=== PATIENT | female | born 1960 | race Caucasian/White ===

== ENCOUNTER → 2016-10-01 | Outpatient (CLI) | payer MEDICARE, MEDICAID ==
[~2016-10-01] MED LIST: ALBUTEROL2.5 MG/NEB IN; AZITHROMYCIN250 M1 PO; BUSPIRONE HCL10 MG PO; CARVEDILOL6.25 MG PO; CEFDINIR 300MG300 MG PO; CIPRO 500MG TA500 MG PO; CLINDAMYCIN300 MG PO; DUONEB 3 MG/3 ML3 ML IH; GABAPENTIN 600600 MG PO; HCTZ/LISINOPRIL1 TAB PO; HUMULIN 70100 UNITS/ SC; HYDROCODONE BIT1 T39 PO; HYDROCODONE1 TABLET PO; LASIX 80MG. TAB80 MG PO; LEVAQUIN 750 M750 MG PO; LEVAQUIN500 MG PO; LEVOFLOXACIN 5500 M1 PO; LISINOPRIL HCTZ1 TAB PO; LORTAB 5/500 501 TAB PO; LOVASTATIN20 MG PO; MEDROL 4MG. DOSE4 MG PO; METFORMIN500 MG PO; METOCLOPRAMIDE5 MG PO; NEURONTIN 100100 MG PO; NEURONTIN800 MG PO; NICODERM C21 MG/24 H TD; NICOTINE PATCH;21 MG TD; NORCO1 TAB PO; NOVOLOG MIX 70/10 ML SC; OMEPRAZOLE20 MG PO; OMNICEF 300 MG300 MG PO; PEPCID 20MG TAB20 MG PO; PREDNISONE 10MG10 MG PO; PREDNISONE 20MG20 MG PO; Prilosec20 MG PO; RANITIDINE HCL300 M1 PO; ROBITUSSIN DM 105 ML PO; SEROQUEL XR200 MG PO; SEROQUEL XR300 MG PO; SPIRIVA18 MCG IH; SYMBICORT1 AE1 IH; TOPAMAX100 MG PO; TOPAMAX50 MG PO; TRADJENTA5 MG PO; VENLAFAXINE H37.5 M2 PO; VENLAFAXINE H37.5 MG PO; XANAX 0.5MG TA0.5 MG PO; XANAX0.5 MG NG; XANAX0.5 MG PO; ZITHROMAX Z PA250 MG PO; ZOLOFT100 MG PO
[2016-10-01 17:16] LABS: AMPHETAMINES/METAMPHETAMINES NEGATIVE ng/mL (<1000)
--- NOTE | 2016-10-01 17:48 | RADIOLOGY REPORT PS360 ---
PROCEDURE: 2-D M-mode and color Doppler study INDICATIONS FOR THE TEST: Chest pain COPD+ Heart Murmur Tobacco Smoking+ Palpitations Fatigue Syncope Edema+ Hypertension+Diabetes Mellitus+ Rheumatic Fever SOB+GARCIA Obesity+Hyperlipidemia Family History HD Additional History LOOP RECORDER PATIENT INFORMATION HEIGHT: WEIGHT: GENDER: Female B/P: 2-D/M-MODE INTERPRETATION: 2-D MEASUREMENTS OBSERVED VALUES IN CMS Right Ventricular Dimension (RVDd) 1.8 Interventricular Septum (Thickness)(IVsd) 1.2 Left Ventricular Internal Dimensions(LVIDd) 5.2 Left Ventricular Posterior Wall (Thickness)(LVPWd) 1.1 Aortic Root 3.1 Aortic Cusp Separation 1.9 Left Atrial Dimensions (LAD) 3.9 2D 1. The left atrium is qualitatively mildly enlarged, the left ventricle is normal size, there is mild concentric left ventricular hypertrophy, visually estimated ejection fraction 55% with no obvious regional wall motion abnormality. Endocardial surface are somewhat poorly visualized. 2. The right-sided chambers are relatively normal size and function. 3. The aortic valve is minimally thickened and fibrosed there is no aortic stenosis. 4. The mitral and tricuspid valve restructure normal. 5. The pulmonic valve not well visualized. 6. No significant pericardial effusion noted. DOPPLER INTERROGATION: The Doppler interrogation of the aortic mitral and tricuspid valve reveals presence of trace mitral and tricuspid regurgitation, tricuspid regurgitant jet velocity insufficient for calculation of the right ventricular systolic pressure. Grade 1 diastolic dysfunction seen without Doppler evidence of raised left atrial pressure. CONCLUSION: 1. Mildly enlarged left atrium, normal left ventricular size, mild concentric left ventricular hypertrophy, visually estimated ejection fraction 55% with no obvious regional wall motion abnormality, grade 1 diastolic dysfunction, without Doppler evidence of raised left atrial pressure. 2. Trace mitral and tricuspid regurgitation 3. No significant pericardial effusion noted.
== END ==
LOC: LAB 12:18 → RT 12:18
PROVIDERS: Emergency Medicine
DX: I25.10 Atherosclerotic heart disease of native coronary artery without angina pectoris (principal); I10 Essential (primary) hypertension; R60.9 Edema, unspecified; N18.9 Chronic kidney disease, unspecified; Z79.899 Other long term (current) drug therapy

== ENCOUNTER 2016-12-14 15:40 | Emergency (ER) | payer MEDICARE, MEDICAID ==
[~2016-12-14] VITALS: Ht 165.1 cm; Wt 86.2 kg
[~2016-12-14 15:40] MED LIST changes: +DOXYCYCLINE HY100 M4 PO; +HUMULIN 70/30 KW3 ML SC; +PANTOPRAZOLE SO40 M1 PO; +PROAIR HFA0.09 MG/AC IH; +ZITHROMAX Z-PA250 M2 PO
--- NOTE | 2016-12-14 15:55 | Emergency Room Report ---
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 Clinical Suspician of Infection? Mental Status: Sepsis Risk: Have you (or family members/close friends) recently traveled outside the [place]? If Yes, where/when: Have you had exposure to infectious disease within the past month? TB? Other? Specify: Source patient, RN notes reviewed Exam Limitations no limitations Comment Pt comes to the ED stating she fell in her home at 8:30Am and landed on her left hip. She has been walking but comes to the ED now with worsening pain in left hip and down left leg. Pt appears to be very histrionic ALLERGIES Coded Allergies: Sulfa (Sulfonamide Antibiotics) (Mild, 12/07/16) celecoxib (From CELEBREX) (Mild, 12/07/16) tramadol (Mild, 12/07/16) Penicillins (I-RASH 07/10/16) aspirin (I-RASH 07/10/16) bupropion (07/10/16) citalopram (SKIN PEEL 07/10/16) codeine (07/25/16) duloxetine (07/10/16) erythromycin base (I-RASH 07/10/16) naproxen (07/10/16) pregabalin (07/10/16) terbutaline (SWELLS THROAT 07/10/16) Home Medications Active Scripts Prednisone (Prednisone 10MG) 10 MG PO DAILY #27 TAB Prov: 12/07/16 Doxycycline Hyclate (Vibramycin) 100 MG PO BID #20 CAP Prov: 12/07/16 Discontinued Scripts Azithromycin (Zithromax) 250 MG PO DAILY #4 TAB Prov: 12/07/16 DC: 12/07/16 0805 Reported Medications SERTRALINE HYDROCHLORIDE (Zoloft 100MG) 150 MG PO DAILY Buspirone Hcl (Buspirone 10MG) 15 MG PO TID Famotidine (Pepcid 20MG Tablet) 20 MG PO BID Topiramate (Topamax) 150 MG PO QHS Furosemide (Lasix 80MG) 80 MG PO BID Carvedilol (Carvedilol 6.25MG) 6.25 MG PO BID Lovastatin 10 MG PO DAILY Pantoprazole Sodium 40 MG PO DAILY #90 Albuterol Sulfate (Proair Hfa) 1 PUFF IH Q6HP PRN COPD #8 Quetiapine Fumarate (Seroquel Xr) 200 MG PO DAILY INSULIN NPH HUM/REG INSULIN HM (Humulin 70/30 Kwikpen) 3 ML SC BID #30 History Medical History General CAD? No Angina: Yes MA: No Hypertension? Yes Hyperlipidemia? No CHF? No DVT? No PE? No COPD? Yes Asthma? Yes Anemia? No GERD? Yes Gastric ulcers? Yes GI Bleed? No Hernia? Yes Thyroid Problems? No Hypothyroidism? No CVA? Yes Seizures? No Diabetes? Yes Insulin Dependent: Yes Insulin Pump: No Home FSBS? Yes Renal Insuffiency? No End Stage Renal Disease? No UTI? Yes Stones? Yes BPH? No GB Disease: Yes Nephritic Syndrome? No Asplenia? No Hepatitis? No Sickle Cell Disease? No Arthritis? Yes Migraines? Yes Cataracts? No Glaucoma? No MRSA? Yes HIV? No TB? No Anxiety? Yes Depression? Yes Cancer? Yes Site: CERVICAL CA More? No Immunization Hx DT/Tetanus Unknown Flu Refused Pneumonia Unknown Surgical Hx Previous Surgery?Y TUBAL LIGATION BOAZ [employer] APPENDECTOMY TONSILLECTOMY CYST REMOVAL RT.WRIST X2 TEETH REMOVAL HEART CATH Family History Family Hx Diabetes Yes CAD Yes Hypertension Yes Hyperlipidemia Yes Cancer Yes TB Yes Social History Smoking Hx Packs/day 1 1/2 - 2 Packs Alcohol Alcohol: No Review of Systems All Other Systems Reviewed and Negative Constitutional see HPI Musculoskeletal no symptoms reported Physical Exam Vital Signs Vital Signs Date Time Temp Pulse Resp B/P Pulse O2 O2 Flow FiO2 Ox Delivery Rate 12/14 1721 97.6 74 18 107/62 96 12/14 1630 72 18 108/62 98 12/14 1547 98.0 81 18 118/62 97 General Appearance normal appearance, mild distress Respiratory Status No: respiratory distress. 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 No Results/Orders Orders Procedure Date/time Status LUMBAR SPINE 5 VIEWS 12/14 161 Active HIP LT 2-3V W/PELVIS IF PERFOR 12/14 161 Active Departure Departure Time of Disposition 175 Disposition DC Home or Self Care(routine) Clinical Impression Primary Impression: Left hip pain Condition STABLE Referrals Arin GOODE,Alberto Stone (Family): 2 Days-Call Office Patient Instructions Help for Hip Pain Additional Instructions Alternate ice and heat and use whichever helps the most. If radiologist sees anything broken, I will give pt. a call tomorrow Discharge Counseling Counseled pt/family regarding diagnosis, test results, medications/RX, home care, follow up needs ED Critical Care Critical Care No If Critical Care minutes are documented, the time involved in the performance of seperately reportable procedures was not counted toward critical care time documented. I directly delivered medical care to this critically ill and/or injured patient. Timely evaluation and treatment was necessary to address the significant organ system(s) dysfunction present in this patient. at 1756
[2016-12-14 18:05] VITALS: BP 109/74
--- NOTE | 2016-12-14 18:07 | RADIOLOGY REPORT PS360 ---
LUMBAR SPINE 5 VIEWS Ordering Physician: Reece Matthews MD Patient Age: 56 years: Female HISTORY: fall with injurylow back pain TECHNIQUE: E lumbar spine series COMPARISON the recent MRI L-spine September [address] lumbar spine abdomen utilized as well FINDINGS Lumbar vertebral bodies themselves are intact with there is grade 1 anterolisthesis of L4 on 5 noted. 3 mm anterolisthesis appears mainly due to the prominent degenerative facet changes at L4/5. Degenerative facet changes are also seen at L3/4 and L5/S1 but not quite as pronounced. Mild Anterior marginal osteophytes of the spine.. There is slight decreased height is seen at T11 and T12 of this is similar to the September 2016 MRI. And recent chest film. Postsurgical changes in the pelvis. Diffuse atherosclerotic calcification aorta but no aneurysm. IMPRESSION: ...... No no L-spine new or acute findings Prominent degenerative facet changes at the lower L-spine. With this there is mild grade 1 degenerative anterolisthesis of L4 on L5 due to the prominent facet changes and mild degenerative disc space narrowing. There is also less pronounced facet hypertrophy at L3/4 and L5/S1. (Note Recent September MRI lumbar did show moderate spinal stenosis at L3/4 follow-up L4/5/.) Very Subtle slight decreased height T11 and T12 of similar to several previous studies age situated oblique by projection. T spine.
--- NOTE | 2016-12-14 18:11 | RADIOLOGY REPORT PS360 ---
HIP LT 2-3V W/PELVIS IF PERFOR Ordering Physician: Reece Matthews MD Patient Age: 56 years: Female HISTORY: fall with injuryhip pain left pelvic pain TECHNIQUE: AP and crosstable lateral view left hip along with AP pelvis. COMPARISON. Plain films abdomen from October 2009. CT abdomen 11/08/2009 FINDINGS . There is a corticated fragment off the superior/ posterior aspect the left acetabulum which is old and is been present since 2010 comparison studies. Significant change. No acute fracture. The no acute findings at the left femoral head or neck proximal femur. The patient does demonstrate some generous hypertrophic changes about the superior base of the femoral head. There there is also some dystrophic calcification just superior to the greater trochanter. Osseous pelvis is intact. The right hip intact on the AP view. SI joints sacrum unremarkable. Postsurgical changes pelvis. Bones well mineralized IMPRESSION 1. Stable left hip. With no acute findings Osseous pelvis intact. Unchanged as well. 2. Old fragment at the superior, posterior acetabulum unchanged 2009 comparison studies. 3. Hypertrophic changes about the base of femoral head most evident superiorly.
--- OUTSIDE RECORDS SUMMARY | 2016-12-15 23:22 | External Medical Summary Rpt ---
Author Author , Organization [employer] Address Unknown Phone Unavailable Care Team Providers Care Licensing Worker Name Role Phone Akeneo, Unavailable Unavailable Akeneo ALFARIS MOH, ALFARIS Unavailable Unavailable MOH [facility] Unavailable Unavailable [facility], [facility] Unavailable Unavailable [facility], [facility] GRAYSON JOSIANE, GRAYSON JOSIANE Unavailable Unavailable GRANT BRO, GRANT Unavailable Unavailable BRO BEINEKE MIGUEL, BEINEKE Unavailable Unavailable MIGUEL BERNERT, BERNERT Unavailable Unavailable BESSON CRISTIANO, BESSON Unavailable Unavailable CRISTIANO SNYDER, SNYDER Unavailable Unavailable SNYDER ALL, SNYDER ALL Unavailable Unavailable NATHANIEL, NATHANIEL Unavailable Unavailable [facility] Unavailable Unavailable SERVICE, [facility] CHINA DORIS, CHINA Unavailable Unavailable DORIS [facility] Unavailable Unavailable REHABILITATION, [facility] Unavailable Unavailable [facility] Unavailable Unavailable [facility], Unavailable Unavailable [facility] JESUS, JESUS Unavailable Unavailable NILA, NILA Unavailable Unavailable NILA IZABEL, Unavailable Unavailable NILA IZABEL [facility] Unavailable [facility], [facility] RILEY, RILEY Unavailable Unavailable RILEY KIN, RILEY KIN Unavailable Unavailable ERLANDSON, ERLANDSON Unavailable Unavailable FALLIS ML, FALLIS Unavailable Unavailable ML FALLUJI RUTH, FALLUJI Unavailable Unavailable RUTH ELDER, ELDER Unavailable Unavailable ELDER MANUELA, ELDER Unavailable Unavailable MANUELA VERNOIKA GUSTAVO, VERONIKA Unavailable Unavailable GUSTAVO [facility], Unavailable Unavailable [facility] Unavailable Unavailable INC, [facility] Unavailable Unavailable HOSPITAL P, [facility] P FIELDS FR[facility], [facility] Unavailable Unavailable [facility], Unavailable Unavailable [facility] MARSHALL CRISTIANO, MARSHALL CRISTIANO Unavailable Unavailable MARCUS III, MARCUS Unavailable Unavailable III [facility] Un[facility], [facility] Un[facility], [facility] PARKER LUCY, PARKER LUCY Unavailable Unavailable [facility] VIDALES CRISTIANO, VIDALES CRISTIANO Unavailable Unavailable CHAD JR DWI, CHAD Unavailable Unavailable JR DWI [facility] Unavailable Unavailable INTERNAL MED, [facility] ROHAN, JR., ROHAN, JR. Unavailable Unavailable [facility] Unavailable Unavailable SERVICES, [facility] PHAN, CHISHOLM Unavailable Unavailable MCKEMIE JR MARIA ELENA, Unavailable Unavailable MCKEMIE JR MARIA ELENA FUENTES-GARCIA HERI, Unavailable Unavailable FUENTES-GARCIA HERI [facility], Unavailable Unavailable PLL[facility], [facility] ANDRES LOPEZ, Unavailable Unavailable ANDRES LOPEZ [facility], Unavailable Unavailable [facility] Unavailable Unavailable AMBULANCE, [facility] Unavailable Unavailable AMBULANCE, [facility] SADEK MOH, SADEK MOH Unavailable Unavailable SCHLEENBAKER, Unavailable Unavailable SCHLEENBAKER SCIFRES, SCIFRES Unavailable Unavailable SCIFRES ANG, SCIFRES Unavailable Unavailable ANG [facility], Unavailable Unavailable [facility] LINA MAT, Unavailable Unavailable LINA MAT REYNOSO HERMINIA, REYNOSO HERMINIA Unavailable Unavailable [facility] Unavailable Unavailable [facility], [facility] Unavailable Unavailable [facility], [facility] SOTINGEANU MIGUEL, Unavailable Unavailable SOTINGEANU MIGUEL [facility] Unavailable Unavailable EMERGENCY PHYS, [facility] Juan Manuel Noonan MD, Unavailable Unavailable Juan Manuel Noonan MD PENA MANUELA, PENA Unavailable Unavailable MANUELA TRUE RAE, TRUE RAE Unavailable Unavailable [facility] Unavailable Unavailable HOSPITALS, [facility] Klever Griffin MD, Unavailable Unavailable Klever Griffin MD [facility] Unavailable Unavailable [facility], [facility] WEHRMAN III MARIA ELENA, Unavailable Unavailable WEHRMAN III MARIA ELENA [facility] Unavailable [facility]available [facility], Unavailable [facility]available [facility] ZAGUROVSKAYA MAR, Unavailable Unavailable ZAGUROVSKAYA MAR Purpose Continuity of Care Document - 04-13-2012 through 2016 Problems Code Diagnosis DOS Provider Status [id number] 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-08-2016 [facility] BILATERAL J449 CHRONIC 11-02-2016 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 MEDICAL DISEASE UNS EQUIPME E119 TYPE 2 10-30-[address] [facility] DIABETES PHYSICIANS MELLITUS GROUP WITHOUT COMPLICATIO NS I10 ESSENTIAL 10-30-[address] [facility] PRIMARY PHYSICIANS HYPERTENSIO GROUP N M549 DORSALGIA 10-30-[address] [facility] UNSPECIFIED PHYSICIANS GROUP N289 DISORDER OF 10-30-2016 [facility] URETER INC UNSPECIFIED R0602 SHORTNESS 10-30-2016 [facility] OF BREATH [facility] INC [id number] OTHER LONG 10-30-[address] 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 NOT PHYSICIANS SPECIFIED GROUP ACUTE OR CHRONIC E663 OVERWEIGHT 10-01-[address] [facility] PHYSICIANS GROUP L0390 CELLULITIS 10-01-[address] [facility] UNSPECIFIED PHYSICIANS GROUP R609 EDEMA 10-01-2016 [facility]NSPECIFIED [facility] INC E118 TYPE 2 09-25-2016 [facility] DIABETES [facility] MELLITUS INC W/UNS COMPLICATIO NS M4316 SPONDYLOLIS 09-23-2016 [facility] REGION M4806 SPINAL 09-23-2016 [facility] STENOSIS [facility]ICAL LUMBAR IMAGING ASS REGION M5126 OTH 09-23-2016 [facility] 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 M545 LOW BACK 09-23-2016 [facility] PAIN [facility] R300 DYSURIA 08-26-[address] [facility]ANS [facility] G894 CHRONIC 08-13-2016 [facility] SYNDROME [facility] M792 NEURALGIA 08-13-2016 [facility] NEURITIS [facility] UNSPECIFIED N179 ACUTE 08-13-2016 [facility] FAILURE [facility] UNSPECIFIED R2689 OTHER 08-13-2016 [facility] ABNORMALITI SERV ES OF GAIT FOUNDATION AND MOBILITY R5381 OTHER 08-13-2016 [facility] MALAISE [facility] M97308 PAIN IN 08-12-2016 [facility] RIGHT LEG SERV [facility] M7989 OTHER 08-12-2016 [facility] SPECIFIED SERV SOFT TISSUE FOUNDATION DISORDERS R279 UNSPECIFIED 08-12-2016 [facility] OF AMBULANCE COORDINATIO N R52 PAIN 08-11-2016 [facility] UNSPECIF[facility]ICAL RESPONSE Z794 LONG-TERM 08-08-2016 [place] [facility] OF INSULIN [facility] M542 CERVICALGIA 08-05-2016 [facility] E1165 TYPE 2 08-01-2016 [facility] [place] [place] MELLITUS REHAB[place]IT[place]YCEM [place] G9341 METABOLIC 08-01-2016 [facility] ENCEPHALOPA SERV THY [facility]ATION I129 HYPERTENSIV 08-01-2016 [facility] E CKD SERV W/STAGE 1-4 FOUNDATION CKD OR UNS CKD I130 HTN HEART & 08-01-2016 [facility] CKD W/HF & [place]ILL CKD STAGE REHABILITAT 1-4 OR UNS ION CKD I509 HEART 08-01-2016 [facility] FAILURE [facility] UNSPECIFIED REHABILITAT ION I959 HYPOTENSION 08-01-2016 [facility] UNSPECIFIED F[facility]ATION J9610 CHRONIC 08-01-2016 [facility]PIRATORY SERV FAIL UNS FOUNDATION HYPOXIA/HYP ERCAPNIA K219 GASTRO-ESOP 08-01-2016 [facility] H REFLUX [place] DISEASE REHABILITAT WITHOUT ION ESOPHAGITIS R571 HYPOVOLEMIC 08-01-2016 [facility] SHOCK SERV [facility] I499 CARDIAC 07-31-2016 [facility] ARRHYTHMIA SERV UNSPECIFIED FOUNDATION J9620 ACUTE 07-31-2016 [facility] CHRONIC SERV RESP FAIL FOUNDATION UNS HYPOXIA/HYP ERCAPNIA A419 SEPSIS 07-29-2016 [facility] UNSPECIFIED SERV ORGANISM FOUNDATION I491 ATRIAL 07-29-2016 [facility] PREMATURE [facility] DEPOLARIZAT FOUNDATION ION R000 TACHYCARDIA 07-29-2016 [facility] UNSPECIFIED FOUNDATION R6521 SEVERE 07-29-2016 [facility] SEPS[facility] WITH SERV SEPTIC [facility] SHOCK R9431 ABNORMAL 07-29-2016 [facility] ELECTROCARD SERV IOGRAM [facility] A047 ENTEROCOLIT 07-27-2016 [facility] IS DUE TO SERV CLOSTRIDIUM FOUNDATION DIFFICILE E1122 TYPE 2 07-26-2016 [facility]ALS W/DIAB CHRON KIDNEY DZ E872 ACIDOSIS 07-26-2016 [facility] G9340 ENCEPHALOPA 07-26-2016 [facility] THY SERV UNSPECIFIED FOUNDATION I348 OTHER 07-26-2016 [facility] 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 I5020 UNSPECIFIED 07-26-2016 [facility] SYSTOLIC SERV CONGESTIVE FOUNDATION HEART FAILURE I517 CARDIOMEGAL 07-26-2016 [facility] Y SERV [facility] J9621 ACUTE & 07-26-2016 [facility] RESPIRATORY HOSPITALS FAILURE WITH HYPOXIA J9690 RESP FAIL 07-26-2016 [facility] UNS UNS SERV WHETHER [facility]OUND[facility] W/HYPOXIA/H YPERCAPNIA N170 ACUTE RENAL 07-26-2016 [facility]ARE WITH HOSPITALS TUBULAR NECROSIS R109 UNSPECIFIED 07-26-2016 [facility] ABDOMINAL SERV PAIN [facility] R918 OTHER 07-26-2016 [facility] NONSPECIFIC SERV ABNORMAL FOUNDATION FINDING OF LUNG FIELD Z452 ENCOUNTER 07-26-2016 [facility]JUSTMENT& SERV MGMT [facility] VASCULAR ACCESS DEVICE U01872 ELEVATED 07-25-2016 [facility] WHITE BLOOD [facility], CELL COUNT PLLC UNSPECIFIED R34 ANURIA AND 07-25-2016 [facility] OLIGURIA [facility], PLLC Z720 TOBACCO USE 07-25-2016 [facility] R0782 INTERCOSTAL 07-15-2016 [facility] R0789 OTHER CHEST 07-15-2016 [facility] [id number] CONTUSION 07-15-[address] [facility] RT FRONT PHYSICIANS WALL THORAX GROUP INITIAL ENCOUNTER C5905VN MULTIPLE FX 07-15-[address] [facility] RIBS UNS PHYSICIANS SIDE INIT GROUP ENC CLOS FRACTURE A05601 PAIN IN 07-10-2016 [facility] RIGHT UPPER MEDICAL ARM IMAGING ASS R0781 PLEURODYNIA 07-10-2016 [facility] [id number] CONTUSION 07-10-2016 [facility] U[facility] FRONT PHYSICIANS, WALL THORAX PLLC INITIAL ENCNTR N1336CD UNS INJURY 07-10-2016 [facility] RT SHOULDER MEDICAL UPPER ARM IMAGING ASS INITIAL ENCNTR N3000 ACUTE 06-28-[address] [facility] CYSTITIS PHYSICIANS WITHOUT GROUP HEMATURIA Z23 ENCOUNTER 06-28-[address] [facility] FOR PHYSICIANS IMMUNIZATIO GROUP N C08378 CHRONIC 05-13-[address] [facility] MIGRAINE PHYSICIANS W/O AURA GROUP INTRACT W/O STAT MIGR P97669 OTH 05-13-[address] [facility] MIGRAINE PHYSICIANS NOT INTRACT GROUP W/O STATUS MIGRAINOSUS G629 POLYNEUROPA 04-29-[address] [facility] THY PHYSICIANS UNSPECIFIED GROUP H6690 OTITIS 04-22-2016 [facility] P UNSPECIFIED EAR J209 ACUTE 04-22-2016 [facility] BRONCHITIS PHYSICIANS, UNSPECIFIED PLLC J441 CHRONIC 04-22-2016 [facility] OBSTRUCTIVE PHYSICIANS, PULMONARY PLLC DZ W/EXACERBAT ION Z9981 DEPENDENCE 04-22-2016 [facility] P L OXYGEN R002 PALPITATION 04-17-2016 [facility] S [facility] INC R1310 DYSPHAGIA 04-17-2016 [facility] UNSPECIFIED [facility] INC R42 DIZZINESS 04-17-2016 [facility] AND [facility] GIDDINESS INC R4702 DYSPHASIA 04-17-2016 [facility] R55 SYNCOPE AND 04-17-2016 [facility] COLLAPSE [facility] INC E875 HYPERKALEMI 04-03-2016 [facility] A [facility] INC I159 SECONDARY 04-03-2016 [facility] HYPERTENSIO [facility] N INC UNSPECIFIED J440 COPD WITH 04-03-2016 [facility] ACUTE LOWER [facility] INC RESPIRATORY INFECTION R062 WHEEZING 04-02-2016 [facility] R079 CHEST PAIN 04-02-2016 [facility] UNSPECIFIED [facility]ICAL IMAGING ASS 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 12-21-2015 [facility] IDIOPATHIC NEUROPATHY UNSPECIFIED E1141 TYPE 2 12-14-2015 [facility] DIABETES MELLITUS W/DIAB MONONEUROPA THY I739 PERIPHERAL 12-14-2015 [facility] VASCULAR DISEASE UNSPECIFIED I890 LYMPHEDEMA 12-14-2015 [facility] NOT ELSEWHERE CLASSIFIED M2570 OSTEOPHYTE 12-14-2015 [facility] UNSPECIFIED JOINT 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 FIBROMATOSI S R42547 PAIN IN 12-14-2015 [facility] RIGHT FOOT U55890 PAIN IN LEG 12-05-2015 [facility] UNSPECIFIED INC M779 ENTHESOPATH 11-30-2015 [facility] Y [facility] UNSPECIFIED INC G4733 OBSTRUCTIVE 11-09-2015 [facility] SLEEP [facility] APNEA ADULT INC PEDIATRIC H3500 UNSPECIFIED 11-03-2015 [facility] RETINOPATHY I119 HYPERTENSIV 10-31-[address] [facility] E HEART PHYSICIANS DISEASE GROUP WITHOUT HEART FAILURE I209 ANGINA 10-31-[address] [facility] PECTORIS PHYSICIANS UNSPECIFIED GROUP W61404 PAIN IN 10-24-2015 [facility] LEFT THIGH MEDICAL IMAGING ASS R1032 LEFT LOWER 10-24-2015 [facility] QUADRANT [facility] PAIN INC E785 HYPERLIPIDE 10-12-2015 [facility] MEDICAL UNSPECIFIED IMAGING ASS I5189 OTHER 10-12-2015 [facility] ILL-DEFINED [facility] HEART INC DISEASES I779 DISORDER OF 10-12-2015 [facility] ARTERIES [facility] AND INC ARTERIOLES UNSPECIFIED R0989 OT SPEC SX 10-12-2015 [facility] & SIGNS MEDICAL INVLV THE IMAGING ASS CIRC & RESP SYS D02177 PERSONAL 10-03-[address] [facility] HISTORY OF PHYSICIANS NICOTINE GROUP DEPENDENCE D70492 PAIN IN 09-21-2015 [facility] LEFT FOOT M7732 CALCANEAL 09-19-2015 [facility] SPUR LEFT MEDICAL FOOT IMAGING ASS J432 CENTRILOBUL 09-16-2015 [facility]ICAL EMPHYSEMA IMAGING ASS F16987 UNSPECIFIED 09-16-[address] [facility] ASTHMA PHYSICIANS UNCOMPLICAT GROUP ED R05 COUGH 09-13-2015 [facility] Z131 ENCOUNTER 09-06-2015 [facility] FOR [facility] SCREENING INC FOR DIABETES MELLITUS Z5181 ENCOUNTER 08-21-2015 [facility] FOR [facility] THERAPEUTIC INC DRUG LEVEL MONITORING A084 VIRAL 07-24-2015 [facility] INFECTION INTERNAL UNSPECIFIED MED 496 CHRONIC 05-05-2015 [facility] MEDICAL NEC EQUIPME 98157 DIAB W/O 03-08-2015 [facility] COMP TYPE VALLEY II/UNS NOT INTERNAL STATED MED UNCNTRL 2724 OTHER AND 03-08-2015 [facility] UNSPECIFIED VALLEY INTERNAL HYPERLIPIDE MED JESSICA 45671 ESOPHAGEAL 03-08-2015 [facility] REFLUX [facility] INTERNAL MED 7804 DIZZINESS 03-08-2015 [facility] AND [facility]LEY GIDDINESS INTERNAL MED 35181 DIAB 11-28-2014 [facility] W/NEURO VALLEY MANIFESTS INTERNAL TYPE II/UNS MED NOT UNCNTRL 64864 OBSTRUCTIVE 11-28-2014 [facility] CHRONIC [facility] BRONCHITIS INTERNAL WITH MED EXACERBATIO N 4439 UNSPECIFIED 11-01-2014 [facility] PERIPHERAL HEALTH VASCULAR MEDICAL G DISEASE 14800 ULCER OF 11-01-2014 [facility] OTHER PART [facility]ICAL G [place] 3572 POLYNEUROPA 10-13-2014 [facility] THY IN [facility] DIABETES INC 7295 PAIN IN 10-13-2014 [facility] SOFT [facility] TISSUES OF INC LIMB 4019 UNSPECIFIED 08-25-2014 [facility] ESSENTIAL [facility] HYPERTENSIO INC N 4139 OTHER AND 08-25-2014 [facility] UNSPECIFIED [facility] ANGINA INC PECTORIS 515 POSTINFLAMM 08-25-2014 [facility] ATORY [facility] PULMONARY INC FIBROSIS V1204 PERSONAL HX 08-25-2014 [facility] OF [facility] METHICILLIN INC RESIST STAPH AUREUS V148 PERSONAL 08-25-2014 [facility] HISTORY [facility] ALLERGY OTH INC SPEC MEDICINAL AGTS V5867 LONG-TERM 08-25-2014 [facility] USE OF [facility] INSULIN INC 7862 COUGH 08-23-2014 [facility] 31194 DIAB W/O 07-29-2014 CLINIC COMP TYPE I PHARMACY [JUV] NOT STATED UNCNTRL 7245 UNSPECIFIED 07-22-2014 [facility] BACKACHE [facility] INC V571 OTHER 07-22-2014 [facility] PHYSICAL [facility] THERAPY INC 7213 LUMBOSACRAL 06-28-2014 [facility] SPONDYLOSIS IMAGING ASS WITHOUT MYELOPATHY 90753 DISPLCMT 06-28-2014 [facility] LUMBAR MEDICAL INTERVERT IMAGING ASS DISC W/O MYELOPATHY 57521 DEGEN 06-28-2014 [facility] 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 7243 SCIATICA 06-28-2014 [facility] INC 7242 LUMBAGO 06-21-2014 [facility] 60461 CHEST PAIN 04-01-2014 [facility] U[facility]PECIFIED SERV FOUNDATIO 26495 UNSPECIFIED 01-03-2014 [facility] RETINOPATHY 7823 EDEMA 09-17-2013 [facility] 4293 CARDIOMEGAL 09-15-2013 [facility] Y [facility] 24053 CHRONIC 09-15-2013 [facility] P WITH EXACERBATIO N 84169 OTHER 09-15-2013 [facility] DISEASES OF MEDICAL LUNG NOT IMAGING ASS ELSEWHERE CLASSIFIED 03177 WHEEZING 05-02-2013 [facility] 7812 ABNORMALITY 01-29-2013 [facility] OF GAIT [facility] INC 486 PNEUMONIA, 12-14-2012 [facility] ORGANISM [facility] UNSPECIFIED INTERNAL MED 76293 METHICILLIN 12-03-2012 [facility] RESISTANT [place] STAPHYLOCOC INTERNAL CUS AUREUS MED 4660 ACUTE 12-03-2012 [facility] BRONCHITIS [place] INTERNAL MED 98119 ASTHMA, 12-03-2012 [facility] UNSPECIFIED VALLEY , INTERNAL UNSPECIFIED MED STATUS 09171 METHICILLIN 12-01-2012 [facility] PNEUMONIA HOSPITAL P D/T STAPH AUREUS 25462 OTHER 12-01-2012 [facility] DYSPNEA [facility] RESPIRATORY ABNORMALITI ES 485 BRONCHOPNEU 08-27-2012 [facility] [place] [facility] ORGANISM INTERNAL UNSPECIFIED MED 03811 OTHER 08-25-2012 [facility] NONSPECIFIC MEDICAL ABNORMAL IMAGING ASS FINDING OF LUNG FIELD V0481 NEED 06-05-2012 [facility] PROPHYLACTI [place] C INTERNAL VACCINATION MED &INOCULATIO N FLU 86523 DIAB W/O 04-13-2012 [facility] MENTION [facility] COMP TYPE I HOSPITAL P [JUV TYPE] UNCNTRL 30309 ABDOMINAL 04-13-2012 [facility] PAIN, [facility] EPIGASTRIC [facility] P [id number] Acute [place] asthma [facility] [id number] Diabetes [place] mellitus [facility] 2 [facility] [id number] Active [facility] [id number] Chronic [facility] D72.829 ELEVATED WHITE BLOOD CELL COUNT, UNSPECIFIED E11.9 TYPE 2 DIABETES MELLITUS WITHOUT COMPLICATIO NS E86.0 DEHYDRATION E87.5 HYPERKALEMI A I73.9 PERIPHERAL VASCULAR DISEASE, UNSPECIFIED J20.9 ACUTE BRONCHITIS, UNSPECIFIED J40 BRONCHITIS, NOT SPECIFIED ACUTE OR CHRONIC J44.1 CHRONIC OBSTRUCTIVE PULMONARY DISEASE W (ACUTE) EXACERBATIO N J44.9 CHRONIC OBSTRUCTIVE PULMONARY DISEASE, UNSPECIFIED M25.552 PAIN IN LEFT HIP M54.5 LOW BACK PAIN M54.9 DORSALGIA, UNSPECIFIED N17.9 ACUTE KIDNEY FAILURE, UNSPECIFIED N28.9 DISORDER OF KIDNEY AND URETER, UNSPECIFIED R06.00 DYSPNEA, UNSPECIFIED R07.89 OTHER CHEST PAIN R19.7 DIARRHEA, UNSPECIFIED R30.0 DYSURIA R34 ANURIA AND OLIGURIA R73.9 HYPERGLYCEM IA, UNSPECIFIED T14.8 OTHER INJURY OF UNSPECIFIED BODY REGION Z79.891 LONG-TERM (CURRENT) USE OF OPIATE ANALGESIC Z79.899 OTHER LONG-TERM (CURRENT) DRUG THERAPY Allergies, Adverse Reactions, Alerts Type Drug Allergy Adverse Reaction to Substance Substance Reaction Severity PCN (penicillin) I-RASH Intermediate Aspirin I-HIVES Mild Naproxen NA-NAUSEA (TOLERATED Mild IBUPROFEN) Erythromycin I-RASH Intermediate Codeine NA-NAUSEA Mild Propoxyphene NA-NAUSEA Mild Terbutaline I-OJPIKP-WYKQ/THROAT Severe Penicillin G Procaine I-RASH Intermediate Bupropion NA-NAUSEA Mild Citalopram SKIN PEEL Mild Duloxetine Unknown Unknown Pregabalin NA-NAUSEA Mild Clinical Alert Notifications Alert Member has >/= 3 hosp admit & >/= 1 ED visit in 365 days Medications Na ND Rx Da Fi Fi Am Da Di Ph RX Ph St me C No te ll ll ou ys ag ar # ys at rm s nt no ma ic us Or Da si cy ia de te s n re d SD 00 01 1 No ED 05 -3 NI 40 1- Lo SO 01 20 ng NE 82 14 er 0 20 Ac ti MG ve TA BL ET NO 00 01 2 No VO 16 -3 LO 93 0- Lo G 69 20 ng IN 61 14 er X 9 70 Ac -3 ti 0 ve FL EX PE N SY RN LI 68 01 2 No SI 18 -3 NO 00 0- Lo SD 51 20 ng IL 80 14 er -H 1 CT Ac Z ti 10 ve -1 2. 5 MG TA B SE 59 01 2 No RT 76 -3 RA 24 0- Lo LI 91 20 ng NE 00 14 er 3 HC Ac L ti 10 ve 0 MG TA BL ET AZ 00 01 2 No IT 40 -2 HR 90 9- Lo OM 14 20 ng YC 41 14 er IN 1 Ac I. ti V. ve 50 0 MG AL IN 00 01 3 No VA 00 -2 NZ 63 9- Lo 1 84 20 ng 57 14 er GM 1 Ac AD ti D- ve VA NT AG E AL SO 00 01 3 No DI 40 -2 UM 97 9- Lo 98 20 ng CH 30 14 er LO 9 RI Ac DE ti ve 0. 9% SO CANDACE TI ON LO 00 01 3 No VE 07 -2 NO 50 9- Lo X 62 20 ng 40 04 14 er 1 MG Ac /0 ti .4 ve ML SY RI NG E SO 00 01 2 No CANDACE 00 -2 -M 90 9- Lo ED 04 20 ng RO 72 14 er L 2 12 Ac 5 ti MG ve AL MA 00 01 3 No PA 90 -2 P 41 9- Lo 32 98 20 ng 5 26 14 er MG 1 Ac TA ti BL ve ET IP 00 01 3 No RA 48 -2 T- 70 9- Lo AL 20 20 ng BU 10 14 er T 1 0. Ac 5- ti 3( ve 2. 5) MG /3 ML 00 01 3 No AI 12 -2 FE 10 9- Lo NE 63 20 ng SI 81 14 er N 0 DM Ac ti SY ve RU P HY [address] 40 -2 OC 60 9- Lo OD 36 20 ng ON 66 14 er -A 2 CE Ac TA ti IN ve NO PH 7. 5- 32 5 TO 50 01 3 No PA 45 -2 MA 80 9- Lo X 63 20 ng 25 96 14 er 5 MG Ac ti TA ve BL ET FA 51 01 3 No MO 07 -2 TI 90 9- Lo DI 96 20 ng NE 62 14 er 0 20 Ac ti MG ve TA BL ET FS 01 3 No -2 BL 9- Lo OO 20 ng D 14 er SCHROEDER GA Ac R ti ve BU 51 01 3 No SP 07 -2 IR 90 9- Lo ON 98 20 ng E 62 14 er HC 0 L Ac 10 ti ve MG TA BL ET Qu 00 01 3 No et 31 -2 ia 00 9- Lo pi 27 20 ng ne 13 14 er 9 10 Ac 0M ti G ve Ta bl et HU 00 01 3 No MA 00 -2 LO 27 9- Lo G 51 20 ng 10 01 14 er 0 7 UN Ac IT ti S/ ve ML AL PA 01 3 No TI -2 EN 9- Lo T' 20 ng S 14 er OW N Ac HO ti ME ve ME DS AD 00 09 0 No VA 17 -2 IR 30 0- Lo 69 20 ng 25 60 13 er 0- 4 50 Ac ti DI ve SK US NO 00 09 0 No VO 16 -1 LO 93 9- Lo G 69 20 ng IN 61 13 er X 9 70 Ac -3 ti 0 ve FL EX PE N SY RN SD 00 09 1 No ED 05 -1 NI 40 9- Lo SO 01 20 ng NE 82 13 er 0 20 Ac ti MG ve TA BL ET FS 09 1 No -1 BL 9- Lo OO 20 ng D 13 er SCHROEDER [place] Ac R ti ve LI 68 09 3 No SI 18 -1 NO 00 7- Lo SD 51 20 ng IL 80 13 er -H 1 CT Ac Z ti 10 ve -1 2. 5 MG TA B SE 59 09 3 No RT 76 -1 RA 24 7- Lo LI 91 20 ng NE 00 13 er 3 HC Ac L ti 10 ve 0 MG TA BL ET AC 00 09 3 No ET 57 -1 YL 40 7- Lo CY [address] 50 13 er EI 0A NE Ac ti 20 ve % 1M L SY R (R T AC 00 09 3 No ET 57 -1 YL 40 7- Lo CY [address] 50 13 er EI 0A NE Ac ti 20 ve % 1M L SY R (R T SO 00 09 3 No DI 40 -1 UM 97 7- Lo 98 20 ng CH 30 13 er LO 9 RI Ac DE ti ve 0. 9% SO CANDACE TI ON Ib 62 09 4 No up 58 -1 ro 40 6- Lo fe 74 20 ng n 60 13 er 40 1 0M Ac G ti Ta ve bl et LE 68 09 3 No VO 08 -1 FL 40 6- Lo OX 48 20 ng AC 30 13 er IN 1 Ac 75 ti 0 ve MG TA BL ET Qu 00 09 4 No et 31 -1 ia 00 6- Lo pi 27 20 ng ne 13 13 er 9 10 Ac 0M ti G ve Ta bl et Ib 62 09 4 No up 58 -1 ro 40 6- Lo fe 74 20 ng n 60 13 er 40 1 0M Ac G ti Ta ve bl et SO 00 09 3 No CANDACE 00 -1 -M 90 6- Lo ED 03 20 ng RO 92 13 er L 8 40 Ac ti MG ve AL HY [address] 40 -1 OC 60 6- Lo OD 36 20 ng ON 66 13 er -A 2 CE Ac TA ti IN ve NO PH 7. 5- 32 5 00 09 4 No AI 12 -1 FE 10 6- Lo NE 63 20 ng SI 81 13 er N 0 DM Ac ti SY ve RU P TO 50 09 4 No PA 45 -1 MA 80 6- Lo X 63 20 ng 25 96 13 er 5 MG Ac ti TA ve BL ET Qu 00 09 4 No et 31 -1 ia 00 6- Lo pi 27 20 ng ne 13 13 er 9 10 Ac 0M ti G ve Ta bl et BU 51 09 4 No SP 07 -1 IR 90 6- Lo ON 98 20 ng E 62 13 er HC 0 L Ac 10 ti ve MG TA BL ET Sa 63 09 1 No li 80 -1 ne 70 5- Lo 10 20 ng Fl 07 13 er us 5 h Ac 10 ti ML ve Sy ri ng e IP 00 09 0 No RA 48 -1 T- 70 5- Lo AL 20 20 ng BU 10 13 er T 1 0. Ac 5- ti 3( ve 2. 5) MG /3 ML Sa 63 09 1 No li 80 -1 ne 70 5- Lo 10 20 ng Fl 07 13 er us 5 h Ac 10 ti ML ve Sy ri ng e SO 00 09 0 No CANDACE 00 -1 -M 90 5- Lo ED 04 20 ng RO 72 13 er L 2 12 Ac 5 ti MG ve AL LO 00 09 5 No VE 07 -1 NO 50 5- Lo X 62 20 ng 40 04 13 er 1 MG Ac /0 ti .4 ve ML SY RI NG E LE 68 09 1 No VO 08 -1 FL 40 5- Lo OX 48 20 ng AC 30 13 er IN 1 Ac 75 ti 0 ve MG TA BL ET PA 51 09 5 No NT 07 -1 OP 90 5- Lo RA 05 20 ng ZO 12 13 er LE 0 Ac SO ti D ve DR 40 MG TA B MA 00 09 5 No PA 90 -1 P 41 5- Lo 32 98 20 ng 5 26 13 er MG 1 Ac TA ti BL ve ET HU 00 09 4 No MA 00 -1 LO 27 5- Lo G 51 20 ng 10 01 13 er 0 7 UN Ac IT ti S/ ve ML AL FS 09 4 No -1 BL 5- Lo OO 20 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 9% 10 0M L Ad v SD 00 04 2 No ED 05 -2 NI 40 0- Lo SO 01 20 ng NE 82 13 er 0 20 Ac ti MG ve TA BL ET CL 00 04 0 No IN 40 -1 DA 94 9- Lo MY 05 20 ng CI 40 13 er N 3 15 Ac 0 ti MG ve /M L AD DV AN So 00 04 0 No di 07 -1 um 47 9- Lo 10 20 ng Ch 12 13 er lo 3 ri Ac de ti ve 0. 9% 10 0M L Ad v AZ 68 04 0 No IT 08 -1 HR 40 9- Lo OM 27 20 ng YC 80 13 er IN 1 Ac 25 ti 0 ve MG TA BL ET LI 68 04 3 No SI 18 -1 NO 00 9- Lo SD 51 20 ng IL 80 13 er -H 1 CT Ac Z ti 10 ve -1 2. 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 ti V. ve 50 0 MG AL SO 00 04 1 No DI 40 -1 UM 97 7- Lo 10 20 ng CH 10 13 er LO 2 RI Ac DE ti ve 0. 9% SO LN CE 00 04 5 No FT 40 -1 RI 97 7- Lo AX 33 20 ng ON 30 13 er E 4 1 Ac GM ti ve AL So 00 04 5 No d 07 -1 Ch 47 7- Lo lo 10 20 ng ri 11 13 er de 3 Ac 0. ti 9% ve 50 ML Ad v AL 00 04 5 No BU 48 -1 TE 79 7- Lo RO 50 20 ng L 10 13 er SCHROEDER 1 L Ac 2. ti 5 ve MG /3 [address] FS 04 1 No -1 BL 7- Lo OO 20 ng D 13 er SCHROEDER GA Ac R ti ve HU 00 04 1 No MA 00 -1 LO 27 7- Lo G 51 20 ng 10 01 13 er 0 7 UN Ac IT ti S/ ve ML AL GA 68 04 5 No BA 08 -1 PE 40 7- Lo NT 59 20 ng IN 46 13 er 5 10 Ac 0 ti MG ve CA PS UL E FA 51 04 5 No MO 07 -1 TI 90 7- Lo DI 96 20 ng NE 62 13 er 0 20 Ac ti MG ve TA BL ET SE 59 04 5 No RT 76 -1 RA 24 7- Lo LI 91 20 ng NE 00 13 er 3 HC Ac L ti 10 ve 0 MG TA BL ET BU 51 04 5 No SP 07 -1 IR 90 7- Lo ON 98 20 ng E 62 13 er HC 0 L Ac 10 ti ve MG TA BL ET Qu 00 04 5 No et 31 -1 ia 00 7- Lo pi 27 20 ng ne 13 13 er 9 10 Ac 0M ti G ve Ta bl et SO 00 04 5 No DI 40 -1 UM 97 6- Lo 98 20 ng CH 30 13 er LO 9 RI Ac DE ti ve 0. 9% SO CANDACE TI ON VE 00 04 0 No NT 17 -1 OL 30 6- Lo IN 68 20 ng 22 13 er HF 4 A Ac 90 ti ve MC G IN TORRES LE R Me 00 04 0 No th 00 -1 yl 90 6- Lo pr 19 20 ng ed 00 13 er ni 9 so Ac lo ti ne ve So d Schroeder cc in a FU 00 04 0 No RO 40 -1 SE 96 6- Lo IN 10 20 ng DE 20 13 er 4 40 Ac ti MG ve /4 ML AL Sa 63 04 6 No li 80 -1 ne 70 6- Lo 10 20 ng Fl 07 13 er us 5 h Ac 10 ti ML ve Sy ri ng e Me 00 04 3 No th 00 -1 yl 90 6- Lo pr 11 20 ng ed 31 13 er ni 2 so Ac lo ti ne ve So d Schroeder cc in a FA 51 04 1 No MO 07 -1 TI 90 6- Lo DI 96 20 ng NE 62 13 er 0 20 Ac ti MG ve TA BL ET MA 00 04 6 No PA 90 -1 P 41 6- Lo 32 98 20 ng 5 26 13 er MG 1 Ac TA ti BL ve ET CE 00 04 0 No FT 40 -1 RI 97 6- Lo AX 33 20 ng ON 30 13 er E 4 1 Ac GM ti ve AL So 00 04 0 No d 07 -1 Ch 47 6- Lo lo 10 20 ng ri 11 13 er de 3 Ac 0. ti 9% ve 50 ML Ad v Immunization Name Date Route CVX Reacti Commen Provid Is Given on t er Refuse d [id number] [facility] No 2016 MANUELA VACCIN E 2 YRS OR OLDER FOR SUBQ/I M USE Vital Signs 09-18-2013 11:57 Name Value Interpretat Reference Comment ion Range Body 97.6 [degF] Temperature BP 74 mm[Hg] Diastolic BP Systolic 123 mm[Hg] Heart 90 /min Rate/Pulse O2% 91 % Respiratory 24 /min Rate 09-15-2013 19:58 Name Value Interpretat Reference Comment ion Range O2% 97 % 09-15-2013 16:45 Name Value Interpretat Reference Comment ion Range Body 97.5 [degF] Temperature BP 74 mm[Hg] Diastolic BP Systolic 132 mm[Hg] Heart 76 /min Rate/Pulse Height 165.10 cm Respiratory 24 /min Rate Weight 225 [lb_av] Measured Weight 102.088 kg Measured 05-07-2013 15:00 Name Value Interpretat Reference Comment ion Range Body 98.3 [degF] Temperature BP 73 mm[Hg] Diastolic BP Systolic 115 mm[Hg] Heart 87 /min Rate/Pulse Respiratory 22 /min Rate 05-07-2013 11:52 Name Value Interpretat Reference Comment ion Range O2% 95 % 05-02-2013 20:20 Name Value Interpretat Reference Comment ion Range Height 165.10 cm Weight 97.779 kg Measured 05-02-2013 18:05 Name Value Interpretat Reference Comment ion Range Body 98.8 [degF] Temperature BP 73 mm[Hg] Diastolic BP Systolic 115 mm[Hg] Heart 118 /min Rate/Pulse O2% 95 % Respiratory 20 /min Rate Weight 0 [oz_av] Measured 12-07-2012 10:00 Name Value Interpretat Reference Comment ion Range Body 98.4 [degF] Temperature BP 64 mm[Hg] Diastolic BP Systolic 126 mm[Hg] Heart 76 /min Rate/Pulse Respiratory 20 /min Rate 12-07-2012 04:00 Name Value Interpretat Reference Comment ion Range O2% 99 % 12-02-2012 00:15 Name Value Interpretat Reference Comment ion Range Height 165.10 cm Weight 98.884 kg Measured 12-01-2012 21:18 Name Value Interpretat Reference Comment ion Range Body 98.6 [degF] Temperature BP 102 mm[Hg] Diastolic BP Systolic 142 mm[Hg] Heart 97 /min Rate/Pulse O2% 94 % Respiratory 24 /min Rate Weight 0 [oz_av] Measured Results Labs Lab Lab Date Result Refere Interp Status Commen Order Detail nces retati t Range on Glucose BldC [facility] (09-18-2013 11:16) Glucose 190 70-110 complet BldC 014 mg/dl ed Glucomt 11:16 r-[facility] Glucose dC Glucomtr-nc (09-18-2013 06:55) Glucose 197 70-110 complet BldC 014 mg/dl ed Glucomt 06:55 r-[facility] Glucose BldC [facility] (09-17-2013 21:22) Glucose 270 70-110 complet BldC 014 mg/dl ed Glucomt 21:22 r-[facility] Glucose BldC [facility] (09-17-2013 17:01) Glucose 321 70-110 High complet BldC 014 mg/dl alert ed Glucomt 17:01 r-[facility] BASIC METABOLIC PANEL (09-17-2013 06:10) Glucose 426 74-106 complet 014 mg/dL ed Bld-mCn 06:10 c BUN 28 7-18 complet Bld-mCn 014 mg/dL ed c 06:10 Creat 1.1 0.6-1.0 complet SerPl-m 014 mg/dL ed Cnc 06:10 Creat 98 50-200 complet Cl 014 ML/MIN ed predict 06:10 ed SerPl C-G-vRa te GFR/BSA 52 59- complet .pred 014 ML/MIN ed SerPl 06:10 Schwart z-vRate Sodium 139 136-145 complet SerPl-s 014 mmoL/L ed Cnc 06:10 Potassi 5.0 3.5-5.1 complet um 014 mmoL/L ed SerPl-s 06:10 Cnc Chlorid 105 98-107 complet e 014 mmoL/L ed SerPl-s 06:10 Cnc CO2 25 21.0-32 complet SerPl-s 014 mmoL/L .0 ed Cnc 06:10 Calcium 8.3 8.5-10. complet 014 mg/dL 1 ed SerPl-m 06:10 Cnc CBC with AUTO DIFF (09-17-2013 06:10) WBC # 09-17- 18.2 4.8-10. complet Bld 014 K/MM3 8 ed Auto 06:10 RBC # 09-17- 4.91 4.2-5.4 complet Bld 014 M/mm3 ed Auto 06:10 Hgb 13.9 12.2-16 complet Bld-mCn 014 g/dL .2 ed c 06:10 Hct Fr 44.3 % 37.0-47 complet Bld 014 .0 ed 06:10 MCV RBC 90.2 fl 82.2-97 complet 014 .8 ed 06:10 MCH RBC 28.2 pg 27-31.2 complet Qn 014 ed Auto 06:10 MEAN 31.3 31.8-35 complet CORPUSC 014 g/dl .4 ed ULAR 06:10 HGB CONC RDW RBC 15.5 % 11.5-17 complet Auto 014 .5 ed 06:10 Platele 09-17-2 285 142-424 complet t Bld 014 K/mm3 ed Ql 06:10 Manual MEAN 8.0 fl 7.4-10. complet PLATELE 014 4 ed T 06:10 VOLUME Granulo 82.9 % 37.0-80 complet cytes 014 .0 ed Fr Bld 06:10 Auto LYMPH % 09-17-2 11.5 % 10-50.0 complet 014 ed 06:10 Monocyt 09-17-2 5.5 % 1.7-9.3 complet es Fr 014 ed Bld 06:10 Auto Eosinop 09-17-2 0.0 % 0.1-12. complet hil Fr 014 0 ed Bld 06:10 Auto Basophi 09-17-2 0.2 % 0.1-2.0 complet ls Fr 014 ed Bld 06:10 Auto Granulo 09-17- 15.0 1.8-7.8 complet cytes # 014 K/mm3 ed Bld 06:10 Auto Lymphoc 09-17-2 2.1 0.7-4.5 complet ytes Fr 014 K/mm3 ed Bld 06:10 Auto Monocyt 09-17-2 1.0 0.1-1.0 complet es # 014 K/mm3 ed Bld 06:10 Auto Eosinop 09-17-2 0.0 0.0-0.4 complet hil # 014 K/mm3 ed Bld 06:10 Auto Basophi 09-17-2 0.0 0-0.2 complet ls # 014 K/MM3 ed Bld 06:10 Auto Glucose BldC [facility] (09-16-2013 17:00) Glucose 410 70-110 High complet BldC 014 mg/dl alert ed Glucomt 17:00 r-mCnc Glucose BldC [facility] (09-16-2013 06:25) Glucose 372 70-110 High complet BldC 014 mg/dl alert ed Glucomt 06:25 r-mCnc CBC with AUTO DIFF (09-16-2013 06:10) WBC # 09-16-2 11.3 4.8-10. complet Bld 014 K/MM3 8 ed Auto 06:10 RBC # 01-30-2 5.75 4.2-5.4 complet Bld 014 M/mm3 ed Auto 06:10 Hgb 30-2 16.3 12.2-16 complet Bld-mCn 014 g/dL .2 ed c 06:10 Hct Fr 09-16-2 54.1 % 37.0-47 complet Bld 014 .0 ed 06:10 MCV RBC 09-16-2 94.1 fl 82.2-97 complet 014 .8 ed 06:10 MCH RBC 09-16-2 28.4 pg 27-31.2 complet Qn 014 ed Auto 06:10 MEAN 09-16- 30.2 31.8-35 complet CORPUSC 014 g/dl .4 ed ULAR 06:10 HGB CONC RDW RBC 09-16-2 15.1 % 11.5-17 complet Auto 014 .5 ed 06:10 Platele 30-2 288 142-424 complet t Bld 014 K/mm3 ed Ql 06:10 Manual MEAN 8.2 fl 7.4-10. complet PLATELE 014 4 ed T 06:10 VOLUME Granulo 30-2 77.4 % 37.0-80 complet cytes 014 .0 ed Fr Bld 06:10 Auto LYMPH % 30-2 20.0 % 10-50.0 complet 014 ed 06:10 Monocyt 30-2 2.1 % 1.7-9.3 complet es Fr 014 ed Bld 06:10 Auto Eosinop -30-2 0.2 % 0.1-12. complet hil Fr 014 0 ed Bld 06:10 Auto Basophi 30-2 0.4 % 0.1-2.0 complet ls Fr 014 ed Bld 06:10 Auto Granulo -30-2 8.7 1.8-7.8 complet cytes # 014 K/mm3 ed Bld 06:10 Auto Lymphoc -30-2 2.3 0.7-4.5 complet ytes Fr 014 K/mm3 ed Bld 06:10 Auto Monocyt -30-2 0.2 0.1-1.0 complet es # 014 K/mm3 ed Bld 06:10 Auto Eosinop -30-2 0.0 0.0-0.4 complet hil # 014 K/mm3 ed Bld 06:10 Auto Basophi 0.0 0-0.2 complet ls # 014 K/MM3 ed Bld 06:10 Auto Glucose BldC [facility] (09-15-2013 20:30) Glucose 89 70-110 complet BldC 014 mg/dl ed Glucomt 20:30 r-[facility] BASIC METABOLIC PANEL (09-15-2013 18:00) Glucose 54 74-106 complet 014 mg/dL ed Bld-mCn 18:00 c BUN 25 7-18 complet Bld-mCn 014 mg/dL ed c 18:00 Creat 1.1 0.6-1.0 complet SerPl-m 014 mg/dL ed Cnc 18:00 Creat 98 50-200 complet Cl 014 ML/MIN ed predict 18:00 ed SerPl C-G-vRa te GFR/BSA 52 59- complet .pred 014 ML/MIN ed SerPl 18:00 Schwart z-vRate Sodium 143 136-145 complet SerPl-s 014 mmoL/L ed Cnc 18:00 Potassi 4.5 3.5-5.1 complet um 014 mmoL/L ed SerPl-s 18:00 Cnc Chlorid 105 98-107 complet e 014 mmoL/L ed SerPl-s 18:00 Cnc CO2 30 21.0-32 complet SerPl-s 014 mmoL/L .0 ed Cnc 18:00 Calcium 9.9 8.5-10. complet 014 mg/dL 1 ed SerPl-m 18:00 Cnc CBC with AUTO DIFF (09-15-2013 18:00) WBC # 13.7 4.8-10. complet Bld 014 K/MM3 8 ed Auto 18:00 RBC # 5.93 4.2-5.4 complet Bld 014 M/mm3 ed Auto 18:00 Hgb 16.9 12.2-16 complet Bld-mCn 014 g/dL .2 ed c 18:00 Hct Fr 52.8 % 37.0-47 complet Bld 014 .0 ed 18:00 MCV RBC 89.0 fl 82.2-97 complet 014 .8 ed 18:00 MCH RBC 28.5 pg 27-31.2 complet Qn 014 ed Auto 18:00 MEAN 32.0 31.8-35 complet CORPUSC 014 g/dl .4 ed ULAR 18:00 HGB CONC RDW RBC 15.2 % 11.5-17 complet Auto 014 .5 ed 18:00 Platele 299 142-424 complet t Bld 014 K/mm3 ed Ql 18:00 Manual MEAN 7.7 fl 7.4-10. complet PLATELE 014 4 ed T 18:00 VOLUME Granulo 49.8 % 37.0-80 complet cytes 014 .0 ed Fr Bld 18:00 Auto LYMPH % 41.5 % 10-50.0 complet 014 ed 18:00 Monocyt 5.8 % 1.7-9.3 complet es Fr 014 ed Bld 18:00 Auto Eosinop 2.3 % 0.1-12. complet hil Fr 014 0 ed Bld 18:00 Auto Basophi 0.7 % 0.1-2.0 complet ls Fr 014 ed Bld 18:00 Auto Granulo 6.8 1.8-7.8 complet cytes # 014 K/mm3 ed Bld 18:00 Auto Lymphoc 5.7 0.7-4.5 complet ytes Fr 014 K/mm3 ed Bld 18:00 Auto Monocyt 0.8 0.1-1.0 complet es # 014 K/mm3 ed Bld 18:00 Auto Eosinop 0.3 0.0-0.4 complet hil # 014 K/mm3 ed Bld 18:00 Auto Basophi 0.1 0-0.2 complet ls # 014 K/MM3 ed Bld 18:00 Auto MYCOPLASMA IGM (RAPID) (09-15-2013 18:00) MYCOPLA NON-[place] NONREAC complet SMA IGM 014 CTIVE TIVE ed 18:00 (RAPID) URINALYSIS/COMPLETE (09-15-2013 17:25) URINE YELLOW YELLOW complet COLOR 014 ed 17:25 URINE CLEAR CLEAR complet APPEARA 014 ed NCE 17:25 URINE NEGATIV NEG complet GLUCOSE 014 E ed - 17:25 DIPSTIC K URINE NEGATIV NEG complet BILIRUB 014 E ed IN - 17:25 DIPSTIC K URINE NEGATIV NEG complet KETONE 014 E mg/dL ed 17:25 URINE Greater 1.005-1 complet SPECIFI 014 than .030 ed C 17:25 or GRAVITY equal to 1.030 URINE NEGATIV NEG complet BLOOD 014 E ed 17:25 URINE 6.0 UNK 5.0-8.5 complet PH 014 ed 17:25 URINE NEGATIV NEG complet PROTEIN 014 E mg/dL ed - 17:25 DIPSTIC K URINE 0.2 NEG complet UROBILI 014 E.U./dL ed NOGEN - 17:25 DIPSTIC K URINE NEGATIV NEG complet NITRATE 014 E ed - 17:25 DIPSTIC K URINE NEGATIV NEG complet LEUK 014 E ed ESTERAS 17:25 E URINE OCC 0-5 complet SQUAMOU 014 #/hpf ed S CELLS 17:25 Glucose [facility] (05-07-2013 11:36) Glucose 104 70-110 complet BldC 013 mg/dl ed Glucomt 11:36 r-[facility] Glucose dC [facility] (05-07-2013 06:24) Glucose 309 70-110 High complet BldC 013 mg/dl alert ed Glucomt 06:24 r-[facility] Glucose dC [facility] (05-06-2013 17:14) Glucose 337 70-110 High complet BldC 013 mg/dl alert ed Glucomt 17:14 r-[facility] BASIC METABOLIC PANEL (05-06-2013 06:30) Glucose 443 74-106 complet 013 mg/dL ed Bld-mCn 06:30 c BUN 30 7-18 complet Bld-mCn 013 mg/dL ed c 06:30 Creat 1.2 0.6-1.0 complet SerPl-m 013 mg/dL ed Cnc 06:30 ESTIMAT 86 50-200 complet ED 013 ML/MIN ed CREATIN 06:30 INE CLEARAN CE GFR 47 59- complet (ESTIMA 013 ML/MIN ed NICOLE) 06:30 Sodium 135 136-145 complet SerPl-s 013 mmoL/L ed Cnc 06:30 Potassi 4.4 3.5-5.1 complet um 013 mmoL/L ed SerPl-s 06:30 Cnc Chlorid 102 98-107 complet e 013 mmoL/L ed SerPl-s 06:30 Cnc CO2 26 21.0-32 complet SerPl-s 013 mmoL/L .0 ed Cnc 06:30 Calcium 8.5 8.5-10. complet 013 mg/dL 1 ed SerPl-m 06:30 Cnc CBC with AUTO DIFF (05-06-2013 06:30) WBC # 05-06-2 14.1 4.8-10. complet Bld 013 K/MM3 8 ed Auto 06:30 RBC # 05-06-2 5.55 4.2-5.4 complet Bld 013 M/mm3 ed Auto 06:30 Hgb 15.9 12.2-16 complet Bld-mCn 013 g/dL .2 ed c 06:30 Hct Fr 51.3 % 37.0-47 complet Bld 013 .0 ed 06:30 MCV RBC 92.5 fl 82.2-97 complet 013 .8 ed 06:30 MCH RBC 28.6 pg 27-31.2 complet Qn 013 ed Auto 06:30 MEAN 30.9 31.8-35 complet CORPUSC 013 g/dl .4 ed ULAR 06:30 HGB CONC RDW RBC 15.4 % 11.5-17 complet Auto 013 .5 ed 06:30 Platele 09-19-2 319 142-424 complet t Bld 013 K/mm3 ed Ql 06:30 Manual MEAN 05-06- 8.9 fl 7.4-10. complet PLATELE 013 4 ed T 06:30 VOLUME Granulo 19-2 84.4 % 37.0-80 complet cytes 013 .0 ed Fr Bld 06:30 Auto LYMPH % -19-2 10.2 % 10-50.0 complet 013 ed 06:30 Monocyt -19-2 5.0 % 1.7-9.3 complet es Fr 013 ed Bld 06:30 Auto Eosinop -19-2 0.2 % 0.1-12. complet hil Fr 013 0 ed Bld 06:30 Auto Basophi 19-2 0.1 % 0.1-2.0 complet ls Fr 013 ed Bld 06:30 Auto Granulo 19-2 11.9 1.8-7.8 complet cytes # 013 K/mm3 ed Bld 06:30 Auto Lymphoc 19-2 1.4 0.7-4.5 complet ytes Fr 013 K/mm3 ed Bld 06:30 Auto Monocyt -19-2 0.7 0.1-1.0 complet es # 013 K/mm3 ed Bld 06:30 Auto Eosinop -19-2 0.0 0.0-0.4 complet hil # 013 K/mm3 ed Bld 06:30 Auto Basophi -19-2 0.0 0-0.2 complet ls # 013 K/MM3 ed Bld 06:30 Auto Glucose dC [facility] (05-06-2013 06:22) Glucose 396 70-110 High complet BldC 013 mg/dl alert ed Glucomt 06:22 r-nc Glucose BldC [facility] (05-05-2013 20:09) Glucose 05-05- 345 70-110 High complet BldC 013 mg/dl alert ed Glucomt 20:09 r-[facility] Glucose BldC [facility] (05-05-2013 16:54) Glucose 299 70-110 complet BldC 013 mg/dl ed Glucomt 16:54 r-[facility] Glucose BldC [facility] (05-05-2013 11:58) Glucose 05-05-2 328 70-110 High complet BldC 013 mg/dl alert ed Glucomt 11:58 [facility] Glucose 05-05-2 433 70-110 High complet BldC 013 mg/dl alert ed [facility] (05-05-2013 06:15) Glucose 05-05-2 472 74-106 complet 013 mg/dL ed Bld-mCn 06:15 c BUN 05-05- 37 7-18 complet Bld-mCn 013 mg/dL ed c 06:15 Creat 1.3 0.6-1.0 complet SerPl-m 013 mg/dL ed Cnc 06:15 ESTIMAT 05-05- 79 50-200 complet ED 013 ML/MIN ed CREATIN 06:15 INE CLEARAN CE GFR 43 59- complet (ESTIMA 013 ML/MIN ed NICOLE) 06:15 Sodium 138 136-145 complet SerPl-s 013 mmoL/L ed Cnc 06:15 Potassi 5.3 3.5-5.1 complet um 013 mmoL/L ed SerPl-s 06:15 Cnc Chlorid 104 98-107 complet e 013 mmoL/L ed SerPl-s 06:15 Cnc CO2 25 21.0-32 complet SerPl-s 013 mmoL/L .0 ed Cnc 06:15 Calcium 8.4 8.5-10. complet 013 mg/dL 1 ed SerPl-m 06:15 Cnc CBC with AUTO DIFF (05-05-2013 06:15) WBC # 05-05- 16.6 4.8-10. complet Bld 013 K/MM3 8 ed Auto 06:15 RBC # 05-05-2 5.40 4.2-5.4 complet Bld 013 M/mm3 ed Auto 06:15 Hgb 05-05- 15.6 12.2-16 complet Bld-mCn 013 g/dL .2 ed c 06:15 Hct Fr 50.4 % 37.0-47 complet Bld 013 .0 ed 06:15 MCV RBC 09-18-2 93.5 fl 82.2-97 complet 013 .8 ed 06:15 MCH RBC 09-18-2 28.9 pg 27-31.2 complet Qn 013 ed Auto 06:15 MEAN 09-18-2 30.9 31.8-35 complet CORPUSC 013 g/dl .4 ed ULAR 06:15 HGB CONC RDW RBC 09-18-2 15.0 % 11.5-17 complet Auto 013 .5 ed 06:15 Platele 09-18-2 318 142-424 complet t Bld 013 K/mm3 ed Ql 06:15 Manual MEAN 09-18-2 7.8 fl 7.4-10. complet PLATELE 013 4 ed T 06:15 VOLUME Granulo 09-18-2 87.6 % 37.0-80 complet cytes 013 .0 ed Fr Bld 06:15 Auto LYMPH % 09-18-2 8.5 % 10-50.0 complet 013 ed 06:15 Monocyt 09-18-2 3.7 % 1.7-9.3 complet es Fr 013 ed Bld 06:15 Auto Eosinop 09-18-2 0.1 % 0.1-12. complet hil Fr 013 0 ed Bld 06:15 Auto Basophi 09-18-2 0.2 % 0.1-2.0 complet ls Fr 013 ed Bld 06:15 Auto Granulo 09-18-2 14.5 1.8-7.8 complet cytes # 013 K/mm3 ed Bld 06:15 Auto Lymphoc 09-18-2 1.4 0.7-4.5 complet ytes Fr 013 K/mm3 ed Bld 06:15 Auto Monocyt 09-18-2 0.6 0.1-1.0 complet es # 013 K/mm3 ed Bld 06:15 Auto Eosinop 09-18-2 0.0 0.0-0.4 complet hil # 013 K/mm3 ed Bld 06:15 Auto Basophi 09-18-2 0.0 0-0.2 complet ls # 013 K/MM3 ed Bld 06:15 Auto GLYCOHEMOGLOBIN (A1c) (05-05-2013 06:15) HEMOGLO 09-18-2 7.5 % 0.0-7.0 complet BIN A1C 013 ed 06:15 Glucose BldC [facility]comtr[facility] (05-04-2013 20:10) Glucose 396 70-110 High complet BldC 013 mg/dl alert ed Glucomt 20:10 r-mCnc Glucose BldC [facility] (05-04-2013 16:26) Glucose 375 70-110 High complet BldC 013 mg/dl alert ed Glucomt 16:26 r-mCnc Glucose BldC [facility] (05-04-2013 11:40) Glucose 444 70-110 High complet BldC 013 mg/dl alert ed Glucomt 11:40 r-mCnc Glucose BldC [facility] (05-04-2013 06:18) Glucose 469 70-110 High complet BldC 013 mg/dl alert ed Glucomt 06:18 r-[facility] COMPREHENSIVE METABOLIC PANEL (05-04-2013 06:00) Glucose 448 74-106 complet 013 mg/dL ed Bld-mCn 06:00 c BUN 40 7-18 complet Bld-mCn 013 mg/dL ed c 06:00 Creat 1.4 0.6-1.0 complet SerPl-m 013 mg/dL ed Cnc 06:00 ESTIMAT 73 50-200 complet ED 013 ML/MIN ed CREATIN 06:00 INE CLEARAN CE GFR 40 59- complet (ESTIMA 013 ML/MIN ed NICOLE) 06:00 Sodium 137 136-145 complet SerPl-s 013 mmoL/L ed Cnc 06:00 Potassi 4.8 3.5-5.1 complet um 013 mmoL/L ed SerPl-s 06:00 Cnc Chlorid 101 98-107 complet e 013 mmoL/L ed SerPl-s 06:00 Cnc CO2 26 21.0-32 complet SerPl-s 013 mmoL/L .0 ed Cnc 06:00 Calcium 9.1 8.5-10. complet 013 mg/dL 1 ed SerPl-m 06:00 Cnc Prot 7.7 6.4-8.2 complet SerPl-m 013 gm/dL ed Cnc 06:00 Albumin 3.3 3.4-5.0 complet 013 gm/dL ed SerPl-m 06:00 Cnc GLOBULI 4.4 1.3-3.2 complet N 013 gm/dL ed 06:00 ALB/APRIL 0.8 UNK 1.1-1.8 complet B RATIO 013 ed 06:00 Bilirub 0.4 0.2-1.0 complet 013 mg/dL ed SerPl-m 06:00 Cnc AST 10 U/L 15-37 complet SerPl-c 013 ed Cnc 06:00 ALT 42 U/L 30-65 complet SerPl-c 013 ed Cnc 06:00 ALP 107 U/L 50-136 complet SerPl-c 013 ed Cnc 06:00 CBC with AUTO DIFF (05-04-2013 06:00) WBC # 05-04- 16.8 4.8-10. complet Bld 013 K/MM3 8 ed Auto 06:00 RBC # 5.64 4.2-5.4 complet Bld 013 M/mm3 ed Auto 06:00 Hgb 15.8 12.2-16 complet Bld-mCn 013 g/dL .2 ed c 06:00 Hct Fr 51.1 % 37.0-47 complet Bld 013 .0 ed 06:00 MCV RBC 90.7 fl 82.2-97 complet 013 .8 ed 06:00 MCH RBC 28.0 pg 27-31.2 complet Qn 013 ed Auto 06:00 MEAN 30.9 31.8-35 complet CORPUSC 013 g/dl .4 ed ULAR 06:00 HGB CONC RDW RBC 15.2 % 11.5-17 complet Auto 013 .5 ed 06:00 Platele 346 142-424 complet t Bld 013 K/mm3 ed Ql 06:00 Manual MEAN 8.0 fl 7.4-10. complet PLATELE 013 4 ed T 06:00 VOLUME Granulo 80.0 % 37.0-80 complet cytes 013 .0 ed Fr Bld 06:00 Auto LYMPH % 17-2 14.4 % 10-50.0 complet 013 ed 06:00 Monocyt 17-2 5.2 % 1.7-9.3 complet es Fr 013 ed Bld 06:00 Auto Eosinop -17-2 0.1 % 0.1-12. complet hil Fr 013 0 ed Bld 06:00 Auto Basophi 17-2 0.2 % 0.1-2.0 complet ls Fr 013 ed Bld 06:00 Auto Granulo 17-2 13.4 1.8-7.8 complet cytes # 013 K/mm3 ed Bld 06:00 Auto Lymphoc 17-2 2.4 0.7-4.5 complet ytes Fr 013 K/mm3 ed Bld 06:00 Auto Monocyt 17-2 0.9 0.1-1.0 complet es # 013 K/mm3 ed Bld 06:00 Auto Eosinop 17-2 0.0 0.0-0.4 complet hil # 013 K/mm3 ed Bld 06:00 Auto Basophi 17-2 0.0 0-0.2 complet ls # 013 K/MM3 ed Bld 06:00 Auto Glucose BldC Glucomtr-[facility] (05-03-2013 21:36) Glucose 469 70-110 High complet BldC 013 mg/dl alert ed Glucomt 21:36 r-mCnc Glucose BldC Glucomtr-[facility] (05-03-2013 16:44) Glucose 422 70-110 High complet BldC 013 mg/dl alert ed Glucomt 16:44 r-mCnc Glucose BldC Glucomtr-nc (05-03-2013 11:31) Glucose 226 70-110 complet BldC 013 mg/dl ed Glucomt 11:31 r-mCnc Glucose BldC Glucomtr-nc (05-03-2013 06:22) Glucose 324 70-110 High complet BldC 013 mg/dl alert ed Glucomt 06:22 r-nc Glucose BldC Glucomtr-[facility] (05-02-2013 21:02) Glucose 150 70-110 complet BldC 013 mg/dl ed Glucomt 21:02 r-[facility] COMPREHENSIVE METABOLIC PANEL (05-02-2013 18:30) Glucose 05-02- 149 74-106 complet 013 mg/dL ed Bld-mCn 18:30 c BUN 05-02- 33 7-18 complet Bld-mCn 013 mg/dL ed c 18:30 Creat 1.3 0.6-1.0 complet SerPl-m 013 mg/dL ed Cnc 18:30 GFR 43 59- complet (ESTIMA 013 ML/MIN ed NICOLE) 18:30 Sodium 140 136-145 complet SerPl-s 013 mmoL/L ed Cnc 18:30 Potassi 4.6 3.5-5.1 complet um 013 mmoL/L ed SerPl-s 18:30 Cnc Chlorid 103 98-107 complet e 013 mmoL/L ed SerPl-s 18:30 Cnc CO2 25 21.0-32 complet SerPl-s 013 mmoL/L .0 ed Cnc 18:30 Calcium 05-02- 9.5 8.5-10. complet 013 mg/dL 1 ed SerPl-m 18:30 Cnc Prot 05-02- 8.4 6.4-8.2 complet SerPl-m 013 gm/dL ed Cnc 18:30 Albumin 05-02- 3.9 3.4-5.0 complet 013 gm/dL ed SerPl-m 18:30 Cnc Globuli 05-02- 4.5 1.3-3.2 complet n 013 gm/dL ed Ser-mCn 18:30 c Albumin 05-02- 0.9 UNK 1.1-1.8 complet /Glob 013 ed SerPl-m 18:30 Rto Bilirub 05-02-2 0.4 0.2-1.0 complet 013 mg/dL ed SerPl-m 18:30 Cnc AST 05-02- 28 U/L 15-37 complet SerPl-c 013 ed Cnc 18:30 ALT 05-02- 56 U/L 30-65 complet SerPl-c 013 ed Cnc 18:30 ALP 05-02- 138 U/L 50-136 complet SerPl-c 013 ed Cnc 18:30 CBC with AUTO DIFF (05-02-2013 18:30) WBC # 09-15-2 16.7 4.8-10. complet Bld 013 K/MM3 8 ed Auto 18:30 RBC # 09-15-2 6.32 4.2-5.4 complet Bld 013 M/mm3 ed Auto 18:30 Hgb 09-15-2 17.9 12.2-16 complet Bld-mCn 013 g/dL .2 ed c 18:30 Hct Fr 09-15-2 55.8 % 37.0-47 complet Bld 013 .0 ed 18:30 MCV RBC 09-15-2 88.3 fl 82.2-97 complet 013 .8 ed 18:30 MCH RBC 09-15-2 28.3 pg 27-31.2 complet Qn 013 ed Auto 18:30 MEAN 09-15-2 32.1 31.8-35 complet CORPUSC 013 g/dl .4 ed ULAR 18:30 HGB CONC RDW RBC -15-2 15.1 % 11.5-17 complet Auto 013 .5 ed 18:30 Platele 09-15-2 377 142-424 complet t Bld 013 K/mm3 ed Ql 18:30 Manual MEAN -15-2 7.5 fl 7.4-10. complet PLATELE 013 4 ed T 18:30 VOLUME Granulo 09-15-2 57.7 % 37.0-80 complet cytes 013 .0 ed Fr Bld 18:30 Auto LYMPH % 09-15-2 33.3 % 10-50.0 complet 013 ed 18:30 Monocyt 09-15-2 6.5 % 1.7-9.3 complet es Fr 013 ed Bld 18:30 Auto Eosinop 09-15-2 1.5 % 0.1-12. complet hil Fr 013 0 ed Bld 18:30 Auto Basophi 09-15-2 1.0 % 0.1-2.0 complet ls Fr 013 ed Bld 18:30 Auto Granulo 09-15-2 9.6 1.8-7.8 complet cytes # 013 K/mm3 ed Bld 18:30 Auto Lymphoc 09-15-2 5.5 0.7-4.5 complet ytes Fr 013 K/mm3 ed Bld 18:30 Auto Monocyt 09-15-2 1.1 0.1-1.0 complet es # 013 K/mm3 ed Bld 18:30 Auto Eosinop -15-2 0.3 0.0-0.4 complet hil # 013 K/mm3 ed Bld 18:30 Auto Basophi 15-2 0.2 0-0.2 complet ls # 013 K/MM3 ed Bld 18:30 Auto Glucose BldC Glucomtr-mCnc (12-07-2012 06:33) Glucose 115 70-110 complet BldC 013 mg/dl ed Glucomt 06:33 r-mCnc Glucose BldC Glucomtr-mCnc (12-06-2012 17:08) Glucose 300 70-110 complet BldC 013 mg/dl ed Glucomt 17:08 r-mCnc Glucose BldC Glucomtr-nc (12-06-2012 06:33) Glucose 126 70-110 complet BldC 013 mg/dl ed Glucomt 06:33 r-mCnc Glucose BldC Glucomtr-nc (12-05-2012 17:15) Glucose 142 70-110 complet BldC 013 mg/dl ed Glucomt 17:15 r-mCnc Glucose BldC Glucomtr-nc (12-05-2012 06:38) Glucose 87 70-110 complet BldC 013 mg/dl ed Glucomt 06:38 r-mCnc Glucose BldC Glucomtr-nc (12-04-2012 17:27) Glucose 298 70-110 complet BldC 013 mg/dl ed Glucomt 17:27 r-mCnc Glucose BldC Glucomtr-nc (12-04-2012 06:08) Glucose 440 70-110 High complet BldC 013 mg/dl alert ed Glucomt 06:08 r-mCnc Glucose BldC Glucomtr-nc (12-03-2012 16:38) Glucose 425 70-110 High complet BldC 013 mg/dl alert ed Glucomt 16:38 r-mCnc Glucose BldC Glucomtr-nc (12-03-2012 06:44) Glucose 401 70-110 High complet BldC 013 mg/dl alert ed Glucomt 06:44 r-[facility] BASIC METABOLIC PANEL (12-03-2012 06:30) Glucose -18-2 398 74-106 complet 013 mg/dL ed Bld-mCn 06:30 c BUN -18-2 27 7-18 complet Bld-mCn 013 mg/dL ed c 06:30 Creat -18-2 1.2 0.6-1.0 complet SerPl-m 013 mg/dL ed Cnc 06:30 ESTIMAT -18-2 87 50-200 complet ED 013 ML/MIN ed CREATIN 06:30 INE CLEARAN CE GFR 18-2 47 59- complet (ESTIMA 013 ML/MIN ed NICOLE) 06:30 Sodium 18-2 137 136-145 complet SerPl-s 013 mmoL/L ed Cnc 06:30 Potassi 18-2 5.3 3.5-5.1 complet um 013 mmoL/L ed SerPl-s 06:30 Cnc Chlorid 18-2 103 98-107 complet e 013 mmoL/L ed SerPl-s 06:30 Cnc CO2 18-2 24 21.0-32 complet SerPl-s 013 mmoL/L .0 ed Cnc 06:30 Calcium -18-2 8.9 8.5-10. complet 013 mg/dL 1 ed SerPl-m 06:30 Cnc CBC with AUTO DIFF (12-03-2012 06:30) WBC # 04-18-2 17.7 4.8-10. complet Bld 013 K/MM3 8 ed Auto 06:30 RBC # 04-18-2 5.43 4.2-5.4 complet Bld 013 M/mm3 ed Auto 06:30 Hgb 04-18-2 15.3 12.2-16 complet Bld-mCn 013 g/dL .2 ed c 06:30 Hct Fr 18-2 48.3 % 37.0-47 complet Bld 013 .0 ed 06:30 MCV RBC -18-2 88.9 fl 82.2-97 complet 013 .8 ed 06:30 MCH RBC 04-18-2 28.1 pg 27-31.2 complet Qn 013 ed Auto 06:30 MEAN -18-2 31.6 31.8-35 complet CORPUSC 013 g/dl .4 ed ULAR 06:30 HGB CONC RDW RBC 04-18-2 13.9 % 11.5-17 complet Auto 013 .5 ed 06:30 Platele 04-18-2 351 142-424 complet t Bld 013 K/mm3 ed Ql 06:30 Manual MEAN 04-18-2 7.6 fl 7.4-10. complet PLATELE 013 4 ed T 06:30 VOLUME Granulo 04-18-2 84.4 % 37.0-80 complet cytes 013 .0 ed Fr Bld 06:30 Auto LYMPH % 04-18-2 11.5 % 10-50.0 complet 013 ed 06:30 Monocyt 04-18-2 3.6 % 1.7-9.3 complet es Fr 013 ed Bld 06:30 Auto Eosinop 04-18-2 0.3 % 0.1-12. complet hil Fr 013 0 ed Bld 06:30 Auto Basophi 04-18-2 0.2 % 0.1-2.0 complet ls Fr 013 ed Bld 06:30 Auto Granulo 04-18-2 14.9 1.8-7.8 complet cytes # 013 K/mm3 ed Bld 06:30 Auto Lymphoc 04-18-2 2.0 0.7-4.5 complet ytes Fr 013 K/mm3 ed Bld 06:30 Auto Monocyt 04-18-2 0.6 0.1-1.0 complet es # 013 K/mm3 ed Bld 06:30 Auto Eosinop 04-18-2 0.1 0.0-0.4 complet hil # 013 K/mm3 ed Bld 06:30 Auto Basophi 04-18-2 0.0 0-0.2 complet ls # 013 K/MM3 ed Bld 06:30 Auto Glucose dC Glucomtr-[facility] (12-02-2012 21:23) Glucose 12-02-2 347 70-110 High complet BldC 013 mg/dl alert ed Glucomt 21:23 r-nc Glucose BldC [facility] (12-02-2012 16:29) Glucose 17-2 370 70-110 High complet BldC 013 mg/dl alert ed Glucomt 16:29 r-nc Glucose Bld-[facility] (12-02-2012 11:40) Glucose 04-17-2 530 74-106 High complet 013 mg/dL alert ed Bld-mCn 11:40 c Glucose BldC Glucomtr-mCnc (12-02-2012 11:26) Glucose 12-02-2 537 70-110 High complet BldC 013 mg/dl alert ed Glucomt 11:26 r-mCnc Glucose BldC Glucomtr-mCnc (12-02-2012 06:15) Glucose 12-02-2 Greater 70-110 High complet BldC 013 than alert ed Glucomt 06:15 550 r-mCnc mg/dl BASIC METABOLIC PANEL (12-02-2012 06:10) Glucose 12-02-2 544 74-106 High complet 013 mg/dL alert ed Bld-mCn 06:10 c BUN 31 7-18 complet Bld-mCn 013 mg/dL ed c 06:10 Creat 1.4 0.6-1.0 complet SerPl-m 013 mg/dL ed Cnc 06:10 ESTIMAT 74 50-200 complet ED 013 ML/MIN ed CREATIN 06:10 INE CLEARAN CE GFR 40 59- complet (ESTIMA 013 ML/MIN ed NICOLE) 06:10 Sodium 135 136-145 complet SerPl-s 013 mmoL/L ed Cnc 06:10 Potassi 5.3 3.5-5.1 complet um 013 mmoL/L ed SerPl-s 06:10 Cnc Chlorid 99 98-107 complet e 013 mmoL/L ed SerPl-s 06:10 Cnc CO2 25 21.0-32 complet SerPl-s 013 mmoL/L .0 ed Cnc 06:10 Calcium 8.6 8.5-10. complet 013 mg/dL 1 ed SerPl-m 06:10 Cnc CBC with AUTO DIFF (12-02-2012 06:10) WBC # 12-02-2 11.6 4.8-10. complet Bld 013 K/MM3 8 ed Auto 06:10 RBC # 12-02- 5.51 4.2-5.4 complet Bld 013 M/mm3 ed Auto 06:10 Hgb 12-02- 15.3 12.2-16 complet Bld-mCn 013 g/dL .2 ed c 06:10 Hct Fr 17-2 49.6 % 37.0-47 complet Bld 013 .0 ed 06:10 MCV RBC 17-2 89.9 fl 82.2-97 complet 013 .8 ed 06:10 MCH RBC 12-02-2 27.7 pg 27-31.2 complet Qn 013 ed Auto 06:10 MEAN 12-02-2 30.8 31.8-35 complet CORPUSC 013 g/dl .4 ed ULAR 06:10 HGB CONC RDW RBC 17-2 14.2 % 11.5-17 complet Auto 013 .5 ed 06:10 Platele -17-2 337 142-424 complet t Bld 013 K/mm3 ed Ql 06:10 Manual MEAN 12-02-2 7.7 fl 7.4-10. complet PLATELE 013 4 ed T 06:10 VOLUME Granulo 17-2 86.1 % 37.0-80 complet cytes 013 .0 ed Fr Bld 06:10 Auto LYMPH % 04-17-2 11.8 % 10-50.0 complet 013 ed 06:10 Monocyt 04-17-2 1.5 % 1.7-9.3 complet es Fr 013 ed Bld 06:10 Auto Eosinop 04-17-2 0.1 % 0.1-12. complet hil Fr 013 0 ed Bld 06:10 Auto Basophi 04-17-2 0.5 % 0.1-2.0 complet ls Fr 013 ed Bld 06:10 Auto Granulo 04-17-2 10.0 1.8-7.8 complet cytes # 013 K/mm3 ed Bld 06:10 Auto Lymphoc 04-17-2 1.4 0.7-4.5 complet ytes Fr 013 K/mm3 ed Bld 06:10 Auto Monocyt 04-17-2 0.2 0.1-1.0 complet es # 013 K/mm3 ed Bld 06:10 Auto Eosinop 04-17-2 0.0 0.0-0.4 complet hil # 013 K/mm3 ed Bld 06:10 Auto Basophi 04-17-2 0.1 0-0.2 complet ls # 013 K/MM3 ed Bld 06:10 Auto COMPREHENSIVE METABOLIC PANEL (12-01-2012 21:45) Glucose 16-2 153 74-106 complet 013 mg/dL ed Bld-mCn 21:45 c BUN -16-2 23 7-18 complet Bld-mCn 013 mg/dL ed c 21:45 Creat -16-2 1.0 0.6-1.0 complet SerPl-m 013 mg/dL ed Cnc 21:45 ESTIMAT 16-2 95 50-200 complet ED 013 ML/MIN ed CREATIN 21:45 INE CLEARAN CE GFR 16-2 58 59- complet (ESTIMA 013 ML/MIN ed NICOLE) 21:45 Sodium 16-2 139 136-145 complet SerPl-s 013 mmoL/L ed Cnc 21:45 Potassi 16-2 4.8 3.5-5.1 complet um 013 mmoL/L ed SerPl-s 21:45 Cnc Chlorid 12-01-2 103 98-107 complet e 013 mmoL/L ed SerPl-s 21:45 Cnc CO2 16-2 26 21.0-32 complet SerPl-s 013 mmoL/L .0 ed Cnc 21:45 Calcium 16-2 9.5 8.5-10. complet 013 mg/dL 1 ed SerPl-m 21:45 Cnc Prot 16-2 8.0 6.4-8.2 complet SerPl-m 013 gm/dL ed Cnc 21:45 Albumin 16-2 3.5 3.4-5.0 complet 013 gm/dL ed SerPl-m 21:45 Cnc Globuli 16-2 4.5 1.3-3.2 complet n 013 gm/dL ed Ser-mCn 21:45 c Albumin -16-2 0.8 UNK 1.1-1.8 complet /Glob 013 ed SerPl-m 21:45 Rto Bilirub 16-2 0.4 0.2-1.0 complet 013 mg/dL ed SerPl-m 21:45 Cnc AST 16-2 33 U/L 15-37 complet SerPl-c 013 ed Cnc 21:45 ALT -16-2 54 U/L 30-65 complet SerPl-c 013 ed Cnc 21:45 ALP -16-2 117 U/L 50-136 complet SerPl-c 013 ed Cnc 21:45 CBC with AUTO DIFF (12-01-2012 21:45) WBC # 04-16-2 13.1 4.8-10. complet Bld 013 K/MM3 8 ed Auto 21:45 RBC # 04-16-2 6.29 4.2-5.4 complet Bld 013 M/mm3 ed Auto 21:45 Hgb 04-16-2 17.5 12.2-16 complet Bld-mCn 013 g/dL .2 ed c 21:45 Hct Fr 04-16-2 54.1 % 37.0-47 complet Bld 013 .0 ed 21:45 MCV RBC 04-16-2 86.1 fl 82.2-97 complet 013 .8 ed 21:45 MCH RBC 04-16-2 27.8 pg 27-31.2 complet Qn 013 ed Auto 21:45 MEAN 04-16-2 32.3 31.8-35 complet CORPUSC 013 g/dl .4 ed ULAR 21:45 HGB CONC RDW RBC -16-2 14.3 % 11.5-17 complet Auto 013 .5 ed 21:45 Platele 04-16-2 447 142-424 complet t Bld 013 K/mm3 ed Ql 21:45 Manual MEAN -16-2 10.6 fl 7.4-10. complet PLATELE 013 4 ed T 21:45 VOLUME Granulo 04-16-2 47.7 % 37.0-80 complet cytes 013 .0 ed Fr Bld 21:45 Auto LYMPH % 04-16-2 41.3 % 10-50.0 complet 013 ed 21:45 Monocyt 04-16-2 7.4 % 1.7-9.3 complet es Fr 013 ed Bld 21:45 Auto Eosinop 04-16-2 2.9 % 0.1-12. complet hil Fr 013 0 ed Bld 21:45 Auto Basophi 04-16-2 0.7 % 0.1-2.0 complet ls Fr 013 ed Bld 21:45 Auto Granulo 04-16-2 6.3 1.8-7.8 complet cytes # 013 K/mm3 ed Bld 21:45 Auto Lymphoc 04-16-2 5.4 0.7-4.5 complet ytes Fr 013 K/mm3 ed Bld 21:45 Auto Monocyt 04-16-2 1.0 0.1-1.0 complet es # 013 K/mm3 ed Bld 21:45 Auto Eosinop -16-2 0.4 0.0-0.4 complet hil # 013 K/mm3 ed Bld 21:45 Auto Basophi -16-2 0.1 0-0.2 complet ls # 013 K/MM3 ed Bld 21:45 Auto Procedures Procedure DOS Code Location Performer Comment OPHTH [address] [place] [address] [facility] COMPRHNSV ESTAB PT 1/> DETERMINA [address] [facility] TION 7 VISION VISION REFRACTIV CENTER CENTER E STATE O2 CONC 1 E1390 [facility] THAKKAR [place] 7 HOME HOME 85%/>02 MEDICAL MEDICAL CONC AT EQUIPME EQUIPME PRSC FLW RATE PRTBLE E0431 ARIANE THAKKAR GASEOUS 7 HOME HOME O2 SYS MEDICAL MEDICAL RENT; EQUIPME EQUIPME FLWMTR HUMIDFR&M ASK COMPREHEN 49409 [facility] METABOLIC INC INC PANEL DRUG TEST 68310 [facility] L[facility] PRSMV 7 [facility] QUAL DIR INC INC OPTICAL OBS PER DAY CREATININ 30446 [facility]FT[facility] L[facility] E OTHER 7 [facility] SOURCE INC INC COLLECTIO 03429 [facility] L[facility] N VENOUS 7 [facility] BLOOD INC INC VENIPUNCT URE BLOOD 21741 [facility] COUNT 7 [facility] COMPLETE INC INC AUTO&AUTO DIFRNTL WBC ALBUMIN 31732 [facility] URINE 7 [facility] MICROALBU INC INC MIN QUANTIATI VE LIPID 48579 [facility] PANEL 7 [facility] INC INC HEMOGLOBI 10536 [facility] N 7 [facility] GLYCOSYLA INC INC NICOLE A1C BASIC 36298 NEFTALI LINDSAY METABOLIC 7 [facility] PANEL INC INC CALCIUM TOTAL COLLECTIO 60280 [facility] L[facility] N VENOUS 7 [facility] BLOOD INC INC VENIPUNCT URE SUSCEPTIB 99362 NEFTALI L[facility]SA[facility] LTY STDY 7 [facility] ANTIMICRB INC INC IAL MICRO/AGA R DILUTJ CULTURE 68638 [facility] L[facility] BACTERIAL 7 [facility] INC INC QUANTTATI VE COLONY COUNT URINE CULTURE 55298 [facility] BCT 7 [facility] ISOL&PRSM INC INC PTV ID ISOLATE EA URINE URNLS DIP 50984 [facility] 7 [facility] STICK/TAB INC INC LET REAGENT AUTO MICROSCOP Y BASIC 88247 NEFTALI LINDSAY METABOLIC 7 [facility] PANEL INC INC CALCIUM TOTAL COLLECTIO 43828 ENFTALI LINDSAY N VENOUS 7 [facility] BLOOD INC INC VENIPUNCT URE PRTBLE E0431 ARIANE THAKKAR GASEOUS 7 HOME HOME O2 SYS MEDICAL MEDICAL RENT; EQUIPME EQUIPME FLWMTR HUMIDFR&M ASK O2 CONC 1 E1390 [facility] THAKKAR [place] 7 HOME HOME 85%/>02 MEDICAL MEDICAL CONC AT EQUIPME EQUIPME PRSC FLW RATE DRUG TEST 39905 NEFTALI L[facility]SAY PRSMV 7 [facility] QUAL DIR INC INC OPTICAL OBS PER DAY ECHO 72641 NEFTALI LINDSAY TTHRC R-T 7 [facility] 2D INC INC W/WOM-MOD E COMPL SPEC&COLR D NATRIURET 38951 [facility] IC 7 [facility] PEPTIDE INC INC BLOOD 81482 NEFT[facility]I L[facility] COUNT 7 [facility] COMPLETE INC INC AUTO&AUTO DIFRNTL WBC COMPREHEN 65579 [facility] SIVE 7 [facility] METABOLIC INC INC PANEL COLLECTIO 51425 NEFTAIL L[facility] N VENOUS 7 [facility] [place] [address] NEFTALI L[facility] FREE 7 [facility] [place] [address] NEFT[facility] THYROID 7 [facility] STIMULATI INC INC NG HORMONE TSH ECG 97877 [facility]FT[facility] ROUTINE 7 [facility] ECG INC INC W/LEAST 12 LDS TRCG ONLY W/O I&R 3D 59515 NEFTALI L[facility]SA[facility] RENDERING 7 [facility] W/INTERP INC INC & POSTPROCE SS SUPERVISI ON MRI 50007 [facility] SPINAL 7 MEDICAL CANAL IMAGING LUMBAR ASS W/O CONTRAST MATERIAL O2 CONC 1 E1390 [facility]ANE THAKKAR [place] 7 HOME HOME 85%/>02 MEDICAL MEDICAL CONC AT EQUIPME EQUIPME PRSC FLW RATE PRTBLE E0431 ARIANE THAKKAR GASEOUS 7 HOME HOME O2 SYS MEDICAL MEDICAL RENT; EQUIPME EQUIPME FLWMTR HUMIDFR&M ASK CULTURE 16297 NEFT[facility]I L[facility] BACTERIAL 7 [facility] INC INC QUANTTATI VE COLONY COUNT URINE BASIC 80528 NEFTALI LINDSAY METABOLIC 7 [facility] PANEL INC [facility] [address] [facility] 6 MEDICAL DAY SERV MANAGEMEN FOUNDATIO T > 30 N MIN SBSQ 62547 [facility] 6 MEDICAL CARE/DAY SERV 25 FOUNDATIO MINUTES N GROUND A0425 [facility] 6 METRO METRO PER AMBULANCE AMBULANCE STATUTE MILE AMBULANCE A0428 [facility] 6 METRO METRO BLS AMBULANCE AMBULANCE NONEMERGE NCY TRANSPORT SBSQ 73773 [facility] 6 MEDICAL KER CARE/DAY SERV 25 FOUNDATIO MINUTES N DUP-SCAN 62537 [place] [facility] 6 MEDICAL JESSICA COMPLETE SERV FOUNDATIO BILATERAL N STUDY SBSQ 20764 [facility] 6 MEDICAL KER CARE/DAY SERV 25 FOUNDATIO MINUTES N GROUND A0425 [facility] 6 MEDICAL MEDICAL PER RESPONSE RESPONSE STATUTE MILE AMB A0427 [facility] 6 MEDICAL MEDICAL ALS RESPONSE RESPONSE EMERGENCY TRANSPORT LEVEL 1 SBSQ 54964 [facility] 6 MEDICAL KER CARE/DAY SERV 25 FOUNDATIO MINUTES N SBSQ 34220 [facility] 6 MEDICAL CARE/DAY SERV 25 FOUNDATIO MINUTES N SBSQ 77479 [facility] 6 MEDICAL CARE/DAY SERV 25 FOUNDATIO MINUTES N SBSQ 98297 [facility] 6 MEDICAL CARE/DAY SERV 25 FOUNDATIO MINUTES N SBSQ 74350 [facility] 6 MEDICAL CARE/DAY SERV 25 FOUNDATIO MINUTES N SBSQ 59700 [facility] 6 MEDICAL CARE/DAY SERV 25 FOUNDATIO MINUTES N RADEX 33113 [facility] 6 RADIOLOGY III CERVICAL 2 OR 3 VIEWS SBSQ 75276 [facility] 6 MEDICAL CARE/DAY SERV 25 FOUNDATIO MINUTES N O2 CONC 1 E1390 [facility] [place] 6 HOME HOME 85%/>02 MEDICAL MEDICAL CONC AT EQUIPME EQUIPME PRSC FLW RATE PRTBLE E0431 ARIANE ARIANE GASEOUS 6 HOME HOME O2 SYS MEDICAL MEDICAL RENT; EQUIPME EQUIPME FLWMTR HUMIDFR&M ASK SBSQ 08225 [facility] 6 MEDICAL CARE/DAY SERV 25 FOUNDATIO MINUTES N INITIAL 16565 [place] [address] MEDICAL CARE/DAY SERV 50 FOUNDATIO MINUTES N GROUND A0425 [facility] 6 METRO METRO PER AMBULANCE AMBULANCE STATUTE MILE AMBULANCE A0428 [facility] 6 METRO METRO BLS AMBULANCE AMBULANCE NONEMERGE NCY TRANSPORT UNLISTED A0999 [facility] 6 METRO METRO SERVICE [facility]ANCE [facility] 74614 [facility] 6 MEDICAL DAY SERV MANAGEMEN FOUNDATIO T 30 N MIN/< SBSQ 38864 [facility] 6 MEDICAL CARE/DAY SERV 25 FOUNDATIO MINUTES N SBSQ 64795 [facility] 6 MEDICAL CARE/DAY SERV 25 FOUNDATIO MINUTES N CRITICAL 55231 [facility] 6 MEDICAL ILL/INJUR SERV ED FOUNDATIO PATIENT N INIT 30-74 MIN ECG 60053 [place] RAFA CHI ROUTINE 6 MEDICAL ECG SERV W/LEAST FOUNDATIO 12 LDS N I&R ONLY CRITICAL 86156 [facility] 6 MEDICAL Y-GARCIA ILL/INJUR SERV HERI ED FOUNDATIO PATIENT N INIT 30-[address] THORAX [address] [place] HARSHADROVSK W/O 6 MEDICAL [place] [address] [place] VERONIKA ABDOMEN & 6 MEDICAL GUSTAVO PELVIS SERV W/[place] [address] [place] PARKER LUCY HEAD/BRAI 6 MEDICAL N W/O SERV CONTRAST FOUNDATIO MATERIAL N ECHO 88260 [place] LILLIE SALINAS TTHRC R-T 6 MEDICAL 2D SERV W/WOM-MOD FOUNDATIO E COMPL N SPEC&COLR D RADIOLOGI 76220 [place] MARSHALL CRISTIANO C 6 MEDICAL EXAMINATI SERV ON CHEST FOUNDATIO SINGLE N VIEW FRONTAL MONITORIN [id number] [facility] G 6 HEALTHCAR HEALTHCAR ARTERIAL E E PULSE [facility] PERIPHERA L PERQ MONITORIN [id number] [facility] G 6 HEALTHCAR HEALTHCAR ARTERIAL E E PRESSURE [facility] PERIPHERA L PERQ INSERTION [id number] [facility] INFUSION 6 HEALTHCAR HEALTHCAR DEVC E E SUPERIOR [facility] VENA CAVA PERQ INSERTION [id number] [facility] INFUSION 6 HEALTHCAR HEALTHCAR DEVC RT E E SUBCLAVIA [facility] N VEIN PERQ URNLS DIP 86398 NEFT[facility]I L[facility]Y 6 [facility] STICK/TAB INC INC LET REAGENT AUTO MICROSCOP Y RADIOLOGI 64753 [place] TRUE RAE C 6 MEDICAL EXAMINATI SERV ON CHEST FOUNDATIO SINGLE N VIEW FRONTAL ECG 36493 NEFTALI LINDSAY ROUTINE 6 [facility] ECG INC INC W/LEAST 12 LDS TRCG ONLY W/O I&R CREATINE 43003 NEFTALI LINDSAY KINASE 6 [facility] TOTAL INC INC CUL BACT 18602 NEFTALI LINDSAY AEROBIC 6 [facility] ADDL INC INC METHS DEFINITIV E EA ISOL CULTURE 19602 NEFTALI LINDSAY BACTERIAL 6 [facility] INC [place] [address] NEFTALI LINDSAY INFUSION 6 [facility] THERAPY INC INC PROPHYLAX IS/[place] [address] NEFTALI LINDSAY INFUSION 6 [facility] THER INC INC PROPH ADDL SEQUENTIA L TO 1 HR COLLECTIO 74762 NEFTALI LINDSAY N VENOUS 6 [facility] BLOOD INC INC VENIPUNCT URE BLOOD 06412 NEFTALI NEFTALI COUNT 6 [facility] COMPLETE INC INC AUTO&AUTO DIFRNTL WBC CULTURE 66309 NEFTALI LINDSAY BACTERIAL 6 [facility] BLOOD INC INC AEROBIC W/[place] [address] NEFTALI NEFTALI TROPONIN 6 [facility] QUANTITAT INC INC CORY CRITICAL 94573 DEEPA MALMARIA ALEJANDRA [facility] CARE 6 PHYSICIAN ILL/INJUR S, PLLC ED PATIENT INIT 30-[address] [facility] SERVICE 6 AMBULANCE AMBULANCE ALS SERVICE SERVICE EMERGENCY TRANSPORT LEVEL 1 ECG 49386 NEFTALI NOONAN ROUTINE 6 [facility] W/LEAST P 12 LDS I&R ONLY GROUND A0425 [facility] MILEA 6 AMBULANCE AMBULANCE [place] [address] NEFTALI NEFTALI INFUSION 6 [facility] THERAPY/P INC INC ROPHYLAXI S /DX 1ST TO 1 HR CREATINE 74323 NEFTALI LINDSAY KINASE MB 6 [facility] FRACTION INC INC ONLY COMPREHEN 09739 NEFTALI [facility]INDSAY SIVE 6 [facility] [place] [address] NEFTALI LINDSA[facility] LACTATE 6 [facility] INC INC CT THORAX 15962 NEFT[facility]I [facility]Y W/O 6 [facility] CONTRAST INC INC MATERIAL 3D 32435 [place] NILA RENDERING 6 MEDICAL IZABEL W/INTERP IMAGING & ASS POSTPROCE SS SUPERVISI ON RADEX 32792 [place] [facility] RIBS BI 6 MEDICAL W/POSTERO IMAGING ANT CH ASS MINIMUM 4 VIEWS RADEX 85732 [place]UM[facility] 6 MEDICAL MINIMUM 2 IMAGING VIEWS ASS O2 CONC 1 E1390 [facility] TH[facility]KAR [place] 6 HOME HOME 85%/>02 MEDICAL MEDICAL CONC AT EQUIPME EQUIPME PRSC FLW RATE PRTBLE E0431 ARIANE ARIANE GASEOUS 6 HOME HOME O2 SYS MEDICAL MEDICAL RENT; EQUIPME EQUIPME FLWMTR HUMIDFR&M ASK PPSV23 [address] [facility] ELDER VACCINE 2 6 PHYSICIAN MANUELA YRS OR S GROUP OLDER FOR SUBQ/IM USE ALBUMIN 59757 NEFTALI LINDSAY URINE 6 [facility] MICROALBU INC INC MIN QUANTIATI VE CULTURE 95205 NEFTALI LINDSAY BACTERIAL 6 [facility] INC INC QUANTTATI VE COLONY COUNT URINE CULTURE 57395 NEFTALI LINDSAY BCT 6 [facility] ISOL&PRSM INC INC PTV ID ISOLATE EA URINE HEMOGLOBI 88720 NEFT[facility]I LINDSAY N 6 [facility] GLYCOSYLA INC INC NICOLE A1C O2 CONC 1 E1390 ARIANE ARIANE [place] 6 HOME HOME 85%/>02 MEDICAL MEDICAL CONC AT EQUIPME EQUIPME PRSC FLW RATE PRTBLE E0431 ARIANE ARIANE GASEOUS 6 HOME HOME O2 SYS MEDICAL MEDICAL RENT; EQUIPME EQUIPME FLWMTR HUMIDFR&M ASK O2 CONC 1 E1390 ARIANE ARIANE DEL [place] 6 HOME HOME 85%/>02 MEDICAL MEDICAL CONC AT EQUIPME EQUIPME PRSC FLW RATE PRTBLE E0431 ARIANE ARIANE GASEOUS 6 HOME HOME O2 SYS MEDICAL MEDICAL RENT; EQUIPME EQUIPME FLWMTR HUMIDFR&M ASK PRESSURIZ 47119 NEFTALI LINDSAY ED/NONPRE 6 [facility] SSURIZED INC INC INHALATIO N TREATMENT NONINVASI 15689 NEFTALI L[facility]SAY VE 6 [facility] EAR/PULSE INC INC OXIMETRY SINGLE DETER COMPREHEN 35951 NEFT[facility]SA[facility] SIVE 6 [facility] METABOLIC INC INC PANEL BLOOD 73488 NEFTALI LINDSAY COUNT 6 [facility] COMPLETE INC INC AUTO&AUTO DIFRNTL WBC COLLECTIO 62814 NEFT[facility]I LINDSAY N VENOUS 6 [facility] BLOOD INC INC VENIPUNCT URE [facility] G0378 NEFTALI LINDSAY OBSERVATI 6 [facility] ON INC INC SERVICE PER HOUR GLUC BLD 44416 NEFTALI LINDSAY GLUC MNTR 6 [facility] DEV INC INC CLEARED FDA SPEC HOME USE GLUC BLD 98414 NEFTALI LINDSAY GLUC MNTR 6 [facility] DEV INC INC CLEARED FDA SPEC HOME USE BASIC 11607 NEFTALI LINDSAY METABOLIC 6 [facility] PANEL [facility] [id number] [facility] L[facility] OBSERVATI 6 [facility] INC SERVICE PER HOUR COLLECTIO 38445 [facility] N VENOUS 6 [facility] BLOOD INC INC VENIPUNCT URE COMPREHEN 03584 [facility] DANIELON SIVE 6 [facility] METABOLIC INC INC PANEL BLOOD 72882 [facility] LINSDAY COUNT 6 [facility] COMPLETE INC INC AUTO&[place] [address] [facility] TROPONIN 6 [facility] QUANTITAT INC INC CORY CREATINE 09430 [facility] KINASE 6 [facility] TOTAL INC INC NONINVASI 66268 [facility] VE 6 [facility] EAR/PULSE INC INC OXIMETRY SINGLE DETER PRESSURIZ 20161 [facility] ED/NONPRE 6 [facility] SSURIZED INC INC INHALATIO N TREATMENT CREATINE 93303 NEFT[facility]I [facility] KINASE MB 6 [facility] FRACTION INC INC ONLY CREATINE 20772 ENFTALI L[facility] KINASE MB 6 [facility] FRACTION INC INC ONLY PRESSURIZ 05061 [facility] ED/NONPRE 6 [facility] SSURIZED INC INC INHALATIO N TREATMENT NONINVASI 29799 [facility] VE 6 [facility] EAR/PULSE INC [place] [address] NEFTALI LINDSAY 1/> AREAS 6 [facility] EA 15 INC INC MIN GAIT TRAINJ W/STAIR CREATINE 84126 NEFTALI [facility] KINASE 6 [facility] TOTAL INC INC ECG 90474 NEFTALI [facility] ROUTINE 6 [facility] ECG INC INC W/LEAST 12 LDS TRCG ONLY W/O I&R THER 69292 NEFT[facility]I [facility] PROPH/DX 6 [facility] NJX IV INC INC PUSH SINGLE/1S T SBST/DRUG PHYSICAL 45577 NE[facility]I [facility] THERAPY 6 [facility] [place] [address] NEFTALI NEFTALI TROPONIN 6 [facility] QUANTITAT INC INC CORY BLOOD 48995 NEFT[facility]I [facility] COUNT 6 [facility] COMPLETE INC INC AUTO&AUTO DIFRNTL WBC COMPREHEN 76167 NEFT[facility]I NEFTALI SIVE 6 [facility] METABOLIC INC INC PANEL HOSPITAL G0378 NEFTALI [facility] OBSERVATI 6 [facility] ON INC INC SERVICE PER HOUR COLLECTIO 22144 NEFTALI LINDSAY N VENOUS 6 [facility] BLOOD INC INC VENIPUNCT URE GLUC BLD 00946 NEFTALI LINDSAY GLUC MNTR 6 [facility] DEV INC INC CLEARED FDA SPEC HOME USE GLUCOSE 96820 NEFTALI [facility] QUANTITAT 6 [facility] CORY BLOOD INC INC XCPT REAGENT STRIP ECG 48798 NEFTALI NOONAN ROUTINE 6 [facility] W/LEAST P 12 LDS I&R ONLY RADIOLOGI 65080 [place] NILA C 6 MEDICAL IZABEL EXAMINATI IMAGING ON CHEST ASS SINGLE VIEW FRONTAL US SOFT 82405 [facility] SNYDER ALL TISSUE 6 MEDICAL HEAD & IMAGING NECK REAL ASS TIME IMGE DOCM COLLECTIO 69145 NEFT[facility]I [facility] N VENOUS 6 [facility] [place] [address] NEFTALI [facility]INDSAY FREE 6 [facility] [place] [address] NEFTALI [facility] THYROID 6 [facility] STIMULATI INC INC NG HORMONE TSH BASIC 17558 NEFTALI LINDSAY METABOLIC 6 [facility] PANEL INC INC CALCIUM TOTAL ECG 32313 NEFTALI LIND[facility] ROUTINE 6 [facility] ECG INC INC W/LEAST 12 LDS TRCG ONLY W/O I&R IMPLANTAT 97352 [facility] ION 6 PHYSICIAN MAT PT-ACTIVA S GROUP NICOLE CARDIAC EVENT RECORDER PRTBLE E0431 ARIANE THAKKAR GASEOUS 6 HOME HOME O2 SYS MEDICAL MEDICAL RENT; EQUIPME EQUIPME FLWMTR HUMIDFR&M ASK O2 CONC 1 E1390 ARIANE MCALLISTER PORT 6 HOME HOME 85%/>02 MEDICAL MEDICAL CONC AT EQUIPME EQUIPME PRSC FLW RATE DUPLEX 42223 [facility] SCAN 6 MEDICAL EXTRACRAN IMAGING IAL ART ASS COMPL BI STUDY INSERTION [id number] NEFTALI [facility] MON DEVC 6 [facility] CHEST INC INC SUBQ TISSUE & FASC OPEN RADIOLOGI 09351 [facility] ALL C 6 MEDICAL EXAMINATI IMAGING ON CHEST ASS SINGLE VIEW FRONTAL ECG 51587 NEFTALI BONILLA JR ROUTINE 6 [facility] W/LEAST P 12 LDS I&R ONLY O2 CONC 1 E1390 ARIANE MCALLISTER PORT 6 HOME HOME 85%/>02 MEDICAL MEDICAL CONC AT EQUIPME EQUIPME PRSC FLW RATE PRTBLE E0431 ARIANE THAKKAR GASEOUS 6 HOME HOME O2 SYS MEDICAL MEDICAL RENT; EQUIPME EQUIPME FLWMTR HUMIDFR&M ASK PRTBLE E0431 ARIANE THAKKAR GASEOUS 6 HOME HOME O2 SYS MEDICAL MEDICAL RENT; EQUIPME EQUIPME FLWMTR HUMIDFR&M ASK O2 CONC 1 E1390 ARIANE MCALLISTER PORT 6 HOME HOME 85%/>02 MEDICAL MEDICAL CONC AT EQUIPME EQUIPME PRSC FLW RATE O2 CONC 1 E1390 ARIANE MCALLISTER PORT 6 HOME HOME 85%/>02 MEDICAL MEDICAL CONC AT EQUIPME EQUIPME PRSC FLW RATE PRTBLE E0431 ARIANE THAKKAR GASEOUS 6 HOME HOME O2 SYS MEDICAL MEDICAL RENT; EQUIPME EQUIPME FLWMTR HUMIDFR&M ASK NEEDLE 29142 [facility] EMG EA 6 N EXTREMTY NEUROLOGY W/PARASPI NL AREA COMPLETE NERVE 14325 [facility] CONDUCTIO 6 N N STUDIES NEUROLOGY 9-10 STUDIES INJECTION J3301 F[place]IS [place] 6 ML DORIS TRIAMCINO LONE ACETONIDE NOS 10 MG INJECTION 62493 [facility] [place] 1 TENDON 6 ML DORIS SHEATH/LI GAMENT APONEUROS IS ECG 72626 NEFTALI LINDSAY ROUTINE 6 [facility] ECG INC INC W/LEAST 12 LDS TRCG ONLY W/O I&R PRTBLE E0431 ARIANEGHAZAL TOBARRELL GASEOUS 6 HOME HOME O2 SYS MEDICAL MEDICAL RENT; EQUIPME EQUIPME FLWMTR HUMIDFR&M ASK O2 CONC 1 E1390 ARIANE TOBARRELL DEL PORT 6 HOME HOME 85%/>02 MEDICAL MEDICAL CONC AT EQUIPME EQUIPME PRSC FLW RATE RADIOLOGI 41124 ALESHA SNYDER ALL C 6 MEDICAL EXAMINATI IMAGING ON FOOT 2 ASS VIEWS RADEX 92931 NEFTALI LINDSAY FOOT 6 [facility] COMPLETE INC INC MINIMUM 3 VIEWS POLYSOM 24188 NEFTALI LINDSAY 6/>YRS 6 [facility] SLEEP 4/> INC INC ADDL RENZO ATTND PRTBLE E0431 ARIANE ARIANE GASEOUS 6 HOME HOME O2 SYS MEDICAL MEDICAL RENT; EQUIPME EQUIPME FLWMTR HUMIDFR&M ASK DETERMINA 65755 [facility] RICE TION [facility] C[facility] STATE O2 CONC 1 E1390 ARIANE TOBARRELL DEL PORT 6 HOME HOME 85%/>02 MEDICAL MEDICAL CONC AT EQUIPME EQUIPME PRSC FLW RATE OPHTH 12160 [facility] CASTELLANOES MEDICAL 6 VISION ANG XM&EVAL CENTER COMPRHNSV ESTAB PT 1/> ECG [address] [facility] LINA ROUTINE 6 PHYSICIAN MAT ECG S GROUP W/LEAST 12 LDS I&R ONLY DUP-SCAN 03098 ALESHA SNYDER ALL XTR VEINS 6 MEDICAL IMAGING UNILATERA ASS L/LIMITED STUDY ECG 27378 NEFTALI LINDSAY ROUTINE 6 [facility] ECG INC INC W/LEAST 12 LDS TRCG ONLY W/O I&R DUP-SCAN 89007 NEFTALI LINDSAY LXTR 6 [facility] ART/ARTL INC INC BPGS UNI/LMTD STUDY DIAB ONLY A5500 PROGRESSI PROGRESSI FIT CSTM 6 VE VE PREP&SPL PODIATRY PODIATRY SHOE MX DNSITY INSRT MTHFR 98804 Seen , [facility] ANALYSIS COMMON VARIANTS ECG 34423 NEFTALI LINDSAY ROUTINE 6 [facility] ECG INC INC W/LEAST 12 LDS TRCG ONLY W/O I&R FOR DIAB A5513 PROGRESSI PROGRESSI ONLY MX 6 VE VE DNSITY PODIATRY PODIATRY INSRT CSTM MOLD CSTM EA F2 GENE 26020 SCHEDit ANALYSIS 6 , [facility] , [facility] 51041C >A VARIANT F5 17271 SCHEDit COAG[facility] , [facility] ON FACTOR V ANAL LEIDEN VARIANT ECHO 82256 [place] [facility] [facility] R-T 6 MEDICAL 2D SERV W/WOM-MOD FOUNDATIO E COMPL N SPEC&COLR D DUPLEX 98319 [facility] ALL SCAN 6 MEDICAL EXTRACRAN IMAGING IAL ART ASS COMPL BI STUDY O2 CONC 1 E1390 ARIANE THAKKAR DEL PORT 6 HOME HOME 85%/>02 MEDICAL MEDICAL CONC AT EQUIPME EQUIPME PRSC FLW RATE PRTBLE E0431 ARIANE TOBARRELL GASEOUS 6 HOME HOME O2 SYS MEDICAL MEDICAL RENT; EQUIPME EQUIPME FLWMTR HUMIDFR&M ASK ECG 36873 [facility] ROUTINE 6 PHYSICIAN MAT ECG S GROUP W/LEAST 12 LDS I&R ONLY ECG 37518 NEFTALI LINDSAY ROUTINE 6 [facility] ECG INC INC W/LEAST 12 LDS TRCG ONLY W/O I&R NON-INVAS 51138 [facility] ALL CORY 6 MEDICAL PHYSIOLOG IMAGING IC STUDY ASS EXTREMITY 3 LEVLS SBSQ 67073 [facility] 6 ML DORIS CARE/DAY 35 MINUTES INITIAL 09411 [facility] 6 ML DORIS CARE/DAY 70 MINUTES RADIOLOGI 55682 [facility] ALL C 6 MEDICAL EXAMINATI IMAGING ON FOOT [address] THORAX 65809 [facility] BENEDICT W/O 6 MEDICAL MIGUEL CONTRAST IMAGING MATERIAL ASS SBSQ 79249 [facility] 6 PHYSICIAN MANUELA CARE/DAY S GROUP 15 MINUTES RADIOLOGI 75204 ALESHA SNYDER ALL C 6 MEDICAL EXAMINATI IMAGING ON CHEST ASS SINGLE VIEW FRONTAL PNEUMOCOC 4040F FALLIS FALLIS LUIZ 6 ML ML VACCINE ADMIN RCVD PRIOR BMI DOC G8420 F[facility] CHINA W/I 6 ML DORIS NORMAL RENZO & NO F/U PLAN REQUIRED MOST 3046F [facility] [place] RECENT 6 ML DORIS HEMOGLOBI N A1C LEVEL >9.0% INFLUENZA G8484 FALLIS FALLIS IMMUN 6 ML ML NOT ADMINISTE RED RSN NOT GIVEN ELIG CLIN G8427 FALL[facility] CHINA ATTSTS 6 ML DORIS DOC M REC OBTD UPD/REV PT MEDS RADIOLOGI 97230 NEFTALI LINDSAY C EXAM 6 [facility] CHEST 2 INC INC VIEWS FRONTAL&L ATERAL LANCETS A4259 [facility] PER BOX 6 [facility]Y PHARMACY OF 100 BLD GLU A4253 CLINIC CLINIC TEST/REAG 6 PHARMACY PHARMACY T STRIPS HOME BLD GLU MON-50 PRTBLE E0431 ARIANE THAKKAR GASEOUS 6 HOME HOME O2 SYS MEDICAL MEDICAL RENT; EQUIPME EQUIPME FLWMTR HUMIDFR&M ASK O2 CONC 1 E1390 ARIANE THAKKAR DEL PORT 6 HOME HOME 85%/>02 MEDICAL MEDICAL CONC AT EQUIPME EQUIPME [facility] FLW RATE DRUG TST G0477 NEFTALI LINDSAY PRESUMP;C 6 [facility] PBL BEING INC INC READ DC OPT OBV ONLY PRTBLE E0431 ARIANE THAKKAR GASEOUS 5 HOME HOME O2 SYS MEDICAL MEDICAL RENT; EQUIPME EQUIPME FLWMTR HUMIDFR&M ASK O2 CONC 1 E1390 ARIANE THAKKAR DEL PORT 5 HOME HOME 85%/>02 MEDICAL MEDICAL CONC AT EQUIPME EQUIPME PRSC FLW RATE O2 CONC 1 E1390 ARIANE MCALLISTER PORT 5 HOME HOME 85%/>02 MEDICAL MEDICAL CONC AT EQUIPME EQUIPME PRSC FLW RATE PRTBLE E0431 ARIANE THAKKAR GASEOUS 5 HOME HOME O2 SYS MEDICAL MEDICAL RENT; EQUIPME EQUIPME FLWMTR HUMIDFR&M ASK NEBULIZER E0570 ARIANE THAKKAR WITH 5 HOME HOME COMPRESSO MEDICAL MEDICAL R EQUIPME EQUIPME COMPREHEN 60285 NEFTALI NEFTALI SIVE 5 [facility] METABOLIC INC INC PANEL COLLECTIO 29348 NEFTALI LINDSAY N VENOUS 5 [facility] BLOOD INC INC VENIPUNCT URE LIPID 36956 NEFTALI LINDSAY PANEL 5 [facility] INC INC HEMOGLOBI 63983 NEFTALI LINDSAY N 5 [facility] GLYCOSYLA INC INC NICOLE A1C DIAB ONLY A5500 CLINIC CLINIC FIT CSTM 5 PHARMACY PHARMACY PREP&SPL SHOE MX DNSITY INSRT FOR DIAB A5513 CLINIC CLINIC ONLY MX 5 PHARMACY PHARMACY DNSITY INSRT CSTM MOLD CSTM EA PRTBLE E0431 ARIANE THAKKAR GASEOUS 5 HOME HOME O2 SYS MEDICAL MEDICAL RENT; EQUIPME EQUIPME FLWMTR HUMIDFR&M ASK O2 CONC 1 E1390 ARIANE MCALLISTER PORT 5 HOME HOME 85%/>02 MEDICAL MEDICAL CONC AT EQUIPME EQUIPME PRSC FLW RATE NEBULIZER E0570 ARIANE THAKKAR WITH 5 HOME HOME COMPRESSO MEDICAL MEDICAL R EQUIPME EQUIPME PRTBLE E0431 ARIANE THAKKAR GASEOUS 5 HOME HOME O2 SYS MEDICAL MEDICAL RENT; EQUIPME EQUIPME FLWMTR HUMIDFR&M ASK O2 CONC 1 E1390 ARIANE MCALLISTER PORT 5 HOME HOME 85%/>02 MEDICAL MEDICAL CONC AT EQUIPME EQUIPME PRSC FLW RATE NEBULIZER E0570 ARIANE THAKKAR WITH 5 HOME HOME COMPRESSO MEDICAL MEDICAL R EQUIPME EQUIPME ALBUTEROL J7620 YOUR YOUR TO 2.5 5 PHARMACY PHARMACY [employer] IPRATROPI UM BROM TO 0.5 MG PHRM Q0513 YOUR YOUR DISPENSIN 5 PHARMACY PHARMACY G FEE [facility] INHALATIO N RX; PER 30 DAYS PRTBLE E0431 ARIANE THAKKAR GASEOUS 5 HOME HOME O2 SYS MEDICAL MEDICAL RENT; EQUIPME EQUIPME FLWMTR HUMIDFR&M ASK O2 CONC 1 E1390 ARIANE THAKKAR DEL PORT 5 HOME HOME 85%/>02 MEDICAL MEDICAL CONC AT EQUIPME EQUIPME PRSC FLW RATE NEBULIZER E0570 ARIANE THAKKAR WITH 5 HOME HOME COMPRESSO MEDICAL MEDICAL R EQUIPME EQUIPME COLLECTIO 93681 NEFTALI LINDSAY N VENOUS 5 [facility] BLOOD INC INC VENIPUNCT URE BLOOD 23733 NEFTALI LINDSAY COUNT 5 [facility] COMPLETE INC INC AUTO&AUTO DIFRNTL WBC COMPREHEN 95768 NEFTALI LINDSAY SIVE 5 [facility] METABOLIC INC INC PANEL LIPID 50774 NEFTALI LINDSAY PANEL 5 [facility] INC INC HEMOGLOBI 13118 NEFTALI LINDSAY N 5 [facility] GLYCOSYLA INC INC NICOLE A1C PRTBLE E0431 ARIANE THAKKAR GASEOUS 5 HOME HOME O2 SYS MEDICAL MEDICAL RENT; EQUIPME EQUIPME FLWMTR HUMIDFR&M ASK O2 CONC 1 E1390 ARIANE MCALLISTER PORT 5 HOME HOME 85%/>02 MEDICAL MEDICAL CONC AT EQUIPME EQUIPME PRSC FLW RATE NEBULIZER E0570 ARIANE THAKKAR WITH 5 HOME HOME COMPRESSO MEDICAL MEDICAL R EQUIPME EQUIPME PRTBLE E0431 ARIANE THAKKAR GASEOUS 5 HOME HOME O2 SYS MEDICAL MEDICAL RENT; EQUIPME EQUIPME FLWMTR HUMIDFR&M ASK O2 CONC 1 E1390 ARIANE THAKKAR DEL PORT 5 HOME HOME 85%/>02 MEDICAL MEDICAL CONC AT EQUIPME EQUIPME PRSC FLW RATE NEBULIZER E0570 ARIANE THAKKAR WITH 5 HOME HOME COMPRESSO MEDICAL MEDICAL R EQUIPME EQUIPME O2 CONC 1 E1390 ARIANE THAKKAR DEL PORT 5 HOME HOME 85%/>02 MEDICAL MEDICAL CONC AT EQUIPME EQUIPME PRSC FLW RATE PRTBLE E0431 ARIANE THAKKAR GASEOUS 5 HOME HOME O2 SYS MEDICAL MEDICAL RENT; EQUIPME EQUIPME FLWMTR HUMIDFR&M ASK NEBULIZER E0570 ARIANE THAKKAR WITH 5 HOME HOME COMPRESSO MEDICAL MEDICAL R EQUIPME EQUIPME ALBUTEROL J7620 YOUR YOUR TO 2.5 5 PHARMACY PHARMACY [employer] IPRATROPI UM BROM TO 0.5 MG ADMN SET A7003 YOUR YOUR SM VOL 5 PHARMACY PHARMACY NONFILTR [facility] PNEUMAT NEBULIZR DISPBL PHRM Q0513 YOUR YOUR DISPENSIN 5 PHARMACY PHARMACY G FEE [employer] INHALATIO N RX; PER 30 DAYS PRTBLE E0431 ARIANE THAKKAR GASEOUS 5 HOME HOME O2 SYS MEDICAL MEDICAL RENT; EQUIPME EQUIPME FLWMTR HUMIDFR&M ASK O2 CONC 1 E1390 ARIANE THAKKAR DEL PORT 5 HOME HOME 85%/>02 MEDICAL MEDICAL CONC AT EQUIPME EQUIPME PRSC FLW RATE NEBULIZER E0570 ARIANE THAKKAR WITH 5 HOME HOME COMPRESSO MEDICAL MEDICAL R EQUIPME EQUIPME O2 CONC 1 E1390 ARIANE THAKKAR DEL PORT 5 HOME HOME 85%/>02 MEDICAL MEDICAL CONC AT EQUIPME EQUIPME PRSC FLW RATE PRTBLE E0431 ARIANE THAKKAR GASEOUS 5 HOME HOME O2 SYS MEDICAL MEDICAL RENT; EQUIPME EQUIPME FLWMTR HUMIDFR&M ASK AORTOGRAP 87134 [facility] ABDOMINAL MEDICAL G SERIALOGR APHY RS&I INTRODUCT 11204 [facility] ION [facility] CATHETER MEDICAL AORTA G ANGIOGRAP 35212 [facility] FALLU HY [facility] EXTREMITY MEDICAL G BILATERAL RS&I NEBULIZER E0570 ARIANE THAKKAR WITH 5 HOME HOME COMPRESSO MEDICAL MEDICAL R EQUIPME EQUIPME NON-INVAS 85327 NEFTALI LINDSAY CORY 5 [facility] PHYSIOLOG INC INC IC STUDY EXTREMITY 3 LEVLS O2 CONC 1 E1390 ARIANE MCALLISTER PORT 5 HOME HOME 85%/>02 MEDICAL MEDICAL CONC AT EQUIPME EQUIPME PRSC FLW RATE PRTBLE E0431 ARIANE THAKKAR GASEOUS 5 HOME HOME O2 SYS MEDICAL MEDICAL RENT; EQUIPME EQUIPME FLWMTR HUMIDFR&M ASK NEBULIZER E0570 ARIANE THAKKAR WITH 5 HOME HOME COMPRESSO MEDICAL MEDICAL R EQUIPME EQUIPME O2 CONC 1 E1390 ARIANE MCALLISTER PORT 5 HOME HOME 85%/>02 MEDICAL MEDICAL CONC AT EQUIPME EQUIPME PRSC FLW RATE PRTBLE E0431 ARIANE THAKKAR GASEOUS 5 HOME HOME O2 SYS MEDICAL MEDICAL RENT; EQUIPME EQUIPME FLWMTR HUMIDFR&M ASK NEBULIZER E0570 ARIANE THAKKAR WITH 5 HOME HOME COMPRESSO MEDICAL MEDICAL R EQUIPME EQUIPME PHARM G0333 YOUR YOUR DISPEN 5 PHARMACY PHARMACY FEE INHAL [employer] RX; INITIAL 30-DAY SUPPLY ADMN SET A7003 YOUR YOUR SM VOL 5 PHARMACY PHARMACY NONFILTR [employer] PNEUMAT NEBULIZR DISPBL ALBUTEROL J7620 YOUR YOUR TO 2.5 5 PHARMACY PHARMACY MG & [facility] [employer] IPRATROPI UM BROM TO 0.5 MG RADIOLOGI 82161 [facility] EXAM 5 MEDICAL IZABEL CHEST 2 IMAGING VIEWS ASS FRONTAL&L ATERAL O2 CONC 1 E1390 ARIANE MCALLISTER PORT 4 HOME HOME 85%/>02 MEDICAL MEDICAL CONC AT EQUIPME EQUIPME PRSC FLW RATE PRTBLE E0431 ARIANE THAKKAR GASEOUS 4 HOME HOME O2 SYS MEDICAL MEDICAL RENT; EQUIPME EQUIPME FLWMTR HUMIDFR&M ASK BLD GLU A4253 CLINIC CLINIC TEST/REAG 4 PHARMACY PHARMACY T STRIPS HOME BLD GLU FRI- LANCETS A4259 CLINIC CLINIC PER BOX 4 PHARMACY PHARMACY OF 100 THERAPEUT 04861 NEFTALI LINDSAY IC PX 1/> 4 [facility] AREAS INC INC EACH 15 MIN EXERCISES APPLICATI 83117 NEFTALI LINDSAY ON 4 [facility] MODALITY INC INC 1/> AREAS HOT/COLD PACKS MANUAL 44806 NEFTALI LINDSAY THERAPY 4 [facility] TQS 1/> INC INC REGIONS EACH 15 MINUTES E-STIM G0283 NEFTALI LINDSAY 1/> AREAS 4 [facility] OTH THAN INC INC WND CARE PART TX PLAN E-STIM G0283 NEFTALI LINDSAY 1/> AREAS 4 [facility] OTH THAN INC INC WND CARE PART TX PLAN APPLICATI 14296 NEFTALI LINDSAY ON 4 [facility] MODALITY INC INC 1/> AREAS HOT/COLD PACKS THERAPEUT 15796 NEFTALI LINDSAY IC PX 1/> 4 [facility] AREAS INC INC EACH 15 MIN EXERCISES PHYSICAL 23217 NEFTALI LINDSAY THERAPY 4 [facility] EVALUATIO INC INC N PRTBLE E0431 ARIANE ARIANE GASEOUS 4 HOME HOME O2 SYS MEDICAL MEDICAL RENT; EQUIPME EQUIPME FLWMTR HUMIDFR&M ASK O2 CONC 1 E1390 ARIANE ARIANE DEL PORT 4 HOME HOME 85%/>02 MEDICAL MEDICAL CONC AT EQUIPME EQUIPME PRS FLW RATE 3D 31533 ALESHA DOTSON RENDERING 4 MEDICAL IZABEL W/INTERP IMAGING & ASS POSTPROCE SS SUPERVISI ON MRI 78429 NEFTALI LINDSAY SPINAL 4 [facility] CANAL INC INC LUMBAR W/O CONTRAST MATERIAL O2 CONC 1 E1390 ARIANE ARIANE DEL PORT 4 HOME HOME 85%/>02 MEDICAL MEDICAL CONC AT EQUIPME EQUIPME PRSC FLW RATE PRTBLE E0431 ARIANE ARIANE GASEOUS 4 HOME HOME O2 SYS MEDICAL MEDICAL RENT; EQUIPME EQUIPME FLWMTR HUMIDFR&M ASK LANCETS A4259 CLINIC CLINIC PER BOX 4 PHARMACY PHARMACY OF 100 BLD GLU A4253 CLINIC CLINIC TEST/REAG 4 PHARMACY PHARMACY T STRIPS HOME BLD GLU MON-50 COLLECTIO 27381 NEFTALI NEFTALI N VENOUS 4 [facility] BLOOD INC INC VENIPUNCT URE COMPREHEN 78846 NEFTALI LINDSAY SIVE 4 [facility] METABOLIC INC INC PANEL LIPID 86113 NEFTALI LINDSAY PANEL 4 [facility] INC INC HEMOGLOBI 01117 NEFTALI LINDSAY N 4 [facility] GLYCOSYLA INC INC NICOLE A1C O2 CONC 1 E1390 ARIANE ARIANE DEL PORT 4 HOME HOME 85%/>02 MEDICAL MEDICAL CONC AT EQUIPME EQUIPME PRSC FLW RATE PRTBLE E0431 ARIANE ARIANE GASEOUS 4 HOME HOME O2 SYS MEDICAL MEDICAL RENT; EQUIPME EQUIPME FLWMTR HUMIDFR&M ASK BLD GLU A4253 CLINIC CLINIC TEST/REAG 4 PHARMACY PHARMACY T STRIPS HOME BLD GLU FRI- PRTBLE E0431 ARIANE ARIANE GASEOUS 4 HOME HOME O2 SYS MEDICAL MEDICAL RENT; EQUIPME EQUIPME FLWMTR HUMIDFR&M ASK O2 CONC 1 E1390 ARIANE ARIANE DEL PORT 4 HOME HOME 85%/>02 MEDICAL MEDICAL CONC AT EQUIPME EQUIPME PRSC FLW RATE RADIOLOGI 98827 [facility] C EXAM 4 MEDICAL IZABEL CHEST 2 IMAGING VIEWS ASS FRONTAL&L ATERAL ECHO 71435 [place] [facility] CRISTIANO TTHRC R-T 4 MEDICAL 2D SERV W/WOM-MOD FOUNDATIO E COMPL SPEC&COLR D LANCETS A4259 CLINIC CLINIC PER BOX 4 PHARMACY PHARMACY OF 100 BLD GLU A4253 CLINIC CLINIC TEST/REAG 4 PHARMACY PHARMACY T STRIPS HOME BLD GLU RADIOLOGI 96360 [facility] C EXAM 4 MEDICAL IZABEL CHEST 2 IMAGING VIEWS ASS FRONTAL&L ATERAL DETERMINA 41006 DWAYNE DUNCANON 4 [facility] C[facility] E STATE OPHTH 82159 [facility] 4 VISION XM&EVAL CENTER COMPRHNSV ESTAB PT 1/> LANCETS A4259 CLINIC CLINIC PER BOX 4 PHARMACY PHARMACY OF 100 BLD GLU A4253 CLINIC CLINIC TEST/REAG 4 PHARMACY PHARMACY T STRIPS HOME BLD GLU FRI-50 BLD GLU A4253 CLINIC CLINIC TEST/REAG 4 PHARMACY PHARMACY T STRIPS HOME BLD GLU MON-50 LANCETS A4259 CLINIC CLINIC PER BOX 4 PHARMACY PHARMACY OF 100 DUP-SCAN 09420 ALESHA DOTSON XTR VEINS 4 MEDICAL IZABEL COMPLETE IMAGING ASS BILATERAL STUDY ECG 07115 NEFTALI BONILLA JR ROUTINE 4 [facility] W/LEAST P 12 LDS I&R ONLY RADIOLOGI 43628 ALESHA NILA C EXAM 4 MEDICAL IZABEL CHEST 2 IMAGING VIEWS ASS FRONTAL&L ATERAL FOR DIAB A5513 CLINIC CLINIC ONLY MX 3 PHARMACY PHARMACY DNSITY INSRT CSTM MOLD CSTM EA DIAB ONLY A5500 CLINIC CLINIC FIT CSTM 3 PHARMACY PHARMACY PREP&SPL SHOE MX DNSITY INSRT LANCETS A4259 CLINIC CLINIC PER BOX 3 PHARMACY PHARMACY OF 100 BLD GLU A4253 CLINIC CLINIC TEST/REAG 3 PHARMACY PHARMACY T STRIPS HOME BLD GLU MON-50 BLD GLU A4253 CLINIC CLINIC TEST/REAG 3 PHARMACY PHARMACY T STRIPS HOME BLD GLU MON-50 LANCETS A4259 CLINIC CLINIC PER BOX 3 PHARMACY PHARMACY OF 100 BLD GLU A4253 CLINIC CLINIC TEST/REAG 3 PHARMACY PHARMACY T STRIPS HOME BLD GLU MON-50 BLD GLU A4253 CLINIC CLINIC TEST/REAG 3 PHARMACY PHARMACY T STRIPS HOME BLD GLU MON-50 GONADOTRO 58038 NEFTALI LINDSAY PIN 3 [facility] LUTEINIZI INC INC NG HORMONE COLLECTIO 19788 NEFTALI LINDSAY N VENOUS 3 [facility] [place] [address] NEFTALI LINDSAY THYROID 3 [facility] STIMULATI [place] [address] NEFTALI LINDSAY ESTROGENS 3 [facility] TOTAL INC INC GONADOTRO 59437 NEFTALI LINDSAY PIN 3 [facility] FOLLICLE INC INC STIMULATI NG HORMONE BLD GLU A4253 CLINIC CLINIC TEST/REAG 3 PHARMACY PHARMACY T STRIPS HOME BLD GLU MON-50 PHRM Q0514 [facility] DISPENSIN 3 PHARMACY PHARMACY G FEE #591 #591 INHALATIO N RX; PER 90 DAYS ALBUTEROL J7613 [facility] INHAL 3 PHARMACY PHARMACY NON-CP #591 #591 PROD THRU DME U DOSE [facility] [address] [facility] 3 [facility] DAY INTERNAL MANAGEMEN MED T 30 MIN/< SBSQ 78219 [facility] 3 [facility] CARE/DAY INTERNAL [address]ES [address] [facility] 3 [facility] CARE/DAY INTERNAL [address] [address] [facility] 3 [facility] CARE/DAY INTERNAL [address] [address] [facility] 3 [facility] CARE/DAY INTERNAL 25 MED MINUTES INITIAL 94803 [facility] 3 [facility] CARE/DAY INTERNAL 50 MED MINUTES INITIAL 67573 [facility] 3 [facility] ON INTERNAL CARE/DAY MED 30 MINUTES RADIOLOGI 09057 [facility] EXAM 3 MEDICAL IZABEL CHEST 2 IMAGING VIEWS ASS FRONTAL&L ATERAL ECG 26039 [facility] GHOSHEY ROUTINE 3 EMERGENCY MANUELA ECG SERVICES W/LEAST 12 LDS I&R ONLY BLD GLU A4253 CLINIC CLINIC TEST/REAG 3 PHARMACY PHARMACY T STRIPS HOME BLD GLU BLD GLU A4253 CLINIC CLINIC TEST/REAG 3 PHARMACY PHARMACY T STRIPS HOME BLD GLU [facility]OSPITAL [address] [facility] 3 [facility] DAY INTERNAL MANAGEMEN MED T 30 MIN/< SBSQ 27976 [facility] 3 [facility] CARE/[facility] INTERNAL [address]ES [address] [facility] 3 [facility] CARE/[facility] INTERNAL [address]ES [address] [facility] 3 [facility] CARE/DAY INTERNAL 25 MED MINUTES RADIOLOGI 70576 [facility] NILA C EXAM 3 MEDICAL IZABEL CHEST 2 IMAGING VIEWS ASS FRONTAL&L ATERAL BLD GLU A4253 CLINIC CLINIC TEST/REAG 2 PHARMACY PHARMACY T STRIPS HOME BLD GLU ADMINISTR G0008 [facility] 2 [facility] INFLUENZA INTERNAL VIRUS MED VACCINE INFLUENZA Q2038 [facility] VACC 2 [facility] SPLIT INTERNAL VIRUS 3 MED YRS & > IM FLUZONE BLD GLU A4253 CLINIC CLINIC TEST/REAG 2 PHARMACY PHARMACY T STRIPS HOME BLD GLU ECG 61180 NEFTALI HUDSONMIE ROUTINE 2 [facility] W/LEAST P 12 LDS I&R ONLY Encounters Encounter Start End Date Code Location Performer Type Date OFFICE [address] [facility] OUTPATIEN 7 7 PHYSICIAN T VISIT S GROUP 25 MINUTES HOSPITAL NEFTALI - OTHER 7 7 [facility] NEFTALI [facility] OTHER 7 7 [facility] NEFTALI [facility] OTHER 7 7 [facility] NEFTALI - 7 7 [facility] T [facility] MINUTES [facility]OSPITAL NEFTALI - 7 7 [facility] [address] [facility] OUTPAT[facility] 7 7 PHYSICIAN T VISIT S GROUP 25 MINUTES HOSPITAL NEFTALI - 7 7 [facility] OUTPATIEN [facility] NEFTALI - 7 7 [facility] OFFICE [address] [facility] OUTPATIEN 7 7 PHYSICIAN T VISIT S GROUP [address] [facility] OUTPATIEN 7 7 PHYSICIAN T VISIT S GROUP 15 MINUTES HOSPITAL NEFTALI - OTHER 7 7 [facility] EMERGENCY 11992 EMPERATRIZ ARMSTRONG 6 6 MEDICAL DEPARTMEN SERV T VISIT FOUNDATIO LOW/MODER N SEVERITY [facility] - 6 6 [facility] - 6 6 [facility] INPATIENT E HOSPITALS EMERGENCY 49120 EMPERATRIZ PENA DEPT 6 6 MEDICAL MANUELA VISIT SERV HIGH FOUNDATIO SEVERITY& N THREAT [facility] NEFTALI - 6 6 [facility] NEFTALI - 6 6 [facility] OFFICE [address] [facility] E[facility]ER OUTPATIEN 6 6 PHYSICIAN MANUELA T VISIT S GROUP 15 MINUTES EMERGENCY 64229 DEEPA FISH 6 6 PHYSICIAN U MIGUEL DEPARTMEN S, [facility] T VISIT MODERATE SEVERITY HOSPITAL NEFTALI - OTHER 6 6 [facility] OFFICE [address] [facility] OUTPATIEN 6 6 PHYSICIAN MANUELA T VISIT S GROUP [address]ES [address] [facility] CHICO OUTBECKYEN 6 6 PHYSICIAN OGMARCELINAAM T NEW 45 S GROUP MINUTES OFFICE [address] [facility]LDER OUTPATIEN 6 6 PHYSICIAN MNAUELA T VISIT S GROUP 15 MINUTES HOSPITAL NEFTALI - 6 6 [facility]PATIEN [facility] EMERGENCY 41348 DEEPA FISH DEPT 6 6 PHYSICIAN U MIGUEL VISIT S, [facility] HIGH SEVERITY& THREAT FUNJ EMERGENCY 53029 NEFTALI 6 6 [facility] DEPARTMEN INC T VISIT HIGH/URGE NT SEVERITY HOSPITAL NEFTALI - 6 6 [facility] NEFTALI - OTHER [address] [facility] NEFTALI - 6 6 [facility] OFFICE [address] [facility] OUTPATIEN 6 6 PHYSICIAN MANUELA T VISIT S GROUP 15 MINUTES HOSPITAL NEFTALI - 6 6 [facility] INPATIENT INC EMERGENCY 56405 [facility] DEPT 6 6 PHYSICIAN MANUELA VISIT S, [facility] HIGH SEVERITY& [facility]AT [facility] OUT[facility] 6 6 ML [facility] T VISIT 15 MINUTES HOSPITAL NEFTALI - 6 6 [facility] OUTPATIEN INC T OFFICE 11905 [facility] OUTPATI[facility] 6 6 ML [facility] T VISIT 15 MINUTES HOSPITAL NEFTALI - 6 6 [facility] NEFTALI [facility] 6 6 [facility] OUTPATIEN [facility] T OFFICE [address] [facility] LINA OUTPATIEN 6 6 PHYSICIAN MAT T VISIT S GROUP 25 MINUTES OFFICE 91491 [facility] OUTPATIEN 6 6 ML DORIS T VISIT 15 MINUTES HOSPITAL NEFTALI - 6 6 [facility]PATIEN [facility] T OFFICE 99116 [facility] [place] OUTPATIEN 6 6 ML [facility] T VISIT 15 MINUTES HOSPITAL NEFTALI - 6 6 [facility] NEFTALI - 6 6 [facility] OUTPATIEN INC T OFFICE [address] [facility] LINA OUTPATIEN 6 6 PHYSICIAN MAT T NEW 45 S GROUP MINUTES HOSPITAL NEFTALI - 6 6 [facility] OUTPATIEN [facility] NEFTALI - 6 6 [facility] OUTPATIEN INC T OFFICE 55820 [facility] [place] OUTPATI[facility] 6 6 ML DORIS T NEW 30 MINUTES HOSPITAL NEFTALI - 6 6 [facility]PAT[facility] NEFTALI - OTHER 6 6 [facility] INC OFFICE 27919 [facility] 5 5 [facility] T VISIT INTERNAL 15 MED MINUTES HOSPITAL NEFTALI - 5 5 [facility]EN [facility] NEFTALI - 5 5 [facility] OFFICE 66472 [facility] 5 5 [facility] T VISIT INTERNAL 25 MED MINUTES OFFICE 03737 [facility] 5 5 [facility] T VISIT INTERNAL 15 MED MINUTES HOSPITAL NEFTALI [facility] 5 5 [facility] OUTPATIEN [facility] NEFTALI - 5 5 [facility] INPATIENT [facility] EMERGENCY 60736 NEFT[place]I [place] [address] [facility] T VISIT P HIGH/URGE NT SEVERITY HOSPITAL NEFTALI - 4 4 [facility] NEFTALI - 4 4 [facility] 76736 [facility] 4 4 [facility] EMER[facility]ENC[facility] T VISIT PHYS HIGH/URGE NT SEVERITY [facility] NEFTALI [facility] 4 4 [facility] OUTPATIEN [facility] EMERGENCY 49192 [facility] DEPT 4 4 [facility] VISIT EMERGENCY HIGH PHYS SEVERITY& THREAT FUN Inpatient IMP Neftali Noonan MD (IN) 4 16:29 4 13:20 [facility] Inpatient IMP Neftali Griffin ([place]) 3 18:20 3 15:10 [facility] EMERGENCY 93192 HAZEL GUY DEPT 3 3 [facility] [facility] [place] [facility] VISIT SERVICES HIGH SEVERITY& THREAT [facility] H[facility]PITAL NEFTALI - 3 3 [facility] OUTPATIEN [facility] OFFICE [id number] [place] OUTPATIEN 3 3 KATHARINA Casillas VISIT INTERNAL 15 MED MINUTES Inpatient [facility] Neftali Hinkle MD (IN) 3 22:02 3 11:10 [facility] EMERGENCY [id number] HAZEL HINKLE DEPT 3 3 EMERGENCY [place] VISIT SERVICES HIGH SEVERITY& THREAT FUN EMERGENCY 13670 HAZEL PICKENS DEPT 3 3 EMERGENCY III [facility]IA [facility] VISIT SERVICES HIGH SEVERITY& THREAT FUN OFFICE [id number] [place] OUT[facility]IEN 2 2 KATHARINA Casillas VISIT INTERNAL 15 MED MINUTES
--- OUTSIDE RECORDS SUMMARY | 2016-12-15 23:22 | External Medical Summary Rpt ---
Author Author , Organization [employer] Address Unknown Phone Unavailable Care Team Providers Care Antenna Design Engineer Name Role Phone [employer], Unavailable Unavailable [employer] ALFARIS MOH, ALFARIS Unavailable Unavailable MOH [facility] Unavailable Unavailable RESPONSE, [facility] Unavailable Unavailable RESPONSE, [facility] GRAYSON JOSIANE, GRAYSON JOSIANE Unavailable Unavailable GRANT BRO, GRANT Unavailable Unavailable BRO BEINEKE MIGUEL, BEINEKE Unavailable Unavailable MIGUEL BERNERT, BERNERT Unavailable Unavailable BESSON CRISTIANO, BESSON Unavailable Unavailable CRISTIANO SNYDER, SNYDER Unavailable Unavailable SNYDER ALL, SNYDER ALL Unavailable Unavailable NATHANIEL, NATHANIEL Unavailable Unavailable [facility] Unavailable Unavailable SERVICE, [facility] CHINA DORIS, CHINA Unavailable Unavailable DORIS [facility] Unavailable Unavailable REHABILITATION, [facility], Unavailable Unavailable [facility] Unavailable Unavailable [facility], Unavailable Unavailable [facility] JESUS, JESUS Unavailable Unavailable NILA, NILA Unavailable Unavailable NILA IZABEL, Unavailable Unavailable NILA IZABEL [facility] Unavailable [facility], [facility] RILEY, RILEY Unavailable Unavailable RILEY KIN, RILEY KIN Unavailable Unavailable ERLANDSON, ERLANDSON Unavailable Unavailable FALLIS ML, FALLIS Unavailable Unavailable ML FALLUJI RUTH, FALLUJI Unavailable Unavailable RUTH ELDER, ELDER Unavailable Unavailable ELDER MANUELA, ELDER Unavailable Unavailable MANUELA VERONIKA GUSTAVO, VERONIKA Unavailable Unavailable GUSTAVO [facility], Unavailable Unavailable [facility] Unavailable Unavailable INC, [facility] Unavailable Unavailable HOSPITAL P, [facility]PITAL P FIELDS FRED, FIELDS FRED Unavailable Unavailable [facility], Unavailable Unavailable [facility] MARSHALL CRISTIANO, MARSHALL CRISTIANO Unavailable Unavailable MARCUS III, MARCUS Unavailable Unavailable III [facility] Unavailable [facility], [facility] Unavailable Unavailable MEDICAL G, [facility] PARKER LUCY, PARKER LUCY Unavailable Unavailable [facility] VIDALES CRISTIANO, VIDALES CRISTIANO Unavailable Unavailable CHAD JR DWI, CHAD Unavailable Unavailable JR DWI [facility] Unavailable Unavailable INTERNAL MED, [facility] ROHAN, JR., ROHAN, JR. Unavailable Unavailable [facility] Unavailable Unavailable SERVICES, [facility] PHAN, CHISHOLM Unavailable Unavailable MCKEMIE JR MARIA ELENA, Unavailable Unavailable MCKEMIE JR MARIA ELENA FUENTES-GARCIA HERI, Unavailable Unavailable FUENTES-GARCIA HERI [facility] Unavailable Unavailable [facility], [facility] ANDRES LOPEZ, Unavailable Unavailable ANDRES LOPEZ [facility], Unavailable Unavailable [facility] Unavailable Unavailable AMBULANCE, [facility] Unavailable Unavailable AMBULANCE, [facility] SADEK MOH, SADEK MOH Unavailable [...] EQUIPME SOTINGEANU MIGUEL, Unavailable Unavailable SOTINGEANU MIGUEL [facility] Unavailable Unavailable EMERGENCY PHYS, [facility] Juan Manuel Noonan MD, Unavailable Unavailable Juan Manuel Noonan MD PENA MANUELA, PENA Unavailable Unavailable MANUELA TRUE RAE, TRUE RAE Unavailable Unavailable [facility] Unavailable Unavailable HOSPITALS, [facility] Klever Griffin MD, Unavailable Unavailable [...] DISEASE UNS EQUIPME E119 TYPE 2 10-30-2016 [facility] DIABETES PHYSICIANS MELLITUS GROUP WITHOUT COMPLICATIO NS I10 ESSENTIAL 10-30-2016 [facility] PRIMARY PHYSICIANS HYPERTENSIO GROUP N M549 DORSALGIA 10-30-2016 [facility] UNSPECIFIED PHYSICIANS GROUP N289 DISORDER OF 10-30-2016 [facility] URETER INC UNSPECIFIED R0602 SHORTNESS 10-30-2016 [facility] BREATH [facility] INC C30187 OTHER LONG 10-30-2016 [facility] TERM PHYSICIANS CURRENT GROUP DRUG THERAPY N189 CHRONIC 10-29-2016 [facility] DISEASE INC UNSPECIFIED R0600 DYSPNEA 10-23-2016 [facility]NSPECIFIED [facility] INC R8290 UNSPECIFIED 10-23-2016 [facility] ABNORMAL [facility] FINDINGS IN INC URINE 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 ANGINA PECTORIS J40 BRONCHITIS 10-15-2016 [facility] NOT PHYSICIANS SPECIFIED GROUP ACUTE OR CHRONIC E663 OVERWEIGHT 10-01-2016 [facility] GROUP L0390 CELLULITIS 10-01-2016 [facility] UNSPECIFIED PHYSICIANS GROUP R609 EDEMA 10-01-2016 [facility]NSPECIFIED [facility] INC E118 TYPE 2 09-25-2016 [facility] DIABETES [facility] MELLITUS INC W/UNS COMPLICATIO NS M4316 SPONDYLOLIS 09-23-2016 [facility] M4806 SPINAL 09-23-2016 [facility] STENOSIS [facility]UMBAR [facility]ING [facility] REGION M5126 OTH 09-23-2016 [facility] 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 M545 LOW BACK 09-23-2016 [facility] PAIN [facility] R300 DYSURIA 08-26-2016 [facility] G894 CHRONIC 08-13-2016 [facility] SYNDROME [facility] M792 NEURALGIA 08-13-2016 [facility] NEURITIS [facility] UNSPECIFIED N179 ACUTE 08-13-2016 [facility] FAILURE [facility] UNSPECIFIED R2689 OTHER 08-13-2016 [facility] ABNORMAL[facility] SERV ES OF GAIT FOUNDATION AND MOBILITY R5381 OTHER 08-13-2016 [facility] MALAISE [facility] H87997 PAIN IN 08-12-2016 [facility] LEG SERV [facility] M7989 OTHER 08-12-2016 [facility] SPECIFIED SERV SOFT TISSUE FOUNDATION DISORDERS R279 UNSPECIFIED 08-12-2016 [facility] LACK OF AMBULANCE COORDINATIO N R52 PAIN 08-11-2016 [facility] UNSPECIFIED MEDICAL RESPONSE Z794 PENITENTIARY 08-08-2016 [facility] CURRENT USE SERV OF INSULIN FOUNDATION M542 CERVICALGIA 08-05-2016 [facility] E1165 TYPE 2 08-01-2016 [facility] [place]ABET[place] MELLITUS RE[place]AB[place] G9[address] METABOLIC 08-01-2016 [facility] ENCEPHALOPA SERV THY FOUNDATION I129 HYPERTENSIV 08-01-2016 [facility] E CKD SERV W/STAGE 1-4 FOUNDATION CKD OR UNS CKD I130 HTN HEART & 08-01-2016 [facility] CKD W/HF & HILL CKD STAGE REHABILITAT 1-4 OR UNS ION CKD I509 HEART 08-01-2016 [facility] FAILURE [facility] UNSPECIFIED REHABILITAT ION I959 HYPOTENSION 08-01-2016 [facility] SERV UNSPECIFIED FOUNDATION J9610 CHRONIC 08-01-2016 [facility] RESPIRATORY SERV FAIL UNS FOUNDATION HYPOXIA/HYP ERCAPNIA K219 GASTRO-ESOP 08-01-2016 [facility] H REFLUX [place] DISEASE REHABILITAT WITHOUT ION ESOPHAGITIS R571 HYPOVOLEMIC 08-01-2016 [facility] SHOCK SERV FOUNDATION I499 CARDIAC 07-31-2016 [facility] ARRHYTHMIA SERV UNSPECIFIED FOUNDATION J9620 ACUTE 07-31-2016 [facility] CHRONIC SERV RESP FAIL FOUNDATION UNS HYPOXIA/HYP ERCAPNIA A419 SEPSIS 07-29-2016 [facility] UNSPECIFIED SERV ORGANISM FOUNDATION I491 ATRIAL 07-29-2016 [facility] PREMATURE SERV DEPOLARIZAT FOUNDATION ION R000 TACHYCARDIA 07-29-2016 [facility] SERV UNSPECIFIED FOUNDATION R6521 SEVERE 07-29-2016 [facility] SEPSIS WITH SERV SEPTIC FOUNDATION SHOCK R9431 ABNORMAL 07-29-2016 [facility] ELECTROCARD SERV IOGRAM FOUNDATION A047 ENTEROCOLIT 07-27-2016 [facility] IS DUE TO SERV CLOSTRIDIUM FOUNDATION DIFFICILE E1122 TYPE 2 07-26-2016 [facility]OSPITALS W/DIAB CHRON KIDNEY DZ E872 ACIDOSIS 07-26-2016 [facility] G9340 ENCEPHALOPA 07-26-2016 [facility] THY SERV UNSPECIFIED FOUNDATION I348 OTHER 07-26-2016 [facility] 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 I5020 UNSPECIFIED 07-26-2016 [facility] SYSTOLIC SERV CONGESTIVE FOUNDATION HEART FAILURE I517 CARDIOMEGAL 07-26-2016 [facility] Y SERV FOUNDATION J9621 ACUTE & 07-26-2016 [facility] RESPIRATORY HOSPITALS FAILURE WITH HYPOXIA J9690 RESP FAIL 07-26-2016 [facility] UNS UNS SERV WHETHER FOUNDATION W/HYPOXIA/H YPERCAPNIA N170 ACUTE RENAL 07-26-2016 FAILURE HEALTHCARE WITH HOSPITALS TUBULAR NECROSIS R109 UNSPECIFIED 07-26-2016 [facility] ABDOMINAL SERV PAIN FOUNDATION R918 OTHER 07-26-2016 [facility] NONSPECIFIC SERV ABNORMAL FOUNDATION FINDING OF LUNG FIELD Z452 ENCOUNTER 07-26-2016 [facility] ADJUSTMENT& SERV MGMT FOUNDATION VASCULAR ACCESS DEVICE R00282 ELEVATED 07-25-2016 [facility] WHITE BLOOD [facility], CELL COUNT PLLC UNSPECIFIED R34 ANURIA AND 07-25-2016 [facility] OLIGURIA [facility], PLLC Z720 TOBACCO USE 07-25-2016 [facility] INC R0782 INTERCOSTAL 07-15-2016 [facility] PAIN [facility] INC R0789 OTHER CHEST 07-15-2016 [facility] [id number] CONTUSION 07-15-2016 [facility] RT FRONT PHYSICIANS WALL THORAX GROUP INITIAL ENCOUNTER R6043WN MULTIPLE FX 07-15-2016 [facility] RIBS UNS PHYSICIANS SIDE INIT GROUP ENC CLOS FRACTURE M37339 PAIN IN 07-10-2016 [facility] RIGHT UPPER MEDICAL ARM IMAGING ASS R0781 PLEURODYNIA 07-10-2016 [facility] [id number] CONTUSION 07-10-2016 [facility] UNS FRONT PHYSICIANS, WALL THORAX PLLC INITIAL ENCNTR F8547RZ UNS INJURY 07-10-2016 [facility] RT SHOULDER MEDICAL UPPER ARM IMAGING ASS INITIAL ENCNTR N3000 ACUTE 06-28-2016 [facility] CYSTITIS PHYSICIANS WITHOUT GROUP HEMATURIA Z23 ENCOUNTER 06-28-2016 [facility] FOR PHYSICIANS IMMUNIZATIO GROUP N Q88428 CHRONIC 05-13-2016 [facility] MIGRAINE PHYSICIANS W/O AURA GROUP INTRACT W/O STAT MIGR G17681 OTH 05-13-2016 [facility] MIGRAINE PHYSICIANS NOT INTRACT GROUP W/O STATUS MIGRAINOSUS G629 POLYNEUROPA 04-29-2016 [facility] THY PHYSICIANS UNSPECIFIED GROUP H6690 OTITIS 04-22-2016 [facility] P UNSPECIFIED EAR J209 ACUTE 04-22-2016 [facility] BRONCHITIS PHYSICIANS, UNSPECIFIED PLLC J441 CHRONIC 04-22-2016 [facility] OBSTRUCTIVE PHYSICIANS, PULMONARY PLLC DZ W/EXACERBAT ION Z9981 DEPENDENCE 04-22-2016 [facility] P L OXYGEN R002 PALPITATION 04-17-2016 [facility] S [facility] INC R1310 DYSPHAGIA 04-17-2016 [facility] UNSPECIFIED [facility] INC R42 DIZZINESS 04-17-2016 [facility] AND [facility] GIDDINESS INC R4702 DYSPHASIA 04-17-2016 [facility] R55 SYNCOPE AND 04-17-2016 [facility] COLLAPSE [facility] INC E875 HYPERKALEMI 04-03-2016 [facility] A [facility] INC I159 SECONDARY 04-03-2016 [facility] HYPERTENSIO [facility] N INC UNSPECIFIED J440 COPD WITH 04-03-2016 [facility] ACUTE LOWER [facility] INC RESPIRATORY INFECTION R062 WHEEZING 04-02-2016 [facility] R079 CHEST PAIN 04-02-2016 [facility] UNSPECIFIED [facility]ICAL IMAGING ASS 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 UNSPECIFIED E1141 TYPE 2 12-14-2015 [facility] ML DIABETES MELLITUS W/DIAB MONONEUROPA THY I739 PERIPHERAL 12-14-2015 [facility] ML VASCULAR DISEASE UNSPECIFIED I890 LYMPHEDEMA 12-14-2015 [facility] ML NOT ELSEWHERE CLASSIFIED M2570 OSTEOPHYTE 12-14-2015 [facility] ML UNSPECIFIED JOINT 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 FIBROMATOSI S S97511 PAIN IN 12-14-2015 [facility] ML RIGHT FOOT Y60053 PAIN IN LEG 12-05-2015 [facility] UNSPECIFIED INC M779 ENTHESOPATH 11-30-2015 [facility] Y [facility] UNSPECIFIED INC G4733 OBSTRUCTIVE 11-09-2015 [facility] SLEEP [facility] APNEA ADULT INC PEDIATRIC H3500 UNSPECIFIED 11-03-2015 [facility] RETINOPATHY I119 HYPERTENSIV 10-31-2015 [facility] E HEART PHYSICIANS DISEASE GROUP WITHOUT HEART FAILURE I209 ANGINA 10-31-2015 [facility] PECTORIS PHYSICIANS UNSPECIFIED GROUP I03095 PAIN IN 10-24-2015 [place] LEFT THIGH MEDICAL IMAGING ASS R1032 LEFT LOWER 10-24-2015 [facility] QUADRANT [facility] PAIN INC E785 HYPERLIPIDE 10-12-2015 [facility] MEDICAL UNSPECIFIED IMAGING ASS I5189 OTHER 10-12-2015 [facility] ILL-DEFINED [facility] HEART INC DISEASES I779 DISORDER OF 10-12-2015 [facility] ARTERIES [facility] AND INC ARTERIOLES UNSPECIFIED R0989 OT SPEC SX 10-12-2015 [facility] & SIGNS MEDICAL INVLV THE IMAGING ASS CIRC & RESP SYS 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 PERSONAL 10-03-2015 [facility] HISTORY OF PHYSICIANS NICOTINE GROUP DEPENDENCE Q20279 PAIN IN 09-21-2015 [facility] ML LEFT FOOT M7732 CALCANEAL 09-19-2015 [facility] SPUR LEFT MEDICAL FOOT IMAGING ASS J432 CENTRILOBUL 09-16-2015 [facility] AR MEDICAL EMPHYSEMA IMAGING ASS N37483 UNSPECIFIED 09-16-2015 [facility] ASTHMA PHYSICIANS UNCOMPLICAT GROUP ED R05 COUGH 09-13-2015 [facility] Z131 ENCOUNTER 09-06-2015 [facility] FOR [facility] SCREENING INC FOR DIABETES MELLITUS Z5181 ENCOUNTER 08-21-2015 [facility] FOR [facility] THERAPEUTIC INC DRUG LEVEL MONITORING A084 VIRAL 07-24-2015 [facility] IN[facility]INAL [facility] INFECTION INTERNAL UNSPECIFIED MED 496 CHRONIC 05-05-[address] [facility]STRUCTION MEDICAL NEC EQUIPME 01436 DIAB W/O 03-08-2015 [facility] COMP TYPE VALLEY II/UNS NOT INTERNAL STATED MED UNCNTRL 2724 OTHER AND 03-08-2015 [facility] UNSPECIFIED VALLEY INTERNAL HYPERLIPIDE MED JESSICA 89805 ESOPHAGEAL 03-08-2015 [facility] REFLUX VAL[facility] INTERNAL MED 7804 DIZZINESS 03-08-2015 [facility] AND VALLEY GIDDINESS INTERNAL MED 74222 DIAB 11-28-2014 [facility] W/NEURO VALLEY MANIFESTS INTERNAL TYPE II/UNS MED NOT UNCNTRL 53317 OBSTRUCTIVE 11-28-2014 [facility] CHRONIC VAL[facility] BRONCHITIS INTERNAL WITH MED EXACERBATIO N 4439 UNSPECIFIED 11-01-2014 [facility] PERIPHERAL HEALTH VASCULAR MEDICAL G DISEASE 87560 ULCER OF 11-01-2014 [facility] OTHER PART HEALTH OF LOWER MEDICAL G [...] AGTS V5867 LONG-TERM 08-25-[address] [facility] INSULIN INC 7862 COUGH 08-23-2014 [facility] 69581 DIAB W/O 07-29-2014 CLINIC COMP TYPE I PHARMACY [JUV] NOT STATED UNCNTRL 7245 UNSPECIFIED 07-22-[address] [facility] INC V571 OTHER 07-22-[address] [facility] THERAPY INC 7213 LUMBOSACRAL 06-28-2014 [facility] SPONDYLOSIS IMAGING ASS WITHOUT MYELOPATHY 51381 DISPLCMT 06-28-2014 [facility] LUMBAR MEDICAL INTERVERT IMAGING ASS DISC W/O MYELOPATHY 44586 DEGEN 06-28-2014 [place] 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 7243 SCIATICA 06-28-2014 [facility] INC 7242 LUMBAGO 06-21-2014 [facility] 42139 CHEST PAIN 04-01-2014 [place] [facility] U[facility]PECIFIED SERV FOUNDATIO 95909 UNSPECIFIED 01-03-2014 [facility] 7823 EDEMA 09-17-2013 [facility] 4293 CARDIOMEGAL 09-15-2013 [facility] Y [facility] 28175 CHRONIC 09-15-2013 [facility] ASTHMA [facility] P WITH EXACERBATIO N 35689 OTHER 09-15-2013 [facility] DISEASES OF MEDICAL LUNG NOT IMAGING ASS ELSEWHERE CLASSIFIED 35736 WHEEZING 05-02-2013 [facility] 7812 ABNORMALITY 01-29-[address] [facility] INC 486 PNEUMONIA, 12-14-2012 [facility] ORGANISM [facility] UNSPECIFIED INTERNAL MED 72056 METHICILLIN 12-03-2012 [facility] RESISTANT [place] STAPHYLOCOC INTERNAL CUS AUREUS MED 4660 ACUTE 12-03-2012 [facility] BRONCHITIS [place] INTERNAL MED 60942 ASTHMA, 12-03-2012 [facility] UNSPECIFIED VALLEY , INTERNAL UNSPECIFIED MED STATUS 88579 METHICILLIN 12-01-2012 [facility] PNEUMONIA HOSPITAL P D/T STAPH AUREUS 73228 OTHER 12-01-2012 [facility] RESPIRATORY ABNORMALITI ES 485 BRONCHOPNEU 08-27-2012 [facility] [place] ORGANISM INTERNAL UNSPECIFIED MED 33768 OTHER 08-25-2012 [facility] NONSPECIFIC MEDICAL ABNORMAL IMAGING ASS FINDING OF LUNG FIELD V0481 NEED 06-05-2012 [facility] PROPHYLACTI [place] C INTERNAL VACCINATION MED &INOCULATIO N FLU 66453 DIAB W/O 04-13-2012 [facility] MENTION [facility] COMP TYPE I HOSPITAL P [JUV TYPE] UNCNTRL 24541 ABDOMINAL 04-13-2012 [facility] PAIN, [facility] EPIGASTRIC [facility] P [id number] Acute [place] asthma [facility] [id number] Diabetes [place] mellitus [facility] 2 [facility] [id number] Active [facility] [id number] Chronic [facility] D72.829 ELEVATED WHITE BLOOD CELL COUNT, [...] OTHER INJURY OF UNSPECIFIED BODY REGION Z79.891 PENITENTIARY (CURRENT) USE OF OPIATE ANALGESIC Z79.899 OTHER PENITENTIARY (CURRENT) DRUG THERAPY Allergies, Adverse Reactions, Alerts Type Drug Allergy Adverse Reaction to Substance Substance Reaction Severity PCN (penicillin) I-RASH Intermediate Aspirin I-HIVES Mild Naproxen NA-NAUSEA (TOLERATED Mild IBUPROFEN) Erythromycin I-RASH Intermediate Codeine NA-NAUSEA Mild Propoxyphene NA-NAUSEA Mild Terbutaline P-JCMVOT-KKCU/THROAT Severe Penicillin G Procaine I-RASH Intermediate Bupropion [...] ia de te s n re d TX 00 01 1 No ED 05 -3 NI 40 1- Lo SO 01 20 ng NE 82 14 er 0 20 Ac ti MG ve TA BL ET NO 00 01 2 No VO 16 -3 LO 93 0- Lo G 69 20 ng WA 61 14 er X 9 70 Ac -3 ti 0 ve FL EX PE N SY RN LI 68 01 2 No SI 18 -3 NO 00 0- Lo TX 51 20 ng IL 80 14 er [...] er -A 2 CE Ac TA ti WA ve NO PH 7. 5- 32 5 [...] 93 9- Lo G 69 20 ng WA 61 13 er X 9 70 Ac -3 ti 0 ve FL EX PE N SY RN TX 00 09 1 No ED 05 -1 NI 40 9- Lo SO 01 20 ng NE 82 13 er 0 20 Ac ti MG ve TA BL ET FS 09 1 No -1 BL 9- Lo OO 20 ng D 13 er SCHROEDER [place] Ac R ti ve LI 68 09 3 No SI 18 -1 NO 00 7- Lo TX 51 20 ng IL 80 13 er [...] er -A 2 CE Ac TA ti WA ve NO PH 7. 5- 32 5 [...] 0. 9% 10 0M L Ad v TX 00 04 2 No ED 05 -2 [...] SI 18 -1 NO 00 9- Lo TX 51 20 ng IL 80 13 er -H 1 CT Ac Z ti 10 ve -1 2. 5 MG TA B NO 00 04 4 No VO 16 -1 LO 93 8- Lo G 69 20 ng WA 61 13 er X 9 70 Ac -3 ti 0 ve FL EX PE N SY RN FS 04 4 No -1 BL 8- Lo OO 20 ng D 13 er [place]RO[place] Ac R ti ve HY [address] 40 -1 OC 60 8- Lo OD 36 20 ng ON 56 13 er -A 2 CE Ac TA ti WA ve NO PH EN 5- 32 5 [...] RO 40 -1 SE 96 6- Lo WA 10 20 ng DE 20 13 er [...] Given on t er Refuse d PPSV23 [facility] No 2016 MANUELA VACCIN E 2 YRS [...] nces retati t Range on Glucose BldC [facility] (09-18-2013 11:16) Glucose 190 70-110 complet BldC 014 mg/dl ed Glucomt 11:16 r[facility] Glucose dC Glucomtr-nc (09-18-2013 06:55) Glucose 197 70-110 complet BldC 014 mg/dl ed Glucomt 06:55 [facility] Glucose BldC [facility]comtr-[facility] (09-17-2013 21:22) Glucose 270 70-110 complet BldC 014 mg/dl ed Glucomt 21:22 [facility] Glucose BldC [facility] (09-17-2013 17:01) Glucose 321 70-110 High complet BldC 014 mg/dl alert ed Glucomt 17:01 [facility] BASIC METABOLIC PANEL (09-17-2013 06:10) Glucose 426 [...] K/MM3 ed Bld 06:10 Auto Glucose BldC [facility] (09-15-2013 20:30) Glucose 89 70-110 complet BldC 014 mg/dl ed Glucomt 20:30 [facility] BASIC METABOLIC PANEL (09-15-2013 18:00) Glucose 54 [...] 014 #/hpf ed S CELLS 17:25 Glucose [facility] Glucom[facility] (05-07-2013 11:36) Glucose 104 70-110 complet BldC 013 mg/dl ed Glucomt 11:36 [facility] Glucose dC [facility] (05-07-2013 06:24) Glucose 309 70-110 High complet BldC 013 mg/dl alert ed Glucomt 06:24 [facility] Glucose dC [facility] (05-06-2013 17:14) Glucose 337 70-110 High complet BldC 013 mg/dl alert ed Glucomt 17:14 [facility] BASIC METABOLIC PANEL (05-06-2013 06:30) Glucose 443 [...] K/MM3 ed Bld 06:30 Auto Glucose dC [facility] (05-06-2013 06:22) Glucose 396 70-110 High complet BldC 013 mg/dl alert ed Glucomt 06:22 r-nc Glucose BldC [facility] (05-05-2013 20:09) Glucose 05-05- 345 70-110 High complet BldC 013 mg/dl alert ed Glucomt 20:09 [facility] Glucose BldC [facility] (05-05-2013 16:54) Glucose 299 70-110 complet BldC 013 mg/dl ed Glucomt 16:54 [facility] Glucose BldC [facility] (05-05-2013 11:58) Glucose 05-05-2 328 70-110 High complet BldC 013 mg/dl alert ed Glucomt 11:58 [facility]2013 06:35) Glucose 05-05-2 433 70-110 High complet BldC 013 mg/dl alert ed [facility] 06:[facility] (05-05-2013 06:15) Glucose 05-05-2 [...] BldC 013 mg/dl alert ed Glucomt 06:18 [facility] COMPREHENSIVE METABOLIC PANEL (05-04-2013 06:00) Glucose 448 [...] K/MM3 ed Bld 06:00 Auto Glucose BldC [facility] (05-03-2013 21:36) Glucose 469 70-110 High complet BldC 013 mg/dl alert ed Glucomt 21:36 r-[facility]Cnc Glucose BldC [facility] (05-03-2013 16:44) Glucose 422 70-110 High complet BldC 013 mg/dl alert ed Glucomt 16:44 r-mCnc Glucose BldC Glucomtr-[facility] (05-03-2013 11:31) Glucose 226 70-110 complet BldC 013 mg/dl ed Glucomt 11:31 r-[facility]Cnc Glucose BldC Glucomtr-[facility] (05-03-2013 06:22) Glucose 324 70-110 High complet BldC 013 mg/dl alert ed Glucomt 06:22 r-nc Glucose BldC [facility] (05-02-2013 21:02) Glucose 150 70-110 complet BldC 013 mg/dl ed Glucomt 21:02 [facility] COMPREHENSIVE METABOLIC PANEL (05-02-2013 18:30) Glucose 05-02- [...] BldC 013 mg/dl alert ed Glucomt 06:44 [facility] BASIC METABOLIC PANEL (12-03-2012 06:30) Glucose -18-2 [...] K/MM3 ed Bld 06:30 Auto Glucose dC [facility] (12-02-2012 21:23) Glucose 12-02-2 347 70-110 High complet BldC 013 mg/dl alert ed Glucomt 21:23 r-nc Glucose BldC [facility] (12-02-2012 16:29) Glucose 17-2 370 70-110 High complet BldC 013 mg/dl alert ed Glucomt 16:29 r-nc Glucose Bld-[facility] (12-02-2012 11:40) Glucose 04-17-2 530 74-106 High [...] Procedure DOS Code Location Performer Comment OPHTH [address] [place] [address] [facility] COMPRHNSV ESTAB PT 1/> [place] [address] [facility] TION 7 [facility] CENTER E STATE O2 CONC 1 E1390 [facility] THAKKAR DEL PORT 7 HOME HOME 85%/>02 MEDICAL MEDICAL CONC AT EQUIPME EQUIPME PRSC FLW RATE PRTBLE E0431 [facility] THAKKAR GASEOUS 7 HOME HOME O2 SYS MEDICAL MEDICAL RENT; EQUIPME EQUIPME FLWMTR HUMIDFR&M ASK COMPREHEN 80597 [facility] [place] SIVE 7 [facility] METABOLIC [facility] INC PANEL DRUG TEST 52534 [facility] [place] PRSMV 7 [facility] QUAL DIR INC INC OPTICAL OBS PER DAY CREATININ 99540 [facility] [place] E OTHER 7 [facility] SOURCE INC INC COLLECTIO 06937 [facility] [place] N VENOUS 7 [facility] BLOOD INC INC VENIPUNCT URE BLOOD 50142 [facility] [place] COUNT 7 [facility] COMPLETE INC INC AUTO&AUTO DIFRNTL WBC ALBUMIN 68994 [facility] [place] URINE [address] [facility] MICROALBU INC INC MIN QUANTIATI VE LIPID 63952 [facility] [place] PANEL 7 [facility] INC INC HEMOGLOBI 88679 [facility] [place] N 7 [facility] GLYCOSYLA INC INC NICOLE A1C BASIC 89811 [facility] [place] METABOLIC 7 [facility] PANEL INC INC CALCIUM TOTAL COLLECTIO 57476 [facility] [place] N VENOUS 7 [facility] BLOOD INC INC VENIPUNCT URE SUSCEPTIB 96577 [facility] [place] LTY STDY 7 [facility] ANTIMICRB INC INC IAL MICRO/AGA R DILUTJ CULTURE 35465 [facility] [place] BACTERIAL 7 [facility] INC INC QUANTTATI VE COLONY COUNT URINE CULTURE 17159 [facility] [place] BCT 7 [facility] ISOL&PRSM INC INC PTV ID ISOLATE EA URINE URNLS DIP 38793 [facility] [place] 7 [facility] STICK/TAB INC INC LET REAGENT AUTO MICROSCOP Y BASIC 43674 [facility] [place] METABOLIC 7 [facility] PANEL INC INC CALCIUM TOTAL COLLECTIO 32419 [facility] [place] N VENOUS 7 [facility] BLOOD INC INC VENIPUNCT URE PRTBLE E0431 [facility] THAKK[facility] GASEOUS 7 HOME HOME O2 SYS MEDICAL MEDICAL RENT; EQUIPME EQUIPME FLWMTR HUMIDFR&M ASK O2 CONC 1 E1390 ARIANE THAKKAR DEL PORT 7 HOME HOME 85%/>02 MEDICAL MEDICAL CONC AT EQUIPME EQUIPME PRSC FLW RATE DRUG TEST 49976 [facility] PRSMV 7 [facility] QUAL DIR INC INC OPTICAL OBS PER DAY ECHO 42448 NEFT[facility]I [facility] TTHRC R-T 7 [facility] 2D INC INC W/WOM-MOD E COMPL SPEC&COLR D NATRIURET 90355 [facility] IC 7 [facility] PEPTIDE INC INC BLOOD 70323 [facility] COUNT 7 [facility] COMPLETE INC INC AUTO&AUTO DIFRNTL WBC COMPREHEN 32649 [facility] SIVE 7 [facility] METABOLIC INC INC PANEL COLLECTIO 75583 NE[facility]I [facility] N VENOUS 7 [facility] [place] [address] NEFTALI [facility] FREE 7 [facility] [place] [address] NEFTALI [facility] THYROID 7 [facility] STIMULATI INC INC NG HORMONE TSH ECG 69977 NE[facility] ROUTINE 7 [facility] ECG INC INC W/LEAST 12 LDS TRCG ONLY W/O I&R 3D 76507 NE[facility]I [facility] RENDERING 7 [facility] W/INTERP INC INC & POSTPROCE SS SUPERVISI ON MRI 07106 [facility] SP[facility] 7 MEDICAL CANAL IMAGING LUMBAR ASS W/O CONTRAST MATERIAL O2 CONC 1 E1390 ARIANE THAKKAR DEL PORT 7 HOME HOME 85%/>02 MEDICAL MEDICAL CONC AT EQUIPME EQUIPME PRSC FLW RATE PRTBLE E0431 ARIANE THAKKAR GASEOUS 7 HOME HOME O2 SYS MEDICAL MEDICAL RENT; EQUIPME EQUIPME FLWMTR HUMIDFR&M ASK CULTURE 65015 NEFTALI [facility] BACTERIAL 7 [facility] INC INC QUANTTATI VE COLONY COUNT URINE BASIC 88594 NEFTALI [facility] METABOLIC 7 [facility] PANEL INC INC [facility] [address] [facility] 6 MEDICAL DAY SERV MANAGEMEN FOUNDATIO T > 30 N MIN SBSQ 44064 [facility] 6 MEDICAL CARE/DAY SERV 25 FOUNDATIO MINUTES N GROUND A0425 [facility] 6 [facility] METRO PER AMBULANCE AMBULANCE STATUTE MILE AMBULANCE A0428 [facility] 6 METRO METRO BLS AMBULANCE AMBULANCE NONEMERGE NCY TRANSPORT SBSQ 48353 [facility] 6 MEDICAL KER CARE/DAY SERV 25 FOUNDATIO MINUTES N DUP-SCAN 49882 NE [facility] XTR VEINS 6 MEDICAL JESSICA COMPLETE SERV FOUNDATIO BILATERAL N STUDY SBSQ 87196 [facility] 6 MEDICAL KER CARE/DAY SERV 25 FOUNDATIO MINUTES N GROUND A0425 [facility] 6 MEDICAL MEDICAL PER RESPONSE RESPONSE STATUTE MILE AMB A0427 [facility] 6 MEDICAL MEDICAL ALS RESPONSE RESPONSE EMERGENCY TRANSPORT LEVEL 1 SBSQ 30412 [facility] 6 MEDICAL KER CARE/DAY SERV 25 FOUNDATIO MINUTES N SBSQ 23060 [facility] 6 MEDICAL CARE/DAY SERV 25 FOUNDATIO MINUTES N SBSQ 13061 [facility] 6 MEDICAL CARE/DAY SERV 25 FOUNDATIO MINUTES N SBSQ 91850 [facility] 6 MEDICAL CARE/DAY SERV 25 FOUNDATIO MINUTES N SBSQ 41652 [facility] 6 MEDICAL CARE/DAY SERV 25 FOUNDATIO MINUTES N SBSQ 07096 [facility] 6 MEDICAL CARE/DAY SERV 25 FOUNDATIO MINUTES N RADEX 26190 [facility] 6 RADIOLOGY III CERVICAL 2 OR 3 VIEWS SBSQ 08667 [facility] 6 MEDICAL CARE/DAY SERV 25 FOUNDATIO MINUTES N O2 CONC 1 E1390 ARIANE THAKKAR [place] 6 HOME HOME 85%/>02 MEDICAL MEDICAL CONC AT EQUIPME EQUIPME PRSC FLW RATE PRTBLE E0431 ARIANE ARIANE GASEOUS 6 HOME HOME O2 SYS MEDICAL MEDICAL RENT; EQUIPME EQUIPME FLWMTR HUMIDFR&M ASK SBSQ 83170 [facility] 6 MEDICAL CARE/DAY SERV 25 FOUNDATIO MINUTES N INITIAL [address] [place] [address] MEDICAL CARE/DAY SERV 50 FOUNDATIO MINUTES N GROUND A0425 [facility] 6 METRO METRO PER AMBULANCE AMBULANCE STATUTE MILE AMBULANCE A0428 [facility] 6 METRO METRO BLS AMBULANCE AMBULANCE NONEMERGE NCY TRANSPORT UNLISTED A0999 [facility] 6 METRO METRO SERVICE AM[facility]ANCE [facility] 84983 [facility] 6 MEDICAL DAY SERV MANAGEMEN FOUNDATIO T 30 N MIN/< SBSQ 44037 [facility] 6 MEDICAL CARE/DAY SERV 25 FOUNDATIO MINUTES N SBSQ 77934 [facility] 6 MEDICAL CARE/DAY SERV 25 FOUNDATIO MINUTES N CRITICAL 87639 [facility] 6 MEDICAL ILL/INJUR SERV ED FOUNDATIO PATIENT N INIT 30-74 MIN ECG 50354 NE RAFA CHI ROUTINE 6 MEDICAL ECG SERV W/LEAST FOUNDATIO 12 LDS N I&R ONLY CRITICAL 91959 [facility] 6 MEDICAL Y-GARCIA ILL/INJUR SERV HERI ED FOUNDATIO PATIENT N INIT 30-[address] THORAX [address]99 [place] HARSHADROVSK W/O 6 MEDICAL [place] [address] [place] VERONIKA ABDOMEN & 6 MEDICAL GUSTAVO PELVIS SERV W/[place] [address] [place] PARKER LUCY HEAD/BRAI 6 MEDICAL N W/O SERV CONTRAST FOUNDATIO MATERIAL N ECHO 44973 [place] LILLIE SALINAS TTHRC R-T 6 MEDICAL 2D SERV W/WOM-MOD FOUNDATIO E COMPL N SPEC&COLR D RADIOLOGI 05386 [place] [facility] CRIST[facility] C 6 MEDICAL EXAMINATI SERV ON CHEST FOUNDATIO SINGLE N VIEW FRONTAL MONITORIN [id number] [facility] ARTERIAL E E PULSE [facility] PERIPHERA L PERQ MONITORIN [id number] [facility] ARTERIAL E E PRESSURE [facility] PERIPHERA L PERQ INSERTION [id number] [facility] DEVC E E SUPERIOR [facility] VENA CAVA PERQ INSERTION [id number] [facility] 6 [facility] DEVC RT E E SUBCLAVIA [facility] N VEIN PERQ URNLS DIP 30626 NE[facility] 6 [facility] STICK/TAB INC INC LET REAGENT AUTO MICROSCOP Y RADIOLOGI 55860 [place] TRUE RAE C 6 MEDICAL EXAMINATI SERV ON CHEST FOUNDATIO SINGLE N VIEW FRONTAL ECG 82653 NEFATLI [facility] ROUTINE 6 [facility] ECG INC INC W/LEAST 12 LDS TRCG ONLY W/O I&R CREATINE 54701 NEFTALI [facility] KINASE 6 [facility] TOTAL INC INC CUL BACT 25579 NEFTALI [facility] AEROBIC 6 [facility] ADDL INC INC METHS DEFINITIV E EA ISOL CULTURE 53910 NEFTALI [facility] BACTERIAL 6 [facility] INC [place] [address] NEFTALI [facility] INFUSION 6 [facility] THERAPY INC INC PROPHYLAX IS/[place] [address] NEFTALI [facility] INFUSION 6 [facility] THER INC INC PROPH ADDL SEQUENTIA L TO 1 HR COLLECTIO 05138 NEFTALI [facility] N VENOUS 6 [facility] BLOOD INC INC VENIPUNCT URE BLOOD 53373 NEFTALI NEFTALI COUNT 6 [facility] COMPLETE INC INC AUTO&AUTO DIFRNTL WBC CULTURE 68169 NEFTALI [place] BACTERIAL [address] [facility] BLOOD INC INC AEROBIC W/[place] [address] NEFTALI NEFTALI TROPONIN 6 [facility] QUANTITAT INC INC CORY CRITICAL 72663 [facility] 6 PHYSICIAN ILL/INJUR S, PLLC ED PATIENT INIT 30-74 MIN AMB A0427 [facility] SERVICE 6 AMBULANCE AMBULANCE ALS SERVICE SERVICE EMERGENCY TRANSPORT LEVEL 1 ECG 96182 NEFTALI NOONAN ROUTINE [address] [facility] W/LEAST P 12 LDS I&R ONLY GROUND A0425 [facility] MILEA 6 AMBULANCE AMBULANCE [place] [address] NEFTALI NEFTALI INFUSION 6 [facility] THERAPY/P INC INC ROPHYLAXI S /DX 1ST TO 1 HR CREATINE 47955 NEFTALI [facility] KINASE MB [address] [facility] FRACTION INC INC ONLY COMPREHEN 25063 NEFTALI [facility]Y SIVE [address] [facility] [place] [address] NEFTALI [facility] LACTATE 6 [facility] INC INC CT THORAX 28749 NEFTALI L[facility] W/O [address] [facility] CONTRAST INC INC MATERIAL 3D 17377 [place]IL[place] RENDERING 6 MEDICAL IZABEL W/INTERP IMAGING & ASS POSTPROCE SS SUPERVISI ON RADEX 77623 [place] SN[place] ALL RIBS BI 6 MEDICAL W/POSTERO IMAGING ANT CH ASS MINIMUM 4 VIEWS RADEX 84708 [place] SN[place] ALL HUMERUS 6 MEDICAL MINIMUM 2 IMAGING VIEWS ASS O2 CONC 1 E1390 ARIANE THAKKRA DEL PORT 6 HOME HOME 85%/>02 MEDICAL MEDICAL CONC AT EQUIPME EQUIPME PRSC FLW RATE PRTBLE E0431 ARIANE ARIANE GASEOUS 6 HOME HOME O2 SYS MEDICAL MEDICAL RENT; EQUIPME EQUIPME FLWMTR HUMIDFR&M ASK PPSV23 11015 [facility] ELDER VACCINE 2 6 PHYSICIAN MANUELA YRS OR S GROUP OLDER FOR SUBQ/IM USE ALBUMIN 25846 NEFTALI [facility] URINE 6 [facility] MICROALBU INC INC MIN QUANTIATI VE CULTURE 77860 NEFTALI [facility] BACTERIAL 6 [facility] INC INC QUANTTATI VE COLONY COUNT URINE CULTURE 12704 NEFTALI [facility] BCT 6 [facility] ISOL&PRSM INC INC PTV ID ISOLATE EA URINE HEMOGLOBI 90084 NEFTALI [facility] N 6 [facility] MEM [...] RENT; EQUIPME EQUIPME FLWMTR HUMIDFR&M ASK PRESSURIZ 38505 NEFTALI [facility] ED/NONPRE 6 [facility] SSURIZED INC INC INHALATIO N TREATMENT NONINVASI 79222 NEFTALI [facility] VE 6 [facility] EAR/PULSE INC INC OXIMETRY SINGLE DETER COMPREHEN 27684 NEFTALI [facility] SIVE 6 [facility] METABOLIC INC INC PANEL BLOOD 23867 NEFTALI [place] COUNT 6 [facility] COMPLETE INC INC AUTO&AUTO DIFRNTL WBC COLLECTIO 46068 NEFTALI [facility] N VENOUS 6 [facility] BLOOD INC INC [facility]IPUNCT URE [facility] G0378 NEFTALI [facility] OBSERVATI 6 [facility] ON INC INC SERVICE PER HOUR GLUC BLD 63824 NEFTALI [place] GLUC MNTR 6 [facility] DEV INC INC CLEARED FDA SPEC HOME USE GLUC BLD 26064 NEFTALI [place] GLUC MNTR 6 [facility] DEV INC INC CLEARED FDA SPEC HOME USE BASIC 42887 NEFTALI [place] METABOLIC 6 [facility] PANEL INC [facility] G0378 NEFTALI LINDSYA OBSERVATI 6 [facility] ON INC INC SERVICE PER HOUR COLLECTIO 45222 NEFTALI [place] N VENOUS 6 [facility] BLOOD INC INC VENIPUNCT URE COMPREHEN 73970 NEFTALI DANIELON SIVE 6 [facility] METABOLIC INC INC PANEL BLOOD 75134 NEFTALI [place] COUNT 6 [facility] COMPLETE INC INC AUTO&[place] [address] NEFTALI [facility] TROPONIN 6 [facility] QUANTITAT INC INC CORY CREATINE 91428 NEFTALI [facility] KINASE 6 [facility] TOTAL INC INC NONINVASI 01900 NEFTALI [place] VE 6 [facility] EAR/PULSE INC INC OXIMETRY SINGLE DETER PRESSURIZ 85448 NEFTALI [place] ED/NONPRE 6 [facility] SSURIZED INC INC INHALATIO N TREATMENT CREATINE 84424 NEFTALI [facility] KINASE MB 6 [facility] FRACTION INC INC ONLY CREATINE 23254 NEFTALI [place] KINASE MB 6 [facility] FRACTION INC INC ONLY PRESSURIZ 09462 NEFTALI [place] ED/NONPRE 6 [facility] SSURIZED INC INC INHALATIO N TREATMENT NONINVASI 49113 NEFTALI [place] VE 6 [facility] EAR/PULSE INC [place] [address] NEFTALI LINDSAY 1/> AREAS 6 [facility] EA 15 INC INC MIN GAIT TRAINJ W/STAIR CREATINE 77419 NEFTALI [place] KINASE 6 [facility] TOTAL INC INC ECG 36425 NEFTALI [place] ROUTINE 6 [facility] ECG INC INC W/LEAST 12 LDS TRCG ONLY W/O I&R THER 76655 NEFTALI [facility] PROPH/DX [address] [facility] NJX IV INC INC PUSH SINGLE/1S T SBST/DRUG PHYSICAL 34938 NEFTALI NEFTALI THERAPY [address] [facility] [address] NEFTALI NEFTALI TROPONIN [address] [facility] QUANTITAT INC INC CORY BLOOD 51760 NEFTALI [place] COUNT [address] [facility] COMPLETE INC INC AUTO&AUTO DIFRNTL WBC COMPREHEN 18451 NEFTALI NEFTALI SIVE [address] [facility] METABOLIC INC INC PANEL [facility]OSPITAL G0378 NEFTALI [facility] OBSERVATI [address] [facility] ON INC INC SERVICE PER HOUR COLLECTIO 85544 NEFTALI [place] N VENOUS 6 [facility] BLOOD INC INC VENIPUNCT URE GLUC BLD 07243 NEFTALI [place] GLUC MNTR [address] [facility] DEV INC INC CLEARED FDA SPEC HOME USE GLUCOSE 30699 NEFTALI [place] QUANTITAT 6 [facility] CORY BLOOD INC INC XCPT REAGENT STRIP ECG 63086 NEFTALI NOONAN ROUTINE [address] [facility] W/LEAST P 12 LDS I&R ONLY RADIOLOGI 91966 [place] NIL[place] C 6 MEDICAL IZABEL EXAMINATI IMAGING ON CHEST ASS SINGLE VIEW FRONTAL US SOFT 66800 [place] SN[place] ALL TISSUE 6 MEDICAL HEAD & IMAGING NECK REAL ASS TIME IMGE DOCM COLLECTIO 90465 NEFTALI [place] N VENOUS 6 [facility] [place]LOOD [place] [address] NEFTALI [place] FREE [address] [facility] [place] [address] NEFTALI [facility] THYROID [address] [facility] STIMULATI INC INC NG HORMONE TSH BASIC 91418 NEFTALI L[facility] METABOLIC [address] [facility] PANEL INC INC CALCIUM TOTAL ECG 42229 NEFTALI L[place] ROUTINE [address] [facility] ECG INC INC W/LEAST 12 LDS TRCG ONLY W/O I&R IMPLANTAT 56643 [facility] ION 6 PHYSICIAN MAT PT-ACTIVA S GROUP NICOLE CARDIAC EVENT RECORDER PRTBLE E0431 ARIANE THAKKAR GASEOUS 6 HOME HOME O2 SYS MEDICAL MEDICAL RENT; EQUIPME EQUIPME FLWMTR HUMIDFR&M ASK O2 CONC 1 E1390 ARIANE MCALLISTER PORT 6 HOME HOME 85%/>02 MEDICAL MEDICAL CONC AT EQUIPME EQUIPME PRSC FLW RATE DUPLEX 41893 [place] SCAN 6 MEDICAL EXTRACRAN IMAGING IAL ART ASS COMPL BI STUDY INSERTION [id number] NEFTALI [place] MON DEVC 6 [facility] CHEST INC INC SUBQ TISSUE & FASC OPEN RADIOLOGI 06427 [place] SN[place] ALL C 6 MEDICAL EXAMINATI IMAGING ON CHEST ASS SINGLE VIEW FRONTAL ECG 85220 NEFTALI BONILLA JR ROUTINE 6 [facility] W/LEAST P 12 LDS I&R ONLY [...] RENT; EQUIPME EQUIPME FLWMTR HUMIDFR&M ASK NEEDLE 54812 [facility] EMG EA 6 N EXTREMTY NEUROLOGY W/PARASPI NL AREA COMPLETE NERVE 74406 [facility] CONDUCTIO 6 N N STUDIES NEUROLOGY 9-10 STUDIES INJECTION J3301 [facility] [place] 6 ML DORIS TRIAMCINO LONE ACETONIDE NOS 10 MG INJECTION 74621 [facility] [place] 1 TENDON 6 ML DORIS SHEATH/LI GAMENT APONEUROS IS ECG 91327 NEFTALI [place] ROUTINE 6 [facility] ECG INC INC W/LEAST 12 LDS TRCG ONLY W/O I&R PRTBLE E0431 ARIANEGHAZAL TOBARRELL GASEOUS 6 HOME HOME O2 SYS MEDICAL MEDICAL RENT; EQUIPME EQUIPME FLWMTR HUMIDFR&M ASK O2 CONC 1 E1390 ARIANE TOBARRELL DEL PORT 6 HOME HOME 85%/>02 MEDICAL MEDICAL CONC AT EQUIPME EQUIPME PRSC FLW RATE RADIOLOGI 77457 ALESHA SNYDER ALL C 6 MEDICAL EXAMINATI IMAGING ON FOOT 2 ASS VIEWS RADEX 78812 NEFTALI [facility] FOOT 6 [facility] COMPLETE INC INC MINIMUM 3 VIEWS POLYSOM 02016 NEFTALI [place] 6/>YRS 6 [facility] SLEEP 4/> INC INC ADDL RENZO ATTND PRTBLE E0431 ARIANE ARIANE GASEOUS 6 HOME HOME O2 SYS MEDICAL MEDICAL RENT; EQUIPME EQUIPME FLWMTR HUMIDFR&M ASK DETERMINA 61078 [facility] RICE TION 6 [facility] C[facility] STATE O2 CONC 1 E1390 ARIANE TOBARRELL DEL PORT 6 HOME HOME 85%/>02 MEDICAL MEDICAL CONC AT EQUIPME EQUIPME PRSC FLW RATE OPHTH 03846 [facility] CASTELLANO[facility] MEDICAL 6 VISION ANG XM&EVAL CENTER COMPRHNSV ESTAB PT 1/> ECG 40411 [facility] LINA ROUTINE 6 PHYSICIAN MAT ECG S GROUP W/LEAST 12 LDS I&R ONLY DUP-SCAN 78911 ALESHA SNYDER ALL XTR VEINS 6 MEDICAL IMAGING UNILATERA ASS L/LIMITED STUDY ECG 92879 NEFTALI [facility] ROUTINE 6 [facility] ECG INC INC W/LEAST 12 LDS TRCG ONLY W/O I&R DUP-SCAN 86875 NEFTALI [facility] LXTR 6 [facility] ART/ARTL INC INC BPGS UNI/LMTD STUDY DIAB ONLY A5500 PROGRESSI PROGRESSI FIT CSTM 6 VE VE PREP&SPL PODIATRY PODIATRY SHOE MX DNSITY INSRT MTHFR 96783 [employer] ANALYSIS COMMON VARIANTS ECG 94933 NEFTALI [place] ROUTINE 6 [facility] ECG INC INC W/LEAST 12 LDS TRCG ONLY W/O I&R FOR DIAB A5513 PROGRESSI PROGRESSI ONLY MX 6 VE VE DNSITY PODIATRY PODIATRY INSRT CSTM MOLD CSTM EA F2 GENE 15831 appening ANALYSIS 6 , [employer] [facility] [employer] 62097K >A VARIANT F5 26366 appening COAGULATI [employer] , [employer] ON FACTOR V ANAL LEIDEN VARIANT ECHO 32873 [place] [facility] R-T 6 MEDICAL 2D SERV W/WOM-MOD FOUNDATIO E COMPL N SPEC&COLR D DUPLEX 28087 [place] LILLIAN ALL SCAN 6 MEDICAL EXTRACRAN IMAGING IAL ART ASS COMPL BI STUDY O2 CONC 1 E1390 ARIANE THAKKAR DEL PORT 6 HOME HOME 85%/>02 MEDICAL MEDICAL CONC AT EQUIPME EQUIPME PRSC FLW RATE PRTBLE E0431 ARIANE TOBARRELL GASEOUS 6 HOME HOME O2 SYS MEDICAL MEDICAL RENT; EQUIPME EQUIPME FLWMTR HUMIDFR&M ASK ECG 30118 [facility] ROUTINE 6 PHYSICIAN MAT ECG S GROUP W/LEAST 12 LDS I&R ONLY ECG 42790 NEFTALI L[place]SAY ROUTINE 6 [facility] ECG INC INC W/LEAST 12 LDS TRCG ONLY W/O I&R NON-INVAS 47192 [facility] ALL CORY 6 MEDICAL PHYSIOLOG IMAGING IC STUDY ASS EXTREMITY 3 LEVLS SBSQ 85532 [facility] 6 ML DORIS CARE/DAY 35 MINUTES INITIAL 31599 [facility] 6 ML DORIS CARE/DAY 70 MINUTES RADIOLOGI 05016 [place] LILLIAN ALL C 6 MEDICAL EXAMINATI IMAGING ON FOOT [address] THORAX 01195 [facility] BENEDICT W/O 6 MEDICAL MIGUEL CONTRAST IMAGING MATERIAL ASS SBSQ 40070 [facility] 6 PHYSICIAN MANUELA CARE/DAY S GROUP 15 MINUTES RADIOLOGI 21243 ALESHA SNYDER ALL C 6 MEDICAL EXAMINATI [...] M REC OBTD UPD/REV PT MEDS RADIOLOGI 68603 NEFTALI [place] C EXAM 6 [facility] [...] 85%/>02 MEDICAL MEDICAL CONC AT EQUIPME EQUIPME [facility] FLW RATE DRUG TST G0477 NEFTALI [...] COMPRESSO MEDICAL MEDICAL R EQUIPME EQUIPME COMPREHEN 71841 NEFTALI NEFTALI SIVE 5 [facility] METABOLIC INC INC PANEL COLLECTIO 70546 NEFTALI [place] N VENOUS 5 [facility] BLOOD INC INC VENIPUNCT URE LIPID 73085 NEFTALI [facility] PANEL 5 [facility] INC INC HEMOGLOBI 39382 NEFTALI [facility] N 5 [facility] MEM [...] YOUR DISPENSIN 5 PHARMACY PHARMACY G FEE [employer] [facility] INHALATIO N RX; PER 30 DAYS PRTBLE E0431 ARIANE THAKKAR GASEOUS 5 HOME HOME O2 SYS MEDICAL MEDICAL RENT; EQUIPME EQUIPME FLWMTR HUMIDFR&M ASK O2 CONC 1 E1390 ARIANE THAKKAR DEL PORT 5 HOME HOME 85%/>02 MEDICAL MEDICAL CONC AT EQUIPME EQUIPME PRSC FLW RATE NEBULIZER E0570 ARIANE THAKKAR WITH 5 HOME HOME COMPRESSO MEDICAL MEDICAL R EQUIPME EQUIPME COLLECTIO 72673 NEFTALI L[place]SAY N VENOUS [address] [facility] BLOOD INC INC VENIPUNCT URE BLOOD 55370 NEFTALI L[facility]SAY COUNT 5 [facility] COMPLETE INC INC AUTO&AUTO DIFRNTL WBC COMPREHEN 98517 NEFTALI [facility]Y SIVE [address] [facility] METABOLIC INC INC PANEL LIPID 94986 NEFTALI [facility]Y PANEL 5 [facility] INC INC HEMOGLOBI 77534 NEFTALI L[facility]SAY N 5 [facility] MEM [...] YOUR SM VOL 5 PHARMACY PHARMACY NONFILTR [employer] PNEUMAT NEBULIZR DISPBL PHRM Q0513 YOUR YOUR DISPENSIN 5 PHARMACY PHARMACY G FEE [employer] INHALATIO N RX; PER 30 DAYS [...] RENT; EQUIPME EQUIPME FLWMTR HUMIDFR&M ASK AORTOGRAP 64007 [facility] FALLUJI HY [facility] ABDOMINAL MEDICAL G SERIALOGR APHY RS&I INTRODUCT 84980 [facility] CATHETER MED[facility] AORTA G ANGIOGRAP 51579 [facility] FALLU HY [facility] EXTREMITY MEDICAL G BILATERAL RS&I NEBULIZER E0570 ARIANE THAKKAR WITH 5 HOME HOME COMPRESSO MEDICAL MEDICAL R EQUIPME EQUIPME NON-INVAS 28747 NEFTALI [facility]Y CORY 5 [facility] MEM [...] YOUR DISPEN 5 PHARMACY PHARMACY FEE INHAL [employer] RX; INITIAL 30-DAY SUPPLY ADMN SET A7003 YOUR YOUR SM VOL 5 PHARMACY PHARMACY NONFILTR [employer] PNEUMAT NEBULIZR DISPBL ALBUTEROL J7620 YOUR YOUR TO 2.5 5 PHARMACY PHARMACY MG & [employer] IPRATROPI UM BROM TO 0.5 MG RADIOLOGI [address] [facility] EXAM 5 MEDICAL IZABEL CHEST 2 IMAGING [...] BOX 4 PHARMACY PHARMACY OF 100 THERAPEUT 25399 NEFTALI LINDSAY IC PX 1/> 4 [facility] AREAS INC INC EACH 15 MIN EXERCISES APPLICATI 01535 [facility] ON 4 [facility] MODALITY INC INC 1/> AREAS HOT/COLD PACKS MANUAL 32562 [facility] THERAPY 4 [facility] TQS 1/> INC INC REGIONS EACH 15 MINUTES E-STIM G0283 [facility] 1/> AREAS 4 [facility] OTH THAN INC INC WND CARE PART TX PLAN E-STIM G0283 [facility] 1/> AREAS 4 [facility] OTH THAN INC INC WND CARE PART TX PLAN APPLICATI 08134 NEFT[facility] ON 4 [facility] MODALITY INC INC 1/> AREAS HOT/COLD PACKS THERAPEUT 55122 NEFTALI LINDSAY IC PX 1/> 4 [facility] AREAS INC INC EACH 15 MIN EXERCISES PHYSICAL 04395 [facility] THERAPY 4 [facility] EVALUATIO INC INC N PRTBLE E0431 ARIANE ARIANE GASEOUS 4 HOME HOME O2 SYS MEDICAL MEDICAL RENT; EQUIPME EQUIPME FLWMTR HUMIDFR&M ASK O2 CONC 1 E1390 ARIANE ARIANE DEL PORT 4 HOME HOME 85%/>02 MEDICAL MEDICAL CONC AT EQUIPME EQUIPME PRS FLW RATE 3D 74497 ALESHA DOTSON RENDERING 4 MEDICAL IZABEL W/INTERP IMAGING & ASS POSTPROCE SS SUPERVISI ON MRI 46122 NEFT[facility]I [facility] SPINAL 4 [facility] MEM [...] T STRIPS HOME BLD GLU MON-50 COLLECTIO 16119 NEFTALI NEFTALI N VENOUS [address] [facility] BLOOD INC INC VENIPUNCT URE COMPREHEN 82699 [facility] SIVE 4 [facility] METABOLIC INC INC PANEL LIPID 47249 [facility] PANEL 4 [facility] INC INC HEMOGLOBI 98796 NEFT[facility]I [facility] N 4 [facility] MEM [...] AT EQUIPME EQUIPME PRSC FLW RATE RADIOLOGI 65123 [facility] EXAM 4 MEDICAL IZABEL CHEST 2 IMAGING VIEWS ASS FRONTAL&L ATERAL ECHO 61728 [place] [facility]RIST[facility] T[facility] R-T 4 MEDICAL 2D SERV W/WOM-MOD FOUNDATIO E COMPL SPEC&COLR D LANCETS A4259 CLINIC CLINIC PER BOX 4 PHARMACY PHARMACY OF 100 BLD GLU A4253 [facility]INIC CLINIC TEST/REAG 4 PHARMACY PHARMACY T STRIPS HOME BLD GLU RADIOLOGI 12018 [facility] C EXAM 4 MEDICAL IZABEL CHEST 2 IMAGING VIEWS ASS FRONTAL&L ATERAL DETERMINA 61588 [facility] 4 [facility] 18864 [facility] 4 VISION XM&EVAL CENTER COMPRHNSV ESTAB PT 1/> LANCETS A4259 CLINIC CLINIC PER BOX 4 PHARMACY PHARMACY OF 100 BLD GLU A4253 CLINIC CLINIC TEST/REAG 4 PHARMACY PHARMACY T STRIPS HOME BLD GLU FRI-50 BLD GLU A4253 CLINIC CLINIC TEST/REAG 4 PHARMACY PHARMACY T STRIPS HOME BLD GLU MON-50 LANCETS A4259 CLINIC CLINIC PER BOX 4 PHARMACY PHARMACY OF 100 DUP-SCAN 95367 ALESHA DOTSON XTR VEINS 4 MEDICAL IZABEL COMPLETE IMAGING ASS BILATERAL STUDY ECG 63809 NEFTALI BONILLA JR ROUTINE 4 [facility] W/LEAST P 12 LDS I&R ONLY RADIOLOGI 35795 ALESHA NILA C EXAM 4 MEDICAL IZABEL [...] T STRIPS HOME BLD GLU MON-50 GONADOTRO 65199 NEFTALI L[facility]Y PIN 3 [facility] LUTEINIZI INC INC NG HORMONE COLLECTIO 35138 NEFTALI L[facility]SA[facility] N VENOUS 3 [facility] [place] [address] [facility] L[facility] THYROID 3 [facility] ST[place] [address] NEFT[facility] ESTROGENS 3 [facility] TOTAL INC INC GONADOTRO 29301 NEFTALI LINDSA[facility] PIN 3 [facility] MEM [...] THRU DME U DOSE [facility] 36614 [facility] DISCHARGE 3 [facility] DAY INTERNAL MANAGEMEN MED T 30 MIN/< SBSQ 44524 [facility] 3 [facility] CARE/DAY INTERNAL 25 MED MINUTES SBSQ 88195 [facility] 3 [facility] CARE/DAY INTERNAL 25 MED MINUTES SBSQ [phone] [facility] 3 [facility] CARE/DAY INTERNAL 25 MED MINUTES SBSQ [id number] [facility] 3 [facility] CARE/DAY INTERNAL 25 MED MINUTES INITIAL 47026 [facility] 3 [facility] CARE/DAY INTERNAL 50 MED MINUT[facility] INITIAL [id number] [facility] 3 [facility] ON INTERNAL CARE/DAY MED 30 MINUTES RADIOLOGI [id number] [facility] NILA C EXAM 3 MEDICAL IZABEL CHEST 2 IMAGING VIEWS ASS FRONTAL&L ATERAL ECG 70007 HAZEL GHOSHEY ROUTINE 3 EMERGENCY [facility] ECG SERVICES W/LEAST 12 LDS I&R ONLY BLD GLU A4253 CLINIC CLINIC TEST/REAG 3 [facility]Y PHARMACY T [facility] BLD GLU BLD GLU A4253 CLINIC CLINIC TEST/REAG 3 [facility] PHARM[facility]Y [facility] BLD GLU HOSPITAL [id number] [facility] DISCHARGE 3 [facility] DAY INTERNAL MANAGEMEN MED T 30 MIN/< SBSQ [id number] [facility] 3 [facility] CARE/DAY INTERNAL 25 MED MINUTES SBSQ 71172 [facility] 3 [facility] CARE/DAY INTERNAL 25 MED MINUT[facility]BSQ 50067 [facility] 3 [facility] CARE/DAY INTERNAL 25 MED MINUTES RADIOLOGI 20078 [facility] NILA C EXAM 3 MEDICAL IZABEL CHEST 2 IMAGING VIEWS ASS FRONTAL&L ATERAL BLD GLU A4253 CLINIC CLINIC TEST/REAG 2 PHARMACY PHARMACY T [facility] BLD GLU ADMINISTR G0008 [facility] 2 [facility] INFLUENZA INTERNAL VIRUS MED VACCINE INFLUENZA Q2038 [facility] VACC 2 [facility] SPLIT INTERNAL VIRUS 3 MED YRS & > IM FLUZONE BLD GLU A4253 CLINIC CLINIC TEST/REAG 2 PHARMACY PHARMACY T [facility] BLD GLU ECG 61137 NEFTALI HUDSONMIE ROUTINE 2 [facility] W/LEAST P 12 LDS I&R ONLY Encounters Encounter Start End Date Code Location Performer Type Date OFFICE 06219 [facility] OUTPATIEN 7 7 PHYSICIAN T VISIT S GROUP 25 MINUTES HOSPITAL NEFTALI - OTHER [address] [facility] NEFTALI [facility] OTHER [address] [facility] NEFTALI - OTHER [address] [facility] NEFT[facility] - 7 7 [facility] PH[facility] T [facility]ISIT S GROUP 25 MINUTES [facility]OSP[facility] NEFTALI - 7 7 [facility] 52498 [facility] OUTPATI[facility] 7 7 PHYSICIAN T [facility]ISIT S GROUP 25 MINUTES HOSPITAL NEFTALI - 7 7 [facility] HOSPITAL NEFTALI - [address] [facility] 48132 [facility] OUTPATI[facility] 7 7 PHYSICIAN T VISIT S GROUP 15 MINUTES OFFICE 35565 [facility] OUTPATIEN 7 7 PHYSICIAN T VISIT S GROUP 15 MINUTES HOSPITAL NEFTALI - OTHER 7 7 [facility] EMERGENC[facility] 93936 EMPERATRIZ ARMSTRONG 6 6 MEDICAL DEPARTMEN SERV T VISIT FOUNDATIO LOW/MODER N SEVERITY [facility] [address] [facility] 6 [facility] EMERGENC[facility] 52059 EMPERATRIZ PENA DEPT 6 6 MEDICAL [place] VISIT SERV HIGH FOUNDATIO SEVERITY& N THREAT [facility] NEFTALI - 6 6 [facility] OUTPATIEN [facility] HOSPITAL NEFTALI - 6 6 [facility] OFFICE 58325 [facility] OUTPATIEN 6 6 PHYSICIAN MANUELA T VISIT S GROUP 15 MINUTES EMERGENCY 09713 DEEPA FISH 6 6 PHYSICIAN U MIGUEL DEPARTMEN S, [facility] T VISIT MODERATE SEVERITY HOSPITAL NEFTALI - OTHER [address] [facility] OFF[facility] 75970 [facility] OUTPATIEN 6 6 PHYSICIAN MANUELA T VISIT S GROUP 25 MINUTES OFFICE 30553 [facility] OUTBECKYEN 6 6 PHYSICIAN OGMARCELINAAM T NEW 45 S GROUP MINUTES OFFICE 51335 [facility] OUTPATIEN 6 6 PHYSICIAN MANUELA T VISIT S GROUP 15 MINUTES HOSPITAL NEFTALI - [address] [facility] OUTPATIEN [facility] EMERGENCY 84858 DEEPA FISH DEPT 6 6 PHYSICIAN U MIGUEL VISIT S, [facility] HIGH SEVERITY& THREAT FUNJ EMERGENCY 59363 NEFTALI 6 6 [facility] DEPARTMEN INC T VISIT HIGH/URGE NT SEVERITY HOSPITAL NEFTALI - 6 6 [facility] OUTPATIEN [facility] HOSPITAL NEFTALI - OTHER 6 6 [facility] NEFTALI - 6 6 [facility] OUTPATIEN [facility] OFFICE 18168 [facility] OUTPATIEN 6 6 PHYSICIAN MANUELA T VISIT S GROUP 15 MINUTES HOSPITAL NEFTALI - 6 6 [facility] INPATIENT INC EMERGENCY 07942 [facility] DEPT 6 6 PHYSICIAN MANUELA VISIT S, [facility] HIGH SEVERITY& [facility] OUT[facility] 6 6 ML DORIS T VISIT 15 MINUTES HOSPITAL NEFTALI - 6 6 [facility] OUTPATIEN INC T OFFICE 28874 [facility] OUTPATIEN 6 6 ML DORIS T VISIT 15 MINUTES HOSPITAL NEFTALI - 6 6 [facility] OUTPAT[facility]EN [facility] HOSPITAL NEFTALI - 6 6 [facility]PAT[facility]EN [facility] T OFFICE 13572 [facility] LINA OUTPATIEN 6 6 PHYSICIAN MAT T VISIT S GROUP 25 MINUTES OFFICE 94834 [facility] OUTPATIEN 6 6 ML DORIS T VISIT 15 MINUTES HOSPITAL NEFTALI - 6 6 [facility] T OFFICE 41151 [facility] OUTPATIEN 6 6 ML DORIS T VISIT 15 MINUTES HOSPITAL NEFTALI - 6 6 [facility] OUTPATIEN [facility] HOSPITAL NEFTALI - 6 6 [facility] OUTPATIEN INC T OFFICE 64081 [facility] LINA OUTPATIEN 6 6 PHYSICIAN MAT T NEW 45 S GROUP MINUTES HOSPITAL NEFTALI - 6 6 [facility] OUTPATIEN [facility] HOSPITAL NEFTALI - 6 6 [facility] OUTPATIEN INC T OFFICE 42788 [facility] OUTPATIEN 6 6 ML DORIS T NEW 30 MINUTES HOSPITAL NEFTALI - 6 6 [facility] OUTPATIEN [facility] HOSPITAL NEFTALI - OTHER 6 6 [facility] INC OFFICE 44478 [facility] 5 5 [facility] T [facility]ISIT INTERNAL 15 MED MINUTES HOSPITAL NEFTALI - 5 5 [facility] OUTPAT[facility]EN [facility] HOSPITAL NEFTALI [facility] 5 5 [facility] OUTPATIEN [facility] OFFICE 29470 [facility] 5 5 [facility] T VISIT INTERNAL 25 MED MINUTES OFFICE 36062 [facility] 5 5 [facility] T VISIT INTERNAL 15 MED MINUTES HOSPITAL NEFTALI - [address] [facility] OUTPATIEN [facility] HOSPITAL NEFTALI - [address] [facility] INPATIENT [facility] EMERGENCY 49836 NEFTALI GHOSHEY 5 5 [facility] T VISIT P HIGH/URGE NT SEVERITY HOSPITAL NEFTALI - 4 4 [facility] OUTPATIEN [facility] HOSPITAL NEFTALI - 4 4 [facility] OUTPATIEN [facility] EMERGENCY 18587 [facility] 4 4 [facility] EMERGENCY T VISIT PHYS HIGH/URGE NT [facility] [address] [facility] OUTPATIEN [facility] EMERGENCY 17819 [facility] DEPT 4 4 [facility] VISIT EMERGENCY HIGH PHYS SEVERITY& THREAT FUN Inpatient IMP Neftali Noonan MD (IN) 4 16:29 4 13:20 [facility] Inpatient IMP Neftali Griffin (IN) 3 18:20 3 15:10 [facility] EMERGENCY 25130 HA[facility] GUY DEPT 3 3 EMERG[facility]Y [facility] VISIT SERVICES HIGH SEVERITY& THREAT [facility] HOSPITAL NEFTALI - 3 3 [facility] OUTPATIEN [facility] OFFICE 02608 [facility] 3 3 KATHARINA Casillas VISIT INTERNAL 15 MED MINUTES Inpatient [facility] Neftali Hinkle MD (IN) 3 22:02 3 11:10 [facility] EMERGENCY 62402 HA[facility] HINKLE DEPT 3 3 EMERGENCY [facility] VISIT SERVICES HIGH SEVERITY& THREAT FUN EMERGENCY 31790 HAZEL PICKENS DEPT 3 3 EMERGENCY III [facility] ELENA VISIT SERVICES HIGH SEVERITY& THREAT FUN OFFICE 49195 [facility] 2 2 KATHARINA Casillas VISIT INTERNAL 15 MED MINUTES
--- OUTSIDE RECORDS SUMMARY | 2016-12-15 23:29 | External Medical Summary Rpt ---
Author Author , Organization [employer] Address Unknown Phone Unavailable Care Team Providers Care Bonderizer Name Role Phone [employer], Unavailable Unavailable [employer] ALFARIS MOH, ALFARIS Unavailable Unavailable MOH [facility] Unavailable Unavailable [facility], [facility] Unavailable Unavailable [facility], [facility] GRANT BRO, GRANT Unavailable Unavailable BRO BEINEKE MIGUEL, BEINEKE Unavailable Unavailable MIGUEL BERNERT, BERNERT Unavailable Unavailable BESSON CRISTIANO, BESSON Unavailable Unavailable CRISTIANO SNYDER, SNYDER Unavailable Unavailable SNYDER ALL, SNYDER ALL Unavailable Unavailable NATHANIEL, NATHANIEL Unavailable Unavailable [facility] Unavailable Unavailable SERVICE, [facility] CHINA DORIS, CHINA Unavailable Unavailable [facility] Unavailable Unavailable REHABILITATION, [facility], Unavailable Unavailable [facility] Unavailable Unavailable [facility], Unavailable Unavailable [facility] JESUS, JESUS Unavailable Unavailable NILA, NILA Unavailable Unavailable NILA IZABEL, Unavailable Unavailable NILA IZABEL [facility] Unavailable [facility], [facility] RILEY, RILEY Unavailable Unavailable RILEY KIN, RILEY KIN Unavailable Unavailable ERLANDSON, ERLANDSON Unavailable Unavailable FALLIS ML, FALLIS Unavailable Unavailable ML FALLUJI RUTH, FALLUJI Unavailable Unavailable RUTH ELDER, ELDER Unavailable Unavailable ELDER MANUELA, EDLER Unavailable Unavailable MANUELA VERONIKA GUSTAVO, VERONIKA Unavailable Unavailable GUST[facility], Unavailable Unavailable [facility] Unavailable Unavailable INC, [facility] Unavailable Unavailable HOSPITAL P, [facility] P FIELDS FRED, FIELDS FRED Unavailable Unavailable [facility], Unavailable Unavailable [facility] MARSHALL CRISTIANO, MARSHALL CRISTIANO Unavailable Unavailable MARCUS III, MARCUS Unavailable Unavailable III [facility] Un[facility] Unavailable [facility], [facility], [facility] Unavailable Unavailable MEDICAL G, [facility], [facility] G PARKER AYALA, PARKER LUCY Unavailable Unavailable [facility] VIDALES CRISTIANO, VIDALES CRISTIANO Unavailable Unavailable CHAD JR DWI, CHAD Unavailable Unavailable JR DWI [facility] Unavailable Unavailable INTERNAL MED, [facility] INTER[facility] ROHAN, ., JR ROHAN. Unavailable Unavailable [facility] Unavailable Unavailable SERVICES, [facility] CHISHOLM, CHISHOLM Unavailable Unavailable MCKEMIE JR MARIA ELENA, Unavailable Unavailable MCKEMIE JR MARIA ELENA FUENTES-GARCIA HERI, Unavailable Unavailable FUENTES-GARCIA HERI [facility], Unavailable Unavailable PLL[facility], [facility] ANDRES LOPEZ, Unavailable Unavailable ANDRES LOPEZ [facility] Un[facility]available [facility], [facility] Unavailable [facility]available AMBULANCE, [facility] SADEK MOH, SADEK MOH Unavailable Unavailable SCHLEENBAKER, Unavailable Unavailable SCHLEENBAKER SCIFRES, SCIFRES Unavailable Unavailable SCIFRES ANG, SCIFRES Unavailable Unavailable ANG [facility], Unavailable Unavailable [facility] LINA MAT, Unavailable Unavailable LINA MAT REYNOSO HERMINIA, RYENOSO HERMINIA Unavailable Unavailable [facility] Unavailable Unavailable E[facility], [facility] Unavailable Unavailable [facility], [facility] Unavailable Unavailable SOTINGEANU MIGUEL [facility] Unavailable Unavailable EMERGENCY PHYS, [facility] PENA MANUELA, PENA Unavailable Unavailable MANUELA TRUE RAE, TRUE RAE Unavailable Unavailable [facility] Unavailable Unavailable [facility], [facility] Unavailable Unavailable [address], [facility] WEHRMAN III MARIA ELENA, Unavailable Unavailable WEHRMAN III MARIA ELENA [facility] Unavailable [facility], Unavailable [facility]available [facility] ZAGUROJENNIFERKAYA MAR, Unavailable Unavailable ZAGUROVSKAYA MAR Purpose Continuity of Care Document - 04-13-2012 through 2016 Problems Code Diagnosis DOS Provider Status H2513 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-08-2016 [facility] BILATERAL J449 CHRONIC 11-02-2016 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 MEDICAL DISEASE UNS EQUIPME E119 TYPE 2 10-30-2016 [facility] DIABETES PHYSICIANS MELLITUS GROUP WITHOUT COMPLICATIO NS I10 ESSENTIAL 10-30-2016 [facility] PRIMARY PHYSICIANS HYPERTENSIO GROUP N M549 DORSALGIA 10-30-2016 [facility] UNSPECIFIED PHYSICIANS GROUP N289 DISORDER OF 10-30-2016 [facility] URETER INC UNSPECIFIED R0602 SHORTNESS 10-30-2016 [facility] OF BREATH [facility] INC V17195 OTHER LONG 10-30-2016 [facility] TERM PHYSICIANS CURRENT GROUP DRUG THERAPY N189 CHRONIC 10-29-2016 [facility] DISEASE INC UNSPECIFIED R0600 DYSPNEA 10-23-2016 [facility]NSPECIFIED [facility] INC R8290 UNSPECIFIED 10-23-2016 [facility] ABNORMAL [facility] FINDINGS IN INC URINE I2510 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 ANGINA PECTORIS J40 BRONCHITIS 10-15-2016 [facility] NOT PHYSICIANS SPECIFIED GROUP ACUTE OR CHRONIC E663 OVERWEIGHT 10-01-2016 [facility] PHYSICIANS GROUP L0390 CELLULITIS 10-01-2016 [facility] UNSPECIFIED PHYSICIANS GROUP R609 EDEMA 10-01-2016 [facility] UNSPECIFIED [facility] INC E118 TYPE 2 09-25-2016 [facility] DIABETES [facility] MELLITUS INC W/UNS COMPLICATIO NS M4316 SPONDYLOLIS 09-23-2016 [facility] M4806 SPINAL 09-23-2016 [facility] ST[facility] M5126 OTH 09-23-2016 [facility] 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 M545 LOW BACK 09-23-2016 [facility] R300 DYSURIA 08-26-2016 [facility] PHYSICIANS GROUP G894 CHRONIC 08-13-2016 [place] [facility] SYNDROME [facility] M792 NEURALGIA 08-13-2016 [place] [facility] NEURITIS [facility] UNSPECIFIED N179 ACUTE 08-13-2016 [place] [facility] FAILURE [facility] UNSPECIFIED R2689 OTHER 08-13-2016 [place] [facility] ABNORMALITI SERV ES OF GAIT FOUNDATION AND MOBILITY R5381 OTHER 08-13-2016 [place] [facility] MALAISE [facility] O83365 PAIN IN 08-12-2016 [place] [facility] RIGHT LEG SERV [facility] M7989 OTHER 08-12-2016 [place] [facility] SPECIFIED SERV SOFT TISSUE FOUNDATION DISORDERS R279 UNSPECIFIED 08-12-2016 [facility] OF AMBULANCE COORDINATIO N R52 PAIN 08-11-2016 [facility] UNSPECIFIED MEDICAL RESPONSE Z794 HEM MARKER 08-08-2016 [place] [facility] CURRENT USE SERV OF INSULIN [facility]OUNDATION M542 CERVICALGIA 08-05-2016 [facility] E1165 TYPE 2 08-01-2016 [place] [facility] MELLIT[facility] RE[place]AB[place] G9341 METABOLIC 08-01-2016 [place] [facility] ENCEPHALOPA SERV THY FOUNDATION I129 HYPERTENSIV 08-01-2016 [place] [facility] E CKD SERV W/STAGE 1-4 FOUNDATION CKD OR UNS CKD I130 HTN HEART & 08-01-2016 [facility] CKD W/HF & [facility] CKD STAGE REHABILITAT 1-4 OR UNS ION CKD I509 HEART 08-01-2016 [facility] FAILURE [facility]ILL UNSPECIFIED REHABILITAT ION I959 HYPOTENSION 08-01-2016 [place] [facility] UNSPECIFIED [facility]ATION J9610 CHRONIC 08-01-2016 [place] [facility] [place]P[facility]AT[place] SERV FAIL UNS FOUNDATION HYPOXIA/HYP ERCAPNIA K219 GASTRO-ESOP 08-01-2016 [facility] H REFLUX [facility] DISEASE REHABILITAT WITHOUT ION ESOPHAGITIS R571 HYPOVOLEMIC 08-01-2016 [place] [facility] SHOCK SERV [facility] I499 CARDIAC 07-31-2016 [place] [facility] ARRHYTHMIA SERV UNSPECIFIED FOUNDATION J9620 ACUTE 07-31-2016 [place] [facility] CHRONIC SERV RESP FAIL FOUNDATION UNS HYPOXIA/HYP ERCAPNIA A419 SEPSIS 07-29-2016 [place] [facility] UNSPECIFIED SERV ORGANISM FOUNDATION I491 ATRIAL 07-29-2016 [place] [facility] PREMATURE SERV DEPOLARIZAT FOUNDATION ION R000 TACHYCARDIA 07-29-2016 [facility] UNSPECIFIED FOUNDATION R6521 SEVERE 07-29-2016 [place] [facility] SEPS[facility] WITH SERV SEPTIC FOUNDATION SHOCK R9431 ABNORMAL 07-29-2016 [place] [facility] ELECTROCARD SERV IOGRAM [facility]OUNDATION A047 ENTEROCOLIT 07-27-2016 [place] [facility] IS DUE TO SERV CLOSTRIDIUM FOUNDATION DIFFICILE E1122 TYPE 2 07-26-2016 [facility]ALS W/DIAB CHRON KIDNEY DZ E872 ACIDOSIS 07-26-2016 [facility] G9340 ENCEPHALOPA 07-26-2016 [place] [facility] THY SERV UNSPECIFIED FOUNDATION I348 OTHER 07-26-2016 [place] [facility] 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 I5020 UNSPECIFIED 07-26-2016 [place] [facility] SYSTOLIC SERV CONGESTIVE FOUNDATION HEART FAILURE I517 CARDIOMEGAL 07-26-2016 [place] [facility] Y SERV [facility] J9621 ACUTE & 07-26-2016 [facility]PITALS FAILURE WITH HYPOXIA J9690 RESP FAIL 07-26-2016 [place] [facility] UNS UNS SERV WHETHER FOUNDATION W/HYPOXIA/H YPERCAPNIA N170 ACUTE RENAL 07-26-2016 [facility] WITH HOSPITALS TUBULAR NECROSIS R109 UNSPECIFIED 07-26-2016 [place] [facility] ABDOMINAL SERV PAIN FOUNDATION R918 OTHER 07-26-2016 [place] [facility] NONSPECIFIC SERV ABNORMAL FOUNDATION FINDING OF LUNG FIELD Z452 ENCOUNTER 07-26-2016 [place] [facility] ADJUSTMENT& SERV MGMT [facility]OUND[facility] VASCULAR ACCESS DEVICE W13736 ELEVATED 07-25-2016 [facility] WHITE [facility]OD [facility], CELL COUNT PLLC UNSPECIFIED R34 ANURIA AND 07-25-2016 [facility] OLIGURIA [facility], PLLC Z720 TOBACCO USE 07-25-2016 [facility] INC R0782 INTERCOSTAL 07-15-2016 [facility] PAIN [facility] INC R0789 OTHER CHEST 07-15-2016 [facility] [id number] CONTUSION 07-15-2016 [facility] RT FRONT PHYSICIANS WALL THORAX GROUP INITIAL ENCOUNTER L8364VU MULTIPLE FX 07-15-2016 [facility] RIBS UNS PHYSICIANS SIDE INIT GROUP ENC CLOS FRACTURE D00254 PAIN IN 07-10-2016 [facility] RIGHT UPPER MEDICAL ARM IMAGING ASS R0781 PLEURODYNIA 07-10-2016 [facility] [id number] CONTUSION 07-10-2016 [facility] UNS FRONT PHYSICIANS, WALL THORAX PLLC INITIAL ENCNTR Q1837JL UNS INJURY 07-10-2016 [place] RT SHOULDER MEDICAL UPPER ARM IMAGING ASS INITIAL ENCNTR N3000 ACUTE 06-28-2016 [facility] CYSTITIS PHYSICIANS WITHOUT GROUP HEMATURIA Z23 ENCOUNTER 06-28-2016 [facility] FOR PHYSICIANS IMMUNIZATIO GROUP N K54457 CHRONIC 05-13-2016 [facility] MIGRAINE PHYSICIANS W/O AURA GROUP INTRACT W/O STAT MIGR G30380 OTH 05-13-2016 [facility] MIGRAINE PHYSICIANS NOT INTRACT GROUP W/O STATUS MIGRAINOSUS G629 POLYNEUROPA 04-29-2016 [facility] THY PHYSICIANS UNSPECIFIED GROUP H6690 OTITIS 04-22-2016 [facility] P UNSPECIFIED EAR J209 ACUTE 04-22-2016 [facility] BRONCHITIS PHYSICIANS, UNSPECIFIED PLLC J441 CHRONIC 04-22-2016 [facility] OBSTRUCTIVE PHYSICIANS, PULMONARY PLLC DZ W/EXACERBAT ION Z9981 DEPENDENCE 04-22-2016 [facility] P L OXYGEN R002 PALPITATION 04-17-2016 [facility] S [facility] INC R1310 DYSPHAGIA 04-17-2016 [facility] UNSPECIFIED [facility] INC R42 DIZZINESS 04-17-2016 [facility] AND [facility] GIDDINESS INC R4702 DYSPHASIA 04-17-2016 [facility] R55 SYNCOPE AND 04-17-2016 [facility] COLLAPSE [facility] INC E875 HYPERKALEMI 04-03-2016 [facility] A [facility] INC I159 SECONDARY 04-03-2016 [facility] HYPERTENSIO [facility] N INC UNSPECIFIED J440 COPD WITH 04-03-2016 [facility] ACUTE LOWER [facility] INC RESPIRATORY INFECTION R062 WHEEZING 04-02-2016 [facility] R079 CHEST PAIN 04-02-2016 [place] UNSPECIFIED MEDICAL IMAGING ASS 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 UNSPECIFIED E1141 TYPE 2 12-14-2015 [facility] DIABETES MELLITUS W/DIAB MONONEUROPA THY I739 PERIPHERAL 12-14-2015 [facility] VASCULAR DISEASE UNSPECIFIED I890 LYMPHEDEMA 12-14-2015 [facility] NOT ELSEWHERE CLASSIFIED M2570 OSTEOPHYTE 12-14-2015 [facility] ML UNSPECIFIED JOINT 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 FIBROMATOSI S M64264 PAIN IN 12-14-2015 [facility] ML RIGHT FOOT Z68219 PAIN IN LEG 12-05-2015 [facility] UNSPECIFIED INC M779 ENTHESOPATH 11-30-2015 [facility] Y [facility] UNSPECIFIED INC G4733 OBSTRUCTIVE 11-09-2015 [facility] APNEA ADULT INC PEDIATRIC H3500 UNSPECIFIED 11-03-2015 [facility] RETINOPATHY I119 HYPERTENSIV 10-31-2015 [facility] E HEART PHYSICIANS DISEASE GROUP WITHOUT HEART FAILURE I209 ANGINA 10-31-2015 [facility] PECTORIS PHYSICIANS UNSPECIFIED GROUP O43668 PAIN IN 10-24-2015 [place] LEFT THIGH MEDICAL IMAGING ASS R1032 LEFT LOWER 10-24-2015 [facility]ANT [facility] PAIN INC E785 HYPERLIPIDE 10-12-2015 [facility] MEDICAL UNSPECIFIED IMAGING ASS I5189 OTHER 10-12-2015 [facility] ILL-DEFINED [facility] HEART INC DISEASES I779 DISORDER OF 10-12-2015 [facility] ARTERIES [facility] AND INC ARTERIOLES UNSPECIFIED R0989 OTH SPEC SX 10-12-2015 [place] & SIGNS MEDICAL INVLV THE IMAGING ASS CIRC & RESP SYS Q76216 PERSONAL 10-03-2015 [facility] HISTORY OF PHYSICIANS NICOTINE GROUP DEPENDENCE K96906 PAIN IN 09-21-2015 [facility] ML LEFT FOOT M7732 CALCANEAL 09-19-2015 [facility] SPUR LEFT MEDICAL FOOT IMAGING ASS J432 CENTRILOBUL 09-16-2015 [facility] AR MEDICAL EMPHYSEMA IMAGING ASS J98297 UNSPECIFIED 09-16-2015 [facility] ASTHMA PHYSICIANS UNCOMPLICAT GROUP ED R05 COUGH 09-13-2015 [facility] Z131 ENCOUNTER 09-06-2015 [facility] FOR [facility] SCREENING INC FOR DIABETES MELLITUS Z5181 ENCOUNTER 08-21-2015 [facility] FOR [facility] THERAPEUTIC INC DRUG LEVEL MONITORING A084 VIRAL 07-24-2015 [facility] INFECTION INTERNAL UNSPECIFIED MED 496 CHRONIC 05-05-2015 [facility] OBSTRUCTION MEDICAL NEC EQUIPME 97023 DIAB W/O 03-08-2015 [facility] COMP TYPE VALLEY II/UNS NOT INTERNAL STATED MED UNCNTRL 2724 OTHER AND 03-08-2015 [facility] UNSPECIFIED VALLEY INTERNAL HYPERLIPIDE MED JESSICA 00208 ESOPHAGEAL 03-08-2015 [facility] REFLUX [facility] INTERNAL MED 7804 DIZZINESS 03-08-2015 [facility] AND [facility]LEY GIDDINESS INTERNAL MED 47144 DIAB 11-28-2014 [facility] W/NEURO VALLEY MANIFESTS INTERNAL TYPE II/UNS MED NOT UNCNTRL 81809 OBSTRUCTIVE 11-28-2014 [facility] CHRONIC VAL[facility] BRONCHITIS INTERNAL WITH MED EXACERBATIO N 4439 UNSPECIFIED 11-01-2014 [facility] PERIPHERAL HEALTH VASCULAR MEDICAL G DISEASE 19515 ULCER OF 11-01-2014 [facility] OTHER PART HEALTH OF LOWER MEDICAL G [...] AGTS V5867 LONG-TERM 08-25-2014 [facility] USE OF [facility] INSULIN INC 7862 COUGH 08-23-2014 [facility] 91218 DIAB W/O 07-29-2014 CLINIC COMP TYPE I PHARMACY [JUV] NOT STATED UNCNTRL 7245 UNSPECIFIED 07-22-2014 [facility] BACKACHE [facility] INC V571 OTHER 07-22-2014 [facility] PHYSICAL [facility] THERAPY INC 7213 LUMBOSACRAL 06-28-2014 [facility] SPONDYLOSIS IMAGING ASS WITHOUT MYELOPATHY 61866 DISPLCMT 06-28-2014 [place] LUMBAR MEDICAL INTERVERT IMAGING ASS DISC W/O MYELOPATHY 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 06-28-2014 [place] 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 7243 SCIATICA 06-28-2014 [facility] INC 7242 LUMBAGO 06-21-2014 [facility] 28753 CHEST PAIN 04-01-2014 [place] [facility] UNSPECIFIED SERV FOUNDATIO 35884 UNSPECIFIED 01-03-2014 [facility] RETINOPATHY 7823 EDEMA 09-17-2013 [facility] 4293 CARDIOMEGAL 09-15-2013 [facility] 44416 CHRONIC 09-15-2013 [facility] WITH EXACERBATIO N 27043 OTHER 09-15-2013 [place] DISEASES OF MEDICAL LUNG NOT IMAGING ASS ELSEWHERE CLASSIFIED 97748 WHEEZING 05-02-2013 [facility] 7812 ABNORMALITY 01-29-2013 [facility] INC 486 PNEUMONIA, 12-14-2012 [facility] ORGANISM [facility] UNSPECIFIED INTERNAL MED 37445 METHICILLIN 12-03-2012 [facility] RESISTANT [place] STAPHYLOCOC INTERNAL CUS AUREUS MED 4660 ACUTE 12-03-2012 [facility] BRONCHITIS [place] INTERNAL MED 33213 ASTHMA, 12-03-2012 [facility] UNSPECIFIED VALLEY , INTERNAL UNSPECIFIED MED STATUS 89510 METHICILLIN 12-01-2012 [facility] PNEUMONIA HOSPITAL P D/T STAPH AUREUS 58202 OTHER 12-01-2012 [facility] RESPIRATORY ABNORMALITI ES 485 BRONCHOPNEU 08-27-2012 [facility] [place] ORGANISM INTERNAL UNSPECIFIED MED 73378 OTHER 08-25-2012 [place] NONSPECIFIC MEDICAL ABNORMAL IMAGING ASS FINDING OF LUNG FIELD V0481 NEED 06-05-2012 [facility] PROPHYLACTI [place] C INTERNAL VACCINATION MED &INOCULATIO N FLU 88339 DIAB W/O 04-13-2012 [facility] COMP TYPE I HOSPITAL P [JUV TYPE] UNCNTRL 94217 ABDOMINAL 04-13-2012 [facility] Immunization Name Date Route CVX Reacti Commen Provid Is Given on t er Refuse d PPSV23 ELEDR No 2016 MANUELA VACCIN E 2 YRS OR OLDER FOR SUBQ/I M USE Procedures Procedure DOS Code Location Performer Comment DETERMINA 08778 [facility] [place] [facility] 11985 [facility] 7 VISION XM&EVAL CENTER COMPRHNSV ESTAB PT 1/> O2 CONC 1 E1390 [facility] [place] 7 HOME HOME 85%/>02 MEDICAL MEDICAL CONC AT EQUIPME EQUIPME PRSC FLW RATE PRTBLE E0431 [facility] THAKKAR GASEOUS 7 HOME HOME O2 SYS MEDICAL MEDICAL RENT; EQUIPME EQUIPME FLWMTR HUMIDFR&M ASK ALBUMIN 57446 [facility] URINE 7 [facility] MICROALBU INC INC MIN QUANTIATI VE COMPREHEN 45584 [facility] SIVE 7 [facility] METABOLIC INC INC PANEL DRUG TEST 07334 [facility] PRSMV 7 [facility] QUAL DIR INC INC OPTICAL OBS PER DAY CREATININ 03098 [facility] E OTHER 7 [facility] SOURCE INC INC LIPID 33878 [facility] PANEL 7 [facility] INC INC HEMOGLOBI 54314 [facility] N 7 [facility] GLYCOSYLA INC INC NICOLE A1C COLLECTIO 94772 [facility] N VENOUS 7 [facility] BLOOD INC INC VENIPUNCT URE BLOOD 23136 [facility] COUNT 7 [facility] COMPLETE INC INC AUTO&AUTO DIFRNTL WBC COLLECTIO 71750 [facility] N VENOUS 7 [facility] BLOOD INC INC VENIPUNCT URE BASIC 33673 [facility] METABOLIC 7 [facility] PANEL INC INC CALCIUM TOTAL SUSCEPTIB 46090 [facility] LTY STDY 7 [facility] ANTIMICRB INC INC IAL MICRO/AGA R DILUTJ CULTURE 25184 [facility] BACTERIAL 7 [facility] INC INC QUANTTATI VE COLONY COUNT URINE CULTURE 37827 [facility] BCT 7 [facility] ISOL&PRSM INC INC PTV ID ISOLATE EA URINE URNLS DIP 84407 [facility] 7 [facility] STICK/TAB INC INC LET REAGENT AUTO MICROSCOP Y COLLECTIO 22572 [facility] N VENOUS 7 [facility] BLOOD INC INC VENIPUNCT URE BASIC 16905 [facility] METABOLIC 7 [facility] PANEL INC INC CALCIUM TOTAL O2 CONC 1 E1390 [facility]ANE DEL PORT 7 HOME HOME 85%/>02 MEDICAL MEDICAL CONC AT EQUIPME EQUIPME PRSC FLW RATE PRTBLE E0431 [facility] GASEOUS 7 HOME HOME O2 SYS MEDICAL MEDICAL RENT; EQUIPME EQUIPME FLWMTR HUMIDFR&M ASK ECHO 86648 [facility] TTHRC R-T 7 [facility] 2D INC INC W/WOM-MOD E COMPL SPEC&COLR D DRUG TEST 55360 [facility] PRSMV 7 [facility] QUAL DIR INC INC OPTICAL OBS PER DAY COMPREHEN 25340 [facility] SIVE 7 [facility] METABOLIC INC INC PANEL NATRIURET 40758 [facility] IC 7 [facility] PEPTIDE INC INC COLLECTIO 41558 [facility] N VENOUS 7 [facility] BLOOD INC INC VENIPUNCT URE ECG 25390 [facility] ROUTINE 7 [facility] ECG INC INC W/LEAST 12 LDS TRCG ONLY W/O I&R BLOOD 91624 [facility] COUNT 7 [facility] COMPLETE INC INC AUTO&[place] [address] [facility] FREE 7 [facility] [place] [address] [facility] THYROID 7 [facility] STIMULATI INC INC NG HORMONE TSH MRI 36680 [place] NILA SPINAL 7 MEDICAL CANAL IMAGING LUMBAR ASS W/O CONTRAST MATERIAL 3D 02678 [facility] RENDERING 7 [facility] W/INTERP INC INC & POSTPROCE SS SUPERVISI ON PRTBLE E0431 [facility] GASEOUS 7 HOME HOME O2 SYS MEDICAL MEDICAL RENT; EQUIPME EQUIPME FLWMTR HUMIDFR&M ASK O2 CONC 1 E1390 [facility] MCALLISTER PORT 7 HOME HOME 85%/>02 MEDICAL MEDICAL CONC AT EQUIPME EQUIPME [facility] FLW RATE BASIC 78512 [facility] METABOLIC 7 [facility] HOS[facility] PANEL INC INC CALCIUM TOTAL CULTURE 18686 [facility] BACTERIAL 7 [facility] INC INC QUANTTATI VE COLONY COUNT URINE HOSPITAL 00399 [place] [facility] DIS[place]GE 6 MEDICAL DAY SERV MANAGEMEN FOUNDATIO T > 30 N MIN SBSQ 21143 [facility] 6 MEDICAL CARE/DAY SERV 25 FOUNDATIO MINUTES N SBSQ 07909 [facility] 6 MEDICAL KER CARE/DAY SERV 25 FOUNDATIO MINUTES N DUP-SCAN 32701 [place] [facility] XTR VEINS 6 MEDICAL JESSICA COMPLETE SERV FOUNDATIO BILATERAL N STUDY GROUND A0425 [facility] 6 [facility] PER AMBULANCE AMBULANCE STATUTE MILE AMBULANCE A0428 [facility] SERVICE 6 [facility]RO METRO BLS AMBULANCE AMBULANCE NONEMERGE NCY TRANSPORT GROUND A0425 [facility]LE[facility] 6 MEDICAL MEDICAL PER RESPONSE RESPONSE STATUTE MILE AMB A0427 [facility] SERVICE 6 MEDICAL MEDICAL ALS RESPONSE RESPONSE EMERGENCY TRANSPORT LEVEL 1 SBSQ [id number] [facility] 6 MEDICAL KER CARE/DAY SERV 25 FOUNDATIO MINUTES N SBSQ 85559 [facility] 6 MEDICAL KER CARE/DAY SERV 25 FOUNDATIO MINUTES N SBSQ 24168 [facility] 6 MEDICAL CARE/DAY SERV 25 FOUNDATIO MINUTES N SBSQ 23408 [facility] 6 MEDICAL CARE/DAY SERV 25 FOUNDATIO MINUTES N SBSQ 58550 [facility] 6 MEDICAL CARE/DAY SERV 25 FOUNDATIO MINUTES N SBSQ 11854 [facility] 6 MEDICAL CARE/DAY SERV 25 FOUNDATIO MINUTES N SBSQ 68969 [facility] 6 MEDICAL CARE/DAY SERV 25 FOUNDATIO MINUTES N RADEX 09787 [facility] [place] [facility] SPINE 6 RADIOLOGY III CERVICAL 2 OR 3 VIEWS SBSQ 93465 [place] [address] MEDICAL CARE/DAY SERV 25 FOUNDATIO MINUTES N O2 CONC 1 E1390 [facility]ANE THAKKAR [place] 6 HOME HOME 85%/>02 MEDICAL MEDICAL CONC AT EQUIPME EQUIPME PRSC FLW RATE PRTBLE E0431 ARIANE THAKKAR GASEOUS 6 HOME HOME O2 SYS MEDICAL MEDICAL RENT; EQUIPME EQUIPME FLWMTR HUMIDFR&M ASK SBSQ 23842 [place] [address] MEDICAL CARE/DAY SERV 25 FOUNDATIO MINUTES N INITIAL [address]61 [place] [address] MEDICAL CARE/DAY SERV 50 FOUNDATIO MINUTES N GROUND A0425 [facility] 6 METRO METRO PER AMBULANCE AMBULANCE STATUTE MILE AMBULANCE A0428 [facility] SERV[facility] 6 METRO METRO BLS AMBULANCE AMBULANCE NONEMERGE NCY TRANSPORT UNLISTED A0999 [facility] 6 METRO METRO SERVICE [facility] [address] [facility] ROH[facility]. DISCHARGE 6 MEDICAL DAY SERV MANAGEMEN FOUNDATIO T 30 N MIN/< SBSQ 45807 [place] [address] MEDICAL CARE/DAY SERV 25 FOUNDATIO MINUTES N SBSQ 68916 [place] [address] MEDICAL CARE/DAY SERV 25 FOUNDATIO MINUTES N ECG 14754 [place] [facility] CHI ROUTINE 6 MEDICAL ECG SERV W/LEAST FOUNDATIO 12 LDS N I&R ONLY CRITICAL 47041 [facility] 6 MEDICAL ILL/INJUR SERV ED FOUNDATIO PATIENT N INIT 30-74 MIN CRITICAL 53378 [facility] 6 MEDICAL Y-GARCIA ILL/INJUR SERV HERI ED FOUNDATIO PATIENT N INIT 30-74 MIN ECHO 66408 EMPERATRIZ LILLIE SALINAS TTHRC R-T 6 MEDICAL 2D SERV W/WOM-MOD FOUNDATIO E COMPL N SPEC&[place] [address] EMPERATRIZ VERONIKA ABDOMEN & 6 MEDICAL GUSTAVO PELVIS SERV W/O FOUNDATIO CONTRAST N MATERIAL RADIOLOGI [address]5210 [place] MARSHALL CRISTIANO C 6 MEDICAL EXAMINATI SERV ON CHEST [place] [address] [place] PARKER AYALA HEAD/BRAI 6 MEDICAL N W/O SERV CONTRAST FOUNDATIO MATERIAL N CT THORAX 20682 [place] ERIN W/O 6 MEDICAL AYA MAR CONTRAST SERV MATERIAL FOUNDATIO N INSERTION [id number] [place] INFUSION 6 [facility] VENA CAVA PERQ INSERTION [id number] [facility] INFUSION 6 [facility] DEVC RT E E [facility]AVIA [facility] N VEIN PERQ MONITORIN [id number] [facility]IT[facility] G 6 [facility] ARTERIAL E E [facility] PERIPHERA L PERQ MONITORIN [id number] [facility]IT[facility] G 6 [facility] ARTERIAL E E PRESSURE [facility]PIT[facility] HOSPITALS PERIPHERA L PERQ RADIOLOGI 84571 [place] TRUE RAE C 6 MEDICAL EXAMINATI SERV ON CHEST FOUNDATIO SINGLE N VIEW FRONTAL CULTURE 43830 NEFTALI LINDSAY BACTERIAL 6 [facility] INC INC QUANTTATI VE COLONY COUNT URINE CUL BACT 28805 NEFTALI LINDSAY AEROBIC 6 [facility] ADDL INC INC METHS DEFINITIV E EA ISOL CULTURE 31737 NEFTALI LINDSAY BACTERIAL 6 [facility] BLOOD INC INC AEROBIC W/[place] [address] NEFTALI LINDSAY TROPONIN 6 [facility] QUANTITAT INC INC CORY BLOOD 78456 NEFTALI LINDSAY COUNT 6 [facility] COMPLETE INC INC AUTO&AUTO DIFRNTL WBC ECG 98966 NEFTALI LINDSAY ROUTINE 6 [facility] ECG INC INC W/LEAST 12 LDS TRCG ONLY W/O I&R ECG 88772 NEFTALI NOONAN ROUTINE 6 [facility] W/LEAST P 12 LDS I&[place] [address] NEFTALI LINDSAY INFUSION 6 [facility] THERAPY INC INC PROPHYLAX IS/DX EA HOUR COLLECTIO 43692 NEFTALI LINDSAY N VENOUS 6 [facility] BLOOD INC INC VENIPUNCT URE AMB A0427 [facility]ICE 6 AMBULANCE AMBULANCE ALS SERVICE SERVICE EMERGENCY TRANSPORT LEVEL [address] [facility] CARE 6 PHYSICIAN ILL/INJUR S, [facility] ED PATIENT INIT 30-74 [place] [address] NEFTALI LINDSAY LACTATE 6 [facility] INC INC URNLS DIP 24738 NEFTALI LINDSAY 6 [facility] STICK/TAB INC INC LET REAGENT AUTO MICROSCOP Y CREATINE 87389 NEFTALI LINDSAY KINASE MB 6 [facility] FRACTION INC INC ONLY COMPREHEN 89779 NEFTALI LINDSAY SIVE 6 [facility] METABOLIC INC INC PANEL CREATINE 44269 NEFTALI LINDSAY KINASE 6 [place] [address] NEFTALI LINDSAY INFUSION 6 [facility] THER INC INC PROPH ADDL SEQUENTIA L TO [address] [facility] MILEAGE 6 AMBULANCE AMBULANCE [place] [address] NEFTALI LINDSAY INFUSION 6 [facility] THERAPY/P INC INC ROPHYLAXI S /DX 1ST TO 1 HR 3D 14702 [place] NILA RENDERING 6 MEDICAL IZABEL W/INTERP IMAGING & ASS POSTPROCE SS SUPERVISI ON CT THORAX 36034 NEFTALI LINDSAY W/O 6 [facility] CONTRAST INC INC MATERIAL RADEX 83716 [place] SNYDER ALL RIBS BI 6 MEDICAL W/POSTERO IMAGING ANT CH ASS MINIMUM 4 VIEWS RADEX 81018 [place] SN[place] ALL HUMERUS 6 MEDICAL MINIMUM 2 IMAGING VIEWS ASS PRTBLE E0431 ARIANE THAKKAR GASEOUS 6 HOME HOME O2 SYS MEDICAL MEDICAL RENT; EQUIPME EQUIPME FLWMTR HUMIDFR&M ASK O2 CONC 1 E1390 ARIANE THAKKAR DEL PORT 6 HOME HOME 85%/>02 MEDICAL MEDICAL CONC AT EQUIPME EQUIPME PRSC FLW RATE PPSV23 89339 [facility] ELDER VACCINE 2 6 PHYSICIAN MANUELA YRS OR S GROUP OLDER FOR SUBQ/IM USE CULTURE 79775 NEFTALI LINDSAY BACTERIAL 6 [facility] INC INC QUANTTATI VE COLONY COUNT URINE CULTURE 88836 NEFTALI LINDSAY BCT 6 [facility] ISOL&PRSM INC INC PTV ID ISOLATE EA URINE ALBUMIN 35184 NEFTALI LINDSAY URINE 6 [facility] MICROALBU INC INC MIN QUANTIATI VE HEMOGLOBI 04133 NEFTALI LINDSAY N 6 [facility] GLYCOSYLA INC INC NICOLE A1C O2 CONC 1 E1390 ARIANE ARIANE DEL PORT 6 HOME HOME 85%/>02 MEDICAL MEDICAL CONC AT EQUIPME EQUIPME PRSC FLW RATE PRTBLE E0431 ARIANE ARIANE GASEOUS 6 HOME HOME O2 SYS MEDICAL MEDICAL RENT; EQUIPME EQUIPME FLWMTR HUMIDFR&M ASK PRTBLE E0431 ARIANE ARIANE GASEOUS 6 HOME HOME O2 SYS MEDICAL MEDICAL RENT; EQUIPME EQUIPME FLWMTR HUMIDFR&M ASK O2 CONC 1 E1390 ARIANE ARIANE DEL PORT 6 HOME HOME 85%/>02 MEDICAL MEDICAL CONC AT EQUIPME EQUIPME PRSC FLW RATE GLUC BLD 20135 NEFTALI LINDSAY GLUC MNTR 6 [facility] DEV INC INC CLEARED FDA SPEC HOME USE COMPREHEN 18541 NEFTALI LINDSAY SIVE 6 [facility] METABOLIC INC INC PANEL HOSPITAL G0378 NEFTALI LINDSAY OBSERVATI 6 [facility] ON INC INC SERVICE PER HOUR PRESSURIZ 28671 NEFTALI LINDSAY ED/NONPRE 6 [facility] SSURIZED INC INC INHALATIO N TREATMENT NONINVASI 60023 NEFTALI LINDSAY VE 6 [facility] EAR/PULSE INC INC OXIMETRY SINGLE DETER BLOOD 62057 NEFTALI LINDSAY COUNT 6 [facility] COMPLETE INC INC AUTO&AUTO DIFRNTL WBC COLLECTIO 38527 NEFTALI LINDSAY N VENOUS 6 [facility] BLOOD INC INC VENIPUNCT URE BLOOD 89541 NEFTALI LINDSAY COUNT 6 [facility] COMPLETE INC INC AUTO&[place] [address] NEFTALI LINDSAY TROPONIN 6 [facility] QUANTITAT INC INC CORY COLLECTIO 37551 NEFTALI LINDSAY N VENOUS 6 [facility] BLOOD INC INC VENIPUNCT URE PRESSURIZ 84169 NEFTALI LINDSAY ED/NONPRE 6 [facility] SSURIZED INC INC INHALATIO N TREATMENT NONINVASI 50689 NEFTALI LINDSAY VE 6 [facility] EAR/PULSE INC INC OXIMETRY SINGLE DETER HOSPITAL G0378 NEFTALI LINDSAY OBSERVATI 6 [facility] ON INC INC SERVICE PER HOUR CREATINE 83945 NEFTALI LINDSAY KINASE MB 6 [facility] FRACTION INC INC ONLY CREATINE 18826 NEFTALI LINDSAY KINASE 6 [facility] TOTAL INC INC COMPREHEN 43090 NEFTALI LINDSAY SIVE 6 [facility] METABOLIC INC INC PANEL GLUC BLD 56892 NEFTALI LINDSAY GLUC MNTR 6 [facility] DEV INC INC CLEARED FDA SPEC HOME USE BASIC 63754 NEFTALI LINDSAY METABOLIC 6 [facility] PANEL INC INC CALCIUM TOTAL GLUCOSE 27611 NEFTALI LINDSAY QUANTITAT 6 [facility] CORY BLOOD INC INC XCPT REAGENT STRIP GLUC BLD 81557 NEFTALI LINDSAY GLUC MNTR 6 [facility] DEV INC INC CLEARED FDA SPEC HOME USE CREATINE 20147 NEFTALI LINDSAY KINASE 6 [facility] TOTAL INC INC COMPREHEN 99344 NEFTALI LINDSAY SIVE 6 [facility] METABOLIC INC INC PANEL CREATINE 48855 NEFTALI LINDSAY KINASE MB 6 [facility] FRACTION INC INC ONLY HOSPITAL G0378 NEFTALI LINDSAY OBSERVATI 6 [facility] [place] [address] NEFTALI LINDSAY 1/> AREAS 6 [facility] EA 15 INC INC MIN GAIT TRAINJ W/STAIR NONINVASI 56884 NEFTALI LINDSAY VE 6 [facility] EAR/PULSE INC INC OXIMETRY SINGLE DETER THER 23627 NEFTALI LINDSAY PROPH/DX 6 [facility] NJX IV INC INC PUSH SINGLE/1S T SBST/DRUG PHYSICAL 02931 NEFTALI LINDSAY THERAPY 6 [facility] EVALUATIO INC INC N PRESSURIZ 59402 NEFTALI LINDSAY ED/NONPRE 6 [facility] SSURIZED INC INC INHALATIO N TREATMENT ECG 60063 NEFTALI LINDSAY ROUTINE 6 [facility] ECG INC INC W/LEAST 12 LDS TRCG ONLY W/O I&[place] [address] NEFTALI LINDSAY TROPONIN 6 [facility] QUANTITAT INC INC CORY BLOOD 70697 NEFTALI LINDSAY COUNT 6 [facility] COMPLETE INC INC AUTO&AUTO DIFRNTL WBC RADIOLOGI 08661 NEFTALI LINDSAY C 6 [facility] EXAMINATI INC INC ON CHEST SINGLE VIEW FRONTAL COLLECTIO 64453 NEFTALI NEFTALI N VENOUS 6 [facility] BLOOD INC INC VENIPUNCT URE ECG 11176 NEFTALI NOONAN ROUTINE 6 [facility] W/LEAST P 12 LDS I&R ONLY US SOFT 97142 NEFTALI LINDSAY TISSUE 6 [facility] HEAD & INC [place] [address] NEFTALI LINDSAY FREE 6 [facility] THYROXINE INC INC COLLECTIO 67543 NEFTALI LINDSAY N VENOUS 6 [facility] [place] [address] NEFTALI LINDSAY THYROID 6 [facility] STIMULATI INC INC NG HORMONE TSH BASIC 28599 NEFTALI NEFTALI METABOLIC 6 [facility] PANEL INC INC CALCIUM TOTAL ECG 99653 NEFTALI NEFTALI ROUTINE 6 [facility] ECG INC INC W/LEAST 12 LDS TRCG ONLY W/O I&R IMPLANTAT 09018 [facility] ION 6 PHYSICIAN MAT PT-ACTIVA S GROUP NICOLE CARDIAC EVENT RECORDER O2 CONC 1 E1390 ARIANE THAKKAR DEL PORT 6 HOME HOME 85%/>02 MEDICAL MEDICAL CONC AT EQUIPME EQUIPME PRSC FLW RATE PRTBLE E0431 ARIANE THAKKAR GASEOUS 6 HOME HOME O2 SYS MEDICAL MEDICAL RENT; EQUIPME EQUIPME FLWMTR HUMIDFR&M ASK INSERTION [id number] NEFTALI LINDSAY MON DEVC 6 [facility] CHEST INC INC SUBQ TISSUE & FASC OPEN DUPLEX 94401 ALESHA SNYDER SCAN 6 MEDICAL EXTRACRAN IMAGING IAL ART ASS COMPL BI STUDY RADIOLOGI 19805 ALESHA SNYDER ALL C 6 MEDICAL EXAMINATI IMAGING ON CHEST ASS SINGLE VIEW FRONTAL ECG 76148 NEFTALI BONILLA JR ROUTINE 6 [facility] W/LEAST P 12 LDS I&R ONLY PRTBLE E0431 ARIANE THAKKAR GASEOUS 6 HOME HOME O2 SYS MEDICAL MEDICAL RENT; EQUIPME EQUIPME FLWMTR HUMIDFR&M ASK O2 CONC 1 E1390 ARIANE THAKKAR DEL PORT 6 HOME HOME 85%/>02 MEDICAL MEDICAL CONC AT EQUIPME EQUIPME PRSC FLW RATE O2 CONC 1 E1390 ARIANE THAKKAR DEL PORT 6 HOME HOME 85%/>02 MEDICAL MEDICAL CONC AT EQUIPME EQUIPME PRSC FLW RATE PRTBLE E0431 ARIANE THAKKAR GASEOUS 6 HOME HOME O2 SYS MEDICAL MEDICAL RENT; EQUIPME EQUIPME FLWMTR HUMIDFR&M ASK PRTBLE E0431 ARIANE TOBARRELL GASEOUS 6 HOME HOME O2 SYS MEDICAL MEDICAL RENT; EQUIPME EQUIPME FLWMTR HUMIDFR&M ASK O2 CONC 1 E1390 ARIANE MCALLISTER PORT 6 HOME HOME 85%/>02 MEDICAL MEDICAL CONC AT EQUIPME EQUIPME PRSC FLW RATE NERVE 73453 [facility] CONDUCTIO 6 N N STUDIES NEUROLOGY 9-10 STUDIES NEEDLE 52896 [facility] EMG EA 6 N EXTREMTY NEUROLOGY W/PARASPI NL AREA COMPLETE INJECTION 21320 [facility] [place] 1 TENDON 6 ML DORIS SHEATH/LI GAMENT APONEUROS IS INJECTION J3301 [facility] [place] 6 ML DORIS TRIAMCINO LONE ACETONIDE NOS 10 MG ECG 87682 NEFTALI NEFTALI ROUTINE 6 [facility] ECG INC INC W/LEAST 12 LDS TRCG ONLY W/O I&R O2 CONC 1 E1390 ARIANE ARIANE DEL PORT 6 HOME HOME 85%/>02 MEDICAL MEDICAL CONC AT EQUIPME EQUIPME PRSC FLW RATE PRTBLE E0431 ARIANE THAKKAR GASEOUS 6 HOME HOME O2 SYS MEDICAL MEDICAL RENT; EQUIPME EQUIPME FLWMTR HUMIDFR&M ASK RADIOLOGI 42457 ALESHA SNYDER ALL C 6 MEDICAL EXAMINATI IMAGING ON FOOT 2 ASS VIEWS RADEX 34062 NEFTALI LINDSAY FOOT 6 [facility] COMPLETE INC INC MINIMUM 3 VIEWS POLYSOM 28774 NEFTALI LINDSAY 6/>YRS 6 [facility] SLEEP / INC INC ADDL RENZO ATTND OPHTH 63811 [facility] SCIES MEDICAL 6 VISION ANG XM&EVAL CENTER COMPRHNSV ESTAB PT DETERMINA 11560 [facility] TION 6 VISION VISION REFRACTIV CENTER [facility] PRTBLE E0431 ARIANE THAKKAR GASEOUS 6 HOME HOME O2 SYS MEDICAL MEDICAL RENT; EQUIPME EQUIPME FLWMTR HUMIDFR&M ASK O2 CONC 1 E1390 ARIANE THAKKAR DEL PORT 6 HOME HOME 85%/>02 MEDICAL MEDICAL CONC AT EQUIPME EQUIPME PRSC FLW RATE ECG 48664 [facility] ROUTINE 6 PHYSICIAN MAT ECG S GROUP W/LEAST 12 LDS I&R ONLY ECG 00541 NEFTALI LINDSAY ROUTINE 6 [facility] ECG INC INC W/LEAST 12 LDS TRCG ONLY W/O I&R DUP-SCAN 14908 ALESHA SNYDER ALL XTR VEINS 6 MEDICAL IMAGING UNILATERA ASS L/LIMITED STUDY DUP-SCAN 80398 NEFTALI LINDSAY LXTR 6 [facility] ART/ARTL INC INC BPGS UNI/LMTD STUDY ECG 15525 NEFTALI LINDSAY ROUTINE 6 [facility] ECG INC INC W/LEAST 12 LDS TRCG ONLY W/O I&R F2 GENE 96582 [facility] 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 [facility] 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[facility] 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 A5513 [facility] [place] ONLY MX 6 ML DORIS DNSITY INSRT CSTM MOLD CSTM EA DIAB ONLY A5500 [facility] [place] FIT CSTM 6 ML DORIS PREP&SPL SHOE MX DNSITY INSRT DUPLEX 80747 NEFTALI LINDSAY SCAN 6 [facility] EXTRACRAN INC INC IAL ART COMPL BI STUDY ECHO 73565 NEFTALI LINDSAY TTHRC R-T 6 [facility] 2D INC INC W/WOM-MOD E COMPL SPEC&COLR D O2 CONC 1 E1390 ARIANE THAKKAR DEL PORT 6 HOME HOME 85%/>02 MEDICAL MEDICAL CONC AT EQUIPME EQUIPME PRSC FLW RATE PRTBLE E0431 ARIANE THAKKAR GASEOUS 6 HOME HOME O2 SYS MEDICAL MEDICAL RENT; EQUIPME EQUIPME FLWMTR HUMIDFR&M ASK ECG 67255 NEFTALI LINDSAY ROUTINE 6 [facility] ECG INC INC W/LEAST 12 LDS TRCG ONLY W/O I&R ECG 24990 [facility] LINA ROUTINE 6 PHYSICIAN MAT ECG S GROUP W/LEAST 12 LDS I&R ONLY NON-INVAS 71739 NEFTALI LINDSAY CORY 6 [facility] PHYSIOLOG INC INC IC STUDY EXTREMITY 3 LEVLS SBSQ 38228 [facility] 6 ML DORIS CARE/DAY 35 MINUTES INITIAL 22359 [facility] 6 ML DORIS CARE/DAY 70 MINUTES RADIOLOGI 98385 [place] [facility] ALL C 6 MEDICAL EXAMINATI IMAGING ON FOOT [address] THORAX 25416 [place] LISA W/O 6 MEDICAL MIGUEL CONTRAST IMAGING MATERIAL ASS SBSQ 14831 [facility] 6 PHYSICIAN MANUELA CARE/DAY S GROUP 15 MINUTES RADIOLOGI 62764 [place] SN[place] ALL C 6 MEDICAL EXAMINATI IMAGING ON CHEST ASS SINGLE VIEW FRONTAL MOST 3046F [facility] [place] RECENT 6 ML DORIS HEMOGLOBI N A1C LEVEL >9.0% INFLUENZA G8484 [facility] FALLIS IMMUN 6 ML ML NOT ADMINISTE RED RSN NOT GIVEN PNEUMOCOC 4040F F[facility] F[place] LUIZ 6 ML ML VACCINE ADMIN RCVD PRIOR [facility] G8427 [facility] [place] ATTSTS 6 ML DORIS DOC M REC OBTD UPD/REV PT MEDS BMI DOC G8420 [facility] [place] W/I 6 ML DORIS NORMAL RENZO & NO F/U PLAN REQUIRED RADIOLOGI 88771 NEFTALI Malagon EXAM 6 [facility] CHEST 2 INC INC VIEWS FRONTAL&L ATERAL BLD GLU A4253 [facility] TEST/REAG 6 PHARMACY PHARMACY T STRIPS HOME BLD GLU LANCETS A4259 CLINIC CLINIC PER BOX 6 PHARMACY PHARMACY OF 100 PRTBLE E0431 ARIANE ARIANE GASEOUS 6 HOME HOME O2 SYS MEDICAL MEDICAL RENT; EQUIPME EQUIPME FLWMTR HUMIDFR&M ASK O2 CONC 1 E1390 ARIANEGHAZAL THAKKAR DEL PORT 6 HOME HOME 85%/>02 MEDICAL MEDICAL CONC AT EQUIPME EQUIPME PRSC FLW RATE DRUG TST G0477 NEFTALI LINDSAY PRESUMP;C 6 [facility] PBL BEING INC INC READ DC OPT OBV ONLY O2 CONC 1 E1390 ARIANE THAKKAR DEL PORT 5 HOME HOME 85%/>02 MEDICAL MEDICAL CONC AT EQUIPME EQUIPME PRSC FLW RATE PRTBLE E0431 ARIANE ARIANE GASEOUS 5 HOME HOME O2 SYS MEDICAL MEDICAL RENT; EQUIPME EQUIPME FLWMTR HUMIDFR&M ASK PRTBLE E0431 ARIANE ARIANE GASEOUS 5 HOME HOME O2 SYS MEDICAL MEDICAL RENT; EQUIPME EQUIPME FLWMTR HUMIDFR&M ASK O2 CONC 1 E1390 ARIANE THAKKAR DEL PORT 5 HOME HOME 85%/>02 MEDICAL MEDICAL CONC AT EQUIPME EQUIPME PRSC FLW RATE NEBULIZER E0570 ARIANE THAKKAR WITH 5 HOME HOME COMPRESSO MEDICAL MEDICAL R EQUIPME EQUIPME COMPREHEN 09117 NEFTALI LINDSAY SIVE 5 [facility] METABOLIC INC INC PANEL LIPID 92949 NEFTALI LINDSAY PANEL 5 [facility] INC INC HEMOGLOBI 27696 NEFTALI LINDSAY N 5 [facility] GLYCOSYLA INC INC NICOLE A1C COLLECTIO 57728 NEFTALI Rodrigues VENOUS 5 [facility] BLOOD INC INC VENIPUNCT URE FOR DIAB A5513 CLINIC CLINIC ONLY MX 5 PHARMACY PHARMACY DNSITY INSRT CSTM MOLD CSTM EA DIAB ONLY A5500 CLINIC CLINIC FIT CSTM 5 PHARMACY PHARMACY PREP&SPL SHOE MX DNSITY INSRT O2 CONC 1 E1390 ARIANE ARIANE MCALLISTER PORT 5 HOME HOME 85%/>02 MEDICAL MEDICAL CONC AT EQUIPME EQUIPME PRSC FLW RATE PRTBLE E0431 ARIANE TOBARRELL GASEOUS 5 HOME HOME O2 SYS MEDICAL MEDICAL RENT; EQUIPME EQUIPME FLWMTR HUMIDFR&M ASK NEBULIZER E0570 ARIANE THAKKAR WITH 5 HOME HOME COMPRESSO MEDICAL MEDICAL R EQUIPME EQUIPME PRTBLE E0431 ARIANE TOBARRELL GASEOUS 5 HOME HOME O2 SYS MEDICAL MEDICAL RENT; EQUIPME EQUIPME FLWMTR HUMIDFR&M ASK O2 CONC 1 E1390 ARIANEGHAZAL MCALLISTER PORT 5 HOME HOME 85%/>02 MEDICAL MEDICAL CONC AT EQUIPME EQUIPME PRSC FLW RATE NEBULIZER E0570 ARIANE THAKKAR WITH 5 HOME HOME COMPRESSO MEDICAL MEDICAL R EQUIPME EQUIPME ALBUTEROL J7620 YOUR YOUR TO 2.5 5 PHARMACY PHARMACY [employer] IPRATROPI UM BROM TO 0.5 MG PHRM Q0513 YOUR YOUR DISPENSIN 5 PHARMACY PHARMACY [facility] [employer] [facility] INHALATIO N RX; PER 30 DAYS O2 CONC 1 E1390 ARIANE MCALLISTER PORT 5 HOME HOME 85%/>02 MEDICAL MEDICAL CONC AT EQUIPME EQUIPME PRSC FLW RATE PRTBLE E0431 ARIANE TOBARRELL GASEOUS 5 HOME HOME O2 SYS MEDICAL MEDICAL RENT; EQUIPME EQUIPME FLWMTR HUMIDFR&M ASK NEBULIZER E0570 ARIANE THAKKAR WITH 5 HOME HOME COMPRESSO MEDICAL MEDICAL R EQUIPME EQUIPME HEMOGLOBI 04902 NEFTALI LINDSAY N 5 [facility] GLYCOSYLA INC INC NICOLE A1C LIPID 64725 NEFTALI LINDSAY PANEL 5 [facility] INC INC COMPREHEN 74614 NEFTALI LINDSAY SIVE 5 [facility] METABOLIC INC INC PANEL COLLECTIO 07078 NEFTALI LINDSAY N VENOUS 5 [facility] BLOOD INC INC VENIPUNCT URE BLOOD 89155 NEFTALI LINDSAY COUNT 5 [facility] COMPLETE INC INC AUTO&AUTO DIFRNTL WBC O2 CONC 1 E1390 ARIANE THAKKAR DEL [...] HOME COMPRESSO MEDICAL MEDICAL R EQUIPME EQUIPME ADMN SET A7003 YOUR YOUR SM VOL 5 [facility] NEBUL[facility]R DISPBL ALBUTEROL J7620 YOUR YOUR TO 2.5 5 PHARMACY PHARMACY [employer] IPRATROPI UM BROM TO 0.5 MG PHRM Q0513 YOUR YOUR DISPENSIN 5 PHARMACY PHARMACY [facility] [employer] [facility] INHALATIO N RX; PER 30 DAYS [...] MEDICAL RENT; EQUIPME EQUIPME FLWMTR HUMIDFR&M ASK ANGIOGRAP 06554 [facility] EXTREMITY MEDICAL G BILATERAL RS&I AORTOGRAP 85238 [facility] HY [facility] ABDOMINAL MEDICAL G SERIALOGR APHY RS&I INTRODUCT 69650 [facility] ION 5 NE [facility] CATHETER MEDICAL AORTA G NEBULIZER E0570 ARIANE THAKKAR WITH 5 HOME HOME COMPRESSO MEDICAL MEDICAL R EQUIPME EQUIPME NON-INVAS 03598 [facility] CORY 5 MEDICAL MIGUEL PHYSIOLOG IMAGING IC STUDY ASS EXTREMITY 3 LEVLS PRTBLE E0431 ARIANE THAKKAR GASEOUS 5 HOME HOME O2 SYS MEDICAL MEDICAL RENT; EQUIPME EQUIPME FLWMTR HUMIDFR&M ASK O2 CONC 1 E1390 ARIANE THAKKAR DEL PORT 5 HOME HOME 85%/>02 MEDICAL MEDICAL CONC AT EQUIPME EQUIPME PRSC FLW RATE NEBULIZER E0570 ARIANE THAKKAR WITH 5 HOME HOME COMPRESSO MEDICAL MEDICAL R EQUIPME EQUIPME O2 CONC 1 E1390 ARIANE ARIANE DEL PORT 5 HOME HOME 85%/>02 MEDICAL MEDICAL CONC AT EQUIPME EQUIPME PRSC FLW RATE PRTBLE E0431 ARIANE THAKKAR GASEOUS 5 HOME HOME O2 SYS MEDICAL MEDICAL RENT; EQUIPME EQUIPME FLWMTR HUMIDFR&M ASK NEBULIZER E0570 ARIANE THAKKAR WITH 5 HOME HOME COMPRESSO MEDICAL MEDICAL R EQUIPME EQUIPME ADMN SET A7003 YOUR YOUR SM VOL 5 PHARMACY PHARMACY NONFILTR [employer] PNEUMAT NEBULIZR DISPBL ALBUTEROL J7620 YOUR YOUR TO 2.5 5 PHARMACY PHARMACY [employer] IPRATROPI UM BROM TO 0.5 MG PHARM G0333 YOUR YOUR DISPEN 5 PHARMACY PHARMACY FEE INHAL [employer] RX; INITIAL 30-DAY SUPPLY RADIOLOGI 90157 [facility] C EXAM 5 MEDICAL IZABEL CHEST 2 IMAGING VIEWS ASS FRONTAL&L ATERAL PRTBLE E0431 ARIANE THAKKAR GASEOUS 4 HOME HOME O2 SYS MEDICAL MEDICAL RENT; EQUIPME EQUIPME FLWMTR HUMIDFR&M ASK O2 CONC 1 E1390 ARIANE MCALLISTER PORT 4 HOME HOME 85%/>02 MEDICAL MEDICAL CONC AT EQUIPME EQUIPME PRSC FLW RATE LANCETS A4259 CLINIC CLINIC PER BOX 4 PHARMACY PHARMACY OF 100 BLD GLU A4253 CLINIC CLINIC TEST/REAG 4 PHARMACY PHARMACY T STRIPS HOME BLD GLU MON-50 THERAPEUT 25545 NEFTALI LINDSAY IC PX 1/> 4 [facility] AREAS INC INC EACH 15 MIN EXERCISES E-STIM G0283 NEFTALI LINDSAY 1/> AREAS 4 [facility] OTH THAN INC INC WND CARE PART TX PLAN APPLICATI 34497 NEFTALI LINDSAY ON 4 [facility] MODALITY INC INC 1/> AREAS HOT/COLD PACKS MANUAL 74862 NEFTALI LINDSAY THERAPY 4 [facility] TQS 1/> INC INC REGIONS EACH 15 MINUTES APPLICATI 08441 NEFTALI LINDSAY ON 4 [facility]ALITY INC INC 1/> AREAS HOT/COLD PACKS E-STIM [id number] NEFTALI LINDSAY 1/> AREAS 4 [facility] OTH THAN INC INC WND CARE PART TX PLAN THERAPEUT 90286 NEFTALI LINDSAY IC PX 1/> 4 [facility] AREAS INC INC EACH 15 MIN EXERCISES PHYSICAL 49468 NEFTALI LINDSAY THERAPY 4 [facility] EVALUATIO INC INC N O2 CONC 1 E1390 ARIANE THAKKAR DEL PORT 4 HOME HOME 85%/>02 MEDICAL MEDICAL CONC AT EQUIPME EQUIPME PRSC FLW RATE PRTBLE E0431 ARIANE ARIANE GASEOUS 4 HOME HOME O2 SYS MEDICAL MEDICAL RENT; EQUIPME EQUIPME FLWMTR HUMIDFR&M ASK 3D 86035 NEFTALI LINDSAY RENDERING 4 [facility] W/INTERP INC INC & POSTPROCE SS SUPERVISI ON MRI 71607 NEFTALI LINDSAY SPINAL 4 [facility] CANAL INC INC LUMBAR W/O CONTRAST MATERIAL PRTBLE E0431 ARIANE TOBARRELL GASEOUS 4 HOME HOME O2 SYS MEDICAL MEDICAL RENT; EQUIPME EQUIPME FLWMTR HUMIDFR&M ASK O2 CONC 1 E1390 ARIANE ARIANE DEL PORT 4 HOME HOME 85%/>02 MEDICAL MEDICAL CONC AT EQUIPME EQUIPME PRSC FLW RATE BLD GLU A4253 CLINIC CLINIC TEST/REAG 4 PHARMACY PHARMACY T STRIPS HOME BLD GLU MON-50 LANCETS A4259 CLINIC CLINIC PER BOX 4 [facility] PHARMACY OF 100 COMPREHEN 42137 NEFTALI LINDSAY SIVE 4 [facility] METABOLIC INC INC PANEL LIPID 28169 NEFTALI LINDSAY PANEL 4 [facility] INC INC HEMOGLOBI 72460 NEFTALI LINDSAY N 4 [facility] GLYCOSYLA INC INC NICOLE A1C COLLECTIO 78497 NEFTALI LINDSAY N VENOUS 4 [facility] BLOOD INC INC VENIPUNCT URE O2 CONC 1 E1390 ARIANE THAKKAR [place] 4 HOME HOME 85%/>02 MEDICAL MEDICAL CONC AT EQUIPME EQUIPME PRSC FLW RATE PRTBLE E0431 ARIANE ARIANE GASEOUS 4 HOME HOME O2 SYS MEDICAL MEDICAL RENT; EQUIPME EQUIPME FLWMTR HUMIDFR&M ASK BLD GLU A4253 CLINIC CLINIC TEST/REAG 4 PHARMACY PHARMACY T STRIPS HOME BLD GLU MON-50 PRTBLE E0431 ARIANE THAKKAR GASEOUS 4 HOME HOME O2 SYS MEDICAL MEDICAL RENT; EQUIPME EQUIPME FLWMTR HUMIDFR&M ASK O2 CONC 1 E1390 ARIANE THAKKAR [place] 4 HOME HOME 85%/>02 MEDICAL MEDICAL CONC AT EQUIPME EQUIPME PRSC FLW RATE RADIOLOGI 52622 [place] C EXAM 4 MEDICAL IZABEL CHEST 2 IMAGING VIEWS ASS FRONTAL&L ATERAL ECHO 72827 [place] [facility] CRISTIANO TTHRC R-T 4 MEDICAL 2D SERV W/WOM-MOD FOUNDATIO E COMPL SPEC&COLR D LANCETS A4259 CLINIC CLINIC PER BOX 4 PHARMACY PHARMACY OF 100 BLD GLU A4253 CLINIC CLINIC TEST/REAG 4 PHARMACY PHARMACY T STRIPS HOME BLD GLU 50 RADIOLOGI 62423 [place] C EXAM 4 MEDICAL IZABEL CHEST 2 IMAGING VIEWS ASS FRONTAL&L ATERAL DETERMINA 04487 PRASHANTAMBERLY [place] 4 [facility] [address] [facility] 4 VISION XM&EVAL CENTER COMPRHNSV ESTAB PT 1/> BLD GLU A4253 CLINIC CLINIC TEST/REAG 4 PHARMACY PHARMACY T STRIPS HOME BLD GLU MON-50 LANCETS A4259 CLINIC CLINIC PER BOX 4 PHARMACY PHARMACY OF 100 LANCETS A4259 CLINIC CLINIC PER BOX 4 PHARMACY PHARMACY OF 100 BLD GLU A4253 CLINIC CLINIC TEST/REAG 4 PHARMACY PHARMACY T STRIPS HOME BLD GLU MON-50 DUP-SCAN 16127 [place] XTR VEINS 4 MEDICAL IZABEL COMPLETE IMAGING ASS BILATERAL STUDY ECG 95431 NEFTALI BONILLA JR ROUTINE [address] [facility] ECG HOSPITAL W/LEAST P 12 LDS I&R ONLY RADIOLOGI 88742 [place] C EXAM 4 MEDICAL IZABEL CHEST 2 IMAGING VIEWS ASS FRONTAL&L ATERAL FOR DIAB A5513 CLINIC CLINIC ONLY MX 3 PHARMACY PHARMACY DNSITY INSRT CSTM MOLD CSTM EA DIAB ONLY A5500 CLINIC CLINIC FIT CSTM 3 PHARMACY PHARMACY PREP&SPL SHOE MX DNSITY INSRT BLD GLU A4253 CLINIC CLINIC TEST/REAG 3 PHARMACY PHARMACY T STRIPS HOME BLD GLU MON-50 LANCETS A4259 CLINIC CLINIC PER BOX 3 PHARMACY PHARMACY OF 100 LANCETS A4259 CLINIC CLINIC PER BOX 3 PHARMACY PHARMACY OF 100 BLD GLU A4253 CLINIC CLINIC TEST/REAG 3 PHARMACY PHARMACY T [facility] BLD GLU MON-50 BLD GLU A4253 CLINIC CLINIC TEST/REAG 3 PHARMACY PHARMACY T [facility] BLD GLU MON-50 BLD GLU A4253 CLINIC CLINIC TEST/REAG 3 PHARMACY PHARMACY T [facility] BLD GLU MON-50 GONADOTRO 96693 NEFTALI LINDSAY PIN 3 [facility] LUTEINIZI INC INC NG HORMONE COLLECTIO 60684 NEFTALI LINDSAY N VENOUS 3 [facility] [place] [address] NEFTALI LINDSAY THYROID 3 [facility] STIMULAT[place] [address] NEFTALI LINDSAY ESTROGENS 3 [facility] TOTAL INC INC GONADOTRO 18886 NEFTALI LINDSAY PIN 3 [facility] HOSP FOLLICLE INC INC STIMULATI NG HORMONE BLD GLU A4253 CLINIC CLINIC TEST/REAG 3 PHARMACY PHARMACY T [facility] BLD GLU MON-50 ALBUTEROL J7613 [facility] INHAL 3 PHARMACY PHARMACY NON-CP #591 #591 PROD THRU DME U DOSE 1 MG PHRM Q0514 [facility] DISPENSIN 3 PHARMACY PHARMACY G FEE #591 #591 INHALATIO N RX; PER 90 [facility]YS [facility] [address] [facility] DISCHARGE 3 [facility] DAY INTERNAL MANAGEMEN MED T 30 MIN/< SBSQ 28934 [facility] 3 [facility] CARE/DAY INTERNAL 25 MED MINUTES SBSQ 68938 [place] 3 [facility] CARE/DAY INTERNAL 25 MED MINUTES SBSQ 64449 [place] 3 [facility] CARE/DAY INTERNAL 25 MED MINUTES SBSQ 44572 [place] 3 [facility] CARE/DAY INTERNAL 25 MED MINUTES INITIAL 95741 [facility] 3 [facility] CARE/DAY INTERNAL 50 MED MINUTES INITIAL 76200 [facility] OBSERVATI 3 [facility] ON INTERNAL CARE/DAY MED 30 MINUTES ECG 15491 [facility] ROUTINE 3 [facility] W/LEAST P 12 LDS I&R ONLY RADIOLOGI 79185 [facility] C EXAM 3 MEDICAL IZABEL CHEST 2 IMAGING VIEWS ASS FRONTAL&L ATERAL BLD GLU A4253 CLINIC CLINIC TEST/REAG 3 PHARMACY PHARMACY T [facility] BLD GLU BLD GLU A4253 CLINIC CLINIC TEST/REAG 3 PHARMACY PHARMACY T [facility]U [facility] 24575 [place] DISCHARGE 3 [facility] DAY INTERNAL MANAGEMEN MED T 30 MIN/< SBSQ 54783 [place] 3 [facility] CARE/DAY INTERNAL 25 MED MINUTES SBSQ 67188 [place] 3 [facility] CARE/DAY INTERNAL 25 MED MINUTES SBSQ 64731 [place] 3 [facility] CARE/DAY INTERNAL 25 MED MINUTES RADIOLOGI 46939 [place] [facility] C EXAM 3 MEDICAL IZABEL CHEST 2 IMAGING VIEWS ASS FRONTAL&L ATERAL BLD GLU A4253 CLINIC CLINIC TEST/REAG 2 PHARMACY PHARMACY T [facility] BLD GLU ADMINISTR G0008 [place] [facility] ATION OF 2 [facility] INFLUENZA INTERNAL VIRUS MED VACCINE INFLUENZA Q2038 [place] [facility] VACC 2 [facility] SPLIT INTERNAL VIRUS 3 MED YRS & > IM FLUZONE BLD GLU A4253 CLINIC CLINIC TEST/REAG 2 PHARMACY PHARMACY T [facility] BLD GLU MON-50 ECG 05171 NEFTALI CRUZ ROUTINE 2 [facility] W/LEAST P 12 LDS I&R ONLY Encounters Encounter Start End Date Code Location Performer Type Date OFFICE [id number] [facility] 7 7 PHYSICIAN T VISIT S GROUP 25 MINUTES HOSPITAL NEFTALI - OTHER 7 7 [facility] NEFTAL[facility] - OTHER 7 7 [facility] NEFTAL[facility] OTHER 7 7 [facility] NEFTAL[facility] - 7 7 [facility] 84256 [facility] 7 7 PHYSICIAN T [facility]ISIT S GROUP 25 MINUTES HOSPITAL NEFTALI - 7 7 [facility] T OFFICE 46615 [facility] OUTPATIEN 7 7 PHYSICIAN T [facility]ISIT S GROUP 25 MINUTES HOSPITAL NEFTALI - 7 7 [facility] OUTPATIEN [facility] NEFAT[facility] - 7 7 [facility] T OFF[facility] 57834 [facility] OUTPATIEN 7 7 PHYSICIAN T VISIT S GROUP 15 MINUTES OFFICE 57054 [facility] OUTPATIEN 7 7 PHYSICIAN T VISIT S GROUP 15 MINUTES HOSPITAL NEFTALI - OTHER 7 7 [facility] EMERGENCY 72965 EMPERATRIZ ARMSTRONG 6 6 MEDICAL DEPARTMEN SERV T VISIT FOUNDATIO LOW/MODER N [facility] CARDINAL - 6 6 [place] INPATIENT [facility] - 6 6 [facility] INPATIENT E HOSPITALS EMERGENCY 50632 EMPERATRIZ PENA DEPT 6 6 MEDICAL MANUELA VISIT SERV HIGH FOUNDATIO SEVERITY& N THREAT [facility] NEFTALI - 6 6 [facility] OUTPATIEN INC T HOSPITAL NEFTALI - 6 6 [facility] OUTPATIEN INC T OFFICE 22445 [facility] ELDER OUTPATIEN 6 6 PHYSICIAN MANUELA T VISIT S GROUP 15 MINUTES EMERGENCY 03619 DEEPA FISH 6 6 PHYSICIAN U MIGUEL DEPARTMEN S, [facility] T VISIT MODERATE SEVERITY HOSPITAL NEFTALI - OTHER 6 6 [facility] INC OFFICE 91024 [facility] ELDER OUTPATIEN 6 6 PHYSICIAN MANUELA T VISIT S GROUP 25 MINUTES OFFICE 66346 [facility] LADAN-M OUTPATIEN 6 6 PHYSICIAN OGHADDAM T NEW 45 S GROUP MINUTES OFFICE 39367 [facility] ELDER OUTPATIEN 6 6 PHYSICIAN MANUELA T VISIT S GROUP 15 MINUTES EMERGENCY 31794 DEEPA FISH DEPT 6 6 PHYSICIAN U MIGUEL VISIT S, [facility] HIGH SEVERITY& THREAT [facility] NEFTALI - 6 6 [facility] OUTPATIEN INC T EMERGENCY 15825 NEFTALI 6 6 [facility] DEPARTMEN INC T VISIT HIGH/URGE NT SEVERITY HOSPITAL NEFTALI - 6 6 [facility] OUTPATIEN [facility] NEFTALI - OTHER 6 6 [facility] HOSPITAL NEFTALI - 6 6 [facility] OUTPATIEN INC T OFFICE 02185 [facility] ELDER OUTPATIEN 6 6 PHYSICIAN MANUELA T VISIT S GROUP 15 MINUTES HOSPITAL NEFTALI - 6 6 [facility] INPATIENT [facility] EMERGENCY 63449 DEEPA FRIEDMAN DEPT 6 6 PHYSICIAN MANUELA VISIT S, PLLC HIGH SEVERITY& THREAT FUNCJ OFFICE 15443 [facility] OUTPATIEN 6 6 ML DORIS T VISIT 15 MINUTES HOSPITAL NEFTALI - 6 6 [facility] OUTPATIEN INC T OFFICE 59747 [facility] OUTPATIEN 6 6 ML [facility]IS T VISIT 15 MINUTES HOSPITAL NEFTALI - 6 6 [facility] OUTPATIEN INC T HOSPITAL NEFTALI - 6 6 [facility] OUTPATIEN INC T OFFICE 40495 [facility] LINA OUTPATIEN 6 6 PHYSICIAN MAT T VISIT S GROUP 25 MINUTES OFFICE 86722 [facility] OUTPATIEN 6 6 ML DORIS T VISIT 15 MINUTES HOSPITAL NEFTALI - 6 6 [facility] OUTPATIEN INC HOSPITAL NEFTALI - 6 6 [facility] OUTPATIEN INC T OFFICE 86767 [facility] OUTPATIEN 6 6 ML DORIS T VISIT 15 MINUTES HOSPITAL NEFTALI - 6 6 [facility] OUTPATIEN INC HOSPITAL NEFTALI - 6 6 [facility] OUTPATIEN INC T OFFICE 93455 [facility] LINA OUTPATIEN 6 6 PHYSICIAN MAT T NEW 45 S GROUP [facility] HOSPITAL NEFTALI - 6 6 [facility] OUTPATIEN INC T OFFICE 27175 [facility] OUTPATIEN 6 6 ML DORIS T NEW 30 MINUTES HOSPITAL NEFTALI - 6 6 [facility] OUTPATIEN INC HOSPITAL NEFTALI - OTHER 6 6 [facility] INC OFFICE 98753 [facility] 5 5 [facility] T VISIT INTERNAL 15 MED [facility] HOSPITAL NEFTALI - 5 5 [facility] OUTPATIEN INC T OFFICE 80248 [place] 5 5 [facility] T VISIT INTERNAL 25 MED MINUTES HOSPITAL NEFTALI - 5 5 [facility] OFFICE 26402 [place] [facility] OUT[facility]IEN 5 5 [facility] VISIT INTERNAL 15 MED MINUTES HOSPITAL NEFTALI - 5 5 [facility] NEFTALI - 5 5 [facility] INPATIENT [facility] EMERGENCY 02663 NEFTALI FRIEDMAN 5 5 [facility] T VISIT P HIGH/URGE NT SEVERITY HOSPITAL NEFTALI - 4 4 [facility] OUTPATIEN [facility] NEFTALI [facility] 4 4 [facility] EMERGENC[facility] 68081 [facility] 4 4 [facility] EMERGENCY T VISIT PHYS HIGH/URGE NT SEVERITY [facility] 4 4 [facility] OUTPATIEN [facility] EMERGENCY 43564 [facility] DEPT 4 4 [facility] VISIT EMERGENCY HIGH PHYS SEVERITY& THREAT [facility]J EMERGENCY 38158 HAZEL GUY DEPT [address] [facility] VISIT SERVICES HIGH SEVERITY& THREAT FUN [facility]OSPITAL NEFTALI - 3 3 [facility]EN [facility] OFFICE 05828 [place] [facility] OUTPATIEN 3 3 [facility] T VISIT INTERNAL 15 MED MINUTES EMERGENCY 98092 [facility] FRIEDMAN DEPT 3 3 [facility] V[facility] HIGH SEVERITY& THREAT FUN EMERGENCY 75351 HAZEL PICKENS DEPT 3 3 EMERGENCY III MARIA ELENA VISIT SERVICES HIGH SEVERITY& THREAT FUNCJ OFFICE 34099 [place] [facility] OUTPATIEN 2 2 KATHARINA WALLACE MARIA ELENA T VISIT INTERNAL 15 MED MINUTES
--- OUTSIDE RECORDS SUMMARY | 2016-12-15 23:29 | External Medical Summary Rpt ---
Author Author , Organization [employer] Address Unknown Phone Unavailable Care Team Providers Care Performance Consultant Name Role Phone [employer], Unavailable [facility]available [facility] ALFARIS MOH, ALFARIS Unavailable Unavailable MOH [facility] Unavailable Unavailable RESPONSE, [facility] Unavailable Unavailable RESPONSE, [facility] GRANT BRO, GRANT Unavailable Unavailable BRO BEINEKE MIGUEL, BEINEKE Unavailable Unavailable MIGUEL BERNERT, BERNERT Unavailable Unavailable BESSON CRISTIANO, BESSON Unavailable Unavailable CRISTIANO SNYDER, SNYDER Unavailable Unavailable SNYDER ALL, SNYDER ALL Unavailable Unavailable NATHANIEL, NATHANIEL Unavailable Unavailable [facility] Unavailable Unavailable SERVICE, [facility] CHINA DORIS, CHINA Unavailable Unavailable DORIS [facility] Unavailable Unavailable REHABILITATION, [facility], Unavailable Unavailable [facility] Unavailable Unavailable [facility], Unavailable Unavailable [facility] JESUS, JESUS Unavailable Unavailable NILA, INLA Unavailable Unavailable NILA IZABEL, Unavailable Unavailable NILA IZABEL [facility] Unavailable [facility], [facility] RILEY, RILEY Unavailable Unavailable RILEY KIN, RILEY KIN Unavailable Unavailable ERLANDSON, ERLANDSON Unavailable Unavailable FALLIS ML, FALLIS Unavailable Unavailable ML FALLUJI RUTH, FALLUJI Unavailable Unavailable RUTH ELDER, ELDER Unavailable Unavailable ELDER MANUELA, ELDER Unavailable Unavailable MANUELA VERONIKA GUSTAVO, VERONIKA Unavailable Unavailable GUSTAVO [facility], Unavailable Unavailable [facility] Unavailable Unavailable INC, [facility] Unavailable [facility]available HOSPITAL P, [facility] P FIELDS FRED, FIELDS FRED Unavailable Unavailable [facility], Unavailable Unavailable [facility] MARSHALL CRISTIANO, MARSHALL CRISTIANO Unavailable Unavailable MARCUS III, MARCUS Unavailable Unavailable III [facility], [facility] Unavailable Unavailable MEDICAL G, [facility] PARKER AYALA, PARKER LUCY Unavailable Unavailable [facility] VIDALES CRISTIANO, VIDALES CRISTIANO Unavailable Unavailable CHAD JR DWI, CHAD Unavailable Unavailable JR DWI [facility] Unavailable Unavailable INTERNAL MED, [facility] ROHAN, ., JR ROHAN. Unavailable Unavailable [facility] Unavailable Unavailable SERVICES, [facility] CHISHOLM, CHISHLOM Unavailable Unavailable MCKEMIE JR MARIA ELENA, Unavailable Unavailable MCKEMIE JR MARIA ELENA FUENTES-GARCIA HER[facility], Unavailable Unavailable [facility]ENT[facility]GARC[facility], Unavailable Unavailable PLL[facility], [facility] ANDRES LOPEZ, Unavailable Unavailable ANDRES LOPEZ [facility] Unavailable Unavailable [facility]UL[facility], [facility] Unavailable Unavailable AMBULANCE, [facility] SADEK MOH, SADEK MOH Unavailable Unavailable SCHLEENBAKER, Unavailable Unavailable SCHLEENBAKER SCIFRES, SCIFRES Unavailable Unavailable SCIFRES ANG, SCIFRES Unavailable Unavailable ANG [facility], Unavailable Unavailable [facility] LINA MAT, Unavailable Unavailable LINA MAT REYNOSO HERMINIA, REYNOSO HERMINIA Unavailable Unavailable [facility] Unavailable Unavailable [facility], [facility] Unavailable Unavailable [facility], [facility] Unavailable Unavailable SOTINGEANU MIGUEL [facility] Unavailable Unavailable EMERGENCY PHYS, [facility] PENA MANUELA, PENA Unavailable Unavailable MANUELA TRUE RAE, TRUE RAE Unavailable Unavailable [facility] Unavailable Unavailable [facility]PITALS, [facility] Unavailable Unavailable [address], [facility] WEHRMAN III MARIA ELENA, Unavailable Unavailable WEHRMAN III MARIA ELENA [facility], Unavailable [facility]available [facility] ZAGUROJENNIFERKAYA MAR, Unavailable Unavailable ZAGUROVSKAYA MAR Purpose Continuity of Care Document - 04-13-2012 through 2016 Problems Code Diagnosis DOS Provider Status [id number] 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-08-2016 [facility] BILATERAL J449 CHRONIC 11-02-2016 [facility] OBSTRUCTIVE 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 MEDICAL DISEASE UNS EQUIPME E119 TYPE 2 10-30-2016 [facility] DIABETES PHYSICIANS MELLITUS GROUP WITHOUT COMPLICATIO NS I10 ESSENTIAL 10-30-2016 [facility] PRIMARY PHYSICIANS HYPERTENSIO GROUP N M549 DORSALGIA 10-30-2016 [facility] UNSPECIFIED PHYSICIANS GROUP N289 DISORDER OF 10-30-2016 [facility] URETER INC UNSPECIFIED R0602 SHORTNESS 10-30-2016 [facility] BREATH [facility] INC T03882 OTHER LONG 10-30-2016 [facility] TERM PHYSICIANS CURRENT GROUP DRUG THERAPY N189 CHRONIC 10-29-2016 [facility] DISEASE INC UNSPECIFIED R0600 DYSPNEA 10-23-2016 [facility]NSPECIFIED [facility] INC R8290 UNSPECIFIED 10-23-2016 [facility] ABNORMAL [facility] FINDINGS IN INC URINE I2510 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/O INC ANGINA PECTORIS J40 BRONCHITIS 10-15-2016 [facility] NOT PHYSICIANS SPECIFIED GROUP ACUTE OR CHRONIC E663 OVERWEIGHT 10-01-2016 [facility] PHYSICIANS GROUP L0390 CELLULITIS 10-01-2016 [facility] UNSPECIFIED PHYSICIANS GROUP R609 EDEMA 10-01-2016 [facility]NSPECIFIED [facility] INC E118 TYPE 2 09-25-2016 [facility] DIABETES [facility] MELLITUS INC W/UNS COMPLICATIO NS M4316 SPONDYLOLIS 09-23-2016 [facility] M4806 SPINAL 09-23-2016 [facility] STENOSIS [facility]UMBAR [facility]ING [facility] REGION M5126 OTH 09-23-2016 [facility] 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 M545 LOW BACK 09-23-2016 [facility] PAIN [facility] R300 DYSURIA 08-26-2016 [facility] PHYSICIANS GROUP G894 CHRONIC 08-13-2016 [facility] SYNDROME [facility] M792 NEURALGIA 08-13-2016 [facility]IS [facility] UNSPECIFIED N179 ACUTE 08-13-2016 [facility] FAILURE [facility] UNSPECIFIED R2689 OTHER 08-13-2016 [facility] ABNORMALITI SERV ES OF GAIT FOUNDATION AND MOBILITY R5381 OTHER 08-13-2016 [facility] MALAISE [facility] W68173 PAIN IN 08-12-2016 [facility] RIGHT LEG SERV [facility] M7989 OTHER 08-12-2016 [facility] SPECIFIED SERV SOFT TISSUE FOUNDATION DISORDERS R279 UNSPECIFIED 08-12-2016 [facility] LACK OF AMBULANCE COORDINATIO N R52 PAIN 08-11-2016 [facility] UNSPECIFIED MEDICAL RESPONSE Z794 TRANSMISSION SPECIALIST 08-08-2016 [facility] CURRENT USE SERV OF INSULIN [facility]OUND[facility] M542 CERVICALGIA 08-05-2016 [facility] E1165 TYPE 2 08-01-2016 [facility] [place] MELLITUS RE[place]AB[place] G9341 METABOLIC 08-01-2016 [facility] ENCEPHALOPA SERV THY FOUNDATION I129 HYPERTENSIV 08-01-2016 [facility] E CKD SERV W/STAGE 1-4 FOUNDATION [...] ARRHYTHMIA SERV UNSPECIFIED FOUNDATION J9620 ACUTE 07-31-2016 [facility] CHRONIC [facility] RESP FAIL [facility]ATION UNS HYPOXIA/HYP ERCAPNIA A419 SEPSIS 07-29-2016 [facility] UNSPECIFIED SERV ORGANISM FOUNDATION I491 ATRIAL 07-29-2016 [facility] PREMATURE [facility] DEPOLARIZAT FOUNDATION ION R000 TACHYCARDIA 07-29-2016 [facility] UNSPECIFIED [facility]OUNDATION R6521 SEVERE 07-29-2016 [facility] SEPS[facility] WITH SERV SEPTIC [facility] SHOCK R9431 ABNORMAL 07-29-2016 [facility] ELECTROCARD SERV IOGRAM [facility] A047 ENTEROCOLIT 07-27-2016 [facility] IS DUE TO SERV CLOSTRIDIUM FOUNDATION DIFFICILE E1122 TYPE 2 07-26-2016 [facility] W/DIAB CHRON KIDNEY DZ E872 ACIDOSIS 07-26-2016 [facility] G9340 ENCEPHALOPA 07-26-2016 [facility] THY SERV UNSPECIFIED FOUNDATION I348 OTHER 07-26-2016 [facility] 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 I5020 UNSPECIFIED 07-26-2016 [facility] SYSTOLIC SERV CONGESTIVE FOUNDATION HEART FAILURE I517 CARDIOMEGAL 07-26-2016 [facility] Y SERV [facility] J9621 ACUTE & 07-26-2016 [facility] FAILURE WITH HYPOXIA J9690 RESP FAIL 07-26-2016 [facility] UNS UNS SERV WHETHER [facility]OUND[facility] W/HYPOXIA/H YPERCAPNIA N170 ACUTE RENAL 07-26-2016 [facility] WITH HOSPITALS TUBULAR NECROSIS R109 UNSPECIFIED 07-26-2016 [facility] ABDOMINAL SERV PAIN [facility]OUND[facility] R918 OTHER 07-26-2016 [facility] NONSPECIFIC SERV ABNORMAL FOUNDATION FINDING OF LUNG FIELD Z452 ENCOUNTER 07-26-2016 [facility] ADJUSTMENT& SERV MGMT [facility] VASCULAR ACCESS DEVICE A19705 ELEVATED 07-25-2016 [facility] WHITE [facility]LOOD [facility]IANS, CELL COUNT PLLC UNSPECIFIED R34 ANURIA AND 07-25-2016 [facility] OLIGURIA [facility], PLLC Z720 TOBACCO USE 07-25-2016 [facility] INC R0782 INTERCOSTAL 07-15-2016 [facility] PAIN [facility] INC R0789 OTHER CHEST 07-15-2016 [facility] Q52618D CONTUSION 07-15-2016 [facility] RT FRONT PHYSICIANS WALL THORAX GROUP INITIAL ENCOUNTER D6597HV MULTIPLE FX 07-15-2016 [facility] RIBS UNS PHYSICIANS SIDE INIT GROUP ENC CLOS FRACTURE N93814 PAIN IN 07-10-2016 [facility] RIGHT UPPER MEDICAL ARM IMAGING ASS R0781 PLEURODYNIA 07-10-2016 [facility] [id number] CONTUSION 07-10-2016 [facility] U[facility] FRONT PHYSICIANS, WALL THORAX PLLC INITIAL ENCNTR T7586IF UNS INJURY 07-10-2016 [facility] RT SHOULDER MEDICAL UPPER ARM IMAGING ASS INITIAL ENCNTR N3000 ACUTE 06-28-2016 [facility] CYSTITIS PHYSICIANS WITHOUT GROUP HEMATURIA Z23 ENCOUNTER 06-28-2016 [facility] FOR PHYSICIANS IMMUNIZATIO GROUP N K97666 CHRONIC 05-13-2016 [facility] MIGRAINE PHYSICIANS W/O AURA GROUP INTRACT W/O STAT MIGR P19859 OTH 05-13-2016 [facility] MIGRAINE PHYSICIANS NOT INTRACT GROUP W/O STATUS MIGRAINOSUS G629 POLYNEUROPA 04-29-2016 [facility] THY PHYSICIANS UNSPECIFIED GROUP H6690 OTITIS 04-22-2016 [facility]IA [facility] P UNSPECIFIED EAR J209 ACUTE 04-22-2016 [facility] BRONCHITIS PHYSICIANS, UNSPECIFIED PLLC J441 CHRONIC 04-22-2016 [facility] OBSTRUCTIVE PHYSICIANS, PULMONARY PLLC DZ W/EXACERBAT ION Z9981 DEPENDENCE 04-22-2016 [facility] P L OXYGEN R002 PALPITATION 04-17-2016 [facility] S [facility] INC R1310 DYSPHAGIA 04-17-2016 [facility] UNSPECIFIED [facility] INC R42 DIZZINESS 04-17-2016 [facility] AND [facility] GIDDINESS INC R4702 DYSPHASIA 04-17-2016 [facility] R55 SYNCOPE AND 04-17-2016 [facility] COLLAPSE [facility] INC E875 HYPERKALEMI 04-03-2016 [facility] A [facility] INC I159 SECONDARY 04-03-2016 [facility] HYPERTENSIO [facility] N INC UNSPECIFIED J440 COPD WITH 04-03-2016 [facility] ACUTE LOWER [facility] INC RESPIRATORY INFECTION R062 WHEEZING 04-02-2016 [facility] R079 CHEST PAIN 04-02-2016 [facility] UNSPECIFIED [facility]ICAL IMAGING ASS 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 12-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 UNSPECIFIED E1141 TYPE 2 12-14-2015 [facility] DIABETES MELLITUS W/DIAB MONONEUROPA THY I739 PERIPHERAL 12-14-2015 [facility] VASCULAR DISEASE UNSPECIFIED I890 LYMPHEDEMA 12-14-2015 [facility] NOT ELSEWHERE CLASSIFIED M2570 OSTEOPHYTE 12-14-2015 [facility] ML UNSPECIFIED JOINT 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 FIBROMATOSI S T55989 PAIN IN 12-14-2015 [facility] ML RIGHT FOOT B47598 PAIN IN LEG 12-05-2015 [facility] UNSPECIFIED INC M779 ENTHESOPATH 11-30-2015 [facility] Y [facility] UNSPECIFIED INC G4733 OBSTRUCTIVE 11-09-2015 [facility] APNEA ADULT INC PEDIATRIC H3500 UNSPECIFIED 11-03-2015 [facility] RETINOPATHY I119 HYPERTENSIV 10-31-2015 [facility] E HEART PHYSICIANS DISEASE GROUP WITHOUT HEART FAILURE I209 ANGINA 10-31-2015 [facility] PECTORIS PHYSICIANS UNSPECIFIED GROUP V19495 PAIN IN 10-24-2015 [facility] LEFT THIGH MEDICAL IMAGING ASS R1032 LEFT LOWER 10-24-2015 [facility]ANT [facility] PAIN INC E785 HYPERLIPIDE 10-12-2015 [facility] MEDICAL UNSPECIFIED IMAGING ASS I5189 OTHER 10-12-2015 [facility] ILL-DEFINED [facility] HEART INC DISEASES I779 DISORDER OF 10-12-2015 [facility] ARTERIES [facility] AND INC ARTERIOLES UNSPECIFIED R0989 OTH SPEC SX 10-12-2015 [facility] & SIGNS MEDICAL INVLV THE IMAGING ASS CIRC & RESP SYS B63135 PERSONAL 10-03-2015 [facility] HISTORY OF PHYSICIANS NICOTINE GROUP DEPENDENCE I77653 PAIN IN 09-21-2015 [facility] ML LEFT FOOT M7732 CALCANEAL 09-19-2015 [facility] SPUR LEFT MEDICAL FOOT IMAGING ASS J432 CENTRILOBUL 09-16-2015 [facility] [place] [facility]ICAL EMPHYSEMA IMAGING ASS Q13604 UNSPECIFIED 09-16-2015 [facility] ASTHMA PHYSICIANS UNCOMPLICAT GROUP ED R05 COUGH 09-13-2015 [facility] Z131 ENCOUNTER 09-06-2015 [facility] FOR [facility] SCREENING INC FOR DIABETES MELLITUS Z5181 ENCOUNTER 08-21-2015 [facility] FOR [facility] THERAPEUTIC INC DRUG LEVEL MONITORING A084 VIRAL 07-24-2015 [facility] INFECTION INTERNAL UNSPECIFIED MED 496 CHRONIC 05-05-2015 [facility] OBSTRUCTION MEDICAL NEC EQUIPME 13086 DIAB W/O 03-08-2015 [facility] COMP TYPE VALLEY II/UNS NOT INTERNAL STATED MED UNCNTRL 2724 OTHER AND 03-08-2015 [facility] UNSPECIFIED VALLEY INTERNAL HYPERLIPIDE MED JESSICA 48240 ESOPHAGEAL 03-08-2015 [facility] REFLUX VALLEY INTERNAL MED 7804 DIZZINESS 03-08-2015 [facility] AND VALLEY GIDDINESS INTERNAL MED 81265 DIAB 11-28-2014 [facility] W/NEURO VALLEY MANIFESTS INTERNAL TYPE II/UNS MED NOT UNCNTRL 81888 OBSTRUCTIVE 11-28-2014 [facility] CHRONIC VALLEY BRONCHITIS INTERNAL WITH MED EXACERBATIO N 4439 UNSPECIFIED 11-01-2014 [facility] PERIPHERAL HEALTH VASCULAR MEDICAL G DISEASE 72920 ULCER OF 11-01-2014 [facility] OTHER PART HEALTH OF LOWER [...] MEM HOSP INSULIN INC 7862 COUGH 08-23-2014 [facility] 41596 DIAB W/O 07-29-2014 CLINIC COMP TYPE I PHARMACY [JUV] NOT STATED UNCNTRL 7245 UNSPECIFIED 07-22-2014 [facility] BACKACHE [facility] INC V571 OTHER 07-22-2014 [facility] PHYSICAL [facility] THERAPY INC 7213 LUMBOSACRAL 06-28-2014 [facility] SPONDYLOSIS IMAGING ASS WITHOUT MYELOPATHY 15464 DISPLCMT 06-28-2014 [facility] LUMBAR MEDICAL INTERVERT IMAGING ASS DISC W/O MYELOPATHY 90826 DEGEN 06-28-2014 [facility] 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 7243 SCIATICA 06-28-2014 [facility] INC 7242 LUMBAGO 06-21-2014 [facility] 69369 CHEST PAIN 04-01-2014 [place] [facility] U[facility]PECIFIED SERV FOUNDATIO 14093 UNSPECIFIED 01-03-2014 [facility] RETINOPATHY 7823 EDEMA 09-17-2013 [facility] 4293 CARDIOMEGAL 09-15-2013 [facility] 69338 CHRONIC 09-15-2013 [facility] ASTHMA [facility] P WITH EXACERBATIO N 34616 OTHER 09-15-2013 [place] DISEASES OF MEDICAL LUNG NOT IMAGING ASS ELSEWHERE CLASSIFIED 38116 WHEEZING 05-02-2013 [facility] 7812 ABNORMALITY 01-29-2013 [facility] INC 486 PNEUMONIA, 12-14-2012 [facility] ORGANISM VALLEY UNSPECIFIED INTERNAL MED 08091 METHICILLIN 12-03-2012 [facility] RESISTANT SPOONER STAPHYLOCOC INTERNAL CUS AUREUS MED 4660 ACUTE 12-03-2012 [facility] BRONCHITIS SPOONER INTERNAL MED 04803 ASTHMA, 12-03-2012 [facility] UNSPECIFIED VALLEY , INTERNAL UNSPECIFIED MED STATUS 51992 METHICILLIN 12-01-2012 [facility] P D/T STAPH AUREUS 89873 OTHER 12-01-2012 [facility] RESPIRATORY ABNORMALITI ES 485 BRONCHOPNEU 08-27-2012 [facility] [place] [facility] ORGANISM INTERNAL UNSPECIFIED MED 98070 OTHER 08-25-2012 [facility] NONSPECIFIC MEDICAL ABNORMAL IMAGING ASS FINDING OF LUNG FIELD V0481 NEED 06-05-2012 [facility] PROPHYLACTI SPOONER C INTERNAL VACCINATION MED &INOCULATIO N FLU 40299 DIAB W/O 04-13-2012 [facility] COMP TYPE I HOSPITAL P [JUV TYPE] UNCNTRL 27742 ABDOMINAL 04-13-2012 [facility] P Immunization Name Date Route CVX Reacti Commen Provid Is Given on t er Refuse d PPSV23 ELDER No 2016 MANUELA VACCIN E 2 YRS OR OLDER FOR SUBQ/I M USE Procedures Procedure DOS Code Location Performer Comment DETERMINA 38888 [facility] [place] 7 [facility] RE[facility]CTIV [facility] C[facility] E [facility]TH 35264 [facility] VISION XM&EVAL CENTER COMPRHNSV ESTAB PT 1/> O2 CONC 1 E1390 [facility] [place] 7 HOME HOME 85%/>02 MEDICAL MEDICAL CONC AT EQUIPME EQUIPME PRSC FLW RATE PRTBLE E0431 [facility] THAKKAR GASEOUS 7 HOME HOME O2 SYS MEDICAL MEDICAL RENT; EQUIPME EQUIPME FLWMTR HUMIDFR&M ASK ALBUMIN 15197 [facility] URINE 7 [facility] MICROALBU INC INC MIN QUANTIATI VE COMPREHEN 52647 [facility] SIVE 7 [facility] METABOLIC INC INC PANEL DRUG TEST 75532 [facility] PRSMV 7 [facility] QUAL DIR INC INC OPTICAL OBS PER DAY CREATININ 19306 [facility] E OTHER 7 [facility] SOURCE INC INC LIPID 46428 [facility] PANEL 7 [facility] INC INC HEMOGLOBI 50519 [facility] N 7 MEM H[facility]OS[facility] GLYCOSYLA INC INC NICOLE A1C COLLECTIO 53418 [facility] N VENOUS 7 [facility] HOS[facility] BLOOD INC INC VENIPUNCT URE BLOOD 92989 [facility] COUNT 7 [facility] COMPLETE INC INC AUTO&AUTO DIFRNTL WBC COLLECTIO 94989 [facility] N VENOUS 7 [facility] HOS[facility] BLOOD INC INC VENIPUNCT URE BASIC 37036 [facility] METABOLIC 7 [facility] PANEL INC INC CALCIUM TOTAL SUSCEPTIB 09123 [facility] LTY STDY 7 [facility] HOS[facility] ANTIMICRB INC INC IAL MICRO/AGA R DILUTJ CULTURE 41893 [facility] BACTERIAL 7 [facility] INC INC QUANTTATI VE COLONY COUNT URINE CULTURE 70594 [facility] BCT 7 [facility] ISOL&PRSM INC INC PTV ID ISOLATE EA URINE URNLS DIP 89689 [facility] 7 [facility] STICK/TAB INC INC LET REAGENT AUTO MICROSCOP Y COLLECTIO 10483 [facility] N VENOUS 7 [facility] BLOOD INC INC VENIPUNCT URE BASIC 06449 [facility] METABOLIC 7 [facility] PANEL INC INC CALCIUM TOTAL O2 CONC 1 E1390 [facility] ARIANE DEL PORT 7 HOME HOME 85%/>02 MEDICAL MEDICAL CONC AT EQUIPME EQUIPME PRSC FLW RATE PRTBLE E0431 [facility] GASEOUS 7 HOME HOME O2 SYS MEDICAL MEDICAL RENT; EQUIPME EQUIPME FLWMTR HUMIDFR&M ASK ECHO 94641 [facility] TTHRC R-T 7 [facility] 2[facility] INC INC W/WOM-MOD E COMPL SPEC&COLR D DRUG TEST 20641 [facility] PRSMV 7 [facility] QUAL DIR INC INC OPTICAL OBS PER DAY COMPREHEN 72564 [facility] SIVE 7 [facility] METABOLIC INC INC PANEL NATRIURET 51984 [facility] IC 7 [facility] PEPTIDE INC INC COLLECTIO 07016 [facility] N VENOUS 7 [facility] BLOOD INC INC VENIPUNCT URE ECG 12428 [facility] ROUTINE 7 [facility] ECG INC INC W/LEAST 12 LDS TRCG ONLY W/O I&R BLOOD 43980 [facility] COUNT 7 [facility] COMPLETE INC INC AUTO&[place] [address] [facility] FREE 7 [facility] [place] [address] [facility] THYROID 7 [facility] STIMULATI INC INC NG HORMONE TSH MRI 60206 [facility] NILA SPINAL 7 MEDICAL CANAL IMAGING LUMBAR ASS W/O CONTRAST MATERIAL 3D 27086 [facility] RENDERING 7 MEM HOSP [facility] W/INTERP INC INC & POSTPROCE SS SUPERVISI ON PRTBLE E0431 [facility] GASEOUS 7 HOME HOME O2 SYS MEDICAL MEDICAL RENT; EQUIPME EQUIPME FLWMTR HUMIDFR&M ASK O2 CONC 1 E1390 [facility] MCALLISTER PORT 7 HOME HOME 85%/>02 MEDICAL MEDICAL CONC AT EQUIPME EQUIPME [facility] FLW RATE BASIC 33176 [facility] METABOLIC 7 [facility] HOS[facility] PANEL INC INC CALCIUM TOTAL CULTURE 13745 [facility] BACTERIAL 7 [facility] HOS[facility]OS[facility] INC INC QUANTTATI VE COLONY COUNT URINE HOSPITAL 86156 [place] [facility] DIS[facility]GE 6 MEDICAL DAY SERV MANAGEMEN FOUNDATIO T > 30 N MIN SBSQ 96741 [facility] 6 MEDICAL CARE/DAY SERV 25 FOUNDATIO MINUTES N SBSQ 27262 [facility] 6 MEDICAL KER CARE/DAY SERV 25 FOUNDATIO MINUTES N DUP-SCAN 26910 [place] [facility] XTR VEINS 6 MEDICAL JESSICA COMPLETE SERV FOUNDATIO BILATERAL N STUDY GROUND A0425 [facility] PER AMBULANCE AMBULANCE STATUTE MILE AMBULANCE A0428 [facility] 6 [facility] BLS AMBULANCE AMBULANCE NONEMERGE NCY TRANSPORT GROUND A0425 [facility] MILEAGE 6 MEDICAL MEDICAL PER RESPONSE RESPONSE STATUTE MILE AMB A0427 [facility] SERVICE 6 MEDICAL MEDICAL ALS RESPONSE RESPONSE EMERGENCY TRANSPORT LEVEL 1 SBSQ 98467 [facility] 6 MEDICAL KER CARE/DAY SERV 25 FOUNDATIO MINUTES N SBSQ 41856 [facility] 6 MEDICAL KER CARE/DAY SERV 25 FOUNDATIO MINUTES N SBSQ 19180 [facility] 6 MEDICAL CARE/DAY SERV 25 FOUNDATIO MINUTES N SBSQ 30011 [facility] 6 MEDICAL CARE/DAY SERV 25 FOUNDATIO MINUTES N SBSQ 09808 [facility] 6 MEDICAL CARE/DAY SERV 25 FOUNDATIO MINUTES N SBSQ 02693 [facility] 6 MEDICAL CARE/DAY SERV 25 FOUNDATIO MINUTES N SBSQ 09470 [facility] 6 MEDICAL CARE/DAY SERV 25 FOUNDATIO MINUTES N RADEX 62608 [facility] [place] [facility] SPINE 6 RADIOLOGY III CERVICAL 2 OR 3 VIEWS SBSQ 29014 [place] [address] MEDICAL CARE/DAY SERV 25 FOUNDATIO MINUTES N O2 CONC 1 E1390 [facility] THAKAKR [place] 6 HOME HOME 85%/>02 MEDICAL MEDICAL CONC AT EQUIPME EQUIPME PRSC FLW RATE PRTBLE E0431 ARIANE THAKKAR GASEOUS 6 HOME HOME O2 SYS MEDICAL MEDICAL RENT; EQUIPME EQUIPME FLWMTR HUMIDFR&M ASK SBSQ 63324 [place] [address] MEDICAL CARE/DAY SERV 25 FOUNDATIO MINUTES N INITIAL 11159 [place] [address] MEDICAL CARE/DAY SERV 50 FOUNDATIO MINUTES N GROUND A0425 [facility] 6 METRO METRO PER AMBULANCE AMBULANCE STATUTE MILE AMBULANCE A0428 [facility] 6 METRO METRO BLS AMBULANCE AMBULANCE NONEMERGE NCY TRANSPORT UNLISTED A0999 [facility] 6 METRO METRO SERVICE [facility] [address] EMPERAT[address]Z JR ROHAN. DISCHARGE 6 MEDICAL DAY SERV MANAGEMEN FOUNDATIO T 30 N MIN/< SBSQ 65731 [place] [address] MEDICAL CARE/DAY SERV 25 FOUNDATIO MINUTES N SBSQ 85377 [place] [address] MEDICAL CARE/DAY SERV 25 FOUNDATIO MINUTES N ECG 02018 [place] [facility] CHI ROUTINE 6 MEDICAL ECG SERV W/LEAST FOUNDATIO 12 LDS N I&R ONLY CRITICAL 18187 [facility] 6 MEDICAL ILL/INJUR SERV ED FOUNDATIO PATIENT N INIT 30-74 MIN CRITICAL 57316 [facility] 6 MEDICAL Y-GARCIA ILL/INJUR SERV HERI ED FOUNDATIO PATIENT N INIT 30-74 MIN ECHO 16384 EMPERATRIZ LILLIE SALINAS [facility] R-T 6 MEDICAL 2D SERV W/WOM-MOD FOUNDATIO E COMPL N SPEC&[place] [address] EMPERATRIZ VERONIKA ABDOMEN & 6 MEDICAL GUSTAVO PELVIS SERV W/O FOUNDATIO CONTRAST N MATERIAL RADIOLOGI 51264 [place] CRISTIANO C 6 MEDICAL EXAMINATI SERV ON CHE[place] [address] [place] [facility] AYALA HEAD/BRAI 6 MEDICAL N W/O SERV CONTRAST FOUNDATIO MATERIAL N [place] THORAX [address] [place] ERIN W/O 6 MEDICAL AYA MAR CONTRAST SERV MATERIAL FOUNDATIO N INSERTION [id number] [place] INFUSION 6 [facility] DEVC E E [facility] PERQ INSERTION [id number] [facility] [facility] IN[facility]ION 6 [facility] HEALTH[facility] DEVC RT E E [facility] N VEIN PERQ MONITORIN [id number] [facility] G 6 [facility]ALTH[facility] HEALTHCAR ARTERIAL E E PULSE HOSPITALS HOSPITALS PERIPHERA L PERQ MONITORIN [id number] [facility] G 6 HEALTHCAR HEALTHCAR ARTERIAL E E PRESSURE HOSPITALS HOSPITALS PERIPHERA L PERQ RADIOLOGI 63779 [place] TRUE RAE C 6 MEDICAL EXAMINATI SERV ON CHEST FOUNDATIO SINGLE N VIEW FRONTAL CULTURE 39402 [facility] L[facility] BACTERIAL 6 [facility] INC INC QUANTTATI VE COLONY COUNT URINE CUL BACT 70217 NE[facility]I L[facility] AEROBIC 6 [facility] ADDL INC INC METHS DEFINITIV E EA ISOL CULTURE 53131 NEFTALI L[facility] BACTERIAL 6 [facility] BLOOD INC INC AEROBIC W/[place] [address] NEFTALI LINDSAY TROPONIN 6 [facility] QUANTITAT INC INC CORY BLOOD 72920 NE[facility]I L[facility]SA[facility] COUNT 6 [facility] COMPLETE INC INC AUTO&AUTO DIFRNTL WBC ECG 71300 NEFTALI LINDSAY ROUTINE 6 [facility] ECG INC INC W/LEAST 12 LDS TRCG ONLY W/O I&R ECG 35015 NEFTALI NOONAN ROUTINE 6 [facility] W/LEAST P 12 LDS I&[place] [address] NEFTALI LINDSAY INFUSION 6 [facility] THERAPY INC INC PROPHYLAX IS/DX EA HOUR COLLECTIO 23388 NEFTALI LINDSAY N VENOUS 6 [facility] BLOOD INC INC VENIPUNCT URE AMB A0427 [facility] 6 [facility] AMBULANCE ALS SERVICE SERVICE EMERGENCY TRANSPORT LEVEL 1 CRITICAL 88570 DEEPA [facility] CARE 6 PHYSICIAN ILL/INJUR S, [facility] ED PATIENT INIT 30-74 [place] [address] NEFTALI L[facility]SAY LACTATE 6 [facility] INC INC URNLS DIP 13226 NE[facility] L[facility]Y 6 [facility] STICK/TAB INC INC LET REAGENT AUTO MICROSCOP Y CREATINE 94970 NEFTALI LINDSAY KINASE MB 6 [facility] FRACTION INC INC ONLY COMPREHEN 12520 NEFTALI [facility]SA[facility] SIVE 6 [facility] METABOLIC INC INC PANEL CREATINE 77214 NEFTALI LINDSAY KINASE 6 [place] [address] NEFTALI LINDSA[facility] INFUSION 6 [facility] THER INC INC PROPH ADDL SEQUENTIA L TO 1 HR GROUND A0425 [facility] MILEAGE 6 AMBULANCE AM[place] [address] NEFTALI LINDSAY INFUSION 6 [facility] THERAPY/P INC INC ROPHYLAXI S /DX 1ST TO 1 HR 3D 47351 [place] N[place] RENDERING 6 MEDICAL IZABEL W/INTERP IMAGING & ASS POSTPROCE SS SUPERVISI ON CT THORAX 40079 NEFTALI LINDSAY W/O 6 [facility] CONTRAST INC INC MATERIAL RADEX 79853 [place] SN[place]DER ALL RIBS BI 6 MEDICAL W/POSTERO IMAGING ANT CH ASS MINIMUM 4 VIEWS RADEX 90165 [place] SN[place]DER ALL HUMERUS 6 MEDICAL MINIMUM 2 IMAGING VIEWS ASS PRTBLE E0431 ARIANE THAKKAR GASEOUS 6 HOME HOME O2 SYS MEDICAL MEDICAL RENT; EQUIPME EQUIPME FLWMTR HUMIDFR&M ASK O2 CONC 1 E1390 ARIANE THAKKAR DEL PORT 6 HOME HOME 85%/>02 MEDICAL MEDICAL CONC AT EQUIPME EQUIPME PRSC FLW RATE PPSV23 31672 [facility] ELDER VACCINE 2 6 PHYSICIAN MANUELA YRS OR S GROUP OLDER FOR SUBQ/IM USE CULTURE 51706 NEFTALI LINDSAY BACTERIAL 6 [facility] INC INC QUANTTATI VE COLONY COUNT URINE CULTURE 32002 NEFTALI LINDSAY BCT 6 [facility] ISOL&PRSM INC INC PTV ID ISOLATE EA URINE ALBUMIN 36728 NEFTALI LINDSAY URINE 6 [facility] MICROALBU INC INC MIN QUANTIATI VE HEMOGLOBI 67377 NEFTALI LINDSAY N 6 [facility] MEM [...] EQUIPME EQUIPME PRSC FLW RATE GLUC BLD 93118 NEFTALI LINDSAY GLUC MNTR 6 [facility] DEV INC INC CLEARED FDA SPEC HOME USE COMPREHEN 77735 NEFTALI LINDSAY SIVE 6 [facility] METABOLIC INC INC PANEL HOSPITAL G0378 NEFTALI LINDSAY OBSERVATI 6 [facility] ON INC INC SERVICE PER HOUR PRESSURIZ 17924 NEFTALI LINDSAY ED/NONPRE 6 [facility] SSURIZED INC INC INHALATIO N TREATMENT NONINVASI 71888 NEFTALI LINDSAY VE 6 [facility] EAR/PULSE INC INC OXIMETRY SINGLE DETER BLOOD 51406 NEFTALI LINDSAY COUNT 6 [facility] COMPLETE INC INC AUTO&AUTO DIFRNTL WBC COLLECTIO 58807 NEFTALI LINDSAY N VENOUS 6 [facility] BLOOD INC INC VENIPUNCT URE BLOOD 39103 NEFTALI LINDSAY COUNT 6 [facility] COMPLETE INC INC AUTO&[place] [address] NEFTALI LINDSAY TROPONIN 6 [facility] QUANTITAT INC INC CORY COLLECTIO 19931 NEFTALI LINDSAY N VENOUS 6 [facility] BLOOD INC INC VENIPUNCT URE PRESSURIZ 97659 NEFTALI LINDSAY ED/NONPRE 6 [facility] SSURIZED INC INC INHALATIO N TREATMENT NONINVASI 67199 NEFTALI LINDSAY VE 6 [facility] EAR/PULSE INC INC OXIMETRY SINGLE DETER HOSPITAL G0378 NEFTALI LINDSAY OBSERVATI 6 [facility] ON INC INC SERVICE PER HOUR CREATINE 91656 NEFTALI LINDSAY KINASE MB 6 [facility] FRACTION INC INC ONLY CREATINE 99117 NEFTALI LINDSAY KINASE 6 [facility] TOTAL INC INC COMPREHEN 88290 NEFTALI LINDSAY SIVE 6 [facility] METABOLIC INC INC PANEL GLUC BLD 46689 NEFTALI LINDSAY GLUC MNTR 6 [facility] DEV INC INC CLEARED FDA SPEC HOME USE BASIC 34066 NEFTALI LINDSAY METABOLIC 6 [facility] PANEL INC INC CALCIUM TOTAL GLUCOSE 64570 NEFTALI LINDSAY QUANTITAT 6 [facility] CORY BLOOD INC INC XCPT REAGENT STRIP GLUC BLD 22231 NEFTALI LINDSAY GLUC MNTR 6 [facility] DEV INC INC CLEARED FDA SPEC HOME USE CREATINE 24163 NEFTALI LINDSAY KINASE 6 [facility] TOTAL INC INC COMPREHEN 52544 NEFTALI LINDSAY SIVE 6 [facility] METABOLIC INC INC PANEL CREATINE 59930 NEFTALI LINDSAY KINASE MB 6 [facility] FRACTION INC INC ONLY HOSPITAL G0378 NEFTALI LINDSAY OBSERVATI 6 [facility] [place] [address] NEFTALI LINDSAY 1/> AREAS 6 [facility] EA 15 INC INC MIN GAIT TRAINJ W/STAIR NONINVASI 50948 NEFTALI LINDSAY VE 6 [facility] EAR/PULSE INC INC OXIMETRY SINGLE DETER THER 11779 NEFTALI LINDSAY PROPH/DX 6 [facility] NJX IV INC INC PUSH SINGLE/1S T SBST/DRUG PHYSICAL 20628 NEFTALI LINDSAY THERAPY 6 [facility] EVALUATIO INC INC N PRESSURIZ 46203 NEFTALI LINDSAY ED/NONPRE 6 [facility] SSURIZED INC INC INHALATIO N TREATMENT ECG 19940 NEFTALI LINDSAY ROUTINE 6 [facility] ECG INC INC W/LEAST 12 LDS TRCG ONLY W/O I&[place] [address] NEFTALI LINDSAY TROPONIN 6 [facility] QUANTITAT INC INC CORY BLOOD 99987 NEFTALI LINDSAY COUNT 6 [facility] COMPLETE INC INC AUTO&AUTO DIFRNTL WBC RADIOLOGI 40393 NEFTALI LINDSAY C 6 [facility] EXAMINATI INC INC ON CHEST SINGLE VIEW FRONTAL COLLECTIO 11170 NEFTALI NEFTALI N VENOUS 6 [facility] BLOOD INC INC VENIPUNCT URE ECG 20870 NEFTALI NOONAN ROUTINE 6 [facility] W/LEAST P 12 LDS I&R ONLY US SOFT 83872 NEFTALI LINDSAY TISSUE 6 [facility] HEAD & INC [place] [address] NEFTALI LINDSAY FREE 6 [facility] THYROXINE INC INC COLLECTIO 89524 NEFTALI LINDSAY N VENOUS 6 [facility] [place]LO[place] [address] NEFTALI LINDSAY THYROID 6 [facility] STIMULATI INC INC NG HORMONE TSH BASIC 90886 NEFTALI NEFTALI METABOLIC 6 [facility] PANEL INC INC CALCIUM TOTAL ECG 11418 NEFTALI NEFTALI ROUTINE 6 [facility] ECG INC INC W/LEAST 12 LDS TRCG ONLY W/O I&R IMPLANTAT 09083 [facility] ION 6 PHYSICIAN MAT PT-ACTIVA S GROUP NICOLE CARDIAC EVENT RECORDER O2 CONC 1 E1390 ARIANE THAKKAR DEL PORT 6 HOME HOME 85%/>02 MEDICAL MEDICAL CONC AT EQUIPME EQUIPME PRSC FLW RATE PRTBLE E0431 ARIANE THAKKAR GASEOUS 6 HOME HOME O2 SYS MEDICAL MEDICAL RENT; EQUIPME EQUIPME FLWMTR HUMIDFR&M ASK INSERTION [id number] NEFTALI LINDSAY MON DEVC 6 [facility] CHEST INC INC SUBQ TISSUE & FASC OPEN DUPLEX 65409 ALESHA SNYDER SCAN 6 MEDICAL EXTRACRAN IMAGING IAL ART ASS COMPL BI STUDY RADIOLOGI 96984 ALESHA SNYDER ALL C 6 MEDICAL EXAMINATI IMAGING ON CHEST ASS SINGLE VIEW FRONTAL ECG 16572 NEFTALI BONILLA JR ROUTINE 6 [facility] W/LEAST P 12 LDS I&R ONLY [...] AT EQUIPME EQUIPME PRSC FLW RATE NERVE 84821 [facility] CONDUCTIO 6 N N STUDIES NEUROLOGY 9-10 STUDIES NEEDLE 06544 [facility] EMG EA 6 N EXTREMTY NEUROLOGY W/PARASPI NL AREA COMPLETE INJECTION 93467 [place] 1 TENDON 6 ML DORIS SHEATH/LI GAMENT APONEUROS IS INJECTION J3301 [place] 6 ML DORIS TRIAMCINO LONE ACETONIDE NOS 10 MG ECG 13375 NEFTALI NEFTALI ROUTINE 6 [facility] ECG INC INC W/LEAST 12 LDS TRCG ONLY W/O I&R O2 CONC 1 E1390 ARIANE ARIANE DEL PORT 6 HOME HOME 85%/>02 MEDICAL MEDICAL CONC AT EQUIPME EQUIPME PRSC FLW RATE PRTBLE E0431 ARIANE THAKKAR GASEOUS 6 HOME HOME O2 SYS MEDICAL MEDICAL RENT; EQUIPME EQUIPME FLWMTR HUMIDFR&M ASK RADIOLOGI 52644 ALESHA SNYDER ALL C 6 MEDICAL EXAMINATI IMAGING ON FOOT 2 ASS VIEWS RADEX 22452 NEFTALI LINDSAY FOOT 6 [facility] COMPLETE INC INC MINIMUM 3 VIEWS POLYSOM 08151 NEFTALI LINDSAY 6/>YRS 6 [facility] SLEEP / INC INC ADDL RENZO ATTND OPHTH 78916 [facility] MEDICAL 6 VISION ANG XM&EVAL CENTER COMPRHNSV ESTAB PT DETERMINA 69508 DWAYNE RICE TION 6 [facility]ISION VISION REFRACTIV CENTER [facility] PRTBLE E0431 ARIANE THAKKAR GASEOUS 6 HOME HOME O2 SYS MEDICAL MEDICAL RENT; EQUIPME EQUIPME FLWMTR HUMIDFR&M ASK O2 CONC 1 E1390 ARIANE THAKKAR DEL PORT 6 HOME HOME 85%/>02 MEDICAL MEDICAL CONC AT EQUIPME EQUIPME PRSC FLW RATE ECG 82928 [facility] ROUTINE 6 PHYSICIAN MAT ECG S GROUP W/LEAST 12 LDS I&R ONLY ECG 02796 NEFTALI LINDSAY ROUTINE 6 [facility] ECG INC INC W/LEAST 12 LDS TRCG ONLY W/O I&R DUP-SCAN 21724 ALESHA SNYDER ALL XTR VEINS 6 MEDICAL IMAGING UNILATERA ASS L/LIMITED STUDY DUP-SCAN 15993 NEFTALI LINDSAY LXTR 6 [facility] ART/ARTL INC INC BPGS UNI/LMTD STUDY ECG 60265 NEFTALI LINDSAY ROUTINE 6 [facility] ECG INC INC W/LEAST 12 LDS TRCG ONLY W/O I&R F2 GENE 25501 [facility] 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 >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[facility] 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 [facility] 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 A5513 FALLIS CHINA ONLY MX 6 ML DORIS DNSITY INSRT CSTM MOLD CSTM EA DIAB ONLY A5500 [place] [place] FIT CSTM 6 ML DORIS PREP&SPL SHOE MX DNSITY INSRT DUPLEX 02268 NEFTALI LINDSAY SCAN 6 [facility] EXTRACRAN INC INC IAL ART COMPL BI STUDY ECHO 82882 NEFTALI LINDSAY TTHRC R-T 6 [facility] 2D INC INC W/WOM-MOD E COMPL SPEC&COLR D O2 CONC 1 E1390 ARIANE THAKKAR DEL PORT 6 HOME HOME 85%/>02 MEDICAL MEDICAL CONC AT EQUIPME EQUIPME PRSC FLW RATE PRTBLE E0431 ARIANE THAKKAR GASEOUS 6 HOME HOME O2 SYS MEDICAL MEDICAL RENT; EQUIPME EQUIPME FLWMTR HUMIDFR&M ASK ECG 22831 ENFTALI LINDSAY ROUTINE 6 [facility] ECG INC INC W/LEAST 12 LDS TRCG ONLY W/O I&R ECG 48521 [facility] LINA ROUTINE 6 PHYSICIAN MAT ECG S GROUP W/LEAST 12 LDS I&R ONLY NON-INVAS 27631 NEFTALI LINDSAY CORY 6 [facility] PHYSIOLOG INC INC IC STUDY EXTREMITY 3 LEVLS SBSQ 87373 [facility] 6 ML DORIS CARE/DAY 35 MINUTES INITIAL 05292 [facility] 6 ML DORIS CARE/DAY 70 MINUTES RADIOLOGI 04062 [place] SN[place] ALL C 6 MEDICAL EXAMINATI IMAGING ON FOOT [address] THORAX 57433 [place] LISA W/O 6 MEDICAL MIGUEL CONTRAST IMAGING MATERIAL ASS SBSQ 18332 [facility] 6 PHYSICIAN MANUELA CARE/DAY S GROUP 15 MINUTES RADIOLOGI 80874 [place] SN[place] ALL C 6 MEDICAL EXAMINATI IMAGING [...] RENZO & NO F/U PLAN REQUIRED RADIOLOGI 48088 NEFTALI Malagon EXAM 6 [facility] MEM [...] COMPRESSO MEDICAL MEDICAL R EQUIPME EQUIPME COMPREHEN 84929 NEFTALI LINDSAY SIVE 5 [facility] METABOLIC INC INC PANEL LIPID 49858 NEFTALI LINDSAY PANEL 5 [facility] INC INC HEMOGLOBI 37175 NEFTALI LINDSAY N 5 [facility] GLYCOSYLA INC INC NICOLE A1C COLLECTIO 81766 NEFTALI Rodrigues VENOUS 5 [facility] MEM [...] FLWMTR HUMIDFR&M ASK O2 CONC 1 E1390 RAIANEGHAZAL MCALLISTER PORT 5 HOME HOME 85%/>02 MEDICAL [...] COMPRESSO MEDICAL MEDICAL R EQUIPME EQUIPME HEMOGLOBI 41377 NEFTALI LINDSAY N 5 [facility] GLYCOSYLA INC INC NICOLE A1C LIPID 83837 NEFTALI LINDSAY PANEL 5 [facility] INC INC COMPREHEN 48962 NEFTAIL LINDSAY SIVE 5 [facility] METABOLIC INC INC PANEL COLLECTIO 77363 NEFTALI LINDSAY N VENOUS 5 [facility] BLOOD INC INC VENIPUNCT URE BLOOD 96655 NEFTALI LINDSAY COUNT 5 [facility] MEM [...] YOUR YOUR SM VOL 5 [facility] PNEUM[facility] NEBULIZR DISPBL ALBUTEROL J7620 YOUR [...] RENT; EQUIPME EQUIPME FLWMTR HUMIDFR&M ASK ANGIOGRAP 23602 [facility] HY [facility] EXTREMITY MEDICAL G BILATERAL RS&I AORTOGRAP 88477 [facility] ABDOMINAL MEDICAL G SERIALOGR APHY RS&I INTRODUCT 52966 [facility] ION 5 NE [facility] NEBULIZER E0570 ARIANE THAKKAR WITH 5 HOME HOME COMPRESSO MEDICAL MEDICAL R EQUIPME EQUIPME NON-INVAS 15352 [facility] CORY 5 MEDICAL MIGUEL PHYSIOLOG IMAGING [...] YOUR SM VOL 5 PHARMACY PHARMACY NONFILTR [employer] PNEUMAT NEBULIZR DISPBL ALBUTEROL J7620 YOUR YOUR TO 2.5 5 PHARMACY PHARMACY [employer] [facility] IPRATROPI UM BROM TO 0.5 MG PHARM G0333 YOUR YOUR DISPEN 5 PHARMACY PHARMACY FEE INHAL [employer] RX; INITIAL 30-DAY SUPPLY RADIOLOGI 33914 [facility] C EXAM 5 MEDICAL IZABEL CHEST [...] T STRIPS HOME BLD GLU MON-50 THERAPEUT 41797 NEFTALI LINDSAY IC PX 1/> 4 [facility] AREAS INC INC EACH 15 MIN EXERCISES E-STIM G0283 NEFTALI LINDSAY 1/> AREAS 4 [facility] OTH THAN INC INC WND CARE PART TX PLAN APPLICATI 94022 NEFTALI LINDSAY ON 4 [facility] MODALITY INC INC 1/> AREAS HOT/COLD PACKS MANUAL 33140 NEFTALI LINDSAY THERAPY 4 [facility] TQS 1/> INC INC REGIONS EACH 15 MINUTES APPLICATI 32544 NEFTALI LINDSAY ON 4 [facility] MODALITY INC INC 1/> AREAS HOT/COLD PACKS E-STIM G0283 NEFTALI LINDSAY 1/> AREAS 4 [facility] OTH THAN INC INC WND CARE PART TX PLAN THERAPEUT 03807 NEFTALI LINDSAY IC PX 1/> 4 [facility] AREAS INC INC EACH 15 MIN EXERCISES PHYSICAL 78730 NEFTALI LINDSAY THERAPY 4 [facility] EVALUATIO INC INC N O2 CONC 1 E1390 ARIANE THAKKAR DEL PORT 4 HOME HOME 85%/>02 MEDICAL MEDICAL CONC AT EQUIPME EQUIPME PRSC FLW RATE PRTBLE E0431 ARIANE ARIANE GASEOUS 4 HOME HOME O2 SYS MEDICAL MEDICAL RENT; EQUIPME EQUIPME FLWMTR HUMIDFR&M ASK 3D 43216 NEFTALI LINDSAY RENDERING 4 [facility] W/INTERP INC INC & POSTPROCE SS SUPERVISI ON MRI 88293 NEFTALI LINDSAY SPINAL 4 [facility] CANAL INC INC LUMBAR W/O CONTRAST [...] BOX 4 PHARMACY PHARMACY OF 100 COMPREHEN 43401 NEFTALI LINDSAY SIVE 4 [facility] METABOLIC INC INC PANEL LIPID 78077 NEFTALI LINDSAY PANEL 4 [facility] INC INC HEMOGLOBI 34072 NEFTALI LINDSAY N 4 [facility] GLYCOSYLA INC INC NICOLE A1C COLLECTIO 84782 NEFTALI LINDSAY N VENOUS 4 [facility] BLOOD INC INC VENIPUNCT URE O2 [...] AT EQUIPME EQUIPME PRSC FLW RATE RADIOLOGI 79505 [place] [facility] C EXAM 4 MEDICAL IZABEL CHEST 2 IMAGING VIEWS ASS FRONTAL&L ATERAL ECHO 79518 [place] [facility] CRIST[facility] TTHRC R-T 4 MEDICAL 2D SERV W/WOM-MOD FOUNDATIO E COMPL SPEC&COLR D LANCETS A4259 CLINIC CLINIC PER BOX 4 PHARMACY PHARMACY OF 100 BLD GLU A4253 CLINIC CLINIC TEST/REAG 4 PHARMACY PHARMACY T STRIPS HOME BLD GLU 50 RADIOLOGI 24330 [place] C EXAM 4 MEDICAL IZABEL CHEST 2 IMAGING VIEWS ASS FRONTAL&L ATERAL DETERMINA 12194 [facility] OPHTH 59657 [facility] 4 VISION XM&EVAL CENTER COMPRHNSV ESTAB PT 1/> BLD GLU A4253 CLINIC CLINIC TEST/REAG 4 PHARMACY PHARMACY T STRIPS HOME BLD GLU MON-50 LANCETS A4259 CLINIC CLINIC PER BOX 4 PHARMACY PHARMACY OF 100 LANCETS A4259 CLINIC CLINIC PER BOX 4 PHARMACY PHARMACY OF 100 BLD GLU A4253 CLINIC CLINIC TEST/REAG 4 PHARMACY PHARMACY T STRIPS HOME BLD GLU MON-50 DUP-SCAN 20462 [place] XTR VEINS 4 MEDICAL IZABEL COMPLETE IMAGING ASS BILATERAL STUDY ECG 60105 NEFTALI BONILLA JR ROUTINE 4 [facility] ECG HOSPITAL W/LEAST P 12 LDS I&R ONLY RADIOLOGI 62298 [place] C EXAM 4 MEDICAL IZABEL CHEST [...] T STRIPS HOME BLD GLU MON-50 GONADOTRO 42628 NEFTALI LINDSAY PIN 3 [facility] LUTEINIZI INC INC NG HORMONE COLLECTIO 44688 NEFTALI LINDSAY N VENOUS 3 [facility] [place]LOOD [place] [address] NEFTALI LINDSAY THYROID 3 [facility] STIMULATI [place] [address] NEFTALI LINDSAY ESTROGENS 3 [facility] TOTAL INC INC GONADOTRO 26284 NEFTALI LINDSAY PIN 3 [facility] FOLLICLE INC INC STIMULATI NG HORMONE BLD GLU A4253 CLINIC CLINIC TEST/REAG 3 PHARMACY PHARMACY T STRIPS HOME BLD GLU MON-50 ALBUTEROL J7613 [facility] IN[facility] 3 PHARMACY PHARMACY NON-CP #591 #591 PROD THRU DME U DOSE 1 MG PHRM Q0514 [facility] DISPENSIN 3 PHARMACY PHARMACY G FEE #591 #591 INHALATIO N RX; PER 90 DAYS [facility] [address] [facility] DISCHARGE 3 [facility] DAY INTERNAL MANAGEMEN MED T 30 MIN/< SBSQ 56917 [place] [facility] 3 [facility] CARE/DAY INTERNAL 25 MED MINUTES SBSQ 86903 [facility] 3 [facility] CARE/DAY INTERNAL 25 MED MINUTES SBSQ 77884 [facility] 3 [facility] CARE/DAY INTERNAL 25 MED MINUTES SBSQ 55146 [facility] 3 [facility] CARE/DAY INTERNAL 25 MED MINUTES INITIAL 25313 [facility] 3 [place] CARE/DAY INTERNAL 50 MED MINUTES INITIAL 94349 [facility] OBSERVATI 3 [place] [facility] INTERNAL CARE/DAY MED 30 MINUTES ECG 15738 [facility] ROUTINE 3 [facility] HOSPITAL W/LEAST P 12 LDS I&R ONLY RADIOLOGI 88525 [facility] C EXAM 3 MEDICAL IZABEL CHEST 2 IMAGING VIEWS ASS FRONTAL&L ATERAL BLD GLU A4253 CLINIC CLINIC TEST/REAG 3 PHARMACY PHARMACY T STRIPS HOME BLD GLU BLD GLU A4253 CLINIC CLINIC TEST/REAG 3 PHARMACY PHARMACY T STRIPS HOME BLD GLU HOSPITAL 30906 [place] DISCHARGE 3 [facility] DAY INTERNAL MANAGEMEN MED T 30 MIN/< SBSQ 66818 [facility] 3 [facility] CARE/DAY INTERNAL 25 MED MINUTES SBSQ 65777 [facility] 3 [facility] CARE/DAY INTERNAL 25 MED MINUTES SBSQ 04389 [facility] 3 [facility] CARE/DAY INTERNAL 25 MED MINUTES RADIOLOGI 13175 [place] [facility] C EXAM 3 MEDICAL IZABEL CHEST 2 IMAGING VIEWS ASS FRONTAL&L ATERAL BLD GLU A4253 CLINIC CLINIC TEST/REAG 2 PHARMACY PHARMACY T STRIPS HOME BLD GLU ADMINISTR G0008 [place] [facility] ATION OF 2 [facility] INFLUENZA INTERNAL VIRUS MED VACCINE INFLUENZA Q2038 [place] [facility] VACC 2 [facility] SPLIT INTERNAL VIRUS 3 MED YRS & > IM FLUZONE BLD GLU A4253 CLINIC CLINIC TEST/REAG 2 PHARMACY PHARMACY T STRIPS HOME BLD GLU MON-50 ECG 67110 NEFTALI CRUZ ROUTINE [address] [facility] W/LEAST P 12 LDS I&R ONLY Encounters Encounter Start End Date Code Location Performer Type Date OFFICE 33741 [facility] 7 PHYSICIAN T VISIT S GROUP 25 MINUTES [facility]OSPITAL NEFTALI - OTHER 7 7 [facility] NEFTAL[facility] - OTHER 7 7 [facility] NEFTALI [facility] OTHER 7 7 [facility] NEFTALI - 7 7 [facility] 47[facility] 7 7 PHYSICIAN T [facility]ISIT S GROUP 25 MINUTES [facility]OSPITAL [facility]ALI - 7 7 [facility]64 [facility] 7 7 PHYSICIAN T [facility]ISIT S GROUP 25 MINUTES HOSPITAL NFETALI - 7 7 [facility] OUTPAT[facility] NEFTALI - 7 7 [facility] 7 7 PHYSICIAN T VISIT S GROUP 15 MINUTES OFFICE 31314 [facility] 7 7 PHYSICIAN T VISIT S GROUP 15 MINUTES HOSPITAL NEFTALI - OTHER 7 7 [facility] EMERGENCY 07386 EMPERATRIZ ARMSTRONG 6 6 MEDICAL DEPARTMEN SERV T VISIT FOUNDATIO LOW/MODER N [facility] 6 6 [place] [facility] - 6 6 [facility] INPATIENT [facility]OSPITALS EMERGENCY 08155 EMPERATRIZ PENA DEPT 6 6 MEDICAL MANUELA VISIT SERV HIGH FOUNDATIO SEVERITY& N THREAT [facility] NEFTALI - 6 6 [facility] OUTPATIEN INC T HOSPITAL NEFTALI - 6 6 [facility] OUTPATIEN INC T OFFICE 47122 [facility] ELDER OUTPATIEN 6 6 PHYSICIAN MANUELA T VISIT S GROUP 15 MINUTES EMERGENCY 39115 DEEPA FISH 6 6 PHYSICIAN U MIGUEL DEPARTMEN S, [facility] T VISIT MODERATE SEVERITY HOSPITAL NEFTALI - OTHER 6 6 [facility] INC OFFICE 32041 [facility] ELDER OUTPATIEN 6 6 PHYSICIAN MANUELA T VISIT S GROUP 25 MINUTES OFFICE 23845 [facility] LADAN-M OUTPATIEN 6 6 PHYSICIAN OGHADDAM T NEW 45 S GROUP MINUTES OFFICE 61798 [facility] ELDER OUTPATIEN 6 6 PHYSICIAN MANUELA T VISIT S GROUP 15 MINUTES EMERGENCY 56552 DEEPA FISH DEPT 6 6 PHYSICIAN U MIGUEL VISIT S, [facility] HIGH SEVERITY& THREAT [facility] NEFTALI - 6 6 [facility] OUTPATIEN INC T EMERGENCY 21908 NEFTALI 6 6 [facility] DEPARTMEN INC T VISIT HIGH/URGE NT SEVERITY HOSPITAL NEFTALI - 6 6 [facility] OUTPATIEN [facility]PITAL NEFTALI - OTHER 6 6 [facility] HOSPITAL NEFTALI - 6 6 [facility] OUTPATIEN INC T OFFICE 04131 [facility] ELDER OUTPATIEN 6 6 PHYSICIAN MANUELA T VISIT S GROUP 15 MINUTES HOSPITAL NEFTALI - 6 6 [facility] EMERGENCY 04570 DEEPA FRIEDMAN DEPT 6 6 PHYSICIAN MANUELA VISIT S, PLL[facility] HIGH SEVERITY& THREAT [facility]UNCJ OFFICE 98743 [facility] OUTPATIEN 6 6 ML DORIS T VISIT 15 MINUTES HOSPITAL NEFTALI - 6 6 [facility] OUTPATIEN INC T OFFICE 20646 [facility] OUTPATIEN 6 6 ML [facility]IS T VISIT 15 MINUTES HOSPITAL NEFTALI - 6 6 [facility] OUTPATIEN INC T HOSPITAL NEFTALI - 6 6 [facility] OUTPATIEN INC T OFFICE 83663 [facility] LINA OUTPATIEN 6 6 PHYSICIAN MAT T VISIT S GROUP 25 MINUTES OFFICE 02488 [facility] OUTPATIEN 6 6 ML DORIS T VISIT 15 MINUTES HOSPITAL NEFTALI - 6 6 [facility] OUTPATIEN INC HOSPITAL NEFTALI - 6 6 [facility] OUTPATIEN INC T OFFICE 94569 [facility] OUTPATIEN 6 6 ML DORIS T VISIT 15 MINUTES HOSPITAL NEFTALI - 6 6 [facility] OUTPATIEN INC [facility]PITAL NEFTALI - 6 6 [facility] OUTPATIEN INC T OFFICE 61569 [facility] LINA OUTPATIEN 6 6 PHYSICIAN MAT T NEW 45 S GROUP [facility] HOSPITAL NEFTALI - 6 6 [facility] OUTPATIEN INC T OFFICE 89036 [facility] OUTPATIEN 6 6 ML DORIS T NEW 30 MINUTES [facility] OTHER 6 6 [facility] OFF[facility] [id number] [facility] 5 [facility] INTERNAL 15 MED [facility] - [facility] 5 [facility] T OFFICE [id number] [facility] 5 5 [facility] V[facility] INTERNAL 25 MED MINUTES [facility]OSP[facility] NE[facility]ALI [facility] 5 5 [facility] OFFICE 26631 [facility] 5 5 [facility] VISIT INTERNAL 15 MED MINUTES HOSPITAL NEFTALI [facility] 5 5 [facility] NEFTALI [facility] 5 5 [facility] EMERGENCY 31930 NEFTALI FRIEDMAN 5 5 [facility] T VISIT P HIGH/URGE NT SEVERITY HOSPITAL NEFTALI [facility] 4 4 [facility] NEFTALI [facility] 4 4 [facility] EMERGENCY 18853 [facility] 4 4 [facility] EM[facility] T VISIT PHYS HIGH/URGE NT [facility]VERITY [facility] NEFTALI - 4 4 [facility] OUTPATIEN [facility] EMERGENCY 29006 [facility] DEPT 4 4 [facility] VISIT EMERGENCY HIGH PHYS SEVERITY& THREAT FUNJ EMERGENCY 25478 [facility] GUY DEPT 3 3 [facility] VISIT SERVICES [facility]IGH SEVERITY& THREAT FUN [facility]OSPITAL NEFTALI - 3 3 [facility] OFFICE 02315 [facility] [address] [facility] T VISIT INTERNAL 15 MED MINUTES EMERGENCY 92034 [facility] FRIEDMAN DEPT 3 3 EMERGENCY [facility] VISIT SERVICES HIGH SEVERITY& THREAT FUN EMERGENCY 04981 [facility] PICKENS DEPT 3 3 EMERGENCY III [facility] VISIT SERVICES HIGH SEVERITY& THREAT FUNCJ OFFICE [id number] [facility] 2 2 KATHARINA W[facility]ACE [facility] T VISIT INTERNAL 15 MED MINUTES
--- OUTSIDE RECORDS SUMMARY | 2016-12-15 23:30 | External Medical Summary Rpt ---
Author Author [employer], [employer] Address Unknown Phone Unavailable
--- OUTSIDE RECORDS SUMMARY | 2016-12-15 23:30 | External Medical Summary Rpt ---
Demographics Preferred Language Niuean Marital Status Unknown Methodist Affiliation Unknown Race Unknown Ethnic Group Unknown Author Author , Organization [employer] Address Unknown Phone Unavailable Purpose Continuity of Care Document - through 2016 Immunization No patient found.
--- OUTSIDE RECORDS SUMMARY | 2016-12-15 23:30 | External Medical Summary Rpt ---
Demographics Preferred Language Iranian Marital Status Unknown Adventist Affiliation Unknown Race Unknown Ethnic Group Unknown Author Author , Organization [employer] Address Unknown Phone Unavailable Purpose Continuity of Care Document - through 2016 Immunization No patient found.
--- OUTSIDE RECORDS SUMMARY | 2016-12-15 23:41 | External Medical Summary Rpt ---
Author Author , Organization [employer] Address Unknown Phone Unavailable Care Team Providers Care Medical Coding Technician Name Role Phone [employer], Unavailable Unavailable [employer] ALFARIS MOH, ALFARIS Unavailable Unavailable MOH [facility] Unavailable Unavailable [facility], [facility] Unavailable Unavailable [facility], [facility] GRANT BRO, GRANT Unavailable Unavailable BRO BEINEKE MIGUEL, BEINEKE Unavailable Unavailable MIGUEL BERNERT, BERNERT Unavailable Unavailable BESSON CRISTIANO, BESSON Unavailable Unavailable CRISTIANO SNYDER, SNYDER Unavailable Unavailable SNYDER ALL, SNYDER ALL Unavailable Unavailable NATHANIEL, NATHANIEL Unavailable Unavailable [facility] Unavailable Unavailable SERVICE, [facility] CHINA DORIS, CHINA Unavailable Unavailable DORIS [facility] Unavailable Unavailable REHABILITATION, [facility], Unavailable Unavailable [facility] Unavailable Unavailable [facility], Unavailable Unavailable [facility] JESUS, JESUS Unavailable Unavailable NILA, NILA Unavailable Unavailable NILA IZABEL, Unavailable Unavailable NILA IZABEL [facility] Unavailable Unavailable [facility], [facility] RILEY, RILEY Unavailable Unavailable RILEY KIN, RILEY KIN Unavailable Unavailable ERLANDSON, ERLANDSON Unavailable Unavailable FALLIS ML, FALLIS Unavailable Unavailable ML FALLUJI RUTH, FALLUJI Unavailable Unavailable RUTH ELDER, ELDER Unavailable Unavailable ELDER MANUELA, ELDER Unavailable Unavailable MANUELA VERONIKA GUSTAVO, VERONIKA Unavailable Unavailable GUSTAVO [facility], Unavailable Unavailable [facility] Unavailable Unavailable INC, [facility] Unavailable Unavailable H[facility]PITAL P, P [facility], [facility] Unavailable Unavailable [facility], Unavailable Unavailable [facility] MARSHALL CRISTIANO, MARSHALL CRISTIANO Unavailable Unavailable MARCUS III, MARCUS Unavailable Unavailable III [facility] Unavailable Unavailable [facility], [facility] Unavailable Unavailable MEDICAL G, [facility] MED[facility] G PARKER LUCY, PARKER LUCY Unavailable Unavailable [facility] Un[facility] VIDALES CRISTIAON, VIDALES CRISTIANO Unavailable Unavailable CHAD JR DWI, CHAD Unavailable Unavailable JR DWI [facility] Unavailable Unavailable INTERNAL MED, [facility] JR. ROHAN, JR. ROHAN Unavailable Unavailable [facility] Unavailable Unavailable SERVICES, [facility] CHISHOLM, CHISHOLM Unavailable Unavailable MCKEMIE JR MARIA ELENA, Unavailable Unavailable MCKEMIE JR MARIA ELENA FUENTES-GARCIA HERI, Unavailable Unavailable FUENTES-GARCIA HERI [facility], Unavailable Unavailable PLL[facility], [facility] CAMPOSCATALINO LOPEZ, Unavailable Unavailable ANDRES JESSICA [facility] Unavailable Unavailable AMBULANCE, [facility] Unavailable Unavailable AMBULANCE, [facility] SADEK MOH, SADEK MOH Unavailable Unavailable SCHLEENBAKER, Unavailable Unavailable SCHLEENBAKER SCIFRES, SCIFRES Unavailable Unavailable SCIFRES ANG, SCIFRES Unavailable Unavailable ANG [facility], Unavailable Unavailable [facility] LINA MAT, Unavailable Unavailable LINA MAT REYNOSO HERMINIA, REYNOSO HERMINIA Unavailable Unavailable [facility] Unavailable Unavailable [facility], [facility] Unavailable Unavailable [facility], [facility] SOTINGEANU MIGUEL, Unavailable Unavailable SOTINGEANU MIGUEL [facility] Unavailable Unavailable EMERGENCY PHYS, [facility] Juan Manuel Noonan MD, Unavailable Unavailable Juan Manuel Noonan MD PENA MANUELA, PENA Unavailable Unavailable MANUELA TRUE RAE, TRUE RAE Unavailable Unavailable [facility] Unavailable Unavailable [facility]PITALS, [facility] Klever Griffin MD, Unavailable Unavailable Klever Griffin MD [facility] Unavailable Unavailable [address], [facility] WEHRMAN III MARIA ELENA, Unavailable Unavailable WEHRMAN III MARIA ELENA [facility] Unavailable [facility]available [facility], Unavailable [facility]available [facility] ZACHENCHOROJENNIFERKAYA MAR, Unavailable Unavailable ZAGUROVSKAYA MAR Purpose Continuity of Care Document - 04-13-2012 through 2016 Problems Code Diagnosis DOS Provider Status 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-08-2016 [facility] BILATERAL J449 CHRONIC 11-02-2016 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 MEDICAL DISEASE UNS EQUIPME E119 TYPE 2 03-15-2017 [facility] DIABETES PHYSICIANS MELLITUS GROUP WITHOUT COMPLICATIO NS I10 ESSENTIAL 10-30-2016 [facility] PRIMARY PHYSICIANS HYPERTENSIO GROUP N M549 DORSALGIA 10-30-2016 [facility] UNSPECIFIED PHYSICIANS GROUP N289 DISORDER OF 10-30-2016 [facility] URETER INC UNSPECIFIED R0602 SHORTNESS 10-30-2016 [facility]ATH [facility] INC [id number] OTHER LONG 10-30-2016 [facility] TERM PHYSICIANS CURRENT GROUP DRUG THERAPY N189 CHRONIC 10-29-2016 [facility] DISEASE INC UNSPECIFIED R0600 DYSPNEA 10-23-2016 [facility] INC R8290 UNSPECIFIED 10-23-2016 [facility] ABNORMAL [facility] FINDINGS IN INC URINE 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 ANGINA PECTORIS J40 BRONCHITIS 10-15-2016 [facility] NOT PHYSICIANS SPECIFIED GROUP ACUTE OR CHRONIC E663 OVERWEIGHT 10-01-2016 [facility] PHYSICIANS GROUP L0390 CELLULITIS 10-01-2016 [facility] UNSPECIFIED PHYSICIANS GROUP R609 EDEMA 10-01-2016 [facility] INC E118 TYPE 2 09-25-2016 [facility] DIABETES [facility] MELLITUS INC W/UNS COMPLICATIO NS M4316 SPONDYLOLIS 09-23-2016 [facility] M4806 SPINAL 09-23-2016 [facility] STENOS[facility]UMBAR [facility]ING [facility] REGION M5126 OTH 09-23-2016 [facility] 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 M545 LOW BACK 09-23-2016 [facility] PA[facility] R300 DYSURIA 08-26-2016 [facility] G894 CHRONIC 08-13-2016 [facility] SYNDROME [facility] M792 NEURALGIA 08-13-2016 [facility] NEURITIS [facility] UNSPECIFIED N179 ACUTE 08-13-2016 [facility] FAILURE [facility] UNSPECIFIED R2689 OTHER 08-13-2016 [place] [facility] ABNORMALITI SERV ES OF GAIT FOUNDATION AND MOBILITY R5381 OTHER 08-13-2016 [facility] MALAISE [facility] Z75960 PAIN IN 08-12-2016 [facility] RIGHT LEG SERV [facility] M7989 OTHER 08-12-2016 [place] [facility] SPECIFIED SERV SOFT TISSUE FOUNDATION DISORDERS R279 UNSPECIFIED 08-12-2016 [facility] LACK OF AMBULANCE COORDINATIO N R52 PAIN 08-11-2016 [facility] UNSPECIFIED [facility]ICAL RESPONSE 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 FOUNDATION M542 CERVICALGIA 08-05-2016 [facility] E1165 TYPE 2 08-01-2016 [facility] [place] MELLITUS RE[place]AB[place] G9341 METABOLIC 08-01-2016 [facility] ENCEPHALOPA SERV THY FOUNDATION I129 HYPERTENSIV 08-01-2016 [facility] E CKD SERV W/STAGE 1-4 FOUNDATION CKD OR UNS CKD I130 HTN HEART & 08-01-2016 [facility] CKD W/HF & [place]ILL CKD STAGE REHABILITAT 1-4 OR UNS ION CKD I509 HEART 08-01-2016 [facility] FAILURE [facility] UNSPECIFIED REHABILITAT ION I959 HYPOTENSION 08-01-2016 [facility] UNSPECIFIED FOUNDATION J9610 CHRONIC 08-01-2016 [facility] RESPIRATORY SERV FAIL UNS FOUNDATION HYPOXIA/HYP ERCAPNIA K219 GASTRO-ESOP 08-01-2016 [facility] DISEASE REHABILITAT WITHOUT ION ESOPHAGITIS R571 HYPOVOLEMIC 08-01-2016 [facility] SHOCK SERV FOUNDATION I499 CARDIAC 07-31-2016 [facility] ARRHYTHMIA SERV UNSPECIFIED FOUNDATION J9620 ACUTE 07-31-2016 [facility] CHRONIC SERV RESP FAIL FOUNDATION UNS HYPOXIA/HYP ERCAPNIA A419 SEPSIS 07-29-2016 [facility] UNSPECIFIED SERV ORGANISM FOUNDATION I491 ATRIAL 07-29-2016 [facility] PREMATURE SERV DEPOLARIZAT FOUNDATION ION R000 TACHYCARDIA 07-29-2016 [facility] UNSPECIFIED FOUNDATION R6521 SEVERE 07-29-2016 [facility] SEPSIS WITH SERV SEPTIC FOUNDATION SHOCK R9431 ABNORMAL 07-29-2016 [facility] ELECTROCARD SERV IOGRAM FOUNDATION A047 ENTEROCOLIT 07-27-2016 [facility] IS DUE TO SERV CLOSTRIDIUM FOUNDATION DIFFICILE E1122 TYPE 2 07-26-2016 [facility] HOSPITALS W/DIAB CHRON KIDNEY DZ E872 ACIDOSIS 07-26-2016 [facility]ALS G9340 ENCEPHALOPA 07-26-2016 [place] [facility] THY SERV UNSPECIFIED FOUNDATION I348 OTHER 07-26-2016 [facility] 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 I5020 UNSPECIFIED 07-26-2016 [facility] SYSTOLIC SERV CONGESTIVE FOUNDATION HEART FAILURE I517 CARDIOMEGAL 07-26-2016 [facility] Y SERV [facility] J9621 ACUTE & 07-26-2016 [facility] RESPIRATORY HOSPITALS FAILURE WITH HYPOXIA J9690 RESP FAIL 07-26-2016 [facility] UNS UNS SERV WHETHER FOUNDATION W/HYPOXIA/H YPERCAPNIA N170 ACUTE RENAL 07-26-2016 [facility] FAILURE [facility] WITH HOSPITALS TUBULAR NECROSIS R109 UNSPECIFIED 07-26-2016 [facility] ABDOMINAL SERV PAIN FOUNDATION R918 OTHER 07-26-2016 [facility] NONSPECIFIC SERV ABNORMAL FOUNDATION FINDING OF LUNG FIELD Z452 ENCOUNTER 07-26-2016 [facility] ADJUSTMENT& SERV MGMT FOUNDATION VASCULAR ACCESS DEVICE P92215 ELEVATED 07-25-2016 [facility] WHITE BLOOD [facility], CELL COUNT PLLC UNSPECIFIED R34 ANURIA AND 07-25-2016 [facility] OLIGURIA [facility], PLLC Z720 TOBACCO USE 07-25-2016 [facility] R0782 INTERCOSTAL 07-15-2016 [facility] PAIN [facility] INC R0789 OTHER CHEST 07-15-2016 [facility] [id number] CONTUSION 07-15-2016 [facility] RT FRONT PHYSICIANS WALL THORAX GROUP INITIAL ENCOUNTER S3395QC MULTIPLE FX 07-15-2016 [facility] RIBS UNS PHYSICIANS SIDE INIT GROUP ENC CLOS FRACTURE W37381 PAIN IN 07-10-2016 [facility] RIGHT UPPER MEDICAL ARM IMAGING ASS R0781 PLEURODYNIA 07-10-2016 [facility] [id number] CONTUSION 07-10-2016 [facility] UNS FRONT PHYSICIANS, WALL THORAX PLLC INITIAL ENCNTR Q4951EA UNS INJURY 07-10-2016 [facility] RT SHOULDER MEDICAL UPPER ARM IMAGING ASS INITIAL ENCNTR N3000 ACUTE 06-28-2016 [facility] CYSTITIS PHYSICIANS WITHOUT GROUP HEMATURIA Z23 ENCOUNTER 06-28-2016 [facility] FOR PHYSICIANS IMMUNIZATIO GROUP N X85797 CHRONIC 05-13-2016 [facility] MIGRAINE PHYSICIANS W/O AURA GROUP INTRACT W/O STAT MIGR P59610 OTH 05-13-2016 [facility] MIGRAINE PHYSICIANS NOT INTRACT GROUP W/O STATUS MIGRAINOSUS G629 POLYNEUROPA 04-29-2016 [facility] THY PHYSICIANS UNSPECIFIED GROUP H6690 OTITIS 04-22-2016 [facility] P UNSPECIFIED EAR J209 ACUTE 04-22-2016 [facility] BRONCHITIS PHYSICIANS, UNSPECIFIED PLLC J441 CHRONIC 04-22-2016 [facility] OBSTRUCTIVE PHYSICIANS, PULMONARY PLLC DZ W/EXACERBAT ION Z9981 DEPENDENCE 04-22-2016 [facility] P L OXYGEN R002 PALPITATION 04-17-2016 [facility] S [facility] INC R1310 DYSPHAGIA 04-17-2016 [facility] UNSPECIFIED [facility] INC R42 DIZZINESS 04-17-2016 [facility] GIDDINESS INC R4702 DYSPHASIA 04-17-2016 [facility] R55 SYNCOPE AND 04-17-2016 [facility] COLLAPSE [facility] INC E875 HYPERKALEMI 04-03-2016 [facility] A [facility] INC I159 SECONDARY 04-03-2016 [facility] HYPERTENSIO [facility] N INC UNSPECIFIED J440 COPD WITH 04-03-2016 [facility] ACUTE LOWER [facility] INC RESPIRATORY INFECTION R062 WHEEZING 04-02-2016 [facility] R079 CHEST PAIN 04-02-2016 [facility] UNSPECIFIED [facility]ICAL IMAGING ASS 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 12-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 NEUROPATHY UNSPECIFIED E1141 TYPE 2 12-14-2015 [facility] DIABETES MELLITUS W/DIAB MONONEUROPA THY I739 PERIPHERAL 12-14-2015 [facility] VASCULAR DISEASE UNSPECIFIED I890 LYMPHEDEMA 12-14-2015 [facility] NOT ELSEWHERE CLASSIFIED M2570 OSTEOPHYTE 12-14-2015 [facility] ML UNSPECIFIED JOINT 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 FIBROMATOSI S T07320 PAIN IN 12-14-2015 [facility] ML RIGHT FOOT K06175 PAIN IN LEG 12-05-2015 [facility] UNSPECIFIED INC M779 ENTHESOPATH 11-30-2015 [facility] Y [facility] UNSPECIFIED INC G4733 OBSTRUCTIVE 11-09-2015 [facility] SLEEP [facility] APNEA ADULT INC PEDIATRIC H3500 UNSPECIFIED 11-03-2015 [facility] RETINOPATHY I119 HYPERTENSIV 10-31-2015 [facility] E HEART PHYSICIANS DISEASE GROUP WITHOUT HEART FAILURE I209 ANGINA 10-31-2015 [facility] PECTORIS PHYSICIANS UNSPECIFIED GROUP X17966 PAIN IN 10-24-2015 [facility] LEFT THIGH MEDICAL IMAGING ASS R1032 LEFT LOWER 10-24-2015 [facility]ANT [facility] PAIN INC E785 HYPERLIPIDE 10-12-2015 [facility] JESSICA [facility]ICAL UNSPECIFIED IMAGING ASS I5189 OTHER 10-12-2015 [facility] ILL-DEFINED [facility] HEART INC DISEASES I779 DISORDER OF 10-12-2015 [facility] ARTERIES [facility] AND INC ARTERIOLES UNSPECIFIED R0989 OTH SPEC SX 10-12-2015 [facility] & SIGNS MEDICAL INVLV THE IMAGING ASS CIRC & RESP SYS 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 PERSONAL 10-03-2015 [facility] HISTORY OF PHYSICIANS NICOTINE GROUP DEPENDENCE M18931 PAIN IN 09-21-2015 [facility] ML LEFT FOOT M7732 CALCANEAL 09-19-2015 [facility] SPUR LEFT MEDICAL FOOT IMAGING ASS J432 CENTRILOBUL 09-16-2015 [facility] AR MEDICAL EMPHYSEMA IMAGING ASS U09122 UNSPECIFIED 09-16-2015 [facility] ASTHMA PHYSICIANS UNCOMPLICAT GROUP ED R05 COUGH 09-13-2015 [facility] Z131 ENCOUNTER 09-06-2015 [facility] FOR [facility] SCREENING INC FOR DIABETES MELLITUS Z5181 ENCOUNTER 08-21-2015 [facility] FOR [facility] THERAPEUTIC INC DRUG LEVEL MONITORING A084 VIRAL 07-24-2015 [facility] INFECTION INTERNAL UNSPECIFIED MED 496 CHRONIC 05-05-2015 [facility] MEDICAL NEC EQUIPME 34066 DIAB W/O 03-08-2015 [facility] COMP TYPE VAL[facility] II/UNS NOT INTERNAL STATED MED UNCNTRL 2724 OTHER AND 03-08-2015 [facility] UNSPECIFIED VALLEY INTERNAL HYPERLIPIDE MED JESSICA 77264 ESOPHAGEAL 03-08-2015 [facility] REFLUX [facility] INTERNAL MED 7804 DIZZINESS 03-08-2015 [facility] AND [facility] GIDDINESS INTERNAL MED 09493 DIAB 11-28-2014 [facility] W/NEURO VAL[facility] MANIFESTS INTERNAL TYPE II/UNS MED NOT UNCNTRL 38852 OBSTRUCTIVE 11-28-2014 [facility] CHRONIC [facility] BRONCHITIS INTERNAL WITH MED EXACERBATIO N 4439 UNSPECIFIED 11-01-2014 [facility] PERIPHERAL HEALTH VASCULAR MEDICAL G DISEASE 30867 ULCER OF 11-01-2014 [facility] OTHER PART HEALTH OF LOWER MEDICAL G [...] MEM HOSP INSULIN INC 7862 COUGH 08-23-2014 [facility] 98206 DIAB W/O 07-29-2014 CLINIC COMP TYPE I PHARMACY [JUV] NOT STATED UNCNTRL 7245 UNSPECIFIED 07-22-2014 [place] BACKACHE [facility] V571 OTHER 07-22-2014 [place] PHYSICAL [facility] THERAPY INC 7213 LUMBOSACRAL 06-28-2014 [facility] SPONDYLOSIS IMAGING ASS WITHOUT MYELOPATHY 17148 DISPLCMT 06-28-2014 [facility] LUMBAR MEDICAL INTERVERT IMAGING ASS DISC W/O MYELOPATHY 37015 DEGEN 06-28-2014 [facility] 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 7243 SCIATICA 06-28-2014 [facility] 7242 LUMBAGO 06-21-2014 [facility] 56175 CHEST PAIN 04-01-2014 [facility] U[facility]PECIFIED SERV FOUNDATIO 88685 UNSPECIFIED 01-03-2014 [facility] CENTER RETINOPATHY 7823 EDEMA 09-17-2013 [facility] 4293 CARDIOMEGAL 09-15-2013 [facility] 66824 CHRONIC 09-15-2013 [facility] P WITH EXACERBATIO N 64376 OTHER 09-15-2013 [facility] DISEASES OF MEDICAL LUNG NOT IMAGING ASS ELSEWHERE CLASSIFIED 54414 WHEEZING 05-02-2013 [facility] 7812 ABNORMALITY 01-29-2013 [place] OF GAIT [facility] INC 486 PNEUMONIA, 12-14-2012 [facility] ORGANISM [facility] UNSPECIFIED INTERNAL MED 93256 METHICILLIN 12-03-2012 [facility] RESISTANT [facility] STAPHYLOCOC INTERNAL CUS AUREUS MED 4660 ACUTE 12-03-2012 [facility] BRONCHITIS [facility] INTERNAL MED 50928 ASTHMA, 12-03-2012 [facility] UNSPECIFIED VALLEY , INTERNAL UNSPECIFIED MED STATUS 50017 METHICILLIN 12-01-2012 [facility] PNEUMONIA HOSPITAL P D/T STAPH AUREUS 24671 OTHER 12-01-2012 [facility] RESPIRATORY ABNORMALITI ES 485 BRONCHOPNEU 08-27-2012 [facility] [place] [facility] ORGANISM INTERNAL UNSPECIFIED MED 61839 OTHER 08-25-2012 [facility] NONSPECIFIC MEDICAL ABNORMAL IMAGING ASS FINDING OF LUNG FIELD V0481 NEED 06-05-2012 [facility] PROPHYLACTI MARYKNOLL C INTERNAL VACCINATION MED &INOCULATIO N FLU 14829 DIAB W/O 04-13-2012 [facility] COMP TYPE I HOSPITAL P [JUV TYPE] UNCNTRL 81512 ABDOMINAL 04-13-2012 [place] PAIN, [facility] EPIGFORMERLY [facility] P [id number] Acute [place] asthma [facility] [id number] Diabetes [place] mellitus [facility] 2 [facility] [id number] Active [facility] [id number] Chronic [facility] D72.829 ELEVATED WHITE BLOOD CELL COUNT, [...] OTHER INJURY OF UNSPECIFIED BODY REGION Z79.891 [facility] (CURRENT[facility] USE OF OPIATE ANALGESIC Z79.899 OTHER [facility] (CURRENT) DRUG THERAPY Allergies, Adverse Reactions, Alerts Type Drug Allergy Adverse Reaction to Substance Substance Reaction Severity PCN (penicillin) I-RASH Intermediate Aspirin I-HIVES Mild Naproxen NA-NAUSEA (TOLERATED Mild IBUPROFEN) Erythromycin I-RASH Intermediate Codeine NA-NAUSEA Mild Propoxyphene NA-NAUSEA Mild Terbutaline V-MEKZMY-CGQA/THROAT Severe Penicillin G Procaine I-RASH Intermediate Bupropion [...] ia de te s n re d AZ 00 01 1 No ED 05 -3 NI 40 1- Lo SO 01 20 ng NE 82 14 er 0 20 Ac ti MG ve TA BL ET NO 00 01 2 No VO 16 -3 LO 93 0- Lo G 69 20 ng LA 61 14 er X 9 70 Ac -3 ti 0 ve FL EX PE N SY RN LI 68 01 2 No SI 18 -3 NO 00 0- Lo AZ 51 20 ng IL 80 14 er [...] er -A 2 CE Ac TA ti LA ve NO PH 7. 5- 32 5 [...] 93 9- Lo G 69 20 ng LA 61 13 er X 9 70 Ac -3 ti 0 ve FL EX PE N SY RN [place] 00 09 1 No ED 05 -1 NI 40 9- Lo SO 01 20 ng NE 82 13 er 0 20 Ac ti MG ve TA BL ET FS 09 1 No -1 BL 9- Lo OO 20 ng D 13 er SCHROED[place] Ac R ti ve LI 68 09 3 No SI 18 -1 NO 00 7- Lo AZ 51 20 ng IL 80 13 er [...] er -A 2 CE Ac TA ti LA ve NO PH 7. 5- 32 5 [...] 9% 10 0M L Ad v AZ 00 04 2 No ED 05 -2 [...] SI 18 -1 NO 00 9- Lo AZ 51 20 ng IL 80 13 er -H 1 CT Ac Z ti 10 ve -1 2. 5 MG TA B NO 00 04 4 No VO 16 -1 LO 93 8- Lo G 69 20 ng LA 61 13 er X 9 70 Ac -3 ti 0 ve FL EX PE N SY RN FS 04 4 No -1 BL 8- Lo OO 20 ng D 13 er [place] Ac R ti ve HY [address] 40 -1 OC 60 8- Lo OD 36 20 ng ON 56 13 er -A 2 CE Ac TA ti LA ve NO PH EN 5- 32 5 [...] RO 40 -1 SE 96 6- Lo LA 10 20 ng DE 20 13 er [...] nces retati t Range on Glucose BldC Glucomtr-mCva (09-18-2013 11:16) Glucose 190 70-110 complet BldC 014 mg/dl ed Glucomt 11:16 r-nc Glucose BldC Glucomtr-mCnc (09-18-2013 06:55) Glucose 197 70-110 complet BldC 014 mg/dl ed Glucomt 06:55 r-nc Glucose BldC Glucomtr-mCnc (09-17-2013 21:22) Glucose 270 70-110 complet BldC 014 mg/dl ed Glucomt 21:22 r-mCnc Glucose BldC Glucomtr-mCnc (09-17-2013 17:01) Glucose 321 70-110 High complet BldC 014 mg/dl alert ed Glucomt 17:01 r-[facility] BASIC METABOLIC PANEL (09-17-2013 06:10) Glucose 426 74-106 complet 014 mg/dL ed Bld-n 06:10 c BUN 28 7-18 complet Bld-mCn [...] complet 014 mg/dL 1 ed SerPl-m 06:10 [facility] CBC with AUTO DIFF (09-17-2013 06:10) WBC # 18.2 4.8-10. complet Bld 014 K/MM3 8 ed Auto 06:10 RBC # 4.91 4.2-5.4 complet Bld 014 M/mm3 ed [...] complet Auto 014 .5 ed 06:10 Plate[place] 285 142-424 complet t Bld 014 K/mm3 ed Ql 06:10 Manual MEAN 8.0 fl 7.4-10. complet PLATELE 014 4 ed T 06:10 VOLUME Granulo 09-17-2 82.9 % 37.0-80 complet cytes 014 .0 ed Fr Bld 06:10 Auto LYMPH % 09-17-2 11.5 % 10-50.0 complet 014 ed 06:10 Monocyt 09-17-2 5.5 % 1.7-9.3 complet es Fr 014 ed Bld 06:10 Auto Eosinop 09-17-2 0.0 % 0.1-12. complet hil Fr 014 0 ed Bld 06:10 Auto Basophi 09-17-2 0.2 % 0.1-2.0 complet ls Fr 014 ed Bld 06:10 Auto Granulo 09-17-2 15.0 1.8-7.8 complet cytes # 014 K/mm3 [...] K/MM3 8 ed Auto 06:10 RBC # 09-16-2 5.75 4.2-5.4 complet Bld 014 M/mm3 ed Auto 06:10 Hgb 30-2 16.3 12.2-16 complet Bld-mCn 014 g/dL .2 ed c 06:10 Hct Fr 09-16-2 54.1 % 37.0-47 complet Bld 014 .0 ed 06:10 MCV RBC 30-2 94.1 fl 82.2-97 complet 014 .8 ed 06:10 MCH RBC 28.4 pg 27-31.2 complet Qn 014 ed Auto 06:10 MEAN 30.2 31.8-35 complet CORPUSC 014 g/dl .4 ed ULAR 06:10 HGB CONC RDW RBC 15.1 % 11.5-17 complet Auto 014 .5 ed 06:10 Platele 30-2 288 142-424 complet t Bld 014 K/mm3 ed Ql 06:10 Manual MEAN 2 8.2 fl 7.4-10. complet PLATELE 014 4 ed T 06:10 VOLUME Granulo 30-2 77.4 % 37.0-80 complet cytes 014 .0 ed Fr Bld 06:10 Auto LYMPH % 30-2 20.0 % 10-50.0 complet 014 ed 06:10 Monocyt 30-2 2.1 % 1.7-9.3 complet es Fr 014 ed Bld 06:10 Auto Eosinop -30-2 0.2 % 0.1-12. complet hil Fr 014 0 ed Bld 06:10 Auto Basophi -30-2 0.4 % 0.1-2.0 complet ls Fr 014 [...] 014 K/mm3 ed Bld 06:10 Auto Basophi -30-2 0.0 0-0.2 complet ls # 014 K/MM3 ed Bld 06:10 Auto Glucose BldC Glucomtr-[facility] [place] (09-15-2013 20:30) Glucose 89 70-110 complet BldC 014 mg/dl ed Glucomt 20:30 r-[facility] BASIC METABOLIC PANEL (09-15-2013 18:00) Glucose 54 [...] Bld 014 .0 ed 18:00 MCV RBC 01-29-2 89.0 fl 82.2-97 complet 014 .8 ed [...] 014 #/hpf ed S CELLS 17:25 Glucose dC Glucomtr-[facility] [place] (05-07-2013 11:36) Glucose 104 70-110 complet BldC 013 mg/dl ed Glucomt 11:36 r-[facility] [place] Glucose dC Glucomtr-[facility] (05-07-2013 06:24) Glucose 309 70-110 High complet BldC 013 mg/dl alert ed Glucomt 06:24 r-[facility] [place] Glucose BldC Glucomtr-nc (05-06-2013 17:14) Glucose 337 70-110 High complet BldC 013 mg/dl alert ed Glucomt 17:14 r-[facility] [place] BASIC METABOLIC PANEL (05-06-2013 06:30) Glucose 443 [...] complet Auto 013 .5 ed 06:30 Platele 319 142-424 complet t Bld 013 K/mm3 ed Ql 06:30 Manual MEAN 09-19-2 8.9 fl 7.4-10. complet PLATELE 013 4 ed T 06:30 VOLUME Granulo 09-19-2 84.4 % 37.0-80 complet cytes 013 .0 ed Fr Bld 06:30 Auto LYMPH % 09-19-2 10.2 % 10-50.0 complet 013 ed 06:30 Monocyt 09-19-2 5.0 % 1.7-9.3 complet es Fr 013 ed Bld 06:30 Auto Eosinop 09-19-2 0.2 % 0.1-12. complet hil Fr 013 0 ed Bld 06:30 Auto Basophi 09-19-2 0.1 % 0.1-2.0 complet ls Fr 013 ed Bld 06:30 Auto Granulo 09-19-2 11.9 1.8-7.8 complet cytes # 013 K/mm3 ed Bld 06:30 Auto Lymphoc 09-19-2 1.4 0.7-4.5 complet ytes Fr 013 K/mm3 ed Bld 06:30 Auto Monocyt 09-19-2 0.7 0.1-1.0 complet es # 013 K/mm3 ed Bld 06:30 Auto Eosinop 09-19-2 0.0 0.0-0.4 complet hil # 013 K/mm3 ed Bld 06:30 Auto Basophi 09-19-2 0.0 0-0.2 complet ls # 013 K/MM3 ed Bld 06:30 Auto Glucose dC Glucom-[facility] [place] (05-06-2013 06:22) Glucose 396 70-110 High complet BldC 013 mg/dl alert ed Glucomt 06:22 r-[facility] Glucose BldC Glucomtr-[facility] (05-05-2013 20:09) Glucose 05-05-2 345 70-110 High complet BldC 013 mg/dl alert ed Glucomt 20:09 r-[facility] Glucose dC [facility] (05-05-2013 16:54) Glucose 05-05- 299 70-110 complet BldC 013 mg/dl ed Glucomt 16:54 r-[facility] Glucose dC [facility] (05-05-2013 11:58) Glucose 05-05-2 328 70-110 High complet BldC 013 mg/dl alert ed Glucomt 11:58 [facility] Glucose dC [facility]comtr-[facility] (05-05-2013 06:35) Glucose 05-05-2 433 70-110 High complet BldC 013 mg/dl alert ed Glucomt 06:35 [facility] BASIC METABOLIC PANEL (05-05-2013 06:15) Glucose 05-05-2 472 74-106 complet 013 mg/dL ed Bld-mCn 06:15 c BUN 05-05- 37 7-18 complet Bld-mCn 013 mg/dL ed c 06:15 Creat 05-05-2 1.3 0.6-1.0 complet SerPl-m 013 mg/dL ed Cnc 06:15 ESTIMAT 05-05-2 79 50-200 complet ED 013 ML/MIN ed CREATIN 06:15 INE CLEARAN CE GFR 43 59- complet (ESTIMA 013 ML/MIN ed NICOLE) 06:15 Sodium 138 136-145 complet SerPl-s 013 mmoL/L ed Cnc 06:15 Potassi 5.3 3.5-5.1 complet um 013 mmoL/L ed SerPl-s 06:15 Cnc Chlorid 05-05- 104 98-107 complet e 013 mmoL/L ed SerPl-s 06:15 Cnc CO2 05-05- 25 21.0-32 complet SerPl-s 013 mmoL/L .0 ed Cnc 06:15 Calcium 8.4 8.5-10. complet 013 mg/dL 1 ed SerPl-m 06:15 Cnc CBC with AUTO DIFF (05-05-2013 06:15) WBC # 05-05-2 16.6 4.8-10. complet Bld 013 K/MM3 8 ed Auto 06:15 RBC # 05-05-2 5.40 4.2-5.4 complet Bld 013 M/mm3 ed Auto 06:15 Hgb 05-05- 15.6 12.2-16 complet Bld-mCn 013 g/dL .2 ed c 06:15 Hct Fr 50.4 % 37.0-47 complet Bld 013 .0 ed 06:15 MCV RBC 93.5 fl 82.2-97 complet 013 .8 ed 06:15 MCH RBC 09-18-2 28.9 pg 27-31.2 complet Qn 013 ed Auto 06:15 MEAN 09-18-2 30.9 31.8-35 complet CORPUSC 013 g/dl .4 ed ULAR 06:15 HGB CONC RDW RBC 09-18-2 15.0 % 11.5-17 complet Auto 013 .5 ed 06:15 Platele 09-18-2 318 142-424 complet t Bld 013 K/mm3 ed Ql 06:15 Manual MEAN -18-2 7.8 fl 7.4-10. complet PLATELE 013 4 [...] BIN A1C 013 ed 06:15 Glucose BldC [facility] (05-04-2013 20:10) Glucose -17-2 396 70-110 High complet BldC 013 mg/dl alert ed Glucomt 20:10 r-nc Glucose BldC Glucomtr-mCnc (05-04-2013 16:26) Glucose 375 70-110 High complet BldC 013 mg/dl alert ed Glucomt 16:26 r-nc Glucose BldC Glucomtr-nc (05-04-2013 11:40) Glucose 444 70-110 High complet BldC 013 mg/dl alert ed Glucomt 11:40 r-[facility] Glucose BldC Glucomtr-mCnc (05-04-2013 06:18) Glucose 469 70-110 High complet BldC 013 mg/dl alert ed Glucomt 06:18 r-[facility] COMPREHENSIVE METABOLIC PANEL (05-04-2013 06:00) Glucose 448 [...] ed Fr Bld 06:00 Auto LYMPH % 09-17-2 14.4 % 10-50.0 complet 013 ed 06:00 Monocyt 09-17-2 5.2 % 1.7-9.3 complet es Fr 013 ed Bld 06:00 Auto Eosinop 09-17-2 0.1 % 0.1-12. complet hil Fr 013 0 ed Bld 06:00 Auto Basophi 09-17-2 0.2 % 0.1-2.0 complet ls Fr 013 ed Bld 06:00 Auto Granulo -17-2 13.4 1.8-7.8 complet cytes # 013 K/mm3 ed Bld 06:00 Auto Lymphoc -17-2 2.4 0.7-4.5 complet ytes Fr 013 K/mm3 ed Bld 06:00 Auto Monocyt -17-2 0.9 0.1-1.0 complet es # 013 K/mm3 ed Bld 06:00 Auto Eosinop 09-17-2 0.0 0.0-0.4 complet hil # 013 K/mm3 ed Bld 06:00 Auto Basophi 09-17-2 0.0 0-0.2 complet ls # 013 K/MM3 ed Bld 06:00 Auto Glucose BldC [facility] (05-03-2013 21:36) Glucose 469 70-110 High complet BldC 013 mg/dl alert ed Glucomt 21:36 r-[facility] Glucose BldC [facility] (05-03-2013 16:44) Glucose 422 70-110 High complet BldC 013 mg/dl alert ed Glucomt 16:44 r-nc Glucose BldC [facility]tr-[facility] (05-03-2013 11:31) Glucose 226 70-110 complet BldC 013 mg/dl ed Glucomt 11:31 r-[facility] Glucose BldC [facility] (05-03-2013 06:22) Glucose 324 70-110 High complet BldC 013 mg/dl alert ed Glucomt 06:22 r-[facility] Glucose BldC [facility] (05-02-2013 21:02) Glucose 150 70-110 complet BldC 013 mg/dl ed Glucomt 21:02 r-mCnc COMPREHENSIVE METABOLIC PANEL (05-02-2013 18:30) Glucose 05-02- 149 74-106 complet 013 mg/dL ed Bld-mCn 18:30 c BUN 05-02- 33 7-18 complet Bld-mCn 013 mg/dL ed c 18:30 Creat 05-02-2 1.3 0.6-1.0 complet SerPl-m 013 mg/dL ed Cnc 18:30 GFR 05-02- 43 59- complet (ESTIMA 013 ML/MIN ed NICOLE) 18:30 Sodium 05-02- 140 136-145 complet SerPl-s 013 mmoL/L ed Cnc 18:30 Potassi 05-02- 4.6 3.5-5.1 complet um 013 mmoL/L ed SerPl-s 18:30 Cnc Chlorid 05-02- 103 98-107 complet e 013 mmoL/L ed SerPl-s 18:30 Cnc CO2 05-02- 25 21.0-32 complet SerPl-s 013 mmoL/L .0 [...] /Glob 013 ed SerPl-m 18:30 Rto Bilirub 05-02- 0.4 0.2-1.0 complet 013 mg/dL ed SerPl-m 18:30 Cnc AST 05-02- 28 U/L 15-37 complet SerPl-c 013 ed Cnc 18:30 ALT 05-02-2 56 U/L 30-65 complet SerPl-c 013 ed [...] ed ULAR 18:30 HGB CONC RDW RBC 09-15-2 15.1 % 11.5-17 complet Auto 013 .5 [...] 013 K/mm3 ed Bld 18:30 Auto Eosinop 09-15-2 0.3 0.0-0.4 complet hil # 013 K/mm3 ed Bld 18:30 Auto Basophi 09-15-2 0.2 0-0.2 complet ls # 013 K/MM3 ed Bld 18:30 Auto Glucose BldC Glucomtr-mCnc (12-07-2012 06:33) Glucose 12-07- 115 70-110 complet BldC 013 mg/dl ed Glucomt 06:33 r-mCnc Glucose BldC Glucomtr-mCnc (12-06-2012 17:08) Glucose 12-06- 300 70-110 complet BldC 013 mg/dl ed Glucomt 17:08 r-mCnc Glucose BldC Glucomtr-nc (12-06-2012 06:33) Glucose 12-06- 126 70-110 complet BldC 013 mg/dl ed Glucomt 06:33 r-mCnc Glucose BldC [facility] (12-05-2012 17:15) Glucose 12-05- 142 70-110 complet BldC 013 mg/dl ed Glucomt 17:15 r-mCnc Glucose BldC [facility] (12-05-2012 06:38) Glucose 87 70-110 complet BldC 013 mg/dl ed Glucomt 06:38 r-mCnc Glucose BldC [facility] (12-04-2012 17:27) Glucose 12-04- 298 70-110 complet BldC 013 mg/dl ed Glucomt 17:27 r-mCnc Glucose BldC [facility] (12-04-2012 06:08) Glucose 440 70-110 High complet BldC 013 mg/dl alert ed Glucomt 06:08 r-mCnc Glucose BldC Glucomtr-nc (12-03-2012 16:38) Glucose 12-03- 425 70-110 High complet BldC 013 mg/dl alert ed Glucomt 16:38 r-mCnc Glucose BldC Glucomtr-nc (12-03-2012 06:44) Glucose 401 70-110 High complet BldC 013 mg/dl alert ed Glucomt 06:44 r-nc BASIC METABOLIC PANEL (12-03-2012 06:30) Glucose -18-2 398 74-106 complet 013 mg/dL ed Bld-mCn 06:30 c BUN 04-18-2 27 7-18 complet Bld-mCn 013 mg/dL ed c 06:30 Creat 04-18-2 1.2 0.6-1.0 complet SerPl-m 013 mg/dL ed Cnc 06:30 ESTIMAT -18-2 87 50-200 complet ED 013 ML/MIN ed CREATIN 06:30 INE CLEARAN CE GFR 18-2 47 59- complet (ESTIMA 013 ML/MIN ed NICOLE) 06:30 Sodium -18-2 137 136-145 complet SerPl-s 013 mmoL/L ed Cnc 06:30 Potassi -18-2 5.3 3.5-5.1 complet um 013 mmoL/L ed [...] g/dL .2 ed c 06:30 Hct Fr -18-2 48.3 % 37.0-47 complet Bld 013 .0 ed 06:30 MCV RBC 04-18-2 88.9 fl 82.2-97 complet 013 .8 ed 06:30 MCH RBC 04-18-2 28.1 pg 27-31.2 complet Qn 013 ed Auto 06:30 MEAN 04-18-2 31.6 31.8-35 complet CORPUSC 013 g/dl .4 ed ULAR 06:30 HGB CONC RDW RBC -18-2 13.9 % 11.5-17 complet Auto 013 .5 [...] K/MM3 ed Bld 06:30 Auto Glucose dC [facility] (12-02-2012 21:23) Glucose 347 70-110 High complet BldC 013 mg/dl alert ed Glucomt 21:23 r-nc Glucose BldC [facility]tr-[facility] (12-02-2012 16:29) Glucose 12-02- 370 70-110 High complet BldC 013 mg/dl alert ed Glucomt 16:29 r-[facility] Glucose d-[facility] (12-02-2012 11:40) Glucose 12-02- 530 74-106 High complet 013 mg/dL alert ed Bld-n 11:40 c Glucose BldC [facility] (12-02-2012 11:26) Glucose 12-02-2 537 70-110 High complet BldC 013 mg/dl alert ed Glucomt 11:26 r-mCnc Glucose BldC [facility] (12-02-2012 06:15) Glucose 12-02-2 Greater 70-110 High [...] Bld 013 M/mm3 ed Auto 06:10 Hgb 15.3 12.2-16 complet Bld-mCn 013 g/dL .2 ed c 06:10 Hct Fr 04-17-2 49.6 % 37.0-47 complet Bld 013 .0 ed 06:10 MCV RBC 12-02-2 89.9 fl 82.2-97 complet 013 .8 ed 06:10 MCH RBC 12-02-2 27.7 pg 27-31.2 complet Qn 013 ed Auto 06:10 MEAN 12-02-2 30.8 31.8-35 complet CORPUSC 013 g/dl .4 ed ULAR 06:10 HGB CONC RDW RBC 12-02-2 14.2 % 11.5-17 complet Auto 013 .5 ed 06:10 Platele 17-2 337 142-424 complet t Bld 013 K/mm3 ed Ql 06:10 Manual MEAN 12-02-2 7.7 fl 7.4-10. complet PLATELE 013 4 ed T 06:10 VOLUME Granulo 17-2 86.1 % 37.0-80 complet cytes 013 .0 ed Fr Bld 06:10 Auto LYMPH % -17-2 11.8 % 10-50.0 complet 013 ed 06:10 Monocyt -17-2 1.5 % 1.7-9.3 complet es Fr 013 [...] Auto COMPREHENSIVE METABOLIC PANEL (12-01-2012 21:45) Glucose 16- 153 74-106 complet 013 mg/dL ed Bld-mCn 21:45 c BUN -16-2 23 7-18 complet Bld-mCn 013 mg/dL ed c 21:45 Creat -16-2 1.0 0.6-1.0 complet SerPl-m 013 mg/dL ed Cnc 21:45 ESTIMAT 16-2 95 50-200 complet ED 013 ML/MIN ed CREATIN 21:45 INE CLEARAN CE GFR 12-01-2 58 59- complet (ESTIMA 013 ML/MIN ed NICOLE) 21:45 Sodium 16-2 139 136-145 complet SerPl-s 013 mmoL/L ed Cnc 21:45 Potassi 16-2 4.8 3.5-5.1 complet um 013 mmoL/L ed SerPl-s 21:45 Cnc Chlorid 12-01-2 103 98-107 complet e 013 mmoL/L ed SerPl-s 21:45 Cnc CO2 12-01-2 26 21.0-32 complet SerPl-s 013 mmoL/L .0 ed Cnc 21:45 Calcium 16-2 9.5 8.5-10. complet 013 mg/dL 1 ed SerPl-m 21:45 Cnc Prot 16-2 8.0 6.4-8.2 complet SerPl-m 013 gm/dL ed Cnc 21:45 Albumin -16-2 3.5 3.4-5.0 complet 013 gm/dL ed SerPl-m 21:45 Cnc Globuli 16-2 4.5 1.3-3.2 complet n 013 gm/dL ed Ser-mCn 21:45 c Albumin 16-2 0.8 UNK 1.1-1.8 complet /Glob 013 ed SerPl-m 21:45 Rto Bilirub 16-2 0.4 0.2-1.0 complet 013 mg/dL ed SerPl-m 21:45 Cnc AST 16-2 33 U/L 15-37 complet SerPl-c 013 ed Cnc 21:45 ALT 16-2 54 U/L 30-65 complet SerPl-c 013 ed Cnc 21:45 ALP 16-2 117 U/L 50-136 complet SerPl-c 013 ed [...] ed ULAR 21:45 HGB CONC RDW RBC 04-16-2 14.3 % 11.5-17 complet Auto 013 .5 [...] 013 K/mm3 ed Bld 21:45 Auto Eosinop 04-16-2 0.4 0.0-0.4 complet hil # 013 K/mm3 ed Bld 21:45 Auto Basophi 04-16-2 0.1 0-0.2 complet ls # 013 K/MM3 ed Bld 21:45 Auto Procedures Procedure DOS Code Location Performer Comment DETERMINA 50623 DWAYNE RICE TION 7 [facility] C[facility] E [facility] OPH [address] [place] [facility] VISION XM&EVAL CENTER COMPRHNSV ESTAB PT 1/> PRTBLE E0431 ARI[facility] THAKKRA GASEOUS 7 HOME HOME O2 SYS MEDICAL MEDICAL RENT; EQUIPME EQUIPME FLWMTR HUMIDFR&M ASK O2 CONC 1 E1390 ARIANE THAKKAR DEL PORT 7 HOME HOME 85%/>02 MEDICAL MEDICAL CONC AT EQUIPME EQUIPME PRSC FLW RATE ALBUMIN 28313 [facility] L[facility] URINE 7 [facility] MICROALBU INC INC MIN QUANTIATI VE COMPREHEN 13622 [facility] SIVE 7 [facility] METABOLIC INC INC PANEL DRUG TEST 82290 [facility] PRSMV 7 [facility] QUAL DIR INC INC OPTICAL OBS PER DAY CREATININ 20703 [facility] E OTHER 7 [facility] SOURCE INC INC BLOOD 26473 [facility] COUNT 7 [facility] COMPLETE INC INC AUTO&AUTO DIFRNTL WBC COLLECTIO 25755 [facility] N VENOUS 7 [facility] BLOOD INC INC VENIPUNCT URE LIPID 32288 [facility] PANEL 7 [facility] INC INC HEMOGLOBI 17723 [facility] N 7 [facility] GLYCOSYLA INC INC NICOLE A1C BASIC 60493 [facility] METABOLIC 7 [facility] PANEL INC INC CALCIUM TOTAL COLLECTIO 79746 [facility] N VENOUS 7 [facility] BLOOD INC INC VENIPUNCT URE URNLS DIP 93991 [facility] 7 [facility] STICK/TAB INC INC LET REAGENT AUTO MICROSCOP Y SUSCEPTIB 24897 NEFT[facility]I L[facility] LTY STDY 7 [facility] ANTIMICRB INC INC IAL MICRO/AGA R DILUTJ CULTURE 45785 [facility] BACTERIAL 7 [facility] INC INC QUANTTATI VE COLONY COUNT URINE CULTURE 35990 [facility] BCT 7 [facility] ISOL&PRSM INC INC PTV ID ISOLATE EA URINE BASIC 65297 [facility]FT[facility] LINDSAY METABOLIC 7 [facility] PANEL INC INC CALCIUM TOTAL COLLECTIO 10603 [facility] N VENOUS 7 [facility] BLOOD INC INC VENIPUNCT URE O2 CONC 1 E1390 [facility] THAKKAR DEL PORT 7 HOME HOME 85%/>02 MEDICAL MEDICAL CONC AT EQUIPME EQUIPME PRSC FLW RATE PRTBLE E0431 ARIANE THAKKAR GASEOUS 7 HOME HOME O2 SYS MEDICAL MEDICAL RENT; EQUIPME EQUIPME FLWMTR HUMIDFR&M ASK DRUG TEST 75773 [facility] PRSMV 7 [facility] QUAL DIR INC INC OPTICAL OBS PER DAY ECHO 51663 [facility] TTHRC R-T 7 [facility] 2D INC INC W/WOM-MOD E COMPL SPEC&COLR D BLOOD 81635 [facility] COUNT 7 [facility] COMPLETE INC INC AUTO&AUTO DIFRNTL WBC COMPREHEN 60563 [facility] SIVE 7 [facility] METABOLIC INC INC PANEL COLLECTIO 41096 [facility] L[facility] N VENOUS 7 [facility] BLOOD INC INC VENIPUNCT URE NATRIURET 80819 [facility] IC 7 [facility] PEPTIDE INC INC ECG 84702 NEFT[facility]I NEFT[facility]I ROUTINE 7 [facility] ECG INC INC W/LEAST 12 LDS TRCG ONLY W/O I&[place] [address] [facility] L[facility] FREE 7 [facility] [place] [address] [facility] L[facility] THYROID 7 [facility] STIMULATI INC INC NG HORMONE TSH 3D 95662 NEFT[facility]I LINDSA[facility] RENDERING 7 [facility] W/INTERP INC INC & POSTPROCE SS SUPERVISI ON MRI 03902 [place] SPINAL 7 MEDICAL CANAL IMAGING LUMBAR ASS W/O CONTRAST MATERIAL O2 CONC 1 E1390 ARIANE THAKKAR DEL [place] 7 HOME HOME 85%/>02 MEDICAL MEDICAL CONC AT EQUIPME EQUIPME PRSC FLW RATE PRTBLE E0431 ARIANE THAKKAR GASEOUS 7 HOME HOME O2 SYS MEDICAL MEDICAL RENT; EQUIPME EQUIPME FLWMTR HUMIDFR&M ASK CULTURE 06600 [facility]FT[facility] L[facility] BACTERIAL 7 [facility] INC INC QUANTTATI VE COLONY COUNT URINE BASIC 51121 NEFTALI LINDSAY METABOLIC 7 [facility] PANEL INC [facility] 34171 [facility] 6 MEDICAL DAY SERV MANAGEMEN FOUNDATIO T > 30 N MIN SBSQ 84229 [facility] 6 MEDICAL CARE/DAY SERV 25 FOUNDATIO MINUTES N SBSQ 31033 [facility] 6 MEDICAL KER CARE/DAY SERV 25 FOUNDATIO MINUTES N GROUND A0425 [facility] 6 METRO METRO PER AMBULANCE AMBULANCE STATUTE MILE DUP-SCAN 26893 [facility] 6 MEDICAL JESSICA COMPLETE SERV FOUNDATIO BILATERAL N STUDY AMBULANCE A0428 [facility] 6 METRO METRO BLS AMBULANCE AMBULANCE NONEMERGE NCY TRANSPORT GROUND A0425 [facility] MEDICAL MEDICAL PER RESPONSE RESPONSE STATUTE MILE SBSQ 83919 [facility] 6 MEDICAL KER CARE/DAY SERV 25 FOUNDATIO MINUTES N AMB A0427 [facility] 6 MEDICAL MEDICAL ALS RESPONSE RESPONSE EMERGENCY TRANSPORT LEVEL 1 SBSQ 83635 [facility] 6 MEDICAL KER CARE/DAY SERV 25 FOUNDATIO MINUTES N SBSQ 15240 [facility] 6 MEDICAL CARE/DAY SERV 25 FOUNDATIO MINUTES N SBSQ 69423 [facility] 6 MEDICAL CARE/DAY SERV 25 FOUNDATIO MINUTES N SBSQ 86985 [facility] 6 MEDICAL CARE/DAY SERV 25 FOUNDATIO MINUTES N SBSQ 89549 [facility] 6 MEDICAL CARE/DAY SERV 25 FOUNDATIO MINUTES N SBSQ 09632 [facility] 6 MEDICAL CARE/DAY SERV 25 FOUNDATIO MINUTES N RADEX 09815 [facility] SPINE 6 RADIOLOGY III CERVICAL 2 OR 3 VIEWS O2 CONC 1 E1390 [facility] THAKKAR [place] 6 HOME HOME 85%/>02 MEDICAL MEDICAL CONC AT EQUIPME EQUIPME PRSC FLW RATE SBSQ [address] [place] [address] MEDICAL CARE/DAY SERV 25 FOUNDATIO MINUTES N PRTBLE E0431 ARIANE TOBARRELL GASEOUS 6 HOME HOME O2 SYS MEDICAL MEDICAL RENT; EQUIPME EQUIPME FLWMTR HUMIDFR&M ASK SBSQ 02238 [place] [address] MEDICAL CARE/DAY SERV 25 FOUNDATIO MINUTES N INITIAL 20264 [place] [address] MEDICAL CARE/DAY SERV 50 FOUNDATIO MINUTES N GROUND A0425 [facility] 6 METRO METRO PER AMBULANCE AMBULANCE STATUTE MILE AMBULANCE A0428 [facility] 6 METRO METRO BLS AMBULANCE AMBULANCE NONEMERGE NCY TRANSPORT UNLISTED A0999 [facility] 6 METRO METRO SERVICE [facility] 378[address] [facility] 6 MEDICAL DAY SERV MANAGEMEN FOUNDATIO T 30 N MIN/< SBSQ 66730 [place] [address] MEDICAL CARE/DAY SERV 25 FOUNDATIO MINUTES N SBSQ 18311 [facility] 6 MEDICAL CARE/DAY SERV 25 FOUNDATIO MINUTES N CRITICAL 61575 [facility] 6 MEDICAL ILL/INJUR SERV ED FOUNDATIO PATIENT N INIT 30-74 MIN ECG 38614 [facility] ROUT[facility] 6 MEDICAL ECG SERV W/LEAST FOUNDATIO 12 LDS N I&R ONLY CRITICAL 38371 [facility] 6 MEDICAL Y-GARCIA ILL/INJUR SERV HERI ED FOUNDATIO PATIENT N INIT 30-74 MIN ECHO 48732 [place] LILLIE SALINAS TTHRC R-T 6 MEDICAL 2D SERV W/WOM-MOD FOUNDATIO E COMPL N SPEC&COLR D CT THORAX 34035 [place] AKTERYNAK W/O 6 MEDICAL [place]YA [place] [address] [place] VERONIKA ABDOMEN & 6 MEDICAL GUSTAVO PELVIS SERV W/O FOUNDATIO CONTRAST N MATERIAL RADIOLOGI 31338 [place] MARSHALL CRISTIANO C 6 MEDICAL EXAMINATI SERV ON CHE[place] [address] [place] PARKER AYALA HEAD/BRAI 6 MEDICAL N W/O SERV CONTRAST FOUNDATIO MATERIAL N MONITORIN [id number] [facility] G 6 [facility] ARTERIAL E [facility] PERIPHER[facility] L PERQ MONITORIN [id number] [facility] G 6 HEALTHCAR HEALTHCAR ARTERIAL E E [facility] PERIPHERA L PERQ INSERTION [id number] [facility] INFUSION 6 HEALTHCAR HEALTHCAR DEVC E E SUPERIOR [facility] HOSPITALS [place] PERQ INSERTION [id number] [facility] INFUSION 6 HEALTHCAR HEALTHCAR DEVC RT E E [facility] N VEIN PERQ ECG 63781 NEFTALI LINDSAY ROUTINE 6 [facility] ECG INC INC W/LEAST 12 LDS TRCG ONLY W/O I&R RADIOLOGI 93130 [place] TRUE RAE C 6 MEDICAL EXAMINATI SERV ON CHEST FOUNDATIO SINGLE N [place]ONT[place] COMPREHEN 21753 NEFT[facility]I L[facility]SA[facility] SIVE 6 [facility] [place] [address] NEFTALI LINDSAY LACTATE 6 [place] [address] NEFTALI LINDSAY INFUSION 6 [facility] THER INC INC PROPH ADDL SEQUENTIA L TO 1 HR CREATINE 13233 NEFTALI LINDSAY KINASE MB 6 [facility] FRACTION INC INC ONLY CULTURE 54584 NEFTALI LINDSAY BACTERIAL 6 [facility] INC INC QUANTTATI VE COLONY COUNT URINE CUL BACT 27968 NEFT[facility]I LINDSAY AEROBIC 6 [facility] ADDL INC INC METHS DEFINITIV E EA ISOL CREATINE 21561 NEFTALI NEFTALI KINASE 6 [facility] TOTAL INC INC CULTURE 65173 NEFTALI NEFTALI BACTERIAL 6 [facility] BLOOD INC INC AEROBIC W/ID ISOLATES BLOOD 74581 NEFTALI LINDSAY COUNT 6 [facility] COMPLETE INC INC AUTO&[place] [address] NEFTALI NEFTALI TROPONIN 6 [facility] QUANTITAT INC INC CORY ECG 96574 NEFTALI NOONAN ROUTINE 6 [facility] W/LEAST P 12 LDS I&R ONLY AMB A0427 [facility] SERVICE 6 AMBULANCE AMBULANCE ALS SERVICE SERVICE EMERGENCY TRANSPORT LEVEL 1 CRITICAL [address] [facility] CARE 6 PHYSICIAN ILL/INJUR S, PLLC ED PATIENT INIT 30-74 MIN COLLECTIO 28969 NEFTALIKODY DANIELON N VENOUS 6 [facility] BLOOD INC INC VENIPUNCT URE GROUND A0425 [facility] MILEAGE 6 AMBULANCE AMBULANCE [place] [address] NEFTALI NEFTALI INFUSION 6 [facility] THERAPY/P INC INC ROPHYLAXI S /DX 1ST TO 1 [place] [address] NEFTALI NEFTALI INFUSION 6 [facility] THERAPY INC INC PROPHYLAX IS/DX EA HOUR URNLS DIP 03448 NEFTALI NEFTALI 6 [facility] STICK/TAB INC INC LET REAGENT AUTO MICROSCOP Y CT THORAX 02856 NEFTALI LINDSAY W/O 6 [facility] CONTRAST INC INC MATERIAL 3D 92295 [place] NILA RENDERING 6 MEDICAL IZABEL W/INTERP IMAGING & ASS POSTPROCE SS SUPERVISI ON RADEX 39971 [place] SNYDER ALL RIBS BI 6 MEDICAL W/POSTERO IMAGING ANT CH ASS MINIMUM 4 VIEWS RADEX 74231 [place] SNYDER ALL HUMERUS 6 MEDICAL MINIMUM 2 IMAGING VIEWS ASS PRTBLE E0431 ARIANE THAKKAR GASEOUS 6 HOME HOME O2 SYS MEDICAL MEDICAL RENT; EQUIPME EQUIPME FLWOKR HUMIDFR&M ASK O2 CONC 1 E1390 ARIANE THAKKAR DEL PORT 6 HOME HOME 85%/>02 MEDICAL MEDICAL CONC AT EQUIPME EQUIPME [facility] FLW RATE CULTURE 91476 NEFTALI LINDSAY BCT 6 [facility] ISOL&PRSM INC INC PTV ID ISOLATE EA URINE ALBUMIN 26910 NEFTALI LINDSAY URINE 6 [facility] MICROALBU INC INC MIN QUANTIATI VE CULTURE 44245 NEFTALI LINDSAY BACTERIAL 6 [facility] INC INC QUANTTATI VE COLONY COUNT URINE HEMOGLOBI 32509 NEFTALI LINDSAY N 6 [facility] GLYCOSYLA INC INC NICOLE A1C PPSV23 57227 [facility] ELDER VACCINE 2 6 PHYSICIAN MANUELA YRS OR S GROUP OLDER FOR SUBQ/IM USE O2 CONC 1 E1390 ARIANE THAKKAR DEL PORT 6 HOME HOME 85%/>02 MEDICAL MEDICAL CONC [facility] E[facility] PRTBLE E0431 ARIANE THAKKAR GASEOUS 6 HOME HOME O2 SYS MEDICAL MEDICAL RENT; EQUIPME EQUIPME FLWMTR HUMIDFR&M ASK PRTBLE E0431 ARIANE THAKKAR GASEOUS 6 HOME HOME O2 SYS MEDICAL MEDICAL RENT; EQUIPME EQUIPME FLWMTR HUMIDFR&M ASK O2 CONC 1 E1390 ARIANE THAKKAR DEL [place] 6 HOME HOME 85%/>02 MEDICAL MEDICAL CONC [facility] [id number] NEFTALI LINDSAY OBSERVATI 6 [facility] ON INC INC SERVICE PER HOUR BLOOD 08173 NEFTALI LINDSAY COUNT 6 [facility] COMPLETE INC INC AUTO&AUTO DIFRNTL WBC COLLECTIO 55556 NEFTALI LINDSAY N VENOUS 6 [facility] BLOOD INC INC VENIPUNCT URE COMPREHEN 95087 NEFTALI LINDSAY SIVE 6 [facility] METABOLIC INC INC PANEL GLUC BLD 47526 NEFTALI LINDSAY GLUC MNTR 6 [facility] DEV INC INC CLEARED FDA SPEC HOME USE PRESSURIZ 17022 NEFTALI LINDSAY ED/NONPRE 6 [facility] SSURIZED INC INC INHALATIO N TREATMENT NONINVASI 63939 NEFTALI LINDSAY VE 6 [facility] EAR/PULSE INC INC OXIMETRY SINGLE DETER PRESSURIZ 10545 NEFTALI LINDSAY ED/NONPRE 6 [facility] SSURIZED INC INC INHALATIO N TREATMENT NONINVASI 96314 NEFTALI LINDSAY VE 6 [facility] EAR/PULSE INC INC OXIMETRY SINGLE DETER BASIC 55349 NEFTALI LINDSAY METABOLIC 6 [facility] PANEL INC INC CALCIUM TOTAL GLUC BLD 46118 NEFTALI LINDSAY GLUC MNTR 6 [facility] DEV INC INC CLEARED FDA SPEC HOME USE COMPREHEN 47220 NEFTALI LINDSAY SIVE 6 [facility] METABOLIC INC INC PANEL COLLECTIO 52553 NEFTALI LINDSAY N VENOUS 6 [facility] BLOOD INC INC VENIPUNCT URE BLOOD 66025 NEFTALI LINDSAY COUNT 6 [facility] COMPLETE INC INC AUTO&[place] [address] NEFTALI LINDSAY TROPONIN 6 [facility] QUANTITAT INC INC CORY CREATINE 20387 NEFTALI LINDSAY KINASE MB 6 [facility] G0378 NEFTALI LINDSAY OBSERVATI 6 [facility] ON INC INC SERVICE PER HOUR CREATINE 16813 NEFTALI LINDSAY KINASE 6 [facility] TOTAL INC INC PHYSICAL 54165 NEFTALI LINDSAY THERAPY 6 [facility] EVALUATIO INC INC N CREATINE 43706 NEFTALI LINDSAY KINASE 6 [facility] TOTAL INC INC THER 80401 NEFTALI LINDSAY PROPH/DX 6 [facility] NJX IV INC INC PUSH SINGLE/1S [facility] G0378 NEFTALI LINDSAY OBSERVATI 6 [facility] ON INC INC SERVICE PER HOUR CREATINE 92993 NEFTALI LINDSAY KINASE MB 6 [facility] FRACTION INC INC ONLY RADIOLOGI 29412 NEFTALI LINDSAY C 6 [facility] EXAMINATI INC INC ON CHEST [place] FRONTAL BLOOD 63902 NEFTALI LINDSAY COUNT 6 [facility] COMPLETE INC INC AUTO&[place] [address] NEFTALI LINDSAY TROPONIN 6 [facility] QUANTITAT INC INC CORY ECG 53056 NEFTALI NOONAN ROUTINE 6 [facility] W/LEAST P 12 LDS I&R ONLY COLLECTIO 54698 NEFTALI LINDSAY N VENOUS 6 [facility] BLOOD INC INC VENIPUNCT URE COMPREHEN 40957 NEFTALI LINDSAY SIVE 6 [facility] METABOLIC INC INC PANEL GLUCOSE 65275 NEFTALI LINDSAY QUANTITAT 6 [facility] CORY BLOOD INC INC XCPT REAGENT STRIP GLUC BLD 58698 NEFTALI LINDSAY GLUC MNTR 6 [facility] DEV INC INC CLEARED FDA SPEC HOME USE NONINVASI 43126 NEFTALI LINDSAY VE 6 [facility] EAR/PULSE INC INC OXIMETRY SINGLE DETER PRESSURIZ 97595 NEFTALI LINDSAY ED/NONPRE 6 [facility] SSURIZED [place] [address] NEFTALI [facility]INDSAY 1/> AREAS 6 [facility] EA 15 INC INC MIN GAIT TRAINJ W/STAIR ECG 64218 NEFTALI LINDSAY ROUTINE 6 [facility] ECG INC INC W/LEAST 12 LDS TRCG ONLY W/O I&R US SOFT 39537 NEFTALI LINDSAY TISSUE 6 [facility] HEAD & INC INC NECK REAL TIME IMGE DOCM COLLECTIO 15916 NEFTALI LINDSAY N VENOUS 6 [facility] BLOOD INC INC VENIPUNCT URE BASIC 52703 NEFTALI LINDSAY METABOLIC 6 [facility] [place] [address] NEFTALI LINDSAY FREE 6 [facility] [address] NEFTALI LINDSAY THYROID 6 [facility] STIMULATI INC INC NG HORMONE TSH ECG 65913 NEFTALI LINDSAY ROUTINE 6 [facility] ECG INC INC W/LEAST 12 LDS TRCG ONLY W/O I&R PRTBLE E0431 ARIANE THAKKAR GASEOUS 6 HOME HOME O2 SYS MEDICAL MEDICAL RENT; EQUIPME EQUIPME FLWMTR HUMIDFR&M ASK IMPLANTAT 93720 [facility] ION 6 PHYSICIAN MAT PT-ACTIVA S GROUP NICOLE CARDIAC EVENT RECORDER O2 CONC 1 E1390 ARIANE MCALLISTER PORT 6 HOME HOME 85%/>02 MEDICAL MEDICAL CONC AT EQUIPME EQUIPME PRSC FLW RATE DUPLEX 01715 ALESHA SNYDER SCAN 6 MEDICAL EXTRACRAN IMAGING IAL ART ASS COMPL BI STUDY INSERTION [id number] NEFTALI LINDSAY MON DEVC 6 [facility] CHEST INC INC SUBQ TISSUE & FASC OPEN ECG 79671 NEFTALI BONILLA JR ROUTINE 6 [facility] W/LEAST P 12 LDS I&R ONLY RADIOLOGI 67474 ALESHA SNYDER ALL C 6 MEDICAL EXAMINATI IMAGING ON CHEST ASS SINGLE VIEW FRONTAL O2 CONC 1 E1390 ARIANE MCALLISTER PORT [...] MEDICAL RENT; EQUIPME EQUIPME FLWMTR HUMIDFR&M ASK NERVE 61479 [facility] CONDUCTIO 6 N N STUDIES NEUROLOGY 9-10 STUDIES NEEDLE 03805 [facility] EMG EA 6 N EXTREMTY NEUROLOGY W/PARASPI NL AREA COMPLETE INJECTION 96657 FALLIS CHINA 1 TENDON 6 ML DORIS SHEATH/LI GAMENT APONEUROS IS INJECTION J3301 FALLIS CHINA 6 ML DORIS TRIAMCINO LONE ACETONIDE NOS 10 MG ECG 68695 NEFTALI LINDSAY ROUTINE 6 [facility] ECG INC INC W/LEAST 12 LDS TRCG ONLY W/O I&R PRTBLE E0431 ARIANE TOBARRELL GASEOUS 6 HOME HOME O2 SYS MEDICAL MEDICAL RENT; EQUIPME EQUIPME FLWMTR HUMIDFR&M ASK O2 CONC 1 E1390 ARIANE THAKKAR DEL PORT 6 HOME HOME 85%/>02 MEDICAL MEDICAL CONC AT EQUIPME EQUIPME PRSC FLW RATE RADIOLOGI 53559 ALESHA SNYDER ALL C 6 MEDICAL EXAMINATI IMAGING ON FOOT 2 ASS VIEWS RADEX 45968 NEFTALI LINDSAY FOOT 6 [facility] COMPLETE INC INC MINIMUM 3 VIEWS POLYSOM 35649 NEFTALI LINDSAY 6/>YRS 6 [facility] SLEEP 4/> INC INC ADDL RENZO ATTND DETERMINA 58176 DW[facility]NE PRASHANTAMBERLY TION 6 [facility] E STATE O2 CONC 1 E1390 ARIANE THAKKAR DEL PORT 6 HOME HOME 85%/>02 MEDICAL MEDICAL CONC AT EQUIPME EQUIPME PRSC FLW RATE OPHTH 31609 [place] [facility] 6 VISION ANG XM&EVAL CENTER COMPRHNSV ESTAB PT 1/> PRTBLE E0431 ARIANE THAKKAR GASEOUS 6 HOME HOME O2 SYS MEDICAL MEDICAL RENT; EQUIPME EQUIPME FLWMTR HUMIDFR&M ASK ECG 89283 [facility] ROUTINE 6 PHYSICIAN MAT ECG S GROUP W/LEAST 12 LDS I&R ONLY DUP-SCAN 38480 NEFTALI LINDSAY LXTR 6 [facility] ART/ARTL INC INC BPGS UNI/LMTD STUDY DUP-SCAN 86428 ALESHA SNYDER ALL XTR VEINS 6 MEDICAL IMAGING UNILATERA ASS L/LIMITED STUDY ECG 29918 NEFTALI LINDSAY ROUTINE 6 [facility] ECG INC INC W/LEAST 12 LDS TRCG ONLY W/O I&R ECG 83012 NEFTALI LINDSAY ROUTINE 6 [facility] ECG INC INC W/LEAST 12 LDS TRCG ONLY W/O I&R FOR DIAB A5513 FALLIS CHINA ONLY MX 6 ML DORIS DNSITY INSRT CSTM MOLD CSTM EA F5 05478 [employer] COAGULATI [place] city [place] [employer] , [employer] ON FACTOR V ANAL LEIDEN VARIANT DIAB ONLY A5500 FALLIS CHINA FIT CSTM 6 ML DORIS PREP&SPL SHOE MX DNSITY INSRT F2 GENE 64611 [employer] ANALYSIS 6 , LLC , LLC 20370X >A VARIANT MTHFR 56049 [employer] , [employer] ANALYSIS COMMON VARIANTS ECHO 20584 NEFTALI LINDSAY TTHRC R-T 6 [facility] 2D INC INC W/WOM-MOD E COMPL SPEC&COLR D DUPLEX 80571 NEFTALI LINDSAY SCAN 6 [facility] EXTRACRAN INC INC IAL ART COMPL BI STUDY PRTBLE E0431 ARIANE THAKKAR GASEOUS 6 HOME HOME O2 SYS MEDICAL MEDICAL RENT; EQUIPME EQUIPME FLWMTR HUMIDFR&M ASK O2 CONC 1 E1390 ARIANE THAKKAR DEL PORT 6 HOME HOME 85%/>02 MEDICAL MEDICAL CONC AT EQUIPME EQUIPME PRSC FLW RATE ECG 20983 [facility] ROUTINE 6 PHYSICIAN MAT ECG S GROUP W/LEAST 12 LDS I&R ONLY ECG 48630 NEFTALI LINDSAY ROUTINE 6 [facility] ECG INC INC W/LEAST 12 LDS TRCG ONLY W/O I&R NON-INVAS 08992 NEFTALI LINDSAY CORY 6 [facility] PHYSIOLOG INC INC IC STUDY EXTREMITY 3 LEVLS SBSQ 63764 [facility] 6 ML DORIS CARE/DAY 35 MINUTES RADIOLOGI 84712 [place] SNYDER ALL C 6 MEDICAL EXAMINATI IMAGING ON FOOT 2 ASS VIEWS INITIAL 45829 [facility] 6 ML DORIS CARE/DAY 70 MINUTES SBSQ [id number] [place] [address] 6 PHYSICIAN MANUELA CARE/DAY S GROUP [address] THORAX 82990 [facility] MARICHUY W/O 6 MEDICAL MIGUEL CONTRAST IMAGING MATERIAL ASS RADIOLOGI 84919 [place] SNYDER ALL C 6 MEDICAL EXAMINATI IMAGING ON CHEST ASS SINGLE VIEW FRONTAL PNEUMOCOC 4040F FALLIS FALLIS LUIZ 6 ML ML VACCINE ADMIN RCVD PRIOR ELIG CLIN G8427 FALLIS CHINA ATTSTS 6 ML DORIS DOC M REC OBTD UPD/REV PT MEDS MOST 3046F FALLIS CHINA RECENT 6 ML DORIS HEMOGLOBI N A1C LEVEL >9.0% INFLUENZA G8484 FALLIS FALLIS IMMUN 6 ML ML NOT ADMINISTE RED RSN NOT GIVEN BMI DOC G8420 FALLIS CHINA W/I 6 ML DORIS NORMAL RENZO & NO F/U PLAN REQUIRED LANCETS A4259 CLINIC CLINIC PER BOX 6 [facility]ARMACY PHARMACY OF 100 BLD GLU A4253 [facility]INIC CLINIC TEST/REAG 6 PHARMACY PHARMACY T STRIPS HOME BLD GLU FRI-50 RADIOLOGI 54816 NEFTALI LINDSAY C EXAM 6 [facility] CHEST 2 INC INC VIEWS FRONTAL&L ATERAL O2 CONC 1 E1390 ARIANE THAKKAR DEL PORT 6 HOME HOME 85%/>02 MEDICAL MEDICAL CONC AT EQUIPME EQUIPME PRSC FLW RATE PRTBLE E0431 ARIANE TOBARRELL GASEOUS 6 HOME HOME O2 SYS MEDICAL MEDICAL RENT; EQUIPME EQUIPME FLWMTR HUMIDFR&M ASK DRUG TST G0477 NEFTALI LINDSAY PRESUMP;C 6 [...] COMPRESSO MEDICAL MEDICAL R EQUIPME EQUIPME COLLECTIO 36711 NEFTALI LINDSAY N VENOUS 5 [facility] BLOOD INC INC VENIPUNCT URE COMPREHEN 02911 NEFTALI LINDSAY SIVE 5 [facility] METABOLIC INC INC PANEL LIPID 77720 NEFTALI LINDSAY PANEL 5 [facility] INC INC HEMOGLOBI 66437 NEFTALI LINDSAY N 5 [facility] MEM [...] HOME COMPRESSO MEDICAL MEDICAL R EQUIPME EQUIPME BLOOD 86329 NEFTALI LINDSAY COUNT 5 [facility] COMPLETE INC INC AUTO&AUTO DIFRNTL WBC COMPREHEN 90825 NEFTALI LINDSAY SIVE 5 [facility] METABOLIC INC INC PANEL COLLECTIO 73266 NEFTALI LINDSAY N VENOUS 5 [facility] BLOOD INC INC VENIPUNCT URE HEMOGLOBI 33042 NEFTALI LINDSAY N 5 [facility] GLYCOSYLA INC INC NICOLE A1C LIPID 14338 NEFTALI LINDSAY PANEL 5 [facility] INC INC O2 CONC 1 E1390 ARIANE MCALLISTER PORT [...] YOUR SM VOL 5 PHARMACY PHARMACY NONFILTR [employer] PNEUMAT NEBULIZR DISPBL ALBUTEROL J7620 YOUR [...] CONC AT EQUIPME EQUIPME PRSC FLW RATE ANGIOGRAP 81181 [facility] HY [facility] EXTREMITY MEDICAL G BILATERAL RS&I AORTOGRAP 13860 [facility] HY [facility] ABDOMINAL MEDICAL G SERIALOGR APHY RS&I INTRODUCT 49878 [facility] ION 5 [facility] NEBULIZER E0570 ARIANE THAKKAR WITH 5 HOME HOME COMPRESSO MEDICAL MEDICAL R EQUIPME EQUIPME NON-INVAS 17404 [facility] CORY 5 MEDICAL MIGUEL PHYSIOLOG IMAGING IC STUDY ASS EXTREMITY 3 LEVLS O2 CONC 1 E1390 [...] CONC AT EQUIPME EQUIPME PRS FLW RATE PHARM G0333 YOUR YOUR DISPEN 5 PHARMACY PHARMACY FEE INHAL [employer]; INITIAL 30-DAY SUPPLY ALBUTEROL J7620 YOUR YOUR TO 2.5 5 PHARMACY PHARMACY [employer] IPRATROPI UM BROM TO 0.5 MG NEBULIZER E0570 ARIANE THAKKAR WITH 5 HOME HOME COMPRESSO MEDICAL MEDICAL R EQUIPME EQUIPME ADMN SET A7003 YOUR YOUR SM VOL 5 PHARMACY PHARMACY NONFILTR [employer] PNEUMAT NEBULIZR DISPBL RADIOLOGI 07842 [facility] C EXAM 5 MEDICAL IZABEL CHEST 2 IMAGING VIEWS ASS FRONTAL&L ATERAL O2 CONC 1 E1390 ARIANE MCALLISTER PORT 4 HOME HOME 85%/>02 MEDICAL MEDICAL CONC AT EQUIPME EQUIPME [facility] FLW RATE PRTBLE E0431 ARIANE THAKKAR GASEOUS 4 HOME HOME O2 SYS MEDICAL MEDICAL RENT; EQUIPME EQUIPME FLWMTR HUMIDFR&M ASK LANCETS A4259 CLINIC CLINIC PER BOX 4 PHARMACY PHARMACY OF 100 BLD GLU A4253 CLINIC CLINIC TEST/REAG 4 PHARMACY PHARMACY T STRIPS HOME BLD GLU MON-50 E-STIM G0283 NEFTALI LINDSAY 1/> AREAS 4 [facility] OTH THAN INC INC WND CARE PART TX PLAN APPLICATI 00044 NEFTALI LINDSAY ON 4 [facility] MODALITY INC INC 1/> AREAS HOT/COLD PACKS MANUAL 82862 NEFTALI LINDSAY THERAPY 4 [facility] TQS 1/> INC INC REGIONS EACH 15 MINUTES THERAPEUT 00894 NEFTALI LINDSAY IC PX 1/> 4 [facility] AREAS INC INC EACH 15 MIN EXERCISES THERAPEUT 98979 NEFTALI LINDSAY IC PX 1/> 4 [facility] AREAS INC INC EACH 15 MIN EXERCISES PHYSICAL 65753 NEFTALI LINDSAY THERAPY 4 [facility] EVALUATIO INC INC N APPLICATI 30270 NEFTALI LINDSAY ON 4 [facility] MODALITY INC INC 1/> AREAS HOT/COLD PACKS E-STIM G0283 NEFTALI LINDSAY 1/> AREAS 4 [facility] OTH THAN INC INC WND CARE PART TX PLAN O2 CONC 1 E1390 ARIANE THAKKAR DEL PORT 4 HOME HOME 85%/>02 MEDICAL MEDICAL CONC AT EQUIPME EQUIPME PRSC FLW RATE PRTBLE E0431 ARIANE TOBARRELL GASEOUS 4 HOME HOME O2 SYS MEDICAL MEDICAL RENT; EQUIPME EQUIPME FLWMTR HUMIDFR&M ASK MRI 10184 NEFTALI LINDSAY SPINAL 4 [facility] CANAL INC INC LUMBAR W/O CONTRAST MATERIAL 3D 81413 NEFTALI LIDNSAY RENDERING 4 [facility] W/INTERP INC INC & POSTPROCE SS SUPERVISI ON O2 CONC 1 E1390 ARIANE THAKKAR DEL PORT 4 HOME HOME 85%/>02 MEDICAL MEDICAL CONC AT EQUIPME EQUIPME PRSC FLW RATE PRTBLE E0431 ARIANE TOBARRELL GASEOUS 4 HOME HOME O2 SYS MEDICAL MEDICAL RENT; EQUIPME EQUIPME FLWMTR HUMIDFR&M ASK LANCETS A4259 CLINIC CLINIC PER BOX 4 PHARMACY PHARMACY OF 100 BLD GLU A4253 CLINIC CLINIC TEST/REAG 4 PHARMACY PHARMACY T STRIPS HOME BLD GLU MON-50 COLLECTIO 42557 NEFTALI LINDSAY N VENOUS 4 [facility] BLOOD INC INC VENIPUNCT URE COMPREHEN 62968 NEFTALI LINDSAY SIVE 4 [facility] METABOLIC INC INC PANEL LIPID 83139 NEFTALI LINDSAY PANEL 4 [facility] INC INC HEMOGLOBI 81480 NEFTALI LINDSAY N 4 [facility] GLYCOSYLA INC INC NICOLE A1C O2 CONC 1 E1390 ARIANE THAKKAR DEL PORT 4 HOME HOME 85%/>02 MEDICAL MEDICAL CONC AT EQUIPME EQUIPME PRSC FLW RATE PRTBLE E0431 ARIANE ARIANE GASEOUS 4 HOME HOME O2 SYS MEDICAL MEDICAL RENT; EQUIPME EQUIPME FLWMTR HUMIDFR&M ASK BLD GLU A4253 CLINIC CLINIC TEST/REAG 4 PHARMACY PHARMACY T STRIPS HOME BLD GLU MON-50 O2 CONC 1 E1390 ARIANE TOBARRELL DEL PORT 4 HOME HOME 85%/>02 MEDICAL MEDICAL CONC AT EQUIPME EQUIPME PRSC FLW RATE PRTBLE E0431 ARIANE ARIANE GASEOUS 4 HOME HOME O2 SYS MEDICAL MEDICAL RENT; EQUIPME EQUIPME FLWMTR HUMIDFR&M ASK RADIOLOGI 95248 [facility] C EXAM 4 MEDICAL IZABEL CHEST 2 IMAGING VIEWS ASS FRONTAL&L ATERAL ECHO 99941 [place] [facility] CRISTIANO TTHRC R-T 4 MEDICAL 2D SERV W/WOM-MOD FOUNDATIO E COMPL SPEC&COLR D LANCETS A4259 CLINIC CLINIC PER BOX 4 PHARMACY PHARMACY OF 100 BLD GLU A4253 CLINIC CLINIC TEST/REAG 4 PHARMACY PHARMACY T STRIPS HOME BLD GLU MON-50 RADIOLOGI 87164 [facility] C EXAM 4 MEDICAL IZABEL CHEST 2 IMAGING VIEWS ASS FRONTAL&L ATERAL OPHTH 42209 DWAYNE FIELDS [facility] 4 VISION XM&EVAL CENTER COMPRHNSV ESTAB PT 1/> DETERMINA 01886 DWAYNE DUNCANON 4 [facility] LANCETS A4259 CLINIC CLINIC PER BOX 4 PHARMACY PHARMACY OF 100 BLD GLU A4253 CLINIC CLINIC TEST/REAG 4 PHARMACY PHARMACY T STRIPS HOME BLD GLU MON-50 BLD GLU A4253 CLINIC CLINIC TEST/REAG 4 PHARMACY PHARMACY T STRIPS HOME BLD GLU MON-50 LANCETS A4259 CLINIC CLINIC PER BOX 4 PHARMACY PHARMACY OF 100 DUP-SCAN 68789 ALESHA DOTSON XTR VEINS 4 MEDICAL IZABEL COMPLETE IMAGING ASS BILATERAL STUDY RADIOLOGI 96000 ALESHA DOTSON C EXAM 4 MEDICAL IZABEL CHEST 2 IMAGING VIEWS ASS FRONTAL&L ATERAL ECG 32789 NEFTALI BONILLA JR ROUTINE 4 [facility] W/LEAST P 12 LDS I&R ONLY DIAB ONLY A5500 CLINIC CLINIC FIT CSTM 3 PHARMACY PHARMACY PREP&SPL SHOE MX DNSITY INSRT FOR DIAB A5513 CLINIC CLINIC ONLY MX 3 PHARMACY PHARMACY DNSITY INSRT CSTM MOLD CSTM EA LANCETS A4259 CLINIC CLINIC PER BOX 3 [...] PHARMACY T STRIPS HOME BLD GLU MON-50 [place] [address] NEFTALI LINDSAY ESTROGENS 3 [facility] TOTAL INC INC GONADOTRO 42131 NEFTALI LINDSAY PIN 3 [facility] FOLLICLE INC INC STIMULATI NG HORMONE COLLECTIO 18572 NEFTALI LINDSAY N VENOUS 3 [facility] BLOOD INC INC VENIPUNCT URE GONADOTRO 54068 NEFTALI LINDSAY PIN 3 [facility] [place] [address] NEFTALI LINDSAY THYROID 3 [facility] STIMULATI INC INC NG HORMONE TSH BLD GLU A4253 CLINIC CLINIC TEST/REAG 3 PHARMACY PHARMACY T STRIPS HOME BLD GLU MON-50 PHRM Q0514 [facility] DISPENSIN 3 PHARMACY PHARMACY G FEE #591 #591 INHALATIO N RX; PER 90 DAYS ALBUTEROL J7613 [facility] 3 PHARMACY PHARMACY NON-CP #591 #591 PROD THRU DME U DOSE 1 HOSPITAL 13396 [facility] DISCHARGE 3 [facility] DAY INTERNAL MANAGEMEN MED T 30 MIN/< SBSQ 31276 [facility] 3 [facility] CARE/DAY INTERNAL 25 MED MINUTES SBSQ 54521 [facility] 3 [facility] CARE/DAY INTERNAL 25 MED MINUTES SBSQ 99836 [facility] 3 [facility] CARE/DAY INTERNAL 25 MED MINUTES SBSQ 37391 [facility] 3 [facility] CARE/DAY INTERNAL 25 MED MINUTES INITIAL 34098 [facility] 3 [facility] CARE/[facility] INTERNAL 50 MED MINUTES INITIAL 50727 [facility] ON INTERNAL CARE/DAY MED 30 MINUTES ECG 38393 NEFTALI BESCAPO ROUTINE 3 [facility] W/LEAST P 12 LDS I&R ONLY RADIOLOGI 02209 [facility] C EXAM 3 MEDICAL IZABEL CHEST 2 IMAGING VIEWS ASS FRONTAL&L ATERAL BLD GLU A4253 CLINIC CLINIC TEST/REAG 3 PHARMACY PHARMACY T STRIPS HOME BLD GLU BLD GLU A4253 CLINIC CLINIC TEST/REAG 3 PHARMACY PHARMACY T STRIPS HOME BLD GLU [facility] 74747 [facility] DISCHARGE 3 [facility] DAY INTERNAL MANAGEMEN MED T 30 MIN/< SBSQ 15978 [facility] 3 [facility] CARE/[facility] INTERNAL 25 MED MINUTES SBSQ 74080 [facility] 3 [facility] CARE/DAY INTERNAL 25 MED MINUTES SBSQ 47508 [facility] 3 [facility] CARE/DAY INTERNAL 25 MED MINUTES RADIOLOGI 38723 [facility] NIL[facility] C EXAM 3 MEDICAL IZABEL CHEST 2 IMAGING VIEWS ASS FRONTAL&L ATERAL BLD GLU A4253 CLINIC CLINIC TEST/REAG 2 PHARMACY PHARMACY T STRIPS HOME BLD GLU MON-50 INFLUENZA Q2038 [facility] 2 [facility] SPLIT INTERNAL VIRUS 3 MED YRS & > IM FLUZONE ADMINISTR G0008 [facility] ATION OF 2 [facility] INFLUENZA INTERNAL VIRUS MED VACCINE BLD GLU A4253 CLINIC CLINIC TEST/REAG 2 PHARMACY PHARMACY T STRIPS HOME BLD GLU MON-50 ECG 43859 NEFTALI GRIFFIN ROUTINE 2 [facility] W/LEAST P 12 LDS I&R ONLY Encounters Encounter Start End Date Code Location Performer Type Date OFFICE 15437 [facility] OUTBECKYEN 7 7 PHYSICIAN T VISIT S GROUP 25 MINUTES HOSPITAL NEFTALI - OTHER 7 7 [facility] OTHER 7 7 [facility]FT[facility] - OTHER 7 7 [facility]FTAL[facility] - 7 7 [facility] 40232 [facility] OUTPATIEN 7 7 PHYSICIAN T VISIT S GROUP 25 MINUTES OFFICE 36145 [facility] OUTPATIEN 7 7 PHYSICIAN T VISIT S GROUP 25 MINUTES HOSPITAL NEFTALI - 7 7 [facility] 7 [facility] NEFTALI - 7 7 [facility] 613[facility] PHYSICIAN T VISIT S GROUP 15 MINUTES OFFICE 52233 [facility] OUTPATIEN 7 7 PHYSICIAN T VISIT S GROUP 15 MINUTES HOSPITAL NEFTALI - OTHER 7 7 [facility] 55222 EMPERATRIZ ARMSTRONG 6 6 MEDICAL DEPARTMEN SERV T VISIT FOUNDATIO LOW/MODER N SEVERITY [facility] - 6 6 [place] [facility] [place] - 6 6 [facility] INPATIENT E HOSPITALS EMERGENCY 81501 EMPERATRIZ PENA DEPT 6 6 MEDICAL MANUELA VISIT SERV HIGH FOUNDATIO SEVERITY& N THREAT [facility] NEFTAL[facility] - 6 6 [facility] OUTPATIEN INC T OFFICE 94549 [facility] ELDER OUTPATIEN 6 6 PHYSICIAN MANUELA T VISIT S GROUP 15 MINUTES HOSPITAL NEFTALI - 6 6 [facility] OUTPATIEN INC EMERGENCY 82821 DEEPA FISH 6 6 PHYSICIAN U MIGUEL DEPARTMEN S, [facility] T VISIT MODERATE SEVERITY HOSPITAL NEFTALI - OTHER 6 6 [facility] OFF[facility] 14528 [facility] ELDER CASTELANPATIEN 6 6 PHYSICIAN MANUELA T VISIT S GROUP 25 MINUTES OFFICE 67916 [facility] CHICO DOMINGUEZ 6 6 PHYSICIAN OGMELISSADDAM T NEW 45 S GROUP MINUTES OFFICE 60184 [facility] ELDER CASTELANPATIEN 6 6 PHYSICIAN MANUELA T VISIT S GROUP 15 MINUTES EMERGENCY 42343 NEFTALI 6 6 [facility] T VISIT HIGH/URGE NT SEVERITY EMERGENCY 62816 DEEPA FISH DEPT 6 6 PHYSICIAN U MIGUEL VISIT S, [facility] HIGH SEVERITY& THREAT [facility] NEFTALI - 6 6 [facility] NEFTALI [facility] 6 6 [facility] NEFTALI - OTHER 6 6 [facility] NEFTALI [facility] 6 6 [facility] T OFFICE 29916 [facility] ELDER CASTELANPATIEN 6 6 PHYSICIAN MANUELA T VISIT S GROUP 15 MINUTES HOSPITAL NEFTALI - 6 6 [facility] INPATIENT INC EMERGENCY 35415 DEEPA HINKLE DEPT 6 6 PHYSICIAN MANUELA VISIT S, [facility] HIGH [facility]VERITY& [facility] 11267 [facility] OUT[facility] 6 6 ML DORIS T VISIT 15 MINUTES HOSPITAL NEFTALI - 6 6 [facility] T OFFICE 26534 [facility] OUTPAT[facility] 6 6 ML D[facility]IS T VISIT 15 MINUTES HOSPITAL NEFTALI - 6 6 [facility]PITAL NEFTALI - 6 6 [facility] INC T OFFICE [id number] [facility] LINA OUTPATIEN 6 6 PHYSICIAN MAT T VISIT S GROUP 25 OFFICE 19970 [facility] OUTPATI[facility] 6 6 ML D[facility]IS T VISIT 15 MINUTES HOSPITAL NEFTALI - 6 6 [facility] NEFTALI - 6 6 [facility] T OFFICE 08744 [facility] OUTPATI[facility] 6 6 ML DORIS T VISIT 15 MINUTES HOSPITAL NEFTALI - 6 6 [facility] INC T OFFICE 77464 [facility] [place] OUTPATIEN 6 6 PHYSICIAN MAT T NEW 45 S GROUP MINUTES HOSPITAL NEFTALI - 6 6 [facility] T HOSPITAL NEFTALI - 6 6 [facility] T OFFICE 26584 [facility] OUTPATIEN 6 6 ML DORIS T NEW 30 MINUTES HOSPITAL NEFTALI - 6 6 [facility]PITAL NEFTALI - OTHER 6 6 [facility] OFFICE 44921 [facility] 5 5 [facility] T VISIT INTERNAL 15 MED MINUTES HOSPITAL NEFTALI - 5 5 [facility] T OFFICE 59182 [facility] 5 5 [facility] T [facility]ISIT INTERNAL 25 MED MINUTES HOSPITAL NEFTALI - 5 5 [facility] T OFFICE 00795 [facility] 5 5 [facility] T VISIT INTERNAL 15 MED MINUTES HOSPITAL NEFTALI - 5 5 [facility] NEFTALI - 5 5 [facility] INPATIENT INC EMERGENCY 26571 NEFTALI HINKLE 5 5 [facility] T VISIT P HIGH/URGE NT SEVERITY HOSPITAL NEFTALI - 4 4 [facility] H[facility]PITAL NEFTALI [facility] 4 4 [facility] EMERGENCY 23688 [facility] 4 4 [facility] EMERGENCY T VISIT PHYS HIGH/URGE NT SEVERITY HOSPITAL NEFATLI - 4 4 [facility] OUTPATIEN [facility] [address] [facility] 4 4 [facility] VISIT EMERGENCY HIGH PHYS SEVERITY& THREAT [facility] Inpatient IMP Neftali Noonan MD (IN) 4 16:29 4 13:20 [facility] Inpatient YAMILA Griffin ([place]) 3 18:20 3 15:10 [facility] EMERGENCY [id number] HAZEL GUY DEPT [address] [facility] VISIT SERVICES HIGH SEVERITY& THREAT [facility] HOSPITAL NEFTALI - 3 3 [facility] OUTPATIEN INC T OFFICE 08100 [facility] 3 3 [facility] T VISIT INTERNAL 15 MED MINUTES Inpatient IMP Neftali Hinkle MD (IN) 3 22:02 3 11:10 [facility] EMERGENCY 73434 [facility] HINKLE DEPT 3 3 EMERGENCY [facility] VISIT SERVICES HIGH SEVERITY& THREAT [facility] EMERGENCY 00378 HAZEL PICKENS DEPT 3 3 EMERGENCY III [facility] ELE[facility] VISIT SERVICES HIGH SEVERITY& THREAT [facility] OFFICE 41761 DIXIE DOMINGUEZ 2 2 KATHARINA WALLACE MARIA ELENA T VISIT INTERNAL 15 MED MINUTES
--- OUTSIDE RECORDS SUMMARY | 2016-12-15 23:41 | External Medical Summary Rpt ---
Author Author , Organization [employer] Address Unknown Phone Unavailable Care Team Providers [place] Superintendent Name Role Phone Sedicii, Unavailable Unavailable Sedicii ALFARIS MOH, ALFARIS Unavailable Unavailable MOH [facility] Unavailable Unavailable RESPONSE, [facility] Unavailable Unavailable RESPONSE, [facility] GRANT BRO, GRANT Unavailable Unavailable BRO BEINEKE MIGUEL, BEINEKE Unavailable Unavailable MIGUEL BERNERT, BERNERT Unavailable Unavailable BESSON CRISTIANO, BESSON Unavailable Unavailable CRISTIANO SNYDER, SNYDER Unavailable Unavailable SNYDER ALL, SNYDER ALL Unavailable Unavailable NATHANIEL, NATHANIEL Unavailable Unavailable [facility] Unavailable Unavailable SERVICE, [facility] CHINA DORIS, CHINA Unavailable Unavailable DROIS [facility] Unavailable Unavailable REHABILITATION, [facility], Unavailable Unavailable [facility] Unavailable Unavailable [facility], Unavailable Unavailable [facility] JESUS, JESUS Unavailable Unavailable NILA, NILA Unavailable Unavailable NILA IZABEL, Unavailable Unavailable NILA IZABEL [facility] Unavailable Unavailable [facility] RILEY, RILEY Unavailable Unavailable RILEY KIN, RILEY KIN Unavailable Unavailable ERLANDSON, ERLANDSON Unavailable Unavailable FALLIS ML, FALLIS Unavailable Unavailable ML FALLUJI RUTH, FALLUJI Unavailable Unavailable RUTH ELDER, ELDER Unavailable Unavailable ELDER MANUELA, ELDER Unavailable Unavailable MANUELA VERONIKA GUSTAVO, VERONIKA Unavailable Unavailable GUSTAVO [facility], [facility]available Unavailable [facility] Unavailable Unavailable INC, [facility] Unavailable Unavailable H[facility]PITAL P, [facility] FIELDS FRED, FIELDS FRED Unavailable Unavailable [facility], Unavailable Unavailable [facility] MARSHALL CRISTIANO, MARSHALL CRISTIANO Unavailable Unavailable MARCUS III, MARCUS Unavailable Unavailable III [facility] Unavailable Unavailable [facility], [facility] Unavailable Unavailable MEDICAL G, [facility] PARKER LUCY, PARKER LUCY Unavailable Unavailable [facility] VIDALES CRISTIANO, VIDALES CRISTIANO Unavailable Unavailable CHAD JR DWI, CHAD Unavailable Unavailable JR DWI [facility] Unavailable Unavailable INTERNAL MED, [facility] INTERNAL MED JR. ROHAN, JR. ROHAN Unavailable Unavailable [facility] Unavailable Unavailable SERVICES, [facility] CHISHOLM, CHISHOLM Unavailable Unavailable MCKEMIE JR MARIA ELENA, Unavailable Unavailable MCKEMIE JR MARIA ELENA FUENTES-GARCIA HERI, Unavailable Unavailable FUENTES-GARCIA HERI [facility], Unavailable Unavailable [facility], [facility] CAMPOSCATALINO LOPEZ, Unavailable Unavailable ANDRES JESSICA [facility] Un[facility] Un[facility], [facility] SADEK MOH, SADEK MOH Unavailable Unavailable SCHLEENBAKER, Unavailable Unavailable SCHLEENBAKER SCIFRES, SCIFRES Unavailable Unavailable SCIFRES ANG, SCIFRES Unavailable Unavailable ANG [facility], Unavailable Unavailable [facility] LINA MAT, Unavailable Unavailable LINA MAT REYNOSO HERMINIA, REYNOSO HERMINIA Unavailable Unavailable [facility] Unavailable Unavailable [facility], [facility] Unavailable Unavailable [facility], [facility] SOTINGEANU MIGUEL, Unavailable Unavailable SOTINGEANU MIGUEL [facility] Unavailable Unavailable [facility]Y [facility], [facility] Juan Manuel Noonan MD, Unavailable Unavailable Juan Manuel Noonan MD PENA MANUELA, PEAN Unavailable Unavailable MANUELA TRUE RAE, TRUE RAE Unavailable Unavailable [facility] Unavailable Unavailable [facility], [facility] Klever Griffin MD, Unavailable Unavailable [...] Diagnosis DOS Provider Status [id number] 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-08-2016 [facility] BILATERAL J449 CHRONIC 11-02-2016 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 MEDICAL DISEASE UNS EQUIPME E119 TYPE 2 03-15-2017 [facility] DIABETES PHYSICIANS MELLITUS GROUP WITHOUT COMPLICATIO NS I10 ESSENTIAL 10-30-2016 [facility] PRIMARY PHYSICIANS HYPERTENSIO GROUP N M549 DORSALGIA 10-30-2016 [facility] UNSPECIFIED PHYSICIANS GROUP N289 DISORDER OF 10-30-2016 [facility] URETER INC UNSPECIFIED R0602 SHORTNESS 10-30-2016 [facility] BREATH [facility] INC [id number] OTHER LONG 10-30-2016 [facility] TERM PHYSICIANS CURRENT GROUP DRUG THERAPY N189 CHRONIC 10-29-2016 [facility] DISEASE INC UNSPECIFIED R0600 DYSPNEA 10-23-2016 [facility]NSPECIFIED [facility] INC R8290 UNSPECIFIED 10-23-2016 [facility] ABNORMAL [facility] FINDINGS IN INC URINE I2510 ASHD [employer] [place] 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 [facility]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/O INC ANGINA PECTORIS J40 BRONCHITIS 10-15-2016 [facility] NOT PHYSICIANS SPECIFIED GROUP ACUTE OR CHRONIC E663 OVERWEIGHT 10-01-2016 [facility]ANS GROUP L0390 CELLULITIS 10-01-2016 [facility] UNSPECIFIED PHYSICIANS GROUP R609 EDEMA 10-01-2016 [facility]NSPEC[facility] INC E118 TYPE 2 09-25-2016 [facility] DIABETES [facility] MELLITUS INC W/UNS COMPLICATIO NS M4316 SPONDYLOLIS 09-23-2016 [facility] REGION M4806 SPINAL 09-23-2016 [facility] [place] STENOSIS [facility] LUMBAR IMAGING ASS REGION M5126 OTH 09-23-2016 [facility] [place] 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 M545 LOW BACK 09-23-2016 [facility] [place] PAIN [facility]ICAL [facility] ASS R300 DYSURIA 08-26-2016 [facility] PH[facility]ANS GROUP G894 CHRONIC 08-13-2016 [facility] SYNDROME [facility] M792 NEURALGIA 08-13-2016 [facility] NEURITIS [facility] UNSPECIFIED N179 ACUTE 08-13-2016 [facility] FAILURE [facility] UNSPECIFIED R2689 OTHER 08-13-2016 [place] [facility] ABNORMALITI SERV ES OF GAIT FOUNDATION AND MOBILITY R5381 OTHER 08-13-2016 [place] [facility] I11258 PAIN IN 08-12-2016 [facility] RIGHT LEG SERV [facility] M7989 OTHER 08-12-2016 [place] [facility] SPECIFIED SERV SOFT TISSUE FOUNDATION DISORDERS R279 UNSPECIFIED 08-12-2016 [facility] COORDINATIO N R52 PAIN 08-11-2016 [facility] UNSPECIFIED MEDICAL RESPONSE Z794 CHAMPION OF SUSTAINABLE DESIGN 08-08-2016 [place] [facility] CURRENT [facility] SERV OF INSULIN [facility]OUND[facility] M542 CERVICALGIA 08-05-2016 [facility] E1165 TYPE 2 08-01-2016 [facility] DIABETES [...] HILL UNSPECIFIED REHABILITAT ION I959 HYPOTENSION 08-01-2016 [facility] UNSPECIFIED [facility]ATION J9610 CHRONIC 08-01-2016 [facility] RESPIRATORY SERV FAIL UNS FOUNDATION HYPOXIA/HYP ERCAPNIA K219 GASTRO-ESOP 08-01-2016 [facility] DISEASE REHABILITAT WITHOUT ION ESOPHAGITIS R571 HYPOVOLEMIC 08-01-2016 [facility] SHOCK [facility] I499 CARDIAC 07-31-2016 [place] [facility] ARRHYTHMIA SERV UNSPECIFIED FOUNDATION J9620 ACUTE 07-31-2016 [place] [facility] CHRONIC SERV RESP FAIL FOUNDATION UNS HYPOXIA/HYP ERCAPNIA A419 SEPSIS 07-29-2016 [place] [facility] UNSPECIFIED SERV ORGANISM FOUNDATION I491 ATRIAL 07-29-2016 [place] [facility] PREMATURE SERV DEPOLARIZAT FOUNDATION ION R000 TACHYCARDIA 07-29-2016 [facility] UNSPECIFIED FOUNDATION R6521 SEVERE 07-29-2016 [...] CONGESTIVE FOUNDATION HEART FAILURE I517 CARDIOMEGAL 07-26-2016 [place] [facility] Y [facility] J9621 ACUTE & [...] ADJUSTMENT& SERV MGMT FOUNDATION VASCULAR ACCESS DEVICE V40699 ELEVATED 07-25-2016 [facility] WHITE [facility]LOOD [facility], CELL COUNT PLLC UNSPECIFIED R34 ANURIA AND 07-25-2016 [facility] OLIGURIA [facility], PLLC Z720 TOBACCO USE 07-25-2016 [facility] R0782 INTERCOSTAL 07-15-2016 [facility] PAIN [facility] INC R0789 OTHER CHEST 07-15-2016 [facility] [place] [facility] [id number] CONTUSION 07-15-2016 [facility] RT FRONT PHYSICIANS WALL THORAX GROUP INITIAL ENCOUNTER W3952AM MULTIPLE FX 07-15-2016 [facility] RIBS UNS PHYSICIANS SIDE INIT GROUP ENC CLOS FRACTURE O30566 PAIN IN 07-10-2016 [place] RIGHT UPPER MEDICAL ARM IMAGING ASS R0781 PLEURODYNIA 07-10-2016 [facility] H75227W CONTUSION 07-10-2016 [facility] U[facility] FRONT PHYSICIANS, WALL THORAX PLLC INITIAL ENCNTR C7901GE UNS INJURY 07-10-2016 [facility] [place] RT SHOULDER MEDICAL UPPER ARM IMAGING ASS INITIAL ENCNTR N3000 ACUTE 06-28-2016 [facility] CYSTITIS PHYSICIANS WITHOUT GROUP HEMATURIA Z23 ENCOUNTER 06-28-2016 [facility] FOR PHYSICIANS IMMUNIZATIO GROUP N J47973 CHRONIC 05-13-2016 [facility] MIGRAINE PHYSICIANS W/O AURA GROUP INTRACT W/O STAT MIGR H75899 OTH 05-13-2016 [facility] MIGRAINE PHYSICIANS NOT INTRACT GROUP W/O STATUS MIGRAINOSUS G629 POLYNEUROPA 04-29-2016 [facility] THY PHYSICIANS UNSPECIFIED GROUP H6690 OTITIS 04-22-2016 [facility] P UNSPECIFIED EAR J209 ACUTE 04-22-2016 [facility] BRONCHITIS PHYSICIANS, UNSPECIFIED PLLC J441 CHRONIC 04-22-2016 [facility]STRUCTIVE [facility]ICI[facility], PULMONARY PLLC DZ W/EXACERBAT ION Z9981 DEPENDENCE 04-22-2016 [facility] L OXYGEN R002 PALPITATION 04-17-2016 [facility] S [facility] INC R1310 DYSPHAGIA 04-17-2016 [facility] UNSPECIFIED [facility] INC R42 DIZZINESS 04-17-2016 [facility] GIDDINESS INC R4702 DYSPHASIA 04-17-2016 [facility] R55 SYNCOPE AND 04-17-2016 [facility] COLLAPSE [facility] INC E875 HYPERKALEMI 04-03-2016 [facility] A [facility] INC I159 SECONDARY 04-03-2016 [facility] HYPERTENSIO [facility] N INC UNSPECIFIED J440 COPD WITH 04-03-2016 [facility] ACUTE LOWER [facility] INC RESPIRATORY INFECTION R062 WHEEZING 04-02-2016 [facility] R079 CHEST PAIN 04-02-2016 [place] UNSPECIFIED [facility]ICAL IMAGING ASS 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 12-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 UNSPECIFIED E1141 TYPE 2 12-14-2015 [facility] DIABETES MELLITUS W/DIAB MONONEUROPA THY I739 PERIPHERAL 12-14-2015 [facility] VASCULAR DISEASE UNSPECIFIED I890 LYMPHEDEMA 12-14-2015 [facility] NOT ELSEWHERE CLASSIFIED M2570 OSTEOPHYTE 12-14-2015 [facility] UNSPECIFIED JOINT 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 FIBROMATOSI S X78012 PAIN IN 12-14-2015 [facility] ML RIGHT FOOT E59374 PAIN IN LEG 12-05-2015 [facility] UNSPECIFIED INC M779 ENTHESOPATH 11-30-2015 [facility] Y [facility] UNSPECIFIED INC G4733 OBSTRUCTIVE 11-09-2015 [facility] SLEEP [facility] APNEA ADULT INC PEDIATRIC H3500 UNSPECIFIED 11-03-2015 [facility] RETINOPATHY I119 HYPERTENSIV 10-31-2015 [facility] E HEART PHYSICIANS DISEASE GROUP WITHOUT HEART FAILURE I209 ANGINA 10-31-2015 [facility] PECTORIS PHYSICIANS UNSPECIFIED GROUP Z03377 PAIN IN 10-24-2015 [place] LEFT THIGH MEDICAL IMAGING ASS R1032 LEFT LOWER 10-24-2015 [facility]ANT [facility] PAIN INC E785 HYPERLIPIDE 10-12-2015 [place] JESSICA [facility]ICAL UNSPECIFIED IMAGING ASS I5189 OTHER 10-12-2015 [facility] ILL-DEFINED [facility] HEART INC DISEASES I779 DISORDER OF 10-12-2015 [facility] ARTERIES [facility] AND INC ARTERIOLES UNSPECIFIED R0989 OTH SPEC SX 10-12-2015 [place] & SIGNS MEDICAL INVLV THE IMAGING ASS CIRC & RESP SYS W78281 PERSONAL 10-03-2015 [facility] HISTORY OF PHYSICIANS NICOTINE GROUP DEPENDENCE X25040 PAIN IN 09-21-2015 [facility] ML LEFT FOOT M7732 CALCANEAL 09-19-2015 [facility] SPUR LEFT MEDICAL FOOT IMAGING ASS J432 CENTRILOBUL 09-16-2015 [place] AR MEDICAL EMPHYSEMA IMAGING ASS Y89047 UNSPECIFIED 09-16-2015 [facility] ASTHMA PHYSICIANS UNCOMPLICAT GROUP ED R05 COUGH 09-13-2015 [facility] Z131 ENCOUNTER 09-06-2015 [facility] FOR [facility] SCREENING INC FOR DIABETES MELLITUS Z5181 ENCOUNTER 08-21-2015 [facility] FOR [facility] THERAPEUTIC INC DRUG LEVEL MONITORING A084 VIRAL 07-24-2015 [facility] INFECTION INTERNAL UNSPECIFIED MED 496 CHRONIC 05-05-2015 [facility] OBSTRUCTION MEDICAL NEC EQUIPME 89952 DIAB W/O 03-08-2015 [facility] COMP TYPE VAL[facility] II/UNS NOT INTERNAL STATED MED UNCNTRL 2724 OTHER AND 03-08-2015 [facility] UNSPECIFIED VALLEY INTERNAL HYPERLIPIDE MED JESSICA 36596 ESOPHAGEAL 03-08-2015 [facility] REFLUX [facility] INTERNAL MED 7804 DIZZINESS 03-08-2015 [facility] AND [facility]LEY GIDDINESS INTERNAL MED 22604 DIAB 11-28-2014 [facility] W/NEURO VALLEY MANIFESTS INTERNAL TYPE II/UNS MED NOT UNCNTRL 13438 OBSTRUCTIVE 11-28-2014 [facility] CHRONIC VAL[facility] BRONCHITIS INTERNAL WITH MED EXACERBATIO N 4439 UNSPECIFIED 11-01-2014 [facility] PERIPHERAL HEALTH VASCULAR MEDICAL G DISEASE 09919 ULCER OF 11-01-2014 [facility] OTHER PART HEALTH OF LOWER [...] MEM HOSP INSULIN INC 7862 COUGH 08-23-2014 [facility] 55844 DIAB W/O 07-29-2014 CLINIC COMP TYPE I PHARMACY [JUV] NOT STATED UNCNTRL 7245 UNSPECIFIED 07-22-2014 [facility] V571 OTHER 07-22-2014 [facility] 7213 LUMBOSACRAL 06-28-2014 [facility] [place] SPONDYLOSIS IMAGING ASS WITHOUT MYELOPATHY 01974 DISPLCMT 06-28-2014 [place] LUMBAR MEDICAL INTERVERT IMAGING ASS DISC W/O MYELOPATHY 94472 DEGEN 06-28-2014 [facility] 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 7243 SCIATICA 06-28-2014 [facility] 7242 LUMBAGO 06-21-2014 [facility] 60908 CHEST PAIN 04-01-2014 [place] [facility]PEC[facility] SERV FOUNDATIO 01410 UNSPECIFIED 01-03-2014 [facility] RETINOPATHY 7823 EDEMA 09-17-2013 [facility] 4293 CARDIOMEGAL 09-15-2013 [facility] [place] Y [facility] 81971 CHRONIC 09-15-2013 [facility] P WITH EXACERBATIO N 98960 OTHER 09-15-2013 [place] DISEASES OF MEDICAL LUNG NOT IMAGING ASS ELSEWHERE CLASSIFIED 03540 WHEEZING 05-02-2013 [facility] 7812 ABNORMALITY 01-29-2013 [facility] 486 PNEUMONIA, 12-14-2012 [facility] ORGANISM [facility] UNSPECIFIED INTERNAL MED 20225 METHICILLIN 12-03-2012 [facility] RESISTANT VIPER STAPHYLOCOC INTERNAL CUS AUREUS MED 4660 ACUTE 12-03-2012 [facility] BRONCHITIS VIPER INTERNAL MED 07041 ASTHMA, 12-03-2012 [facility] UNSPECIFIED VALLEY , INTERNAL UNSPECIFIED MED STATUS 32794 METHICILLIN 12-01-2012 [facility] PNEUMONIA HOSPITAL P D/T STAPH AUREUS 65479 OTHER 12-01-2012 [facility]A [facility] RESPIRATORY ABNORMALITI ES 485 BRONCHOPNEU 08-27-2012 [facility] MONIA [facility] ORGANISM INTERNAL UNSPECIFIED MED 81107 OTHER 08-25-2012 [place] NONSPECIFIC MEDICAL ABNORMAL IMAGING ASS FINDING OF LUNG FIELD V0481 NEED 06-05-2012 [facility] PROPHYLACTI VIPER C INTERNAL VACCINATION MED &INOCULATIO N FLU 33084 DIAB W/O 04-13-2012 [facility] COMP TYPE I HOSPITAL P [JUV TYPE] UNCNTRL 06835 ABDOMINAL 04-13-2012 [facility] [id number] Acute [place] asthma [facility] [id number] Diabetes [place] mellitus [facility] [id number] [facility] [id number] Chronic [facility] D72.829 ELEVATED WHITE BLOOD CELL COUNT, UNSPECIFIED [...] OTHER INJURY OF UNSPECIFIED BODY REGION Z79.891 [facility]URSING HOME (CURRENT) USE OF OPIATE ANALGESIC Z79.899 OTHER NURSING HOME (CURRENT) DRUG THERAPY Allergies, Adverse Reactions, Alerts Type Drug Allergy Adverse Reaction to Substance Substance Reaction Severity PCN (penicillin) I-RASH Intermediate Aspirin I-HIVES Mild Naproxen NA-NAUSEA (TOLERATED Mild IBUPROFEN) Erythromycin I-RASH Intermediate Codeine NA-NAUSEA Mild Propoxyphene NA-NAUSEA Mild Terbutaline C-GLDHIH-QVLR/THROAT Severe Penicillin G Procaine I-RASH Intermediate Bupropion [...] ia de te s n re d NV 00 01 1 No ED 05 -3 NI 40 1- Lo SO 01 20 ng NE 82 14 er 0 20 Ac ti MG ve TA BL ET NO 00 01 2 No VO 16 -3 LO 93 0- Lo G 69 20 ng WI 61 14 er X 9 70 Ac -3 ti 0 ve FL EX PE N SY RN LI 68 01 2 No SI 18 -3 NO 00 0- Lo NV 51 20 ng IL 80 14 er [...] er -A 2 CE Ac TA ti WI ve NO PH 7. 5- 32 5 [...] 93 9- Lo G 69 20 ng WI 61 13 er X 9 70 Ac -3 ti 0 ve FL EX PE N SY RN NV 00 09 1 No ED 05 -1 NI 40 9- Lo SO 01 20 ng NE 82 13 er 0 20 Ac ti MG ve TA BL ET FS 09 1 No -1 BL 9- Lo OO 20 ng D 13 er SCHROEDER [place] Ac R ti ve LI 68 09 3 No SI 18 -1 NO 00 7- Lo NV 51 20 ng IL 80 13 er [...] er -A 2 CE Ac TA ti WI ve NO PH 7. 5- 32 5 [...] 0. 9% 10 0M L Ad v NV 00 04 2 No ED 05 -2 [...] SI 18 -1 NO 00 9- Lo NV 51 20 ng IL 80 13 er -H 1 CT Ac Z ti 10 ve -1 2. 5 MG TA B NO 00 04 4 No VO 16 -1 LO 93 8- Lo G 69 20 ng WI 61 13 er X 9 70 Ac -3 ti 0 ve FL EX PE N SY RN FS 04 4 No -1 BL 8- Lo OO 20 ng D 13 er [place]RO[place] Ac R ti ve HY [address] 40 -1 OC 60 8- Lo OD 36 20 ng ON 56 13 er -A 2 CE Ac TA ti WI ve NO PH EN 5- 32 5 [...] RO 40 -1 SE 96 6- Lo WI 10 20 ng DE 20 13 er [...] nces retati t Range on Glucose BldC Glucomtr-mCnj (09-18-2013 11:16) Glucose 190 70-110 complet BldC 014 mg/dl ed Glucomt 11:16 r-nc Glucose BldC Glucomtr-mCnc (09-18-2013 06:55) Glucose 197 70-110 complet BldC 014 mg/dl ed Glucomt 06:55 r-nc Glucose BldC Glucomtr-mCnc (09-17-2013 21:22) Glucose 270 70-110 complet BldC 014 mg/dl ed Glucomt 21:22 r-mCnc Glucose BldC Glucomtr-mCnc (09-17-2013 17:01) Glucose 321 70-110 High complet BldC 014 mg/dl alert ed Glucomt 17:01 r-[facility] BASIC METABOLIC PANEL (09-17-2013 06:10) Glucose [...] complet 014 mg/dL 1 ed SerPl-m 06:10 [facility] CBC with AUTO DIFF (09-17-2013 06:10) [...] K/MM3 ed Bld 06:10 Auto Glucose BldC Glucomtr-[facility] (09-15-2013 20:30) Glucose 89 70-110 complet BldC 014 mg/dl ed Glucomt 20:30 r-[facility] BASIC METABOLIC PANEL (09-15-2013 18:00) Glucose [...] #/hpf ed S CELLS 17:25 Glucose dC Glucomtr-[facility] (05-07-2013 11:36) Glucose 104 70-110 complet BldC 013 mg/dl ed Glucomt 11:36 [facility] Glucose dC Glucomtr-[facility] (05-07-2013 06:24) Glucose 309 70-110 High complet BldC 013 mg/dl alert ed Glucomt 06:24 r-[facility] Glucose BldC Glucomtr-nc (05-06-2013 17:14) Glucose 337 70-110 High complet BldC 013 mg/dl alert ed Glucomt 17:14 [facility] BASIC METABOLIC PANEL (05-06-2013 06:30) Glucose [...] K/MM3 ed Bld 06:30 Auto Glucose dC Glucom-[facility] (05-06-2013 06:22) Glucose 396 70-110 High complet BldC 013 mg/dl alert ed Glucomt 06:22 [facility] Glucose BldC Glucomtr-[facility] (05-05-2013 20:09) Glucose 05-05-2 345 70-110 High complet BldC 013 mg/dl alert ed Glucomt 20:09 [facility] Glucose dC Glucomtr-[facility] (05-05-2013 16:54) Glucose 05-05- 299 70-110 complet BldC 013 mg/dl ed Glucomt 16:54 [facility] Glucose dC Glucomtr-[facility] (05-05-2013 11:58) Glucose 05-05-2 328 70-110 High complet BldC 013 mg/dl alert ed Glucomt 11:58 [facility] Glucose dC Glucomtr-[facility] (05-05-2013 06:35) Glucose 05-05-2 433 70-110 High complet BldC 013 mg/dl alert ed Glucomt 06:35 [facility] BASIC METABOLIC PANEL (05-05-2013 06:15) Glucose [...] BIN A1C 013 ed 06:15 Glucose BldC Glucomtr-[facility] (05-04-2013 20:10) Glucose -17-2 396 70-110 High complet BldC 013 mg/dl alert ed Glucomt 20:10 r-nc Glucose BldC Glucomtr-mCnc (05-04-2013 16:26) Glucose 375 70-110 High complet BldC 013 mg/dl alert ed Glucomt 16:26 r-nc Glucose BldC Glucomtr-nc (05-04-2013 11:40) Glucose 444 70-110 High complet BldC 013 mg/dl alert ed Glucomt 11:40 [facility] Glucose BldC Glucomtr-mCnc (05-04-2013 06:18) Glucose 469 70-110 High complet BldC 013 mg/dl alert ed Glucomt 06:18 [facility] COMPREHENSIVE METABOLIC PANEL (05-04-2013 06:00) Glucose [...] K/MM3 ed Bld 06:00 Auto Glucose BldC Glucomtr-[facility] (05-03-2013 21:36) Glucose 469 70-110 High complet BldC 013 mg/dl alert ed Glucomt 21:36 [facility] Glucose BldC Glucomtr-[facility] (05-03-2013 16:44) Glucose 422 70-110 High complet BldC 013 mg/dl alert ed Glucomt 16:44 r-nc Glucose BldC Glucomtr-[facility] (05-03-2013 11:31) Glucose 226 70-110 complet BldC 013 mg/dl ed Glucomt 11:31 [facility] Glucose BldC Glucomtr[facility] (05-03-2013 06:22) Glucose 324 70-110 High complet BldC 013 mg/dl alert ed Glucomt 06:22 [facility] Glucose BldC Glucomtr[facility] (05-02-2013 21:02) Glucose 150 70-110 complet [...] mg/dl ed Glucomt 06:33 r-mCnc Glucose BldC Glucomtr[facility] (12-05-2012 17:15) Glucose 12-05- 142 70-110 complet BldC 013 mg/dl ed Glucomt 17:15 r-mCnc Glucose BldC Glucomtr[facility] (12-05-2012 06:38) Glucose 87 70-110 complet BldC 013 mg/dl ed Glucomt 06:38 r-mCnc Glucose BldC Glucomtr[facility] (12-04-2012 17:27) Glucose 12-04- 298 70-110 complet BldC 013 mg/dl ed Glucomt 17:27 r-mCnc Glucose BldC Glucomtr[facility] (12-04-2012 06:08) Glucose 440 70-110 High complet [...] K/MM3 ed Bld 06:30 Auto Glucose dC Glucomtr[facility] (12-02-2012 21:23) Glucose 347 70-110 High complet BldC 013 mg/dl alert ed Glucomt 21:23 r-nc Glucose BldC [facility] (12-02-2012 16:29) Glucose 12-02- 370 70-110 High complet BldC 013 mg/dl alert ed Glucomt 16:29 r-[facility] Glucose d-[facility] (12-02-2012 11:40) Glucose 12-02- 530 74-106 High complet 013 mg/dL alert ed Bld-n 11:40 c Glucose BldC [facility] (12-02-2012 11:26) Glucose 12-02-2 537 70-110 High complet BldC 013 mg/dl alert ed Glucomt 11:26 r-mCnc Glucose BldC [facility] (12-02-2012 06:15) Glucose 12-02-2 Greater 70-110 High [...] Procedure DOS Code Location Performer Comment DETERMINA 33897 DWAYNE RICE TION [facility] O[facility] [address] [facility] 7 VISION XM&EVAL CENTER COMPRHNSV ESTAB PT 1/> PRTBLE E0431 ARIANE THAKKAR GASEOUS 7 HOME HOME O2 SYS MEDICAL MEDICAL RENT; EQUIPME EQUIPME FLWMTR HUMIDFR&M ASK O2 CONC 1 E1390 ARIANE THAKKAR DEL PORT 7 HOME HOME 85%/>02 MEDICAL MEDICAL CONC AT EQUIPME EQUIPME PRSC FLW RATE ALBUMIN 59725 [facility] URINE 7 [facility] MICROALBU INC INC MIN QUANTIATI VE COMPREHEN 22367 [facility] SIVE 7 [facility] METABOLIC INC INC PANEL DRUG TEST 21711 [facility] PRSMV 7 [facility] QUAL DIR INC INC OPTICAL OBS PER DAY CREATININ 26426 [facility] E OTHER 7 [facility] SOURCE INC INC BLOOD 99799 [facility] COUNT 7 [facility] COMPLETE INC INC AUTO&AUTO DIFRNTL WBC COLLECTIO 72687 [facility] N VENOUS 7 [facility] BLOOD INC INC VENIPUNCT URE LIPID 78612 [facility] PANEL 7 [facility] INC INC HEMOGLOBI 63824 [facility] N 7 [facility] GLYCOSYLA INC INC NICOLE A1C BASIC 25466 NEFTALI [facility] METABOLIC 7 [facility] PANEL INC INC CALCIUM TOTAL COLLECTIO 36251 [facility] N VENOUS 7 [facility] BLOOD INC INC VENIPUNCT URE URNLS DIP 97371 [facility] 7 [facility] STICK/TAB INC INC LET REAGENT AUTO MICROSCOP Y SUSCEPTIB 66602 [facility] LTY STDY 7 [facility] ANTIMICRB INC INC IAL MICRO/AGA R DILUTJ CULTURE 64065 [facility] BACTERIAL 7 [facility] INC INC QUANTTATI VE COLONY COUNT URINE CULTURE 92775 [facility] BCT 7 [facility] [facility] ISOL&PRSM INC INC PTV ID ISOLATE EA URINE BASIC 82806 NEFTALI LINDSAY METABOLIC 7 [facility] PANEL INC INC CALCIUM TOTAL COLLECTIO 32406 NEFTALI LINDSAY N VENOUS 7 [facility] BLOOD INC INC VENIPUNCT URE O2 CONC 1 E1390 ARIANE THAKKAR DEL PORT 7 HOME HOME 85%/>02 MEDICAL MEDICAL CONC AT EQUIPME EQUIPME PRSC FLW RATE PRTBLE E0431 ARIANE THAKKAR GASEOUS 7 HOME HOME O2 SYS MEDICAL MEDICAL RENT; EQUIPME EQUIPME FLWMTR HUMIDFR&M ASK DRUG TEST 43469 NEFTALI LINDSAY PRSMV 7 [facility] QUAL DIR INC INC OPTICAL OBS PER DAY ECHO 33014 NEFTALI LINDSAY TTHRC R-T 7 [facility] 2D INC INC W/WOM-MOD E COMPL SPEC&COLR D BLOOD 05852 NEFTALI LINDSAY COUNT 7 [facility] COMPLETE INC INC AUTO&AUTO DIFRNTL WBC COMPREHEN 37884 NEFTALI LINDSAY SIVE 7 [facility] METABOLIC INC INC PANEL COLLECTIO 23770 NE[facility]I L[facility]SA[facility] N VENOUS 7 [facility] BLOOD INC INC VENIPUNCT URE NATRIURET 22561 NEFTALI LINDSAY IC 7 [facility] PEPTIDE INC INC ECG 14742 NEFTALI NEFTALI ROUTINE 7 [facility] ECG INC INC W/LEAST 12 LDS TRCG ONLY W/O I&[place] [address] NEFTALI LINDSAY FREE 7 [facility] [place] [address] NEFTALI LINDSAY THYROID 7 [facility] STIMULATI INC INC NG HORMONE TSH 3D 96200 NEFTALI LINDSAY RENDERING 7 [facility] W/INTERP INC INC & POSTPROCE SS SUPERVISI ON MRI 38906 [place] NILA SPINAL 7 MEDICAL CANAL IMAGING LUMBAR ASS W/O CONTRAST MATERIAL O2 CONC 1 E1390 ARIANE THAKKAR DEL PORT 7 HOME HOME 85%/>02 MEDICAL MEDICAL CONC AT EQUIPME EQUIPME PRSC FLW RATE PRTBLE E0431 ARIANE THAKKAR GASEOUS 7 HOME HOME O2 SYS MEDICAL MEDICAL RENT; EQUIPME EQUIPME FLWMTR HUMIDFR&M ASK CULTURE 70150 NEFTALI LINDSAY BACTERIAL 7 [facility] INC INC QUANTTATI VE COLONY COUNT URINE BASIC 80002 NEFTALI LINDSAY METABOLIC 7 [facility] PANEL INC INC [facility] 61439 [facility] 6 MEDICAL DAY SERV MANAGEMEN FOUNDATIO T > 30 N MIN SBSQ 01177 [facility] 6 MEDICAL CARE/DAY SERV 25 FOUNDATIO MINUTES N SBSQ 20376 [facility] 6 MEDICAL KER CARE/DAY SERV 25 FOUNDATIO MINUTES N GROUND A0425 [facility] 6 [facility] METRO PER AMBULANCE AMBULANCE STATUTE MILE DUP-SCAN 78816 [place] [facility] [place] 6 MEDICAL JESSICA COMPLETE SERV FOUNDATIO BILATERAL N STUDY AMBULANCE A0428 [facility] 6 METRO METRO BLS AMBULANCE AMBULANCE NONEMERGE NCY TRANSPORT GROUND A0425 [facility] 6 MEDICAL MEDICAL PER RESPONSE RESPONSE STATUTE MILE SBSQ 50873 [facility] 6 MEDICAL KER CARE/DAY SERV 25 FOUNDATIO MINUTES N AMB A0427 [facility] 6 MEDICAL MEDICAL ALS RESPONSE RESPONSE EMERGENCY TRANSPORT LEVEL 1 SBSQ 78150 [facility] 6 MEDICAL KER CARE/DAY SERV 25 FOUNDATIO MINUTES N SBSQ 58768 [facility] 6 MEDICAL CARE/DAY SERV 25 FOUNDATIO MINUTES N SBSQ 84163 [facility] 6 MEDICAL CARE/DAY SERV 25 FOUNDATIO MINUTES N SBSQ 20274 [facility] 6 MEDICAL CARE/DAY SERV 25 FOUNDATIO MINUTES N SBSQ 10545 [facility] 6 MEDICAL CARE/DAY SERV 25 FOUNDATIO MINUTES N SBSQ 12312 [facility] 6 MEDICAL CARE/DAY SERV 25 FOUNDATIO MINUTES N RADEX 42407 [facility] SPINE 6 RADIOLOGY III CERVICAL 2 OR 3 VIEWS O2 CONC 1 E1390 ARIANE THAKKAR [place] 6 HOME HOME 85%/>02 MEDICAL MEDICAL CONC AT EQUIPME EQUIPME PRSC FLW RATE SBSQ 58795 [place] [address] MEDICAL CARE/DAY SERV 25 FOUNDATIO MINUTES N PRTBLE E0431 ARIANE TOBARRELL GASEOUS 6 HOME HOME O2 SYS MEDICAL MEDICAL RENT; EQUIPME EQUIPME FLWMTR HUMIDFR&M ASK SBSQ 19745 [place] [address] MEDICAL CARE/DAY SERV 25 FOUNDATIO MINUTES N INITIAL 13562 [place] [address] MEDICAL CARE/DAY SERV 50 FOUNDATIO MINUTES N GROUND A0425 [facility] [place] 6 METRO METRO PER AMBULANCE AMBULANCE STATUTE MILE AMBULANCE A0428 [facility] 6 METRO METRO BLS AMBULANCE AMBULANCE NONEMERGE NCY TRANSPORT UNLISTED A0999 [facility] 6 METRO METRO SERVICE [facility] 87853 [facility] 6 MEDICAL DAY SERV MANAGEMEN FOUNDATIO T 30 N MIN/< SBSQ 17894 [place] [address] MEDICAL CARE/DAY SERV 25 FOUNDATIO MINUTES N SBSQ 76417 [facility] 6 MEDICAL CARE/DAY SERV 25 FOUNDATIO MINUTES N CRITICAL 65159 [facility] 6 MEDICAL ILL/INJUR SERV ED FOUNDATIO PATIENT N INIT 30-74 MIN ECG 48247 [place] [facility] ROUTINE 6 MEDICAL ECG SERV W/LEAST FOUNDATIO 12 LDS N I&R ONLY CRITICAL 77664 [facility] 6 MEDICAL Y-GARCIA ILL/INJUR SERV HERI ED FOUNDATIO PATIENT N INIT 30-74 MIN ECHO 59156 [place] LILLIE SALINAS TTHRC R-T 6 MEDICAL 2D SERV W/WOM-MOD FOUNDATIO E COMPL N SPEC&COLR D CT THORAX 98385 [place] KATERYNAK W/O 6 MEDICAL [place] [address] [place] VERONIKA ABDOMEN & 6 MEDICAL GUSTAVO PELVIS SERV W/O FOUNDATIO CONTRAST N MATERIAL RADIOLOGI 61527 [place] MARSHALL CRISTIANO C 6 MEDICAL EXAMINATI SERV ON [place] [address] [place] PARKER AYALA HEAD/BRAI 6 MEDICAL N W/O SERV CONTRAST FOUNDATIO MATERIAL N MONITORIN [id number] [facility] G 6 [facility]ALTHCAR HEALTHCAR ARTERIAL E E [facility] PERIPHER[facility] L PERQ MONITORIN [id number] [facility] G 6 HEALTHCAR HEALTHCAR ARTERIAL E E PRESSURE [facility]PITALS H[facility]ITALS PERIPHERA L PERQ INSERTION [id number] [facility] INFUSION 6 HEALTHCAR HEALTHCAR DEVC E E SUPERIOR [facility] HOSPITALS VENA CAVA PERQ INSERTION [id number] [facility] INFUSION 6 HEALTHCAR HEALTHCAR DEVC RT E E [facility] N VEIN PERQ ECG 88547 NEFTALI LINDSAY ROUTINE 6 [facility] ECG INC INC W/LEAST 12 LDS TRCG ONLY W/O I&R RADIOLOGI 42823 [place] TRUE RAE C 6 MEDICAL EXAMINATI SERV ON CHEST FOUNDATIO SING[place] COMPREHEN 91392 NEFTALI LINDSAY SIVE 6 [facility] [address] NEFTALI LINDSAY LACTATE 6 [place] [address] NEFTALI LINDSAY INFUSION 6 [facility] THER INC INC PROPH ADDL SEQUENTIA L TO 1 HR CREATINE 56443 NEFTALI LINDSAY KINASE MB 6 [facility] FRACTION INC INC ONLY CULTURE 60647 NEFTALI LINDSAY BACTERIAL 6 [facility] INC INC QUANTTATI VE COLONY COUNT URINE CUL BACT 93855 NEFTALI LINDSAY AEROBIC 6 [facility] ADDL INC INC METHS DEFINITIV E EA ISOL CREATINE 35807 NEFTALI NEFTALI KINASE 6 [facility] TOTAL INC INC CULTURE 49831 NEFTALI NEFTALI BACTERIAL 6 [facility] BLOOD INC INC AEROBIC W/ID ISOLATES BLOOD 01859 NEFTALI LINDSAY COUNT 6 [facility] COMPLETE INC INC AUTO&[place] [address] NEFTALI NEFTALI TROPONIN 6 [facility] QUANTITAT INC INC CORY ECG 59014 NEFTALI NOONAN ROUTINE 6 [facility] W/LEAST P 12 LDS I&R ONLY AMB A0427 [facility] SERVICE 6 AMBULANCE AMBULANCE ALS SERVICE SERVICE EMERGENCY TRANSPORT LEVEL 1 CRITICAL 92160 DEEPA MALMARIA ALEJANDRA [facility] CARE 6 PHYSICIAN ILL/INJUR S, PLLC ED PATIENT INIT 30-74 MIN COLLECTIO 25778 NEFTALIKODY DANIELON N VENOUS 6 [facility] BLOOD INC INC VENIPUNCT URE GROUND A0425 [facility] MILEAGE 6 AMBULANCE AMBULANCE [place] [address] NEFTALI NEFTALI INFUSION 6 [facility] THERAPY/P INC INC ROPHYLAXI S /DX 1ST TO 1 [place] [address] NEFTALI NEFTALI INFUSION 6 [facility] THERAPY INC INC PROPHYLAX IS/DX EA HOUR URNLS DIP 23741 NEFTALI NEFTALI 6 [facility] STICK/TAB INC INC LET REAGENT AUTO MICROSCOP Y CT THORAX 34312 NEFTALI LINDSAY W/O 6 [facility] CONTRAST INC INC MATERIAL 3D 77464 [place] N[place] RENDERING 6 MEDICAL IZABEL W/INTERP IMAGING & ASS POSTPROCE SS SUPERVISI ON RADEX 95906 [place] SNYDER ALL RIBS BI 6 MEDICAL W/POSTERO IMAGING ANT CH ASS MINIMUM 4 VIEWS RADEX 46438 [place] SN[place]DER ALL HUMERUS 6 MEDICAL MINIMUM 2 IMAGING VIEWS ASS PRTBLE E0431 ARIANE THAKKAR GASEOUS 6 HOME HOME O2 SYS MEDICAL MEDICAL RENT; EQUIPME EQUIPME FLWRIR HUMIDFR&M ASK O2 CONC 1 E1390 ARIANE THAKKAR DEL [place] 6 HOME HOME 85%/>02 MEDICAL MEDICAL CONC AT EQUIPME EQUIPME [facility] FLW RATE CULTURE 00948 NEFTALI LINDSAY BCT 6 [facility] ISOL&PRSM INC INC PTV ID ISOLATE EA URINE ALBUMIN 30548 NEFTALI LINDSAY URINE 6 [facility] MICROALBU INC INC MIN QUANTIATI VE CULTURE 09223 NEFTALI LINDSAY BACTERIAL 6 [facility] INC INC QUANTTATI VE COLONY COUNT URINE HEMOGLOBI 00807 NEFTALI LINDSAY N 6 [facility] GLYCOSYLA INC INC NICOLE A1C PPSV23 67616 [facility] ELDER VACCINE 2 6 PHYSICIAN MANUELA YRS OR S GROUP OLDER FOR SUBQ/IM USE O2 CONC 1 E1390 ARAINE THAKKAR DEL PORT 6 HOME HOME 85%/>02 MEDICAL MEDICAL CONC [facility] E[facility] FLW [facility]ATE PRTBLE E0431 ARIANE THAKKAR GASEOUS 6 HOME HOME O2 SYS MEDICAL MEDICAL RENT; EQUIPME EQUIPME FLWMTR HUMIDFR&M ASK PRTBLE E0431 ARIANE THAKKAR GASEOUS 6 HOME HOME O2 SYS MEDICAL MEDICAL RENT; EQUIPME EQUIPME FLWMTR HUMIDFR&M ASK O2 CONC 1 E1390 ARIANE THAKKAR DEL PORT 6 HOME HOME 85%/>02 MEDICAL MEDICAL CONC [facility] E[facility] G0378 NEFTALI LINDSAY OBSERVATI 6 [facility] ON INC INC SERVICE PER HOUR BLOOD 84809 NEFTALI LINDSAY COUNT 6 [facility] COMPLETE INC INC AUTO&AUTO DIFRNTL WBC COLLECTIO 97788 NEFTALI LINDSAY N VENOUS 6 [facility] BLOOD INC INC VENIPUNCT URE COMPREHEN 51403 NEFTALI LINDSAY SIVE 6 [facility] METABOLIC INC INC PANEL GLUC BLD 53772 NEFTALI LINDSYA GLUC MNTR 6 [facility] DEV INC INC CLEARED FDA SPEC HOME USE PRESSURIZ 64928 NEFTALI LINDSAY ED/NONPRE 6 [facility] SSURIZED INC INC INHALATIO N TREATMENT NONINVASI 00658 NEFTALI LINDSAY VE 6 [facility] EAR/PULSE INC INC OXIMETRY SINGLE DETER PRESSURIZ 95363 NEFTALI LINDSAY ED/NONPRE 6 [facility] SSURIZED INC INC INHALATIO N TREATMENT NONINVASI 87402 NEFTALI LINDSAY VE 6 [facility] EAR/PULSE INC INC OXIMETRY SINGLE DETER BASIC 59165 NEFTALI LINDSAY METABOLIC 6 [facility] PANEL INC INC CALCIUM TOTAL GLUC BLD 36288 NEFTALI LINDSAY GLUC MNTR 6 [facility] DEV INC INC CLEARED FDA SPEC HOME USE COMPREHEN 35982 NEFTALI LINDSAY SIVE 6 [facility] METABOLIC INC INC PANEL COLLECTIO 93267 NEFTALI LINDSAY N VENOUS 6 [facility] BLOOD INC INC VENIPUNCT URE BLOOD 66194 NEFTALI LINDSAY COUNT 6 [facility] COMPLETE INC INC AUTO&[place] [address] NEFTALI LINDSAY TROPONIN 6 [facility] QUANTITAT INC INC CORY CREATINE 56072 NEFTALI LINDSAY KINASE MB 6 [facility] FRACTION INC INC [facility] G0378 NEFTALI LINDSAY OBSERVATI 6 [facility] ON INC INC SERVICE PER HOUR CREATINE 50919 NEFTALI LINDSAY KINASE 6 [facility] TOTAL INC INC PHYSICAL 43720 NEFTALI LINDSAY THERAPY 6 [facility] EVALUATIO INC INC N CREATINE 66886 NEFTALI LINDSAY KINASE 6 [facility] TOTAL INC INC THER 53921 NEFTALI LINDSAY PROPH/DX 6 [facility] NJX IV INC INC PUSH SINGLE/1S [facility] G0378 NEFTALI LINDSAY OBSERVATI 6 [facility] ON INC INC SERVICE PER HOUR CREATINE 99485 NEFTALI LINDSAY KINASE MB 6 [facility] FRACTION INC INC ONLY RADIOLOGI 69640 NEFTALI LINDSAY C 6 [facility] EXAMINATI INC INC ON CHEST SINGLE VIEW FRONTAL BLOOD 66511 NEFTALI LINDSAY COUNT 6 [facility] COMPLETE INC INC AUTO&[place] [address] NEFTALI LINDSAY TROPONIN 6 [facility] QUANTITAT INC INC CORY ECG 74743 NEFTALI NOONAN ROUTINE 6 [facility] W/LEAST P 12 LDS I&R ONLY COLLECTIO 43487 NEFTALI LINDSAY N VENOUS 6 [facility] BLOOD INC INC VENIPUNCT URE COMPREHEN 01079 NEFTALI LINDSAY SIVE 6 [facility] METABOLIC INC INC PANEL GLUCOSE 47117 NEFTALI [facility]INDSAY QUANTITAT 6 [facility] CORY BLOOD INC INC XCPT REAGENT STRIP GLUC BLD 31248 NEFTALI LINDSAY GLUC MNTR 6 [facility] DEV INC INC CLEARED FDA SPEC HOME USE NONINVASI 29530 NEFTALI LINDSAY VE 6 [facility] EAR/PULSE INC INC OXIMETRY SINGLE DETER PRESSURIZ 05533 NEFTALI LINDSAY ED/NONPRE 6 [facility] SSURIZED [place] [address] NEFTALI [facility]INDSAY 1/> AREAS 6 [facility] EA 15 INC INC MIN GAIT TRAINJ W/STAIR ECG 59203 NEFTALI LINDSAY ROUTINE 6 [facility] ECG INC INC W/LEAST 12 LDS TRCG ONLY W/O I&R US SOFT 40073 NEFTALI LINDSAY TISSUE 6 [facility] HEAD & INC INC NECK REAL TIME IMGE DOCM COLLECTIO 50305 NEFTALI LINDSAY N VENOUS 6 [facility] BLOOD INC INC VENIPUNCT URE BASIC 87640 NEFTALI LINDSAY METABOLIC 6 [facility] [place]EL [place] [address] NEFTALI [facility]INDSAY FREE 6 [facility] [place] [address] NEFTALI LINDSAY THYROID 6 [facility] STIMULATI INC INC NG HORMONE TSH ECG 85858 NEFTALI LINDSAY ROUTINE 6 [facility] ECG INC INC W/LEAST 12 LDS TRCG ONLY W/O I&R PRTBLE E0431 ARIANE THAKKAR GASEOUS 6 HOME HOME O2 SYS MEDICAL MEDICAL RENT; EQUIPME EQUIPME FLWMTR HUMIDFR&M ASK IMPLANTAT 99232 [facility] ION 6 PHYSICIAN MAT PT-ACTIVA S GROUP NICOLE CARDIAC EVENT RECORDER O2 CONC 1 E1390 ARIANE MCALLISTER PORT 6 HOME HOME 85%/>02 MEDICAL MEDICAL CONC AT EQUIPME EQUIPME PRSC FLW RATE DUPLEX 30608 ALESHA SNYDER SCAN 6 MEDICAL EXTRACRAN IMAGING IAL ART ASS COMPL BI STUDY INSERTION [id number] NEFTALI LINDSAY MON DEVC 6 [facility] CHEST INC INC SUBQ TISSUE & FASC OPEN ECG 42895 NEFTALI BONILLA JR ROUTINE 6 [facility] W/LEAST P 12 LDS I&R ONLY RADIOLOGI 32281 ALESHA SNYDER ALL C 6 MEDICAL EXAMINATI [...] RENT; EQUIPME EQUIPME FLWMTR HUMIDFR&M ASK NERVE 80024 [facility] CONDUCTIO 6 N N STUDIES NEUROLOGY 9-10 STUDIES NEEDLE 19125 [facility] EMG EA 6 N EXTREMTY NEUROLOGY W/PARASPI NL AREA COMPLETE INJECTION 62796 [place] 1 TENDON 6 ML DORIS SHEATH/LI GAMENT APONEUROS IS INJECTION J3301 [place] 6 ML DORIS TRIAMCINO LONE ACETONIDE NOS 10 MG ECG 35703 NEFTALI LINDSAY ROUTINE 6 [facility] ECG INC INC W/LEAST 12 LDS TRCG ONLY W/O I&R PRTBLE E0431 ARIANE TOBARRELL GASEOUS 6 HOME HOME O2 SYS MEDICAL MEDICAL RENT; EQUIPME EQUIPME FLWMTR HUMIDFR&M ASK O2 CONC 1 E1390 ARIANE THAKKAR DEL PORT 6 HOME HOME 85%/>02 MEDICAL MEDICAL CONC AT EQUIPME EQUIPME PRSC FLW RATE RADIOLOGI 81168 ALESHA SNYDER ALL C 6 MEDICAL EXAMINATI IMAGING ON FOOT 2 ASS VIEWS RADEX 48480 NEFTALI LINDSAY FOOT 6 [facility] COMPLETE INC INC MINIMUM 3 VIEWS POLYSOM 77223 NEFTALI LINDSAY 6/>YRS 6 [facility] SLEEP 4/> INC INC ADDL RENZO ATTND DETERMINA 24653 DWAY[facility] PRASHANTAMBERLY TION 6 [facility] O2 CONC 1 E1390 ARIANE THAKKAR DEL PORT 6 HOME HOME 85%/>02 MEDICAL MEDICAL CONC AT EQUIPME EQUIPME PRSC FLW RATE OPHTH 02542 [place] [facility] 6 VISION ANG XM&EVAL CENTER COMPRHNSV ESTAB PT 1/> PRTBLE E0431 ARIANE THAKKAR GASEOUS 6 HOME HOME O2 SYS MEDICAL MEDICAL RENT; EQUIPME EQUIPME FLWMTR HUMIDFR&M ASK ECG 55227 [facility] ROUTINE 6 PHYSICIAN MAT ECG S GROUP W/LEAST 12 LDS I&R ONLY DUP-SCAN 77671 NEFTALI LINDSAY LXTR 6 [facility] ART/ARTL INC INC BPGS UNI/LMTD STUDY DUP-SCAN 03354 ALESHA SNYDER ALL XTR VEINS 6 MEDICAL IMAGING UNILATERA ASS L/LIMITED STUDY ECG 73306 NEFTALI LINDSAY ROUTINE 6 [facility] ECG INC INC W/LEAST 12 LDS TRCG ONLY W/O I&R ECG 69145 NEFTALI LINDSAY ROUTINE 6 [facility] ECG INC INC W/LEAST 12 LDS TRCG ONLY W/O I&R FOR DIAB A5513 [place] ONLY MX 6 ML DORIS DNSITY INSRT CSTM MOLD CSTM EA F5 28499 [facility] [employer] , [employer] ON FACTOR V ANAL LEIDEN VARIANT DIAB ONLY A5500 [place] FIT CSTM 6 ML DORIS PREP&SPL SHOE MX DNSITY INSRT F2 GENE 15519 [facility] [facility] , [facility] 29336L >A VARIANT MTHFR 93606 [employer] , [employer] ANALYSIS COMMON VARIANTS ECHO 50762 NEFTALI LINDSAY TTHRC R-T 6 [facility] 2D INC INC W/WOM-MOD E COMPL SPEC&COLR D DUPLEX 58456 NEFTALI LINDSAY SCAN 6 [facility] EXTRACRAN INC INC IAL ART COMPL BI STUDY PRTBLE E0431 ARIANE THAKKAR GASEOUS 6 HOME HOME O2 SYS MEDICAL MEDICAL RENT; EQUIPME EQUIPME FLWMTR HUMIDFR&M ASK O2 CONC 1 E1390 ARIANE THAKKAR DEL PORT 6 HOME HOME 85%/>02 MEDICAL MEDICAL CONC AT EQUIPME EQUIPME PRSC FLW RATE ECG 13439 [facility] LINA ROUTINE 6 PHYSICIAN MAT ECG S GROUP W/LEAST 12 LDS I&R ONLY ECG 96331 NEFTALI LINDSAY ROUTINE 6 [facility] ECG INC INC W/LEAST 12 LDS TRCG ONLY W/O I&R NON-INVAS 28886 NEFTALI LINDSAY CORY 6 [facility] PHYSIOLOG INC INC IC STUDY EXTREMITY 3 LEVLS SBSQ 83856 [facility] 6 ML DORIS CARE/DAY 35 MINUTES RADIOLOGI 76066 [place] SN[place] ALL C 6 MEDICAL EXAMINATI IMAGING ON FOOT 2 ASS VIEWS INITIAL 64025 [facility] 6 ML DORIS CARE/DAY 70 MINUTES SBSQ [id number] [place] [address] 6 PHYSICIAN MANUELA CARE/DAY S GROUP [address] THORAX 31458 [place] MARICHU[place] W/O 6 MEDICAL MIGUEL CONTRAST IMAGING MATERIAL ASS RADIOLOGI 25858 [place] SNYDER ALL C 6 MEDICAL EXAMINATI IMAGING [...] T STRIPS HOME BLD GLU FRI-50 RADIOLOGI 80358 NEFTALI LINDSAY C EXAM 6 [facility] [...] COMPRESSO MEDICAL MEDICAL R EQUIPME EQUIPME COLLECTIO 23619 NEFTALI LINDSAY N VENOUS 5 [facility] BLOOD INC INC VENIPUNCT URE COMPREHEN 73603 NEFTALI LINDSAY SIVE 5 [facility] METABOLIC INC INC PANEL LIPID 23000 NEFTALI LINDSAY PANEL 5 [facility] INC INC HEMOGLOBI 49702 NEFTALI LINDSAY N 5 [facility] MEM [...] COMPRESSO MEDICAL MEDICAL R EQUIPME EQUIPME BLOOD 35755 NEFTALI LINDSAY COUNT 5 [facility] COMPLETE INC INC AUTO&AUTO DIFRNTL WBC COMPREHEN 80437 NETFALI LINDSAY SIVE 5 [facility] METABOLIC INC INC PANEL COLLECTIO 91749 NEFTALI LINDSAY N VENOUS 5 [facility] BLOOD INC INC VENIPUNCT URE HEMOGLOBI 57155 NEFTALI LINDSAY N 5 [facility] GLYCOSYLA INC INC NICOLE A1C LIPID 11279 NEFTALI LINDSAY PANEL 5 [facility] MEM [...] YOUR SM VOL 5 PHARMACY PHARMACY NONFILTR [employer] PNEUMAT NEBULIZR DISPBL ALBUTEROL J7620 YOUR [...] AT EQUIPME EQUIPME PRSC FLW RATE ANGIOGRAP 48807 [facility] EXTREMITY MEDICAL G BILATERAL RS&I AORTOGRAP 73466 [facility] HY [facility] ABDOMINAL MEDICAL G SERIALOGR APHY RS&I INTRODUCT 20245 [facility] ION 5 [facility] NEBULIZER E0570 ARIANE THAKKAR WITH 5 HOME HOME [facility] MEDICAL R EQUIPME EQUIPME NON-INVAS 06619 [facility] CORY 5 MEDICAL MIGUEL PHYSIOLOG IMAGING [...] YOUR DISPEN 5 PHARMACY PHARMACY FEE INHAL eflow RX; INITIAL 30-DAY SUPPLY ALBUTEROL J7620 YOUR YOUR TO 2.5 5 PHARMACY PHARMACY [facility] IPRATROPI UM BROM TO 0.5 MG NEBULIZER E0570 ARIANE THAKKAR WITH 5 HOME HOME [facility] R EQUIPME EQUIPME ADMN SET A7003 YOUR YOUR SM VOL 5 PHARMACY PHARMACY NONFILTR eflow PNEUMAT NEBULIZR DISPBL RADIOLOGI 75311 [facility] C EXAM 5 MEDICAL IZABEL CHEST 2 IMAGING VIEWS ASS FRONTAL&L ATERAL O2 CONC 1 E1390 ARIANE MCALLISTER PORT 4 HOME HOME 85%/>02 MEDICAL MEDICAL CONC AT EQUIPME EQUIPME [facility] FLW RATE PRTBLE E0431 ARIANE THAKKAR GASEOUS [...] INC WND CARE PART TX PLAN APPLICATI 18831 [facility] ON [facility] MODALITY [facility] INC 1/> AREAS HOT/COLD PACKS MANUAL 12436 [facility] THERAPY 4 [facility] TQS 1/> INC INC REGIONS EACH 15 MINUTES THERAPEUT 24413 NEFTALI LINDSAY IC PX 1/> 4 [facility] AREAS INC INC EACH 15 MIN EXERCISES THERAPEUT 19281 NETF[facility] LINDSAY IC PX 1/> 4 [facility] AREAS INC INC EACH 15 MIN EXERCISES PHYSICAL 57905 [facility] THERAPY 4 [facility] EVALUATIO INC INC N APPLICATI 82686 NEFTALI LINDSAY ON 4 [facility] MODALITY INC INC 1/> AREAS HOT/COLD PACKS E-STIM G0283 NEFTALI LINDSAY 1/> AREAS 4 [facility] OTH THAN INC INC WND CARE PART TX PLAN O2 CONC 1 E1390 ARIANE THAKKAR DEL PORT 4 HOME HOME 85%/>02 MEDICAL MEDICAL CONC AT EQUIPME EQUIPME PRSC FLW RATE PRTBLE E0431 ARIANE TOBARRELL GASEOUS 4 HOME HOME O2 SYS MEDICAL MEDICAL RENT; EQUIPME EQUIPME FLWMTR HUMIDFR&M ASK MRI 65533 NE[facility]I [facility] SPINAL 4 [facility] CANAL INC INC LUMBAR W/O CONTRAST MATERIAL 3D 02902 NEFTALI L[facility]SAY RENDERING 4 [facility] W/INTERP INC INC & POSTPROCE SS [...] T STRIPS HOME BLD GLU MON-50 COLLECTIO 21022 NEFTALI L[facility]SAY N VENOUS 4 [facility] BLOOD INC INC VENIPUNCT URE COMPREHEN 41614 NEFTALI LINDSAY SIVE 4 [facility] METABOLIC INC INC PANEL LIPID 76264 NEFTALI LINDSAY PANEL 4 [facility] INC INC HEMOGLOBI 10456 NEFTALI [facility]SAY N 4 [facility] MEM [...] RENT; EQUIPME EQUIPME FLWMTR HUMIDFR&M ASK RADIOLOGI 43895 [facility] C EXAM 4 MEDICAL IZABEL CHEST 2 IMAGING VIEWS ASS FRONTAL&L ATERAL ECHO 44660 [place] [facility] R-T 4 MEDICAL 2D SERV W/WOM-MOD FOUNDATIO E COMPL SPEC&COLR D LANCETS A4259 CLINIC CLINIC PER BOX 4 PHARMACY PHARMACY OF 100 BLD GLU A4253 CLINIC CLINIC TEST/REAG 4 PHARMACY PHARMACY T STRIPS HOME BLD GLU MON-50 RADIOLOGI 81729 [facility] C EXAM 4 MEDICAL IZABEL CHEST 2 IMAGING VIEWS ASS FRONTAL&L ATERAL OPHTH 32968 [facility]EL[facility] 4 VISION XM&EVAL CENTER COMPRHNSV ESTAB PT 1/> DETERMINA 47129 [facility] [place] 4 VISION VISION [facility] LANCETS A4259 CLINIC CLINIC PER BOX 4 PHARMACY PHARMACY OF 100 BLD GLU A4253 CLINIC CLINIC TEST/REAG 4 PHARMACY PHARMACY T STRIPS HOME BLD GLU MON-50 BLD GLU A4253 CLINIC CLINIC TEST/REAG 4 PHARMACY PHARMACY T STRIPS HOME BLD GLU MON-50 LANCETS A4259 CLINIC CLINIC PER BOX 4 PHARMACY PHARMACY OF 100 DUP-SCAN 77616 ALESHA DOTSON XTR VEINS 4 MEDICAL IZABEL COMPLETE IMAGING ASS BILATERAL STUDY RADIOLOGI 83987 ALESHA DOTSON C EXAM 4 MEDICAL IZABEL CHEST 2 IMAGING VIEWS ASS FRONTAL&L ATERAL ECG 02514 NEFTALI BONILLA JR ROUTINE 4 [facility] W/LEAST P 12 LDS I&R ONLY DIAB [...] STRIPS HOME BLD GLU MON-[place] [address] NEFTALI LINDSAY ESTROGENS 3 [facility] TOTAL INC INC GONADOTRO 53441 NEFTALI LINDSAY PIN 3 [facility] FOLLICLE INC INC STIMULATI NG HORMONE COLLECTIO [id number] NEFTALI LINDSAY N [facility]ENOUS 3 [facility] BLOOD INC INC VENIPUNCT URE GONADOTRO 11847 NEFTALI LINDSAY PIN 3 [facility] [place] [id number] NEFTALI LINDSAY THYROID 3 [facility] MEM [...] PROD THRU DME U DOSE 1 HOSPITAL [id number] [facility] DIS[facility] DAY INTERNAL MANAGEMEN MED T 30 MIN/< SBSQ 19213 [facility] CARE/DAY INTERNAL 25 MED MINUTES SBSQ 14303 [facility]ARE/[facility] INTERNAL 25 MED MINUTES SBSQ 64744 [facility] CARE/[facility] INTERNAL 25 MED MINUTES SBSQ 44293 [facility] CARE/DAY INTERNAL 25 MED MINUTES INITIAL 94543 [facility] 3 [facility] CARE/DAY INTERNAL 50 MED MINUT[facility] INITIAL 22055 [facility] ON INTERNAL CARE/DAY MED 30 MINUTES ECG 26486 NEFTALI BESCAPO ROUTINE 3 [facility] W/LEAST P 12 LDS I&R ONLY RADIOLOGI 82820 [facility] N[facility] C EXAM 3 MEDICAL IZABEL CHEST 2 IMAGING VIEWS ASS FRONTAL&L ATERAL BLD GLU A4253 [facility] TEST/REAG 3 [facility] PH[facility]ACY T [facility] BLD GLU BLD GLU A4253 CLINIC CLINIC TEST/REAG 3 PHARM[facility]Y PHARMACY T [facility] HOME BLD GLU [facility] 98890 [facility] DISCHARGE [facility] DAY INTERNAL MANAGEMEN MED T 30 MIN/< SBSQ 23110 [facility] CARE/DAY INTERNAL 25 MED MINUTES SBSQ 32710 [facility] CARE/DAY INTERNAL 25 MED MINUTES SBSQ 35576 [facility] CARE/DAY INTERNAL 25 MED MINUTES RADIOLOGI 88966 [place] NILA C EXAM 3 MEDICAL IZABEL CHEST 2 IMAGING VIEWS ASS FRONTAL&L ATERAL BLD GLU A4253 CLINIC CLINIC TEST/REAG 2 PHARMACY PHARMACY T STRIPS HOME BLD GLU MON-50 INFLUENZA Q2038 [facility] SPLIT INTERNAL VIRUS 3 MED YRS & > IM FLUZONE ADMINISTR G0008 [facility] ATION OF 2 [facility] INFLUENZA INTERNAL VIRUS MED VACCINE BLD GLU A4253 CLINIC CLINIC TEST/REAG 2 PHARMACY PHARMACY T STRIPS HOME BLD GLU MON-50 ECG 40988 NEFTALI GRIFFIN ROUTINE 2 [facility] W/LEAST P 12 LDS I&R ONLY Encounters Encounter Start End Date Code Location Performer Type Date OFFICE 33754 [facility] OUTBECKYEN 7 7 PHYSICIAN T VISIT S GROUP 25 MINUTES HOSPITAL NEFTALI - OTHER 7 7 [facility] NEFTALI - OTHER 7 7 [facility] NEFTALI - OTHER 7 7 [facility] NEFTALI - 7 7 [facility] OUTMCLAREN [facility] OFFICE 00839 [facility] OUTPATIEN 7 7 PHYSICIAN T VISIT S GROUP 25 MINUTES OFFICE 65847 [facility] OUTPATIEN 7 7 PHYSICIAN T [facility]ISIT S GROUP 25 MINUTES HOSPITAL NEFTALI - 7 7 [facility] - 7 7 [facility] PHYSICIAN T VISIT S GROUP 15 MINUT[facility] OFFICE 46378 [facility] OUTPATIEN 7 7 PHYSICIAN T VISIT S GROUP 15 MINUTES HOSPITAL NEFTALI - OTHER 7 7 [facility] 58305 EMPERATRIZ ARMSTRONG 6 6 MEDICAL DEPARTMEN SERV T VISIT FOUNDATIO LOW/MODER N SEVERITY [facility]OSP[facility] - 6 6 [facility] UK - 6 6 [facility] INPATIENT E HOSPITALS EMERGENCY 11436 EMPERATRIZ PENA DEPT 6 6 MEDICAL [place] VISIT SERV HIGH FOUNDATIO SEVERITY& N THREAT [facility] NEFTALI - 6 6 [facility] OUTPATI[facility] INC T OFFICE 41394 [facility] ELDER OUTPATIEN 6 6 PHYSICIAN MANUELA T VISIT S GROUP 15 MINUTES HOSPITAL NEFTALI - 6 6 [facility] OUTPATIEN INC EMERGENCY 73267 DEEPA FISH 6 6 PHYSICIAN U MIGUEL DEPARTMEN S, [facility] T VISIT MODERATE SEVERITY HOSPITAL NEFTALI - OTHER 6 6 [facility] OFF[facility] 91798 [facility] ELDER CASTELANPATIEN 6 6 PHYSICIAN MANUELA T VISIT S GROUP 25 MINUTES OFFICE 23536 [facility] CHICO DOMINGUEZ 6 6 PHYSICIAN OGMELISSADDAM T NEW 45 S GROUP MINUTES OFFICE 85731 [facility] ELDER CASTELANPATIEN 6 6 PHYSICIAN MANUELA T VISIT S GROUP 15 MINUTES EMERGENCY 52442 NEFTALI 6 6 [facility] T V[facility] HIGH/URGE NT SEVERITY EMERGENCY 23244 DEEPA FISH DEPT 6 6 PHYSICIAN U MIGUEL VISIT S, [facility] HIGH SEVERITY& THREAT [facility] NEFTALI - 6 6 [facility] OUTPATIEN INC HOSPITAL NEFTALI - 6 6 [facility] OUTPATIEN INC HOSPITAL NEFTALI - OTHER 6 6 [facility] NEFT[facility] - 6 6 [facility] OUTPATIEN INC T OFFICE 55657 [facility] ELDER CASTELANPATIEN 6 6 PHYSICIAN MANUELA T VISIT S GROUP 15 MINUTES HOSPITAL NEFTALI - 6 6 [facility] INPATIENT INC EMERGENCY 40192 DEEPA HINKLE DEPT 6 6 PHYSICIAN MANUELA VISIT S, [facility] HIGH SEVERITY& TH[facility] 21547 [facility] OUTPATIEN 6 6 ML DORIS T VISIT 15 MINUTES HOSPITAL NEFTALI - 6 6 [facility] OUTPATIEN INC T OFFICE 96627 [facility] OUTPATI[facility] 6 6 ML [facility] T VISIT 15 MINUTES HOSPITAL NEFTALI - 6 6 [facility] OUTPATIEN INC HOSPITAL NEFTALI - 6 6 [facility] OUTPATIEN INC T OFFICE 22290 [facility] LINA OUTPATIEN 6 6 PHYSICIAN MAT T VISIT S GROUP 25 OFFICE 30360 [facility] OUT[facility] 6 6 ML [facility] T VISIT 15 MINUTES HOSPITAL NEFTALI - 6 6 [facility] OUTPATIEN INC HOSPITAL NEFTALI - 6 6 [facility] OUTPATIEN INC T OFFICE 00973 [facility] 6 6 ML [facility] T VISIT 15 MINUTES HOSPITAL NEFTALI - 6 6 [facility] OUTPATIEN INC T OFFICE 11817 [facility] LINA OUTPATIEN 6 6 PHYSICIAN MAT T NEW 45 S GROUP MINUTES HOSPITAL NEFTALI - 6 6 [facility] OUTPATIEN INC T HOSPITAL NEFTALI - 6 6 [facility] OUTPATIEN INC T OFFICE 03229 [facility] OUTPATI[facility] 6 6 ML DORIS T NEW 30 MINUTES HOSPITAL NEFTALI - 6 6 [facility] OUTPATIEN INC HOSPITAL NEFTALI - OTHER 6 6 [facility] INC OFFICE 93895 [facility] 5 5 [facility] T VISIT INTERNAL 15 MED MINUTES HOSPITAL NEFTALI - 5 5 [facility] OUTPATIEN INC T OFFICE 29758 [facility] 5 5 [facility] T VISIT INTERNAL 25 MED MINUTES HOSPITAL NEFTALI - 5 5 [facility] OUTPATIEN INC T OFFICE 62512 [facility] 5 5 [facility] T VISIT INTERNAL 15 MED MINUTES HOSPITAL NEFTALI - 5 5 [facility] OUTPATIEN INC HOSPITAL NEFTALI - 5 5 [facility] INPATIENT INC EMERGENCY 41136 NEFTALI HINKLE 5 5 [facility] T VISIT P HIGH/URGE NT SEVERITY HOSPITAL NEFTALI - 4 4 [facility] OUTPATIEN INC HOSPITAL NEFTALI - 4 4 [facility] OUTPATIEN INC EMERGENCY 02483 [facility] 4 4 [facility] EMERGENCY T VISIT PHYS HIGH/URGE NT SEVERITY HOSPITAL NEFTALI - 4 4 [facility] OUTPATIEN [facility] EMERGENCY 19127 [facility] 4 4 [facility] VISIT EMERGENCY HIGH PHYS SEVERITY& THREAT [facility] Inpatient IMP Neftali Noonan MD (IN) 4 16:29 4 13:20 [facility] Inpatient YAMILA Griffin ([place]) 3 18:20 3 15:10 [facility] EMERGENCY 54008 HAZEL GUY DEPT 3 3 EMERG[facility] VISIT SERVICES HIGH SEVERITY& THREAT [facility] HOSPITAL NEFTALI - 3 3 [facility] OUTPATIEN INC T OFFICE 81224 [facility] 3 [facility] T VISIT INTERNAL 15 MED MINUTES Inpatient IMP Neftali Hinkle MD (IN) 3 22:02 3 11:10 [facility] EMERGENCY 63177 HAZEL HINKLE DEPT 3 3 EMERGENCY [facility] VISIT SERVICES HIGH SEVERITY& THREAT [facility] EMERGENCY 85784 HAZEL PICKENS DEPT 3 3 EMERGENCY III [facility] ELE[facility] VISIT SERVICES HIGH SEVERITY& THREAT [facility] OFFICE 68287 DIXIE DOMINGUEZ 2 2 KATHARINA WALLACE MARIA ELENA T VISIT INTERNAL 15 MED MINUTES
--- OUTSIDE RECORDS SUMMARY | 2016-12-15 23:48 | External Medical Summary Rpt ---
Author Author , Organization [employer] Address Unknown Phone Unavailable Care Team Providers Care Dolphin Researcher Name Role Phone IMASTE, Unavailable Unavailable [employer] ALFARIS MOH, ALFARIS Unavailable Unavailable MOH [facility] Unavailable [facility]available [facility], [facility] Unavailable Unavailable [facility], [facility] GRANT BRO, GRANT Unavailable Unavailable BRO BEINEKE MIGUEL, BEINEKE Unavailable Unavailable MIGUEL BERNERT, BERNERT Unavailable Unavailable BESSON CRISTIANO, BESSON Unavailable Unavailable CRISTIANO SNYDER, SNYDER Unavailable Unavailable SNYDER ALL, SNYDER ALL Unavailable Unavailable NATHANIEL, NATHANIEL Unavailable Unavailable [facility] Unavailable Unavailable SERVICE, [facility] CHINA DORIS, CHINA Unavailable Unavailable [facility] Unavailable Unavailable REHABILITATION, [facility], Unavailable Unavailable [facility] Unavailable Unavailable [facility], Unavailable Unavailable [facility] JESUS, JESUS Unavailable Unavailable NILA, NILA Unavailable Unavailable NILA IZABEL, Unavailable Unavailable NILA IZABEL [facility] Unavailable Unavailable [facility], [facility] RILEY, RILEY Unavailable Unavailable RILEY KIN, RILEY KIN Unavailable Unavailable ERLANDSON, ERLANDSON Unavailable Unavailable FALLIS ML, FALLIS Unavailable Unavailable ML FALLUJI RUTH, FALLUJI Unavailable Unavailable RUTH ELDER, ELDER Unavailable Unavailable ELDER MANUELA, ELDER Unavailable Unavailable MANUELA VERONIKA GUSTAVO, VERONIKA Unavailable Unavailable GUSTAVO [facility], Unavailable Unavailable [facility] Unavailable Unavailable INC, [facility] Unavailable [facility]available HOSPITAL P, [facility] P FIELDS FRED, FIELDS FRED Unavailable Unavailable [facility], Unavailable Unavailable [facility] MARSHALL CRISTIANO, MARSHALL CRISTIANO Unavailable Unavailable MARCUS III, MARCUS Unavailable Unavailable III [facility]available Unavailable [facility], [facility] Unavailable Unavailable MEDICAL G, [facility] G PARKER AYALA, PARKER LUCY Unavailable Unavailable [facility] Un[facility], [facility] VIDALES CRISTIANO, VIDALES CRISTIANO Unavailable Unavailable CHAD JR DWI, CHAD Unavailable Unavailable JR DWI [facility] Unavailable Unavailable [facility] MED, [facility] ROHAN, ., JR ROHAN. Unavailable Unavailable [facility] Unavailable Unavailable SERVICES, [facility] CHISHOLM, CHISHOLM Unavailable Unavailable MCKEMIE JR MARIA ELENA, Unavailable Unavailable MCKEMIE JR MARIA ELENA FUENTES-GARCIA HERI, Unavailable Unavailable FUENTES-GARCIA HERI [facility] Unavailable Unavailable PLL[facility], [facility] ANDRES LOPEZ, Unavailable Unavailable ANDRES LOPEZ [facility] Un[facility] AM[facility]ULANCE, [facility] Unavailable Unavailable AMBULANCE, [facility] SADEK MOH, SADEK MOH Unavailable Unavailable SCHLEENBAKER, Unavailable Unavailable SCHLEENBAKER SCIFRES, SCIFRES Unavailable Unavailable SCIFRES ANG, SCIFRES Unavailable Unavailable ANG [facility], Unavailable Unavailable [facility] LINA MAT, Unavailable Unavailable LINA MAT REYNOSO HERMINIA, REYNOSO HERMINIA Unavailable Unavailable [facility] Unavailable Unavailable [facility], [facility] Unavailable Unavailable [facility], [facility] Unavailable Unavailable SOTINGEANU MIGUEL COUNT INCLUDES [facility] Unavailable Unavailable EMERGENCY PHYS, COUNT INCLUDES THE [facility] EMERGENCY PHYS PENA MANUELA, PENA Unavailable Unavailable MANUELA TRUE RAE, TRUE RAE Unavailable Unavailable [facility] Unavailable Unavailable [facility]PITALS, [facility] Unavailable Unavailable [address], [facility] WEHRMAN III MARIA ELENA, Unavailable Unavailable WEHRMAN III MARIA ELENA [facility]available [facility], Unavailable [facility]available [facility] ZAGUROJENNIFERKAYA MAR, Unavailable Unavailable ZAGUROVSKAYA MAR Purpose Continuity of Care Document - 04-13-2012 through 2016 Problems Code Diagnosis DOS Provider Status [id number] 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-08-2016 [facility] BILATERAL J449 CHRONIC 11-02-2016 [facility] OBSTRUCTIVE 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 MEDICAL DISEASE UNS EQUIPME E119 TYPE 2 10-30-2016 [facility] DIABETES PHYSICIANS MELLITUS GROUP WITHOUT COMPLICATIO NS I10 ESSENTIAL 10-30-2016 [facility] PRIMARY PHYSICIANS HYPERTENSIO GROUP N M549 DORSALGIA 10-30-2016 [facility] UNSPECIFIED PHYSICIANS GROUP N289 DISORDER OF 10-30-2016 [facility] URETER INC UNSPECIFIED R0602 SHORTNESS 10-30-2016 [facility] OF BREATH [facility] INC W08495 OTHER LONG 10-30-2016 [facility] TERM PHYSICIANS CURRENT GROUP DRUG THERAPY N189 CHRONIC 10-29-2016 [facility] DISEASE INC UNSPECIFIED R0600 DYSPNEA 10-23-2016 [facility]NSPECIFIED [facility] INC R8290 UNSPECIFIED 10-23-2016 [facility] ABNORMAL [facility] FINDINGS IN INC URINE 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 ANGINA PECTORIS J40 BRONCHITIS 10-15-2016 [facility] NOT PHYSICIANS SPECIFIED GROUP ACUTE OR CHRONIC E663 OVERWEIGHT 10-01-2016 [facility] PHYSICIANS GROUP L0390 CELLULITIS 10-01-2016 [facility] UNSPECIFIED PHYSICIANS GROUP R609 EDEMA 10-01-2016 [facility]NS[facility]IFIED [facility] INC E118 TYPE 2 09-25-2016 [facility] DIABETES [facility] MELLITUS INC W/UNS COMPLICATIO NS M4316 SPONDYLOLIS 09-23-2016 [facility] M4806 SPINAL 09-23-2016 [facility] STEN[facility] REGION M5126 OTH 09-23-2016 [facility] 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 M545 LOW BACK 09-23-2016 [facility] R300 DYSURIA 08-26-2016 [facility] PHYSICIANS GROUP G894 CHRONIC 08-13-2016 [facility] SYNDROME [facility] M792 NEURALGIA 08-13-2016 [facility]URITIS [facility] UNSPECIFIED N179 ACUTE 08-13-2016 [facility] FAILURE [facility] UNSPECIFIED R2689 OTHER 08-13-2016 [facility] ABNORMALITI SERV ES OF GAIT FOUNDATION AND MOBILITY R5381 OTHER 08-13-2016 [facility] MALAISE [facility] A33219 PAIN IN 08-12-2016 [facility] RIGHT LEG SERV [facility] M7989 OTHER 08-12-2016 [facility] SPECIFIED SERV SOFT TISSUE FOUNDATION DISORDERS R279 UNSPECIFIED 08-12-2016 [facility] L[facility] OF AMBULANCE COORDINATIO N R52 PAIN 08-11-2016 [facility] UNSPECIFIED [facility]ICAL RESPONSE 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 M542 CERVICALGIA 08-05-2016 [facility] E1165 TYPE 2 08-01-2016 [facility] MELLIT[facility] RE[place] G9341 METABOLIC 08-01-2016 [facility] ENCEPHALOPA SERV THY FOUNDATION I129 HYPERTENSIV 08-01-2016 [facility] E CKD SERV W/STAGE 1-4 FOUNDATION [...] ARRHYTHMIA SERV UNSPECIFIED FOUNDATION J9620 ACUTE 07-31-2016 [facility] CHRONIC [facility] RESP FAIL [facility]OUNDATION UNS HYPOXIA/HYP ERCAPNIA A419 SEPSIS 07-29-2016 [facility] UNSPECIFIED SERV ORGANISM FOUNDATION I491 ATRIAL 07-29-2016 [facility] PREMATURE SERV DEPOLARIZAT FOUNDATION ION R000 TACHYCARDIA 07-29-2016 [facility] UNSPECIFIED FOUNDATION R6521 SEVERE 07-29-2016 [facility] SEPS[facility] WITH SERV SEPTIC FOUNDATION SHOCK R9431 ABNORMAL 07-29-2016 [facility] ELECTROCARD SERV IOGRAM [facility]OUNDATION A047 ENTEROCOLIT 07-27-2016 [facility] IS DUE TO SERV CLOSTRIDIUM FOUNDATION DIFFICILE E1122 TYPE 2 07-26-2016 [facility] W/DIAB CHRON KIDNEY DZ E872 ACIDOSIS 07-26-2016 [facility] G9340 ENCEPHALOPA 07-26-2016 [facility] THY SERV UNSPECIFIED FOUNDATION I348 OTHER 07-26-2016 [facility] 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 I5020 UNSPECIFIED 07-26-2016 [facility] SYSTOLIC SERV CONGESTIVE FOUNDATION HEART FAILURE I517 CARDIOMEGAL 07-26-2016 [facility] Y [facility] J9621 ACUTE & 07-26-2016 [facility] FAILURE WITH HYPOXIA J9690 RESP FAIL 07-26-2016 [facility] UNS UNS SERV WHETHER [facility]OUND[facility] W/HYPOXIA/H YPERCAPNIA N170 ACUTE RENAL 07-26-2016 [facility] WITH HOSPITALS TUBULAR NECROSIS R109 UNSPECIFIED 07-26-2016 [facility] ABDOMINAL SERV PAIN FOUNDATION R918 OTHER 07-26-2016 [facility] NONSPECIFIC SERV ABNORMAL FOUNDATION FINDING OF LUNG FIELD Z452 ENCOUNTER 07-26-2016 [facility] ADJUSTMENT& SERV MGMT [facility]OUNDATION VASCULAR ACCESS DEVICE X76362 ELEVATED 07-25-2016 [facility] WHITE [facility]LOOD [facility]ANS, CELL COUNT PLLC UNSPECIFIED R34 ANURIA AND 07-25-2016 [facility] OLIGURIA [facility], PLLC Z720 TOBACCO USE 07-25-2016 [facility] INC R0782 INTERCOSTAL 07-15-2016 [facility] PAIN [facility] INC R0789 OTHER CHEST 07-15-2016 [facility] [id number] CONTUSION 07-15-2016 [facility] RT FRONT PHYSICIANS WALL THORAX GROUP INITIAL ENCOUNTER N7780TL MULTIPLE FX 07-15-2016 [facility] RIBS UNS PHYSICIANS SIDE INIT GROUP ENC CLOS FRACTURE G38321 PAIN IN 07-10-2016 [facility] RIGHT UPPER MEDICAL ARM IMAGING ASS R0781 PLEURODYNIA 07-10-2016 [facility] [id number] CONTUSION 07-10-2016 [facility] U[facility] FRONT PHYSICIANS, WALL THORAX PLLC INITIAL ENCNTR R8434YU UNS INJURY 07-10-2016 [facility] RT SHOULDER MEDICAL UPPER ARM IMAGING ASS INITIAL ENCNTR N3000 ACUTE 06-28-2016 [facility] CYSTITIS PHYSICIANS WITHOUT GROUP HEMATURIA Z23 ENCOUNTER 06-28-2016 [facility] FOR PHYSICIANS IMMUNIZATIO GROUP N H24765 CHRONIC 05-13-2016 [facility] MIGRAINE PHYSICIANS W/O AURA GROUP INTRACT W/O STAT MIGR K25005 OTH 05-13-2016 [facility] MIGRAINE PHYSICIANS NOT INTRACT GROUP W/O STATUS MIGRAINOSUS G629 POLYNEUROPA 04-29-2016 [facility] THY PHYSICIANS UNSPECIFIED GROUP H6690 OTITIS 04-22-2016 [facility] MEDIA [facility] P UNSPECIFIED EAR J209 ACUTE 04-22-2016 [facility] BRONCHITIS PHYSICIANS, UNSPECIFIED PLLC J441 CHRONIC 04-22-2016 [facility] OBSTRUCTIVE PHYSICIANS, PULMONARY PLLC DZ W/EXACERBAT ION Z9981 DEPENDENCE 04-22-2016 [facility] P L OXYGEN R002 PALPITATION 04-17-2016 [facility] S [facility] INC R1310 DYSPHAGIA 04-17-2016 [facility] UNSPECIFIED [facility] INC R42 DIZZINESS 04-17-2016 [facility] AND [facility] GIDDINESS INC R4702 DYSPHASIA 04-17-2016 [facility] R55 SYNCOPE AND 04-17-2016 [facility] COLLAPSE [facility] INC E875 HYPERKALEMI 04-03-2016 [facility] A [facility] INC I159 SECONDARY 04-03-2016 [facility] HYPERTENSIO [facility] N INC UNSPECIFIED J440 COPD WITH 04-03-2016 [facility] ACUTE LOWER [facility] INC RESPIRATORY INFECTION R062 WHEEZING 04-02-2016 [facility] R079 CHEST PAIN 04-02-2016 [facility] UNSPECIFIED [facility]ICAL IMAGING ASS 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 12-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[facility] IDIOPATHIC NEUROPATHY UNSPECIFIED E1141 TYPE 2 12-14-2015 [facility] ML DIABETES MELLITUS W/DIAB MONONEUROPA THY I739 PERIPHERAL 12-14-2015 [facility] VASCULAR DISEASE UNSPECIFIED I890 LYMPHEDEMA 12-14-2015 [facility] ML NOT ELSEWHERE CLASSIFIED M2570 OSTEOPHYTE 12-14-2015 [facility] ML UNSPECIFIED JOINT 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 FIBROMATOSI S Y56334 PAIN IN 12-14-2015 [facility] LM RIGHT FOOT R98099 PAIN IN LEG 12-05-2015 [facility] UNSPECIFIED INC M779 ENTHESOPATH 11-30-2015 [facility] Y [facility] UNSPECIFIED INC G4733 OBSTRUCTIVE 11-09-2015 [facility] APNEA ADULT INC PEDIATRIC H3500 UNSPECIFIED 11-03-2015 [facility] RETINOPATHY I119 HYPERTENSIV 10-31-2015 [facility] E HEART PHYSICIANS DISEASE GROUP WITHOUT HEART FAILURE I209 ANGINA 10-31-2015 [facility] PECTORIS PHYSICIANS UNSPECIFIED GROUP O28552 PAIN IN 10-24-2015 [facility] LEFT THIGH MEDICAL IMAGING ASS R1032 LEFT LOWER 10-24-2015 [facility]ANT [facility] PAIN INC E785 HYPERLIPIDE 10-12-2015 [facility] MEDICAL UNSPECIFIED IMAGING ASS I5189 OTHER 10-12-2015 [facility] ILL-DEFINED [facility] HEART INC DISEASES I779 DISORDER OF 10-12-2015 [facility] ARTERIES [facility] AND INC ARTERIOLES UNSPECIFIED R0989 OTH SPEC SX 10-12-2015 [facility] & SIGNS MEDICAL INVLV THE IMAGING ASS CIRC & RESP SYS K20176 PERSONAL 10-03-2015 [facility] HISTORY OF PHYSICIANS NICOTINE GROUP DEPENDENCE U36147 PAIN IN 09-21-2015 [facility] ML LEFT FOOT M7732 CALCANEAL 09-19-2015 [facility] SPUR LEFT MEDICAL FOOT IMAGING ASS J432 CENTRILOBUL 09-16-2015 [facility] EMPHYSEMA IMAGING ASS B30696 UNSPECIFIED 09-16-2015 [facility] ASTHMA PHYSICIANS UNCOMPLICAT GROUP ED R05 COUGH 09-13-2015 [facility] Z131 ENCOUNTER 09-06-2015 [facility] FOR [facility] SCREENING INC FOR DIABETES MELLITUS Z5181 ENCOUNTER 08-21-2015 [facility] FOR [facility] THERAPEUTIC INC DRUG LEVEL MONITORING A084 VIRAL 07-24-2015 [facility] INFECTION INTERNAL UNSPECIFIED MED 496 CHRONIC 05-05-2015 [facility] OBSTRUCTION MEDICAL NEC EQUIPME 58267 DIAB W/O 03-08-2015 [facility] COMP TYPE VAL[facility] II/UNS NOT INTERNAL STATED MED UNCNTRL 2724 OTHER AND 03-08-2015 [facility] UNSPECIFIED VALLEY INTERNAL HYPERLIPIDE MED JESSICA 98944 ESOPHAGEAL 03-08-2015 [facility] REFLUX [facility] INTERNAL MED 7804 DIZZINESS 03-08-2015 [facility] AND [facility] GIDDINESS INTERNAL MED 03025 DIAB 11-28-2014 [facility] W/NEURO VALLEY MANIFESTS INTERNAL TYPE II/UNS MED NOT UNCNTRL 53294 OBSTRUCTIVE 11-28-2014 [facility] CHRONIC [facility] BRONCHITIS INTERNAL WITH MED EXACERBATIO N 4439 UNSPECIFIED 11-01-2014 [facility] PERIPHERAL HEALTH VASCULAR MEDICAL G DISEASE 97387 ULCER OF 11-01-2014 [facility] OTHER PART HEALTH OF LOWER MEDICAL [...] MEM HOSP INSULIN INC 7862 COUGH 08-23-2014 [facility] 72785 DIAB W/O 07-29-2014 CLINIC COMP TYPE I PHARMACY [JUV] NOT STATED UNCNTRL 7245 UNSPECIFIED 07-22-2014 [facility] BACKACHE [facility] INC V571 OTHER 07-22-2014 [facility] PHYSICAL [facility] THERAPY INC 7213 LUMBOSACRAL 06-28-2014 [facility] SPONDYLOSIS IMAGING ASS WITHOUT MYELOPATHY 92608 DISPLCMT 06-28-2014 [facility] LUMBAR MEDICAL INTERVERT IMAGING ASS DISC W/O MYELOPATHY 74671 DEGEN 06-28-2014 [facility] 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 7243 SCIATICA 06-28-2014 [facility] INC 7242 LUMBAGO 06-21-2014 [facility] 65712 CHEST PAIN 04-01-2014 [facility] U[facility]PECIFIED SERV FOUNDATIO 02631 UNSPECIFIED 01-03-2014 [facility] VISION CENTER RETINOPATHY 7823 EDEMA 09-17-2013 [facility] 4293 CARDIOMEGAL 09-15-2013 [facility] 77760 CHRONIC 09-15-2013 [facility] ASTHMA [facility] P WITH EXACERBATIO N 47163 OTHER 09-15-2013 [facility] DISEASES OF MEDICAL LUNG NOT IMAGING ASS ELSEWHERE CLASSIFIED 09548 WHEEZING 05-02-2013 [facility] 7812 ABNORMALITY 01-29-2013 [facility] INC 486 PNEUMONIA, 12-14-2012 [facility] ORGANISM [facility] UNSPECIFIED INTERNAL MED 27653 METHICILLIN 12-03-2012 [facility] RESISTANT [place] STAPHYLOCOC INTERNAL CUS AUREUS MED 4660 ACUTE 12-03-2012 [facility] BRONCHITIS [place] INTERNAL MED 45038 ASTHMA, 12-03-2012 [facility] UNSPECIFIED VALLEY , INTERNAL UNSPECIFIED MED STATUS 76797 METHICILLIN 12-01-2012 [facility] PNEUMONIA HOSPITAL P D/T STAPH AUREUS 36518 OTHER 12-01-2012 [facility] DYSPNEA [facility] SERVICES RESPIRATORY ABNORMALITI ES 485 BRONCHOPNEU 08-27-2012 [facility] [place] [facility] ORGANISM INTERNAL UNSPECIFIED MED 51802 OTHER 08-25-2012 [facility] NONSPECIFIC MEDICAL ABNORMAL IMAGING ASS FINDING OF LUNG FIELD V0481 NEED 06-05-2012 [facility] PROPHYLACTI [place] C INTERNAL VACCINATION MED &INOCULATIO N FLU 01699 DIAB W/O 04-13-2012 [facility] COMP TYPE [facility]OSP[facility] P [JUV TYPE] UNCNTRL 94936 ABDOMINAL 04-13-2012 [facility] P Immunization Name Date Route CVX Reacti Commen Provid Is Given on t er Refuse d PPSV23 ELDER No 2016 MANUELA VACCIN E 2 YRS OR OLDER FOR SUBQ/I M USE Procedures Procedure DOS Code Location Performer Comment DETERMINA 53775 [facility] [place] 7 VISION VISION REFRACTIV CENTER CENTER E [facility] 67742 [facility] 7 VISION XM&EVAL CENTER COMPRHNSV ESTAB PT 1/> O2 CONC 1 E1390 [facility] THAKKAR DEL PORT 7 HOME HOME 85%/>02 MEDICAL MEDICAL CONC AT EQUIPME EQUIPME PRSC FLW RATE PRTBLE E0431 [facility] TH[facility]KAR GASEOUS 7 HOME HOME O2 SYS MEDICAL MEDICAL RENT; EQUIPME EQUIPME FLWMTR HUMIDFR&M ASK HEMOGLOBI 18931 [facility] N 7 [facility] GLYCOSYLA INC INC NICOLE A1C LIPID 26947 [facility] PANEL 7 [facility] INC INC COMPREHEN 42245 [facility] SIVE 7 [facility] METABOLIC INC INC PANEL DRUG TEST 43431 [facility] PRSMV 7 [facility] QUAL DIR INC INC OPTICAL OBS PER DAY CREATININ 64512 [facility] E OTHER 7 [facility] SOURCE INC INC ALBUMIN 90964 [facility] URINE 7 [facility] MICROALBU INC INC MIN QUANTIATI VE BLOOD 38852 [facility] COUNT 7 [facility] COMPLETE INC INC AUTO&AUTO DIFRNTL WBC COLLECTIO 03750 [facility] N VENOUS 7 [facility] H[facility] BLOOD INC INC VENIPUNCT URE BASIC 67185 [facility] METABOLIC 7 [facility] PANEL INC INC CALCIUM TOTAL COLLECTIO 54077 [facility] N VENOUS 7 [facility] BLOOD INC INC VENIPUNCT URE SUSCEPTIB 19827 [facility] LTY STDY 7 [facility] ANTIMICRB INC INC IAL MICRO/AGA R DILUTJ CULTURE 89814 [facility] BACTERIAL 7 [facility] INC INC QUANTTATI VE COLONY COUNT URINE CULTURE 53558 [facility] BCT 7 [facility] ISOL&PRSM INC INC PTV ID ISOLATE EA URINE URNLS DIP 43564 [facility] 7 [facility] STICK/TAB INC INC LET REAGENT AUTO MICROSCOP Y COLLECTIO 09468 [facility] N VENOUS 7 [facility] BLOOD INC INC VENIPUNCT URE BASIC 02394 [facility] METABOLIC 7 [facility] PANEL INC INC CALCIUM TOTAL O2 CONC 1 E1390 [facility] THAKKAR DEL PORT 7 HOME HOME 85%/>02 MEDICAL MEDICAL CONC AT EQUIPME EQUIPME PRSC FLW RATE PRTBLE E0431 [facility] THAKKAR GASEOUS 7 HOME HOME O2 SYS MEDICAL MEDICAL RENT; EQUIPME EQUIPME FLWMTR HUMIDFR&M ASK DRUG TEST 19352 [facility] PRSMV 7 [facility] QUAL DIR INC INC OPTICAL OBS PER DAY ECHO 46366 [facility] TTHRC R-T 7 [facility] 2D INC INC W/WOM-MOD E COMPL SPEC&COLR D ECG 09153 [facility] ROUTINE 7 [facility] ECG INC INC W/LEAST 12 LDS TRCG ONLY W/O I&[place] [address] [facility] FREE 7 [facility] [address] [facility] THYROID 7 [facility] STIMULATI INC INC NG HORMONE TSH COLLECTIO 16341 [facility] N VENOUS 7 [facility] BLOOD INC INC VENIPUNCT URE BLOOD 48813 [facility] COUNT 7 [facility] COMPLETE INC INC AUTO&AUTO DIFRNTL WBC COMPREHEN 01082 [facility] SIVE 7 [facility]OS[facility] METABOLIC INC INC PANEL NATRIURET 94771 [facility] IC 7 [facility] PEPTIDE INC INC 3D 94279 [facility] RENDERING 7 [facility] W/INTERP INC INC & POSTPROCE SS SUPERVISI ON MRI 57680 [facility] SPINAL 7 MEDICAL CANAL IMAGING LUMBAR ASS W/O CONTRAST MATERIAL PRTBLE E0431 [facility] GASEOUS 7 HOME HOME O2 SYS MEDICAL MEDICAL RENT; EQUIPME EQUIPME FLWMTR HUMIDFR&M ASK O2 CONC 1 E1390 [facility] MCALLISTER PORT 7 HOME HOME 85%/>02 MEDICAL MEDICAL CONC AT EQUIPME EQUIPME [facility] FLW RATE CULTURE 40208 [facility] BACTERIAL 7 [facility] H[facility]OS[facility] INC INC QUANTTATI VE COLONY COUNT URINE BASIC 83248 [facility] METABOLIC 7 [facility] PANEL INC INC [facility] 22829 [facility] DIS[facility]GE 6 MEDICAL DAY SERV MANAGEMEN FOUNDATIO T > 30 N MIN SBSQ 65565 [facility] 6 MEDICAL CARE/DAY SERV 25 FOUNDATIO MINUTES N SBSQ 10170 [facility] 6 MEDICAL KER CARE/DAY SERV 25 FOUNDATIO MINUTES N DUP-SCAN 25334 [facility] XTR VEINS 6 MEDICAL JESSICA COMPLETE SERV FOUNDATIO BILATERAL N STUDY AMBULANCE A0428 [facility] BLS AMBULANCE AMBULANCE NONEMERGE NCY TRANSPORT GROUND A0425 [facility]LEAGE 6 [facility] PER AMBULANCE AMBULANCE STATUTE MILE GROUND A0425 [facility] 6 MEDICAL MEDICAL PER RESPONSE RESPONSE STATUTE MILE AMB A0427 [facility] SERV[facility] 6 MEDICAL MEDICAL ALS RESPONSE RESPONSE EMERGENCY TRANSPORT LEVEL 1 SBSQ 17559 [facility] 6 MEDICAL KER CARE/DAY SERV 25 FOUNDATIO MINUTES N SBSQ 20803 [facility] 6 MEDICAL KER CARE/DAY SERV 25 FOUNDATIO MINUTES N SBSQ 70968 [facility] [place] 6 MEDICAL CARE/DAY SERV 25 FOUNDATIO MINUTES N SBSQ 52131 [facility] 6 MEDICAL CARE/DAY SERV 25 FOUNDATIO MINUTES N SBSQ 88855 [facility] 6 MEDICAL CARE/DAY SERV 25 FOUNDATIO MINUTES N SBSQ 08893 [facility] 6 MEDICAL CARE/DAY SERV 25 FOUNDATIO MINUTES N SBSQ 51708 [facility] [place] 6 MEDICAL CARE/DAY SERV 25 FOUNDATIO MINUTES N RADEX 26169 [facility] [place] [facility] 6 RADIOLOGY III CERVICAL 2 OR 3 VIEWS SBSQ 27749 [place] [address] MEDICAL CARE/DAY SERV 25 FOUNDATIO MINUTES N O2 CONC 1 E1390 [facility] TH[facility] [place] 6 HOME HOME 85%/>02 MEDICAL MEDICAL CONC AT EQUIPME EQUIPME PRSC FLW RATE PRTBLE E0431 ARIANE THAKKAR GASEOUS 6 HOME HOME O2 SYS MEDICAL MEDICAL RENT; EQUIPME EQUIPME FLWMTR HUMIDFR&M ASK SBSQ 21576 [place] [address] MEDICAL CARE/DAY SERV 25 FOUNDATIO MINUTES N INITIAL [address] [place] [address] MEDICAL CARE/DAY SERV 50 FOUNDATIO MINUTES N GROUND A0425 [facility]LEAGE 6 METRO METRO PER AMBULANCE AMBULANCE STATUTE MILE AMBULANCE A0428 [facility] SERV[facility] 6 METRO METRO BLS AMBULANCE AMBULANCE NONEMERGE NCY TRANSPORT UNLISTED A0999 [facility] 6 METRO METRO SERVICE [facility] [address] EMPERATRIZ JR ROHAN. DISCHARGE 6 MEDICAL DAY SERV MANAGEMEN FOUNDATIO T 30 N MIN/< SBSQ 51790 [place] [address] MEDICAL CARE/DAY SERV 25 FOUNDATIO MINUTES N SBSQ 98106 [place] [address] MEDICAL CARE/DAY SERV 25 FOUNDATIO MINUTES N ECG 56373 [facility] [facility] CHI ROUTINE 6 MEDICAL ECG SERV W/LEAST FOUNDATIO 12 LDS N I&R ONLY CRITICAL 45811 [facility] [place] 6 MEDICAL ILL/INJUR SERV ED FOUNDATIO PATIENT N INIT 30-74 MIN CRITICAL 70932 [facility] 6 MEDICAL Y-GARCIA ILL/INJUR SERV HERI ED FOUNDATIO PATIENT [place] INIT 30-[place] [address] EMPERATRIZ VERONIKA ABDOMEN & 6 MEDICAL GUSTAVO PELVIS SERV W/O FOUNDATIO CONTRAST N MATERIAL ECHO 39851 EMPERATRIZ LILLIE SALINAS T[facility]RC R-T 6 MEDICAL 2D SERV W/WOM-MOD FOUNDATIO E COMPL N SPEC&[place] [address] EMPERATRIZ PARKER LUCY HEAD/BRAI 6 MEDICAL N W/O SERV CONTRAST FOUNDATIO MATERIAL N RADIOLOGI 56360 [place] [facility] CRISTIANO C 6 MEDICAL EXAMINATI SERV ON CHEST FOUNDATIO SINGLE N VIEW FRONTAL [place] THORAX [address] [place] ERIN W/O 6 MEDICAL AYA MAR CONTRAST SERV MATERIAL FOUNDATIO N MONITORIN [id number] [place] G 6 [facility] ARTERIAL E E [facility] PERIPHERA L PERQ MONITORIN [id number] [facility] G 6 [facility] ARTERIAL E E PULSE [facility]IT[facility] PERIPHERA L PERQ INSERTION [id number] [facility] DEVC E E [facility] VENA CAVA PERQ INSERTION [id number] [facility] DEVC RT E E [facility]AV[facility]PITALS N VEIN PERQ URNLS DIP 08032 [facility] 6 [facility] STICK/TAB INC [place] [address] NEFTALI L[facility]SA[facility] INFUSION 6 [facility] THERAPY INC INC PROPHYLAX IS/DX EA HOUR RADIOLOGI 74596 [place] TRUE RAE C 6 MEDICAL EXAMINATI SERV ON CHEST FOUNDATIO SINGLE N VIEW FRONTAL CULTURE 82512 NE[facility] BACTERIAL 6 [facility] INC INC QUANTTATI VE COLONY COUNT URINE CUL BACT 68792 NEFTALI [facility] AEROBIC 6 [facility] ADDL INC [place] [address] NEFTALI L[facility]SA[facility] TROPONIN 6 [facility] QUANTITAT INC INC CORY BLOOD 34572 NEFTALI L[facility]SA[facility] COUNT 6 [facility] COMPLETE INC INC AUTO&AUTO DIFRNTL WBC CULTURE 51607 NEFTALI [facility] BACTERIAL 6 [facility] BLOOD INC INC AEROBIC W/ID ISOLATES ECG 27077 NEFTALI NOONAN ROUTINE 6 [facility] W/LEAST P 12 LDS I&R ONLY ECG 76035 NEFTALI LINDSAY ROUTINE 6 [facility] ECG INC INC W/LEAST 12 LDS TRCG ONLY W/O I&R COLLECTIO 71468 NEFTALI LINDSAY N VENOUS 6 [facility] BLOOD INC INC VENIPUNCT URE AMB A0427 [facility] SERVICE 6 AMBULANCE AMBULANCE ALS SERVICE SERVICE EMERGENCY TRANSPORT LEVEL 1 CRITICAL 33751 [facility] CARE 6 PHYSICIAN ILL/INJUR S, [facility] PATIENT INIT 30-74 MIN GROUND A0425 [facility] MILEAGE 6 AMBULANCE AMBUL[place] [address] NEFTALI LINDSAY INFUSION 6 [facility] THERAPY/P INC INC ROPHYLAXI S /DX 1ST TO 1 HR CREATINE 17540 NEFTALI LINDSAY KINASE 6 [facility] TOTAL INC INC COMPREHEN 75567 NEFTALI LINDSAY SIVE 6 [facility] [place] [address] NEFTALI L[facility] LACTATE 6 [facility] INC INC CREATINE 43799 NEFTALI [facility]INDSAY KINASE MB 6 [facility] [place] [address] NEFTALI LINDSAY INFUSION 6 [facility] THER INC INC PROPH ADDL SEQUENTIA L TO 1 HR 3D 34824 [place] RENDERING 6 MEDICAL IZABEL W/INTERP IMAGING & ASS POSTPROCE SS SUPERVISI ON CT THORAX 66869 NEFTALI LINDSAY W/O 6 [facility] CONTRAST INC INC MATERIAL RADEX 58463 [place] SNYDER ALL RIBS BI 6 MEDICAL W/POSTERO IMAGING ANT CH ASS MINIMUM 4 VIEWS RADEX 98265 [place] SN[place]DER ALL HUMERUS 6 MEDICAL MINIMUM 2 IMAGING VIEWS ASS O2 CONC 1 E1390 ARIANE THAKKAR DEL PORT 6 HOME HOME 85%/>02 MEDICAL MEDICAL CONC AT EQUIPME EQUIPME PRSC FLW RATE PRTBLE E0431 ARIANE THAKKAR GASEOUS 6 HOME HOME O2 SYS MEDICAL MEDICAL RENT; EQUIPME EQUIPME FLWMTR HUMIDFR&M ASK HEMOGLOBI 81472 NEFTALI ILNDSAY N 6 [facility] GLYCOSYLA INC INC NICOLE A1C ALBUMIN 49920 NEFTALI LINDSAY URINE 6 [facility] MICROALBU INC INC MIN QUANTIATI VE PPSV23 72619 [facility] VACCINE 2 6 PHYSICIAN MANUELA YRS OR S GROUP OLDER FOR SUBQ/IM USE CULTURE 33804 NEFTALI LINDSAY BACTERIAL 6 [facility] INC INC QUANTTATI VE COLONY COUNT URINE CULTURE 80149 NEFTALI LINDSAY BCT 6 [facility] ISOL&PRSM INC INC PTV ID ISOLATE EA URINE O2 CONC 1 E1390 ARIANE ARIANE DEL [...] CONC AT EQUIPME EQUIPME PRSC FLW RATE COMPREHEN 09853 NEFTALI LINDSAY SIVE 6 [facility] METABOLIC INC INC PANEL NONINVASI 04703 NEFTALI LINDSAY VE 6 [facility] EAR/PULSE INC INC OXIMETRY SINGLE DETER BLOOD 92241 NEFTALI LINDSAY COUNT 6 [facility] COMPLETE INC INC AUTO&AUTO DIFRNTL WBC PRESSURIZ 22153 NEFTALI LINDSAY ED/NONPRE 6 [facility] SSURIZED INC INC INHALATIO N [facility] G0378 NEFTALI LINDSAY OBSERVATI 6 [facility] ON INC INC SERVICE PER HOUR COLLECTIO 14266 NEFTALI LINDSAY N VENOUS 6 [facility] BLOOD INC INC VENIPUNCT URE GLUC BLD 18505 NEFTALI LINDSAY GLUC MNTR 6 [facility] DEV INC INC CLEARED FDA SPEC HOME USE GLUC BLD 94857 NEFTALI LINDSAY GLUC MNTR 6 [facility] DEV INC INC CLEARED FDA SPEC HOME USE COLLECTIO 32061 NEFTALI LINDSAY N VENOUS 6 [facility] BLOOD INC INC [facility]CT [facility] G0378 NEFTALI DANIELON OBSERVATI 6 [facility] ON INC INC SERVICE PER HOUR PRESSURIZ 19239 NEFTALI LINDSAY ED/NONPRE 6 [facility] SSURIZED INC INC INHALATIO N TREATMENT BLOOD 06938 NEFTALIKODY LINDSAY COUNT 6 [facility] COMPLETE INC INC AUTO&[place] [address] NEFTALIKODY LINDSAY TROPONIN 6 [facility] QUANTITAT INC INC CORY BASIC 96630 NEFTALI LINDSAY METABOLIC 6 [facility] PANEL INC INC CALCIUM TOTAL NONINVASI 74066 NEFTALI LINDSAY VE 6 [facility] EAR/PULSE INC INC OXIMETRY SINGLE DETER CREATINE 06511 NEFTALI LINDSAY KINASE 6 [facility] TOTAL INC INC CREATINE 80608 NEFTALI LINDSAY KINASE MB 6 [facility] FRACTION INC INC ONLY COMPREHEN 96925 NEFTALI LINDSAY SIVE 6 [facility] METABOLIC INC INC PANEL COMPREHEN 46938 NEFTALI NEFTALI SIVE 6 [facility] METABOLIC INC INC PANEL CREATINE 12594 NEFTALI LINDSAY KINASE MB 6 [facility] FRACTION INC INC ONLY CREATINE 05063 NEFTALI LINDSAY KINASE 6 [facility] [place] [address] NEFTALI LINDSAY 1/> AREAS 6 [facility] EA 15 INC INC MIN GAIT TRAINJ W/STAIR NONINVASI 81436 NEFTALI LINDSAY VE 6 [facility] EAR/PULSE INC INC OXIMETRY SINGLE DETER PHYSICAL 88067 NEFTALI LINDSAY THERAPY 6 [facility] EVALUATIO INC INC N THER 08895 NEFTALI LINDSAY PROPH/DX 6 [facility] NJX IV INC INC PUSH SINGLE/1S T SBST/DRUG BLOOD 92340 NEFTALI LINDSAY COUNT 6 [facility] COMPLETE INC INC AUTO&[place] [address] NEFTALI LINDSAY TROPONIN 6 [facility] QUANTITAT INC INC CORY RADIOLOGI 41073 NEFTALI LINDSAY C 6 [facility] EXAMINATI INC INC ON CHEST SINGLE VIEW FRONTAL ECG 79902 NEFTALI LINDSAY ROUTINE 6 [facility] ECG INC INC W/LEAST 12 LDS TRCG ONLY W/O I&R PRESSURIZ 00899 NEFTALI LINDSAY ED/NONPRE 6 [facility] SSURIZED INC INC INHALATIO N TREATMENT ECG 28138 NEFTALI NOONAN ROUTINE 6 [facility] W/LEAST P 12 LDS I&R ONLY COLLECTIO 48255 NEFTALI LINDSAY N VENOUS 6 [facility] BLOOD INC INC [facility] G0378 NEFTALI LINDSAY OBSERVATI 6 [facility] ON INC INC SERVICE PER HOUR GLUCOSE 87891 NEFTALIKODY LINDSAY QUANTITAT 6 [facility] CORY BLOOD INC INC XCPT REAGENT STRIP GLUC BLD 74766 NEFTALI NEFTALI GLUC MNTR 6 [facility] DEV INC INC CLEARED FDA SPEC HOME USE US SOFT 10603 NEFTALI NEFTALI TISSUE 6 [facility] HEAD & INC [place] [address] NEFTALI LINDSAY FREE 6 [facility] [place] [address] NEFTALI LINDSAY THYROID 6 [facility] STIMULATI INC INC NG HORMONE TSH COLLECTIO 28216 NEFTALI NEFTALI N VENOUS 6 [facility] BLOOD INC INC VENIPUNCT URE BASIC 47079 NEFTALI LINDSAY METABOLIC 6 [facility] PANEL INC INC CALCIUM TOTAL ECG 49810 NEFTALI NEFTALI ROUTINE 6 [facility] ECG INC INC W/LEAST 12 LDS TRCG ONLY W/O I&R IMPLANTAT 21725 [facility] ION 6 PHYSICIAN MAT PT-ACTIVA S GROUP NICOLE CARDIAC EVENT RECORDER O2 CONC 1 E1390 ARIANE THAKKAR DEL PORT 6 HOME HOME 85%/>02 MEDICAL MEDICAL CONC AT EQUIPME EQUIPME PRSC FLW RATE PRTBLE E0431 ARIANE THAKKAR GASEOUS 6 HOME HOME O2 SYS MEDICAL MEDICAL RENT; EQUIPME EQUIPME FLWMTR HUMIDFR&M ASK INSERTION [id number] NEFTALI LINDSAY MON DEVC 6 [facility] CHEST INC INC SUBQ TISSUE & FASC OPEN DUPLEX 77530 ALESHA SNYDER SCAN 6 MEDICAL EXTRACRAN IMAGING IAL ART ASS COMPL BI STUDY RADIOLOGI 81121 ALESHA SNYDER ALL C 6 MEDICAL EXAMINATI IMAGING ON CHEST ASS SINGLE VIEW FRONTAL ECG 63193 NEFTALI BONILLA JR ROUTINE 6 [facility] W/LEAST P 12 LDS I&R ONLY [...] AT EQUIPME EQUIPME PRSC FLW RATE NERVE 06320 [facility] CONDUCTIO 6 N N STUDIES NEUROLOGY 9-10 STUDIES NEEDLE 88393 [facility] EMG EA 6 N EXTREMTY NEUROLOGY W/PARASPI NL AREA COMPLETE INJECTION J3301 FALLIS CHINA 6 ML DORIS TRIAMCINO LONE ACETONIDE NOS 10 MG INJECTION 08324 FALLIS CHINA 1 TENDON 6 ML DORIS SHEATH/LI GAMENT APONEUROS IS ECG 29339 NEFTALI NEFTALI ROUTINE 6 [facility] ECG INC INC W/LEAST 12 LDS TRCG ONLY W/O I&R O2 CONC 1 E1390 ARIANE ARIANE DEL PORT 6 HOME HOME 85%/>02 MEDICAL MEDICAL CONC AT EQUIPME EQUIPME PRSC FLW RATE PRTBLE E0431 ARIANE THAKKAR GASEOUS 6 HOME HOME O2 SYS MEDICAL MEDICAL RENT; EQUIPME EQUIPME FLWMTR HUMIDFR&M ASK RADIOLOGI 88889 ALESHA SNYDER ALL C 6 MEDICAL EXAMINATI IMAGING ON FOOT 2 ASS VIEWS RADEX 79957 NEFTALI LINDSAY FOOT 6 [facility] COMPLETE INC INC MINIMUM 3 VIEWS POLYSOM 51307 NEFTALI LINDSAY 6/>YRS 6 [facility] SLEEP / INC INC ADDL RENZO ATTND OPHTH 63072 [facility] SCIES MEDICAL 6 VISION ANG XM&EVAL CENTER COMPRHNSV ESTAB PT / DETERMINA 15754 DWAYNE RICE TION 6 VISION VISION REFRACTIV CENTER [facility] PRTBLE E0431 ARIANE THAKKAR GASEOUS 6 HOME HOME O2 SYS MEDICAL MEDICAL RENT; EQUIPME EQUIPME FLWMTR HUMIDFR&M ASK O2 CONC 1 E1390 ARIANE THAKKAR DEL PORT 6 HOME HOME 85%/>02 MEDICAL MEDICAL CONC AT EQUIPME EQUIPME PRSC FLW RATE ECG 31839 [facility] ROUTINE 6 PHYSICIAN MAT ECG S GROUP W/LEAST 12 LDS I&R ONLY DUP-SCAN 87117 ALESHA SNYDER ALL XTR VEINS 6 MEDICAL IMAGING UNILATERA ASS L/LIMITED STUDY ECG 58601 NEFTALI LINDSAY ROUTINE 6 [facility] ECG INC INC W/LEAST 12 LDS TRCG ONLY W/O I&R DUP-SCAN 44176 NEFTALI LINDSAY LXTR 6 [facility] ART/ARTL INC INC BPGS UNI/LMTD STUDY ECG 56389 NEFTALI LINDSAY ROUTINE 6 [facility] ECG INC INC W/LEAST 12 LDS TRCG ONLY W/O I&R DIAB ONLY A5500 FALLIS CHINA FIT CSTM 6 ML DORIS PREP&SPL SHOE MX DNSITY INSRT F5 69926 [employer] , [employer] , [employer] ON FACTOR V ANAL LEIDEN VARIANT F2 GENE 65526 [employer] , [facility] , LLC 49798G >A VARIANT FOR DIAB A5513 FALLIS [place] ONLY MX 6 ML DORIS DNSITY INSRT CSTM MOLD CSTM EA MTHFR 23801 [employer] , LLC ANALYSIS COMMON VARIANTS DUPLEX 62620 NEFTALI LINDSAY SCAN 6 [facility] EXTRACRAN INC INC IAL ART COMPL BI STUDY ECHO 03495 NEFTALI LINDSAY TTHRC R-T 6 [facility] 2D INC INC W/WOM-MOD E COMPL SPEC&COLR D O2 CONC 1 E1390 ARIANE THAKKAR DEL PORT 6 HOME HOME 85%/>02 MEDICAL MEDICAL CONC AT EQUIPME EQUIPME PRSC FLW RATE PRTBLE E0431 ARIANE THAKKAR GASEOUS 6 HOME HOME O2 SYS MEDICAL MEDICAL RENT; EQUIPME EQUIPME FLWMTR HUMIDFR&M ASK ECG 55283 NEFTALI LINDSAY ROUTINE 6 [facility] ECG INC INC W/LEAST 12 LDS TRCG ONLY W/O I&R ECG 09237 [facility] L[facility] ROUTINE 6 PHYSICIAN MAT ECG S GROUP W/LEAST 12 LDS I&R ONLY NON-INVAS 38230 NEFTALI LINDSAY CORY 6 [facility] PHYSIOLOG INC INC IC STUDY EXTREMITY 3 LEVLS SBSQ 70805 FALLIS [facility] 6 ML DORIS CARE/DAY 35 MINUTES INITIAL 39686 FALLIS [facility] 6 ML DORIS CARE/DAY 70 MINUTES RADIOLOGI 88160 [place] SN[place] ALL C 6 MEDICAL EXAMINATI IMAGING ON FOOT [address] THORAX 44524 [place] LISA W/O 6 MEDICAL MIGUEL CONTRAST IMAGING MATERIAL ASS SBSQ 63337 [facility] 6 PHYSICIAN MANUELA CARE/DAY S GROUP 15 MINUTES RADIOLOGI 12352 [place] SN[place] ALL C 6 MEDICAL EXAMINATI IMAGING ON CHEST ASS SINGLE VIEW FRONTAL INFLUENZA G8484 FALLIS FALLIS IMMUN 6 ML ML NOT ADMINISTE RED RSN NOT GIVEN MOST 3046F F[facility]IS [place] RECENT 6 ML DORIS HEMOGLOBI N A1C LEVEL >9.0% ELIG CLIN G8427 FALLIS CHINA ATTSTS 6 ML DORIS DOC M REC OBTD UPD/REV PT MEDS BMI DOC G8420 FALLIS [place] W/I 6 ML DORIS NORMAL RENZO & NO F/U PLAN REQUIRED PNEUMOCOC 4040F FALLIS FALLIS LUIZ 6 ML ML VACCINE ADMIN RCVD PRIOR RADIOLOGI 22594 NEFTALI Malagon EXAM 6 [facility] CHEST 2 INC INC VIEWS FRONTAL&L ATERAL BLD GLU A4253 [facility] TEST/REAG 6 PHARMACY PHARMACY T STRIPS HOME BLD GLU LANCETS A4259 CLINIC CLINIC PER BOX 6 PHARMACY PHARMACY OF 100 O2 CONC 1 E1390 ARIANE THAKKAR DEL PORT 6 HOME HOME 85%/>02 MEDICAL MEDICAL CONC AT EQUIPME EQUIPME PRSC FLW RATE PRTBLE E0431 ARIANE ARIANE GASEOUS 6 HOME HOME O2 SYS MEDICAL MEDICAL RENT; EQUIPME EQUIPME FLWMTR HUMIDFR&M ASK DRUG TST G0477 NEFTALI LINDSAY PRESUMP;C 6 [facility] PBL BEING INC INC READ DC OPT OBV ONLY PRTBLE E0431 ARIANE ARIANE GASEOUS 5 HOME HOME O2 SYS MEDICAL MEDICAL RENT; EQUIPME EQUIPME FLWMTR HUMIDFR&M ASK O2 CONC 1 E1390 ARIANE THAKKAR DEL PORT 5 HOME HOME 85%/>02 MEDICAL MEDICAL CONC AT EQUIPME EQUIPME PRSC FLW RATE O2 CONC 1 E1390 ARIANE THAKKAR DEL PORT 5 HOME HOME 85%/>02 MEDICAL MEDICAL CONC AT EQUIPME EQUIPME PRSC FLW RATE PRTBLE E0431 AIRANE ARIANE GASEOUS 5 HOME HOME O2 SYS MEDICAL MEDICAL RENT; EQUIPME EQUIPME FLWMTR HUMIDFR&M ASK NEBULIZER E0570 ARIANE THAKKAR WITH 5 HOME HOME COMPRESSO MEDICAL MEDICAL R EQUIPME EQUIPME COMPREHEN 51774 NEFTALI LINDSAY SIVE 5 [facility] METABOLIC INC INC PANEL COLLECTIO 17845 NEFTALI LINDSAY N VENOUS 5 [facility] BLOOD INC INC VENIPUNCT URE LIPID 90719 NEFTALI LINDSAY PANEL 5 [facility] INC INC HEMOGLOBI 90657 NEFTALI LINDSAY N 5 [facility] GLYCOSYLA INC INC NICOLE A1C DIAB ONLY A5500 CLINIC CLINIC FIT CSTM 5 PHARMACY PHARMACY PREP&SPL SHOE MX DNSITY INSRT FOR DIAB A5513 CLINIC CLINIC ONLY MX 5 PHARMACY PHARMACY DNSITY INSRT CSTM MOLD CSTM EA PRTBLE E0431 ARIANE TOBARRELL GASEOUS 5 HOME HOME O2 SYS MEDICAL MEDICAL RENT; EQUIPME EQUIPME FLWMTR HUMIDFR&M ASK O2 CONC 1 E1390 ARIANEGHAZAL THAKKAR DEL PORT 5 HOME HOME 85%/>02 MEDICAL MEDICAL CONC AT EQUIPME EQUIPME PRSC FLW RATE NEBULIZER E0570 ARIANE THAKKAR WITH 5 HOME HOME COMPRESSO MEDICAL MEDICAL R EQUIPME EQUIPME O2 CONC 1 E1390 ARIANEGHAZAL THAKKAR DEL PORT 5 HOME HOME 85%/>02 [...] RX; PER 30 DAYS PRTBLE E0431 ARIANE ARIANE GASEOUS 5 HOME HOME O2 SYS MEDICAL MEDICAL RENT; EQUIPME EQUIPME FLWMTR HUMIDFR&M ASK O2 CONC 1 E1390 ARIANEGHAZAL THAKKAR DEL PORT 5 HOME HOME 85%/>02 MEDICAL MEDICAL CONC AT EQUIPME EQUIPME PRSC FLW RATE NEBULIZER E0570 ARIANE THAKKAR WITH 5 HOME HOME COMPRESSO MEDICAL MEDICAL R EQUIPME EQUIPME COMPREHEN 23137 NEFTALI LINDSAY SIVE 5 [facility] METABOLIC INC INC PANEL COLLECTIO 50558 NEFTALI LINDSAY N VENOUS 5 [facility] BLOOD INC INC VENIPUNCT URE BLOOD 16287 NEFTALI LINDSAY COUNT 5 [facility] COMPLETE INC INC AUTO&AUTO DIFRNTL WBC LIPID 91743 NEFTALI LINDSAY PANEL 5 [facility] INC INC HEMOGLOBI 67804 NEFTLAI LINDSAY N 5 [facility] [...] YOUR YOUR SM VOL 5 PHARMACY [facility] PNEUM[facility] NEBULIZR DISPBL ALBUTEROL J7620 YOUR YOUR [...] RENT; EQUIPME EQUIPME FLWMTR HUMIDFR&M ASK ANGIOGRAP 36762 [facility] EXTREMITY MEDICAL G BILATERAL RS&I AORTOGRAP 51987 [facility] HY [facility] ABDOMINAL MEDICAL G SERIALOGR APHY RS&I INTRODUCT 14806 [facility] ION 5 NE [facility] G NEBULIZER E0570 ARIANE THAKKAR WITH 5 HOME HOME COMPRESSO MEDICAL MEDICAL R EQUIPME EQUIPME NON-INVAS 25369 [facility] CORY 5 MEDICAL MIGUEL PHYSIOLOG IMAGING IC STUDY ASS EXTREMITY 3 LEVLS O2 CONC 1 E1390 ARIANE THAKKAR DEL [...] EQUIPME EQUIPME PRSC FLW RATE PRTBLE E0431 RAIANE THAKKAR GASEOUS 5 HOME HOME O2 SYS MEDICAL MEDICAL RENT; EQUIPME EQUIPME FLWMTR HUMIDFR&M ASK NEBULIZER E0570 ARIANE THAKKAR WITH 5 HOME HOME COMPRESSO MEDICAL MEDICAL R EQUIPME EQUIPME ADMN SET A7003 YOUR YOUR SM VOL 5 PHARMACY PHARMACY NONFILTR [employer] PNEUMAT NEBULIZR DISPBL ALBUTEROL J7620 YOUR YOUR TO 2.5 5 PHARMACY PHARMACY [employer] IPRATROPI UM BROM TO 0.5 MG PHARM G0333 YOUR YOUR DISPEN 5 PHARMACY PHARMACY FEE INHAL [employer] RX; INITIAL 30-DAY SUPPLY RADIOLOGI 41952 [facility] C EXAM 5 MEDICAL IZABEL CHEST [...] T STRIPS HOME BLD GLU MON-50 THERAPEUT 00349 NEFTALI LINDSAY IC PX 1/> 4 [facility] AREAS INC INC EACH 15 MIN EXERCISES E-STIM G0283 NEFTALI LINDSAY 1/> AREAS 4 [facility] OTH THAN INC INC WND CARE PART TX PLAN APPLICATI 72295 NEFTALI LINDSAY ON 4 [facility] MODALITY INC INC 1/> AREAS HOT/COLD PACKS MANUAL 65360 NEFTALI LINDSAY THERAPY 4 [facility] TQS 1/> INC INC REGIONS EACH 15 MINUTES APPLICATI 19919 NEFTALI LINDSAY ON 4 [facility] MODALITY INC INC 1/> AREAS HOT/COLD PACKS E-STIM G0283 NEFTALI LINDSAY 1/> AREAS 4 [facility] OTH THAN INC INC WND CARE PART TX PLAN THERAPEUT 63610 NEFTALI LINDSAY IC PX 1/> 4 [facility] AREAS INC INC EACH 15 MIN EXERCISES PHYSICAL 76863 NEFTALI LINDSAY THERAPY 4 [facility] EVALUATIO INC INC N O2 CONC 1 E1390 ARIANE THAKKAR DEL PORT 4 HOME HOME 85%/>02 MEDICAL MEDICAL CONC AT EQUIPME EQUIPME PRSC FLW RATE PRTBLE E0431 ARIANE ARIANE GASEOUS 4 HOME HOME O2 SYS MEDICAL MEDICAL RENT; EQUIPME EQUIPME FLWMTR HUMIDFR&M ASK 3D 37677 NEFTALI LINDSAY RENDERING 4 [facility] W/INTERP INC INC & POSTPROCE SS SUPERVISI ON MRI 27764 NEFTALI LINDSAY SPINAL 4 [facility] CANAL INC INC LUMBAR W/O CONTRAST [...] BOX 4 PHARMACY PHARMACY OF 100 COMPREHEN 98651 NEFTALI LINDSAY SIVE 4 [facility] METABOLIC INC INC PANEL COLLECTIO 04227 NEFTALI LINDSAY N VENOUS 4 [facility] BLOOD INC INC VENIPUNCT URE HEMOGLOBI 60833 NEFTALI LINDSAY N 4 [facility] GLYCOSYLA INC INC NICOLE A1C LIPID 92619 NEFTALI LINDSAY PANEL 4 [facility] INC INC PRTBLE E0431 ARIANE TOBARRELL GASEOUS 4 HOME HOME O2 SYS MEDICAL MEDICAL RENT; EQUIPME EQUIPME FLWMTR HUMIDFR&M ASK O2 CONC 1 E1390 ARIANE AIRANE DEL PORT 4 HOME HOME 85%/>02 MEDICAL MEDICAL CONC AT EQUIPME EQUIPME [facility] FLW RATE BLD GLU A4253 CLINIC CLINIC TEST/REAG 4 PHARMACY PHARMACY T STRIPS HOME BLD GLU MON-50 O2 CONC 1 E1390 ARIANE THAKKAR DEL PORT 4 HOME HOME 85%/>02 MEDICAL MEDICAL CONC AT EQUIPME EQUIPME [facility] FLW RATE PRTBLE E0431 ARIANE THAKKAR GASEOUS 4 HOME HOME O2 SYS MEDICAL MEDICAL RENT; EQUIPME EQUIPME FLWMTR HUMIDFR&M ASK ECHO 47837 [place] [facility] CRIST[facility]O TTHRC R-T 4 MEDICAL 2D SERV W/WOM-MOD FOUNDATIO E COMPL SPEC&COLR D RADIOLOGI 92925 [facility] C EXAM 4 MEDICAL IZABEL CHEST 2 IMAGING VIEWS ASS FRONTAL&L ATERAL LANCETS A4259 CLINIC CLINIC PER BOX 4 PHARMACY PHARMACY OF 100 BLD GLU A4253 CLINIC CLINIC TEST/REAG 4 PHARMACY PHARMACY T STRIPS HOME BLD GLU MON-50 RADIOLOGI 12908 [facility] C EXAM 4 MEDICAL IZABEL CHEST 2 IMAGING VIEWS ASS FRONTAL&L ATERAL DETERMINA 91566 DWAYNE DUNCAN 4 [facility] 57295 [facility] 4 VISION XM&EVAL CENTER COMPRHNSV ESTAB PT 1/> BLD GLU A4253 CLINIC CLINIC TEST/REAG 4 PHARMACY PHARMACY T [facility] BLD GLU MON-50 LANCETS A4259 CLINIC CLINIC PER BOX 4 PHARMACY PHARMACY OF 100 LANCETS A4259 CLINIC CLINIC PER BOX 4 PHARMACY PHARMACY OF 100 BLD GLU A4253 CLINIC CLINIC TEST/REAG 4 PHARMACY PHARMACY T [facility] BLD GLU MON-50 DUP-SCAN 88818 [place] XTR VEINS 4 MEDICAL IZABEL COMPLETE IMAGING ASS BILATERAL STUDY ECG 00066 NEFTALI BONILLA JR ROUTINE [address] [facility] ECG HOSPITAL W/LEAST P 12 LDS I&R ONLY RADIOLOGI 46940 [place] C EXAM 4 MEDICAL IZABEL CHEST 2 IMAGING VIEWS ASS FRONTAL&L ATERAL DIAB ONLY A5500 CLINIC CLINIC FIT CSTM 3 PHARMACY PHARMACY PREP&SPL SHOE MX DNSITY INSRT FOR DIAB A5513 CLINIC CLINIC ONLY MX 3 PHARMACY PHARMACY DNSITY INSRT CSTM MOLD CSTM EA BLD GLU A4253 CLINIC CLINIC TEST/REAG 3 [...] STRIPS HOME [place] GL[place] MON-50 [place] [address] NEFTALI LINDSAY ESTROGENS 3 [facility] TOTAL INC INC GONADOTRO 33217 NEFTALI LINDSAY PIN 3 MEM [facility] FOLLICLE INC INC STIMULATI NG HORMONE GONADOTRO 37319 NEFTALI LINDSAY PIN 3 [facility] [place] [address] NEFTALI L[place]SAY THYROID 3 [facility] STIMULATI INC INC NG HORMONE TSH COLLECTIO 06303 NEFTALI LINDSAY N VENOUS 3 [facility] BLOOD INC INC VENIPUNCT URE BLD GLU A4253 CLINIC CLINIC TEST/REAG 3 PHARMACY PHARMACY T [facility] BLD GLU MON-50 ALBUTEROL J7613 [facility] INHAL 3 PHARMACY PHARMACY NON-CP #591 #591 PROD THRU DME U DOSE 1 MG PHRM Q0514 [facility] DISPENSIN 3 PHARMACY PHARMACY G FEE #591 #591 INHALATIO N RX; PER 90 DAYS [facility] [address]73 [facility] DISCHARGE 3 [facility] DAY INTERNAL MANAGEMEN MED T 30 MIN/< SBSQ 08193 [facility] [facility] 3 [facility] CARE/DAY INTERNAL 25 MED MINUTES [facility]BSQ 98023 [facility] 3 [facility] CARE/DAY INTERNAL 25 MED MINUTES [facility]BSQ 54590 [facility] 3 [facility] CARE/DAY INTERNAL 25 MED MINUTES [facility]BSQ 33666 [facility] 3 [facility] CARE/DAY INTERNAL 25 MED MINUT[facility] INITIAL 41246 [facility] 3 [facility] CARE/DAY INTERNAL 50 MED MINUT[facility]ITIAL 45073 [facility] ON INTERNAL CARE/DAY MED 30 MINUTES RADIOLOGI 25521 [facility] EX[facility] 3 MEDICAL IZABEL CHEST 2 IMAGING VIEWS ASS FRONTAL&L ATERAL ECG 95429 [facility] W/LEAST P 12 LDS I&R ONLY BLD GLU A4253 CLINIC CLINIC TEST/REAG 3 PHARMACY PHARMACY T [facility] BLD GLU BLD GLU A4253 CLINIC CLINIC TEST/REAG 3 PHARMACY PHARMACY T [facility] BLD GLU [facility]OSP[facility] 38045 [place] KEMIE DISCHARGE 3 [facility] DAY INTERNAL MANAGEMEN MED T 30 MIN/< SBSQ 17241 [facility] 3 [facility] CARE/DAY INTERNAL 25 MED MINUTES SBSQ 93702 [facility] 3 [facility] CARE/DAY INTERNAL 25 MED MINUTES SBSQ 01908 [facility] 3 [facility] CARE/DAY INTERNAL 25 MED MINUTES RADIOLOGI 03371 [place] C EXAM 3 MEDICAL IZABEL CHEST 2 IMAGING VIEWS ASS FRONTAL&L ATERAL BLD GLU A4253 CLINIC CLINIC TEST/REAG 2 PHARMACY PHARMACY T [facility] BLD GLU ADMINISTR G0008 [place] MCKEMIE ATION OF 2 [facility] INFLUENZA INTERNAL VIRUS MED VACCINE INFLUENZA Q2038 [place] MCKEM[facility] VACC 2 [facility] SPLIT INTERNAL VIRUS 3 MED YRS & > IM FLUZONE BLD GLU [id number] CLINIC CLINIC TEST/REAG 2 PHARMACY PHARMACY T STRIPS HOME BLD GLU MON-50 ECG 89994 NEFTALI CRUZ ROUTINE 2 [facility] W/LEAST P 12 LDS I&R ONLY Encounters Encounter Start End Date Code Location Performer Type Date OFFICE 10375 [facility] OUT[facility] 7 7 PHYSICIAN T VISIT S GROUP 25 MINUTES HOSPITAL NEFTALI - OTHER 7 7 [facility] NEFTALI - OTHER 7 7 [facility] NEFTALI [facility] OTHER 7 7 [facility] 28585 [facility] 7 7 PHYSICIAN T VISIT S GROUP 25 MINUTES [facility] 13898 [facility] 7 7 PHYSICIAN T [facility]ISIT S GROUP 25 MINUTES [facility] NE[facility]ALI - 7 7 [facility] 16219 [facility] 7 7 PHYSICIAN T VISIT S GROUP 15 MINUT[facility] 37[facility] V[facility] 15 MINUTES HOSP[facility] NEFTALI - OTHER [address] [facility] EMERGENCY 26760 EMPERATRIZ ARMSTRONG 6 6 MEDICAL DEPARTMEN SERV T VISIT FOUNDATIO LOW/MODER N [facility] - 6 6 [facility] - 6 6 [facility]PATIENT [facility] NEFTALI - [address] [facility] T EMERGENCY 04750 EMPERATRIZ PENA DEPT 6 6 MEDICAL MANUELA VISIT SERV HIGH FOUNDATIO SEVERITY& N THREAT [facility] NEFTALI - [address] [facility] T OFFICE 20670 [facility] OUTPATIEN 6 6 PHYSICIAN MANUELA T VISIT S GROUP 15 MINUTES EMERGENCY 36482 DEEPA FISH 6 6 PHYSICIAN U MIGUEL DEPARTMEN S, PLLC T VISIT MODERATE SEVERITY OFFICE 92336 [facility] OUTPATIEN 6 6 PHYSICIAN MANUELA T VISIT S GROUP 25 MINUTES HOSPITAL NEFTALI - OTHER 6 6 [facility] INC OFFICE 03651 [facility]-M OUTPATIEN 6 6 PHYSICIAN OGHADDAM T NEW 45 S GROUP MINUTES OFFICE 08418 [facility] OUTPATIEN 6 6 PHYSICIAN MANUELA T VISIT S GROUP 15 MINUTES HOSPITAL NEFTALI - [address] [facility] T EMERGENCY 75497 DEEPA FISH DEPT 6 6 PHYSICIAN U MIGUEL VISIT S, [facility] HIGH SEVERITY& THREAT FUN EMERGENCY 85356 NE[facility]I 6 6 [facility] HIGH/URGE NT SEVERITY [facility] NEFTALI - 6 6 [facility] ENFTALI [facility] OTHER 6 6 [facility] HOSPITAL NEFTALI - [address] [facility] T OFFICE 13315 [facility] OUTPATIEN 6 6 PHYSICIAN MANUELA T VISIT S GROUP 15 MINUTES HOSPITAL NEFTALI - 6 6 [facility] EMERGENCY 84883 DEEPA FRIEDMAN DEPT 6 6 PHYSICIAN MANUELA VISIT S, PLLC HIGH SEVERITY& THREAT FUNCJ OFFICE 58435 [facility] OUTPATIEN 6 6 ML DORIS T VISIT 15 MINUTES HOSPITAL NEFTALI - 6 6 [facility] OUTPATIEN INC T OFFICE 89435 [facility] OUTPATIEN 6 6 ML DORIS T VISIT 15 MINUTES HOSPITAL NEFTALI - 6 6 [facility] INC T [facility]OSPITAL NEFTALI - 6 6 [facility] INC T OFFICE 81488 [facility] OUTPATIEN 6 6 PHYSICIAN MAT T VISIT S GROUP 25 MINUTES OFFICE 66349 [facility] OUTPATIEN 6 6 ML DORIS T VISIT 15 MINUTES HOSPITAL NEFTALI - 6 6 [facility] NEFTALI - 6 6 [facility] OUTPATIEN INC T OFFICE 05948 [facility] OUTPATIEN 6 6 ML DORIS T VISIT 15 MINUTES HOSPITAL NEFTALI - 6 6 [facility] T OFFICE 00485 [facility] OUTPATIEN 6 6 PHYSICIAN MAT T NEW 45 S GROUP [facility]PITAL NEFTALI - 6 6 [facility] NEFTALI - 6 6 [facility]IEN INC T OFFICE 78874 [facility] OUTPATIEN 6 6 ML DORIS T NEW 30 MINUTES [facility] NEFTALI - 6 6 [facility] OUTPATIEN INC [facility]PITAL NEFTALI - OTHER 6 6 [facility] INC OFFICE 71178 [facility] 5 5 [facility] T VISIT INTERNAL 15 MED MINUTES HOSPITAL NEFTALI - 5 5 [facility]EN INC T OFFICE 94874 [facility] 5 5 [facility] T VISIT INTERNAL 25 MED MINUTES [facility]OSPITAL NEFTALI - 5 5 [facility] OFF[facility] 20315 [facility] 5 5 [facility] VISIT INTERNAL 15 MED MINUTES [facility]OSPITAL NEFTALI [facility] 5 5 [facility] NEFT[facility] - 5 5 [facility] EMERGENCY 53308 NEFTALI FRIEDMAN 5 5 [facility] T VISIT P HIGH/URGE NT SEVERITY HOSPITAL NEFTALI [facility] 4 4 [facility] NEFT[facility] - 4 4 [facility] EMERGENCY 03453 [facility] 4 4 [facility] EMERGENC[facility] T VISIT PHYS HIGH/URGE NT SEVERITY [facility] NEFTALI - 4 4 [facility] EMERGENCY 37897 [facility] DE[facility] 4 4 [facility] VISIT EMERGENCY HIGH PHYS SEVERITY& THREAT FUNJ EMERGENCY 84431 HAZEL GUY DEPT 3 3 [facility] VISIT SERVICES HIGH SEVERITY& THREAT FUN [facility]OSP[facility] NEFTALI - 3 3 [facility] OFFICE 80960 [facility] OUT[facility] 3 3 [facility] T VISIT INTERNAL 15 MED MINUTES EMERGENCY 70916 HAZEL FRIEDMAN DEPT 3 3 EMERGENCY [facility] VISIT SERVICES HIGH SEVERITY& THREAT FUN EMERGENCY 68803 HAZEL PICKENS DEPT 3 3 EMERGENCY III [facility]LE[facility] VISIT SERVICES HIGH SEVERITY& THREAT FUNCJ OFFICE 58794 [facility] OUT[facility]IEN 2 2 [facility] MARIA ELENA T VISIT INTERNAL 15 MED MINUTES
--- OUTSIDE RECORDS SUMMARY | 2016-12-15 23:48 | External Medical Summary Rpt ---
Author Author , Organization [employer] Address Unknown Phone Unavailable Care Team Providers Care Financial Report Service Sales Agent Name Role Phone [employer] [facility] [place], Unavailable Unavailable [employer] ALFARIS MOH, ALFARIS Unavailable Unavailable MOH [facility] Unavailable [facility]available [facility]PON[facility], [facility] Unavailable Unavailable [facility]PON[facility], [facility] GRANT BRO, GRANT Unavailable Unavailable BRO BEINEKE MIGUEL, BEINEKE Unavailable Unavailable MIGUEL BERNERT, BERNERT Unavailable Unavailable BESSON CRISTIANO, BESSON Unavailable Unavailable CRISTIANO SNYDER, SNYDER Unavailable Unavailable SNYDER ALL, SNYDER ALL Unavailable Unavailable NATHANIEL, NATHANIEL Unavailable Unavailable [facility] Unavailable Unavailable SERVICE, [facility] CHINA DORIS, CHINA Unavailable Unavailable DORIS [facility] Unavailable Unavailable REHABILITATION, [facility], Unavailable Unavailable [facility], Unavailable Unavailable [facility], Unavailable Unavailable [facility] JESUS, JESUS Unavailable Unavailable NILA, NILA Unavailable Unavailable NILA IZABEL, Unavailable Unavailable NILA IZABEL [facility] Unavailable Unavailable [facility], [facility] RILEY, RILEY Unavailable Unavailable RILEY KIN, RILEY KIN Unavailable Unavailable ERLANDSON, ERLANDSON Unavailable Unavailable FALLIS ML, FALLIS Unavailable Unavailable ML FALLUJI RUTH, FALLUJI Unavailable Unavailable RUTH ELDER, ELDER Unavailable Unavailable ELDER MANUELA, ELDER Unavailable Unavailable MANUELA VERONIKA GUSTAVO, VERONIKA Unavailable Unavailable GUSTAVO [facility], Unavailable Unavailable [facility] Unavailable Unavailable INC, [facility] Unavailable [facility]available HOSPITAL P, [facility] P FIELDS FRED, FIELDS FRED Unavailable Unavailable [facility], Unavailable Unavailable [facility] MARSHALL CRISTIANO, MARSHALL CRISTIANO Unavailable Unavailable MARCUS III, MARCUS Unavailable Unavailable III [facility] Un[facility], [facility] Unavailable Unavailable MEDICAL G, [facility] PARKER AYALA, PARKER LUCY Unavailable Unavailable [facility] VIDALES CRISTIANO, VIDALES CRISTIANO Unavailable Unavailable CHAD JR DWI, CHAD Unavailable Unavailable JR DWI [facility] Unavailable Unavailable INTERNAL MED, [facility] ROHAN, ., JR ROHAN. Unavailable Unavailable [facility] Unavailable Unavailable SERVICES, [facility] CHISHOLM, CHISHOLM Unavailable Unavailable MCKEMIE JR MARIA ELENA, Unavailable Unavailable MCKEMIE JR MARIA ELENA FUENTES-GARCIA HERI, Unavailable Unavailable FUENTES-GARCIA HERI [facility] Unavailable [facility]available PLL[facility], [facility] ANDRES LOPEZ, Unavailable Unavailable ANDRES LOPEZ [facility] Un[facility] AM[facility]ULANCE, [facility] Unavailable Unavailable AMBULANCE, [facility] [...] Unavailable Unavailable [facility], [facility], Unavailable Unavailable SOTINGEANU MIGUEL [facility] Unavailable Unavailable EMERGENCY PHYS, [facility] PENA MANUELA, PENA Unavailable Unavailable MANUELA TRUE RAE, TRUE RAE Unavailable Unavailable [facility] Unavailable Unavailable [facility]PITALS, [facility] Unavailable Unavailable [address], [facility] WEHRMAN III MARIA ELENA, Unavailable Unavailable WEHRMAN III MARIA ELENA [facility], Unavailable [facility]available [facility] ZAGUROJENNIFERKAYA MAR, Unavailable Unavailable ZAGUROVSKAYA MAR Purpose Continuity of Care Document - 04-13-2012 through 2016 Problems Code Diagnosis DOS Provider Status H2513 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-08-2016 [facility] BILATERAL J449 CHRONIC 11-02-[address] 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 MEDICAL DISEASE UNS EQUIPME E119 TYPE 2 10-30-2016 [facility] DIABETES PHYSICIANS MELLITUS GROUP WITHOUT COMPLICATIO NS I10 ESSENTIAL 10-30-2016 [facility] PRIMARY PHYSICIANS HYPERTENSIO GROUP N M549 DORSALGIA 10-30-2016 [facility] UNSPECIFIED PHYSICIANS GROUP N289 DISORDER OF 10-30-2016 [facility] URETER INC UNSPECIFIED R0602 SHORTNESS 10-30-2016 [facility] OF BREATH [facility] INC S63067 OTHER LONG 10-30-2016 [facility] TERM PHYSICIANS CURRENT GROUP DRUG THERAPY N189 CHRONIC 10-29-2016 [facility] DISEASE INC UNSPECIFIED R0600 DYSPNEA 10-23-2016 [facility]NSPECIFIED [facility] INC R8290 UNSPECIFIED 10-23-2016 [facility] ABNORMAL [facility] FINDINGS IN INC URINE 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 ANGINA PECTORIS J40 BRONCHITIS 10-15-2016 [facility] NOT PHYSICIANS SPECIFIED GROUP ACUTE OR CHRONIC E663 OVERWEIGHT 10-01-2016 [facility] PHYSICIANS GROUP L0390 CELLULITIS 10-01-2016 [facility] UNSPECIFIED PHYSICIANS GROUP R609 EDEMA 10-01-2016 [...] [facility] R300 DYSURIA 08-26-2016 [facility] G894 CHRONIC 08-13-2016 [place] [facility] SYNDROME [facility] M792 NEURALGIA 08-13-2016 [place] [facility] NEURITIS [facility] UNSPECIFIED N179 ACUTE 08-13-2016 [place] [facility] [place] [facility] FAILURE [facility]OUND[facility] UNSPECIFIED R2689 OTHER 08-13-2016 [place] [facility] ABNORMALITI SERV ES OF GAIT FOUNDATION AND MOBILITY R5381 OTHER 08-13-2016 [place] [facility] MALAISE SERV [facility] B13442 PAIN IN 08-12-2016 [place] [facility] RIGHT LEG SERV [facility] M7989 OTHER 08-12-2016 [place] [facility] SPECIFIED SERV SOFT TISSUE FOUNDATION DISORDERS R279 UNSPECIFIED 08-12-2016 [facility] OF AMBULANCE COORDINATIO N R52 PAIN 08-11-2016 [facility] UNSPECIFIED MEDICAL RESPONSE 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 08-08-2016 [place] [facility] CURRENT USE SERV OF INSULIN FOUNDATION M542 CERVICALGIA 08-05-2016 [facility] [place] [facility] E1165 TYPE 2 08-01-2016 [place] [facility] G[address] METABOLIC 08-01-2016 [place] [facility] ENCEPHALOPA SERV THY FOUNDATION I129 HYPERTENSIV 08-01-2016 [place] [facility] E CKD SERV W/STAGE 1-4 FOUNDATION [...] ARRHYTHMIA SERV UNSPECIFIED FOUNDATION J9620 ACUTE 07-31-2016 [place] [facility] CHRONIC SERV RESP FAIL FOUNDATION UNS HYPOXIA/HYP ERCAPNIA A419 SEPSIS 07-29-2016 [place] [facility] UNSPECIFIED SERV ORGANISM FOUNDATION I491 ATRIAL 07-29-2016 [place] [facility] PREMATURE SERV DEPOLARIZAT FOUNDATION ION R000 TACHYCARDIA 07-29-2016 [place] [facility] UNSPECIFIED FOUNDATION R6521 SEVERE 07-29-2016 [place] [facility] SEPS[place] WITH SERV SEPTIC FOUNDATION SHOCK R9431 ABNORMAL 07-29-2016 [place] [facility] ELECTROCARD SERV IOGRAM [facility]OUNDATION A047 ENTEROCOLIT 07-27-2016 [place] [facility] IS DUE TO SERV CLOSTRIDIUM FOUNDATION DIFFICILE E1122 TYPE 2 07-26-2016 [facility] W/DIAB CHRON KIDNEY DZ E872 ACIDOSIS 07-26-2016 [facility]PITALS G9340 ENCEPHALOPA 07-26-2016 [place] [facility] THY SERV UNSPECIFIED FOUNDATION I348 OTHER 07-26-2016 [place] [facility] 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 I5020 UNSPECIFIED 07-26-2016 [place] [facility] SYSTOLIC SERV CONGESTIVE FOUNDATION HEART FAILURE I517 CARDIOMEGAL 07-26-2016 [place] [facility] Y SERV [facility] J9621 ACUTE & 07-26-2016 [facility] HOSPITALS FAILURE WITH HYPOXIA J9690 RESP FAIL 07-26-2016 [place] [facility] UNS UNS SERV WHETHER [facility]OUND[facility] W/HYPOXIA/H YPERCAPNIA N170 ACUTE RENAL 07-26-2016 [facility] WITH HOSPITALS TUBULAR NECROSIS R109 UNSPECIFIED 07-26-2016 [place] [facility] ABDOMINAL SERV PAIN [facility]OUNDATION R918 OTHER 07-26-2016 [place] [facility] NONSPECIFIC SERV ABNORMAL FOUNDATION FINDING OF LUNG FIELD Z452 ENCOUNTER 07-26-2016 [place] [facility] ADJUSTMENT& SERV MGMT [facility]OUNDATION VASCULAR ACCESS DEVICE F05178 ELEVATED 07-25-2016 [facility] WH[facility]LOOD [facility], CELL COUNT PLLC UNSPECIFIED R34 ANURIA AND 07-25-2016 [facility] OLIGURIA [facility], PLLC Z720 TOBACCO USE 07-25-2016 [facility] R0782 INTERCOSTAL 07-15-2016 [facility] PAIN [facility] INC R0789 OTHER CHEST 07-15-2016 [facility] C19279O CONTUSION 07-15-2016 [facility] RT FRONT PHYSICIANS WALL THORAX GROUP INITIAL ENCOUNTER C9139NA MULTIPLE FX 07-15-2016 [facility] RIBS UNS PHYSICIANS SIDE INIT GROUP ENC CLOS FRACTURE A29905 PAIN IN 07-10-2016 [facility] RIGHT UPPER MEDICAL ARM IMAGING ASS R0781 PLEURODYNIA 07-10-2016 [facility] X33418P CONTUSION 07-10-2016 [facility] U[facility] FRONT PHYSICIANS, WALL THORAX PLLC INITIAL ENCNTR H6661WY UNS INJURY 07-10-2016 [place] RT SHOULDER MEDICAL UPPER ARM IMAGING ASS INITIAL ENCNTR N3000 ACUTE 06-28-2016 [facility] CYSTITIS PHYSICIANS WITHOUT GROUP HEMATURIA Z23 ENCOUNTER 06-28-2016 [facility] FOR PHYSICIANS IMMUNIZATIO GROUP N G96744 CHRONIC 05-13-2016 [facility] MIGRAINE PHYSICIANS W/O AURA GROUP INTRACT W/O STAT MIGR F40804 OTH 05-13-2016 [facility] MIGRAINE PHYSICIANS NOT INTRACT GROUP W/O STATUS MIGRAINOSUS G629 POLYNEUROPA 04-29-2016 [facility] THY PHYSICIANS UNSPECIFIED GROUP H6690 OTITIS 04-22-2016 [facility] MEDIA [facility] P UNSPECIFIED EAR J209 ACUTE 04-22-2016 [facility] BRONCHITIS PHYSICIANS, UNSPECIFIED PLLC J441 CHRONIC 04-22-2016 [facility] OBSTRUCTIVE PHYSICIANS, PULMONARY PLLC DZ W/EXACERBAT ION Z9981 DEPENDENCE 04-22-2016 [facility] P L OXYGEN R002 PALPITATION 04-17-2016 [facility] [...] UNSPECIFIED MEDICAL IMAGING ASS 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 UNSPECIFIED E1141 TYPE 2 12-14-2015 [facility] ML DIABETES MELLITUS W/DIAB MONONEUROPA THY I739 PERIPHERAL 12-14-2015 [facility] ML VASCULAR DISEASE UNSPECIFIED I890 LYMPHEDEMA 12-14-2015 [facility] ML NOT ELSEWHERE CLASSIFIED M2570 OSTEOPHYTE 12-14-2015 [facility] ML UNSPECIFIED JOINT 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 FIBROMATOSI S Y77250 PAIN IN 12-14-2015 [facility] ML RIGHT FOOT Q71016 PAIN IN LEG 12-05-2015 [facility] UNSPECIFIED INC M779 ENTHESOPATH 11-30-2015 [facility] Y [facility] UNSPECIFIED INC G4733 OBSTRUCTIVE 11-09-2015 [facility] APNEA ADULT INC PEDIATRIC H3500 UNSPECIFIED 11-03-2015 [facility] RETINOPATHY I119 HYPERTENSIV 10-31-2015 [facility] E HEART PHYSICIANS DISEASE GROUP WITHOUT HEART FAILURE I209 ANGINA 10-31-2015 [facility] PECTORIS PHYSICIANS UNSPECIFIED GROUP C68542 PAIN IN 10-24-2015 [place] LEFT THIGH MEDICAL IMAGING ASS R1032 LEFT LOWER 10-24-2015 [facility]ANT [facility] PAIN INC E785 HYPERLIPIDE 10-12-2015 [facility] MEDICAL UNSPECIFIED IMAGING ASS I5189 OTHER 10-12-2015 [facility] ILL-DEFINED [facility] HEART INC DISEASES I779 DISORDER OF 10-12-2015 [facility] ARTERIES [facility] AND INC ARTERIOLES UNSPECIFIED R0989 OTH SPEC SX 10-12-2015 [place] & SIGNS MEDICAL INVLV THE IMAGING ASS CIRC & RESP SYS F10565 PERSONAL 10-03-2015 [facility] HISTORY OF PHYSICIANS NICOTINE GROUP DEPENDENCE T88649 PAIN IN 09-21-2015 [facility] ML LEFT FOOT M7732 CALCANEAL 09-19-2015 [facility] SPUR LEFT MEDICAL FOOT IMAGING ASS J432 CENTRILOBUL 09-16-2015 [facility] MEDICAL EMPHYSEMA IMAGING ASS W79421 UNSPECIFIED 09-16-2015 [facility] ASTHMA PHYSICIANS UNCOMPLICAT GROUP ED R05 COUGH 09-13-2015 [facility] Z131 ENCOUNTER 09-06-2015 [facility] FOR [facility] SCREENING INC FOR DIABETES MELLITUS Z5181 ENCOUNTER 08-21-2015 [facility] FOR [facility] THERAPEUTIC INC DRUG LEVEL MONITORING A084 VIRAL 07-24-2015 [facility] INFECTION INTERNAL UNSPECIFIED MED 496 CHRONIC 05-05-2015 [facility] OBSTRUCTION MEDICAL NEC EQUIPME 05799 DIAB W/O 03-08-2015 [facility] COMP TYPE VALLEY II/UNS NOT INTERNAL STATED MED UNCNTRL 2724 OTHER AND 03-08-2015 [facility] UNSPECIFIED VALLEY INTERNAL HYPERLIPIDE MED JESSICA 46038 ESOPHAGEAL 03-08-2015 [facility] REFLUX VALLEY INTERNAL MED 7804 DIZZINESS 03-08-2015 [facility] AND VALLEY GIDDINESS INTERNAL MED 76456 DIAB 11-28-2014 [facility] W/NEURO VALLEY MANIFESTS INTERNAL TYPE II/UNS MED NOT UNCNTRL 97726 OBSTRUCTIVE 11-28-2014 [facility] CHRONIC VALLEY BRONCHITIS INTERNAL WITH MED EXACERBATIO N 4439 UNSPECIFIED 11-01-2014 [facility] PERIPHERAL HEALTH VASCULAR MEDICAL G DISEASE 43911 ULCER OF 11-01-2014 [facility] OTHER PART [facility] [...] MEM HOSP INSULIN INC 7862 COUGH 08-23-2014 [facility] 87341 DIAB W/O 07-29-2014 CLINIC COMP TYPE I PHARMACY [JUV] NOT STATED UNCNTRL 7245 UNSPECIFIED 07-22-2014 [facility] BACKACHE [facility] INC V571 OTHER 07-22-2014 [facility] PHYSICAL [facility] THERAPY INC 7213 LUMBOSACRAL 06-28-2014 [facility] SPONDYLOSIS IMAGING ASS WITHOUT MYELOPATHY 41982 DISPLCMT 06-28-2014 [place] LUMBAR MEDICAL INTERVERT IMAGING ASS DISC W/O MYELOPATHY 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-2014 [place] 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 7243 SCIATICA 06-28-2014 [facility] INC 7242 LUMBAGO 06-21-2014 [facility] 59639 CHEST PAIN 04-01-2014 [place] [facility] U[place]PECIFIED SERV FOUNDATIO 28023 UNSPECIFIED 01-03-2014 [facility] VISION [facility]ENTER RETINOPATHY 7823 EDEMA 09-17-2013 [facility] 4293 CARDIOMEGAL 09-15-2013 [facility] Y [facility] 04791 CHRONIC 09-15-2013 [facility] ASTHMA [facility] P WITH EXACERBATIO N 26363 OTHER 09-15-2013 [place] DISEASES OF MEDICAL LUNG NOT IMAGING ASS ELSEWHERE CLASSIFIED 31815 WHEEZING 05-02-2013 [facility] 7812 ABNORMALITY 01-29-2013 [facility] INC 486 PNEUMONIA, 12-14-2012 [facility] ORGANISM [facility] UNSPECIFIED INTERNAL MED 41385 METHICILLIN 12-03-2012 [facility] RESISTANT [place] STAPHYLOCOC INTERNAL CUS AUREUS MED 4660 ACUTE 12-03-2012 [facility] BRONCHITIS [place] INTERNAL MED 89806 ASTHMA, 12-03-2012 [facility] UNSPECIFIED VALLEY , INTERNAL UNSPECIFIED MED STATUS 78557 METHICILLIN 12-01-2012 [facility] HOSPITAL P D/T STAPH AUREUS 91748 OTHER 12-01-2012 [facility] RESPIRATORY ABNORMALITI ES 485 BRONCHOPNEU 08-27-2012 [facility] MONIA [facility] ORGANISM INTERNAL UNSPECIFIED MED 01726 OTHER 08-25-2012 [place] NONSPECIFIC MEDICAL ABNORMAL IMAGING ASS FINDING OF LUNG FIELD V0481 NEED 06-05-2012 [facility] PROPHYLACTI [place] C INTERNAL VACCINATION MED &INOCULATIO N FLU 28795 DIAB W/O 04-13-2012 [facility] COMP TYPE I HOSPITAL P [JUV TYPE] UNCNTRL 23860 ABDOMINAL 04-13-2012 [facility] EPIGASTRIC [facility] P Immunization Name Date Route CVX Reacti Commen Provid Is Given on t er Refuse d PPSV23 ELDER No 2016 MANUELA VACCIN E 2 YRS OR OLDER FOR SUBQ/I M USE Procedures Procedure DOS Code Location Performer Comment DETERMINA 33743 [facility] 7 [facility] C[facility] E [facility] 42875 [facility] VISION XM&EVAL CENTER COMPRHNSV ESTAB PT 1/> O2 CONC 1 E1390 [facility] TH[facility] [place] 7 HOME HOME 85%/>02 MEDICAL MEDICAL CONC AT EQUIPME EQUIPME PRSC FLW RATE PRTBLE E0431 [facility] TH[facility] GASEOUS 7 HOME HOME O2 SYS MEDICAL MEDICAL RENT; EQUIPME EQUIPME FLWMTR HUMIDFR&M ASK HEMOGLOBI 51674 [facility] N 7 [facility] GLYCOSYLA INC INC NICOLE A1C LIPID 90618 [facility] PANEL 7 [facility] INC INC COMPREHEN 40372 [facility] SIVE 7 [facility] METABOLIC INC INC PANEL DRUG TEST 32427 [facility] PRSMV 7 [facility] QUAL DIR INC INC OPTICAL OBS PER DAY CREATININ 29059 [facility] E OTHER 7 [facility] SOURCE INC INC ALBUMIN 54887 [facility] URINE 7 [facility] MICROALBU INC INC MIN QUANTIATI VE BLOOD 04330 [facility] COUNT 7 [facility] COMPLETE INC INC AUTO&AUTO DIFRNTL WBC COLLECTIO 81836 [facility] N VENOUS 7 MEM HOS[facility] BLOOD INC INC VENIPUNCT URE BASIC 97130 [facility] METABOLIC 7 [facility] PANEL INC INC CALCIUM TOTAL COLLECTIO 60411 [facility] N VENOUS 7 [facility] BLOOD INC INC VENIPUNCT URE SUSCEPTIB 62163 [facility] LTY STDY 7 [facility] ANTIMICRB INC INC IAL MICRO/AGA R DILUTJ CULTURE 96804 [facility] BACTERIAL 7 [facility] INC INC QUANTTATI VE COLONY COUNT URINE CULTURE 48230 [facility] BCT 7 [facility] ISOL&PRSM INC INC PTV ID ISOLATE EA URINE URNLS DIP 62318 [facility] 7 [facility] STICK/TAB INC INC LET REAGENT AUTO MICROSCOP Y COLLECTIO 29077 [facility] LINSDAY N VENOUS 7 MEM HOS[facility] BLOOD INC INC VENIPUNCT URE BASIC 12631 [facility] METABOLIC 7 [facility] PANEL INC INC CALCIUM TOTAL O2 CONC 1 E1390 [facility] THAKKAR [place] 7 HOME HOME 85%/>02 MEDICAL MEDICAL CONC AT EQUIPME EQUIPME PRSC FLW RATE PRTBLE E0431 [facility] THAKKAR GASEOUS 7 HOME HOME O2 SYS MEDICAL MEDICAL RENT; EQUIPME EQUIPME FLWMTR HUMIDFR&M ASK DRUG TEST 51402 [facility] PRSMV 7 [facility] QUAL DIR INC INC OPTICAL OBS PER DAY ECHO 48254 [facility] TTHRC R-T 7 [facility] 2D INC INC W/WOM-MOD E COMPL SPEC&COLR D ECG 60146 [facility] ROUTINE 7 [facility] ECG INC INC W/LEAST 12 LDS TRCG ONLY W/O I&[place] [address] [facility] FREE 7 [facility] [place] [address] [facility] THYROID 7 [facility] STIMULATI INC INC NG HORMONE TSH COLLECTIO 67914 [facility] N VENOUS 7 [facility] BLOOD INC INC VENIPUNCT URE BLOOD 00985 [facility] COUNT 7 [facility] COMPLETE INC INC AUTO&AUTO DIFRNTL WBC COMPREHEN 53409 [facility] SIVE 7 [facility] METABOLIC INC INC PANEL NATRIURET 84156 [facility] IC 7 [facility] PEPTIDE INC INC 3D 46742 [facility] RENDERING 7 [facility] W/INTERP INC INC & POSTPROCE SS SUPERVISI ON MRI 08044 [facility] 7 MEDICAL CANAL IMAGING LUMBAR ASS W/O CONTRAST MATERIAL PRTBLE E0431 [facility] GASEOUS 7 HOME HOME O2 SYS MEDICAL MEDICAL RENT; EQUIPME EQUIPME FLWMTR HUMIDFR&M ASK O2 CONC 1 E1390 [facility] MCALLISTER PORT 7 HOME HOME 85%/>02 MEDICAL MEDICAL CONC AT EQUIPME EQUIPME [facility] FLW RATE CULTURE 75452 [facility] BACTERIAL 7 MEM HOSP [facility] INC INC QUANTTATI VE COLONY COUNT URINE BASIC 12034 [facility] METABOLIC 7 [facility] PANEL INC [facility] [address] [place] [facility] DISCHARGE 6 MEDICAL DAY SERV MANAGEMEN FOUNDATIO T > 30 N MIN SBSQ 49389 [facility] 6 MEDICAL CARE/DAY SERV 25 FOUNDATIO MINUTES N SBSQ 30623 [facility] 6 MEDICAL KER CARE/DAY SERV 25 FOUNDATIO MINUTES N DUP-SCAN 85502 [place] [facility] XTR VEINS 6 MEDICAL JESSICA COMPLETE SERV FOUNDATIO BILATERAL N STUDY AMBULANCE A0428 [facility] 6 [facility] BLS AMBULANCE AMBULANCE NONEMERGE NCY TRANSPORT GROUND A0425 [facility]LEAGE 6 [facility] PER AMBULANCE AMBULANCE STATUTE MILE GROUND A0425 [facility] 6 MEDICAL MEDICAL PER RESPONSE RESPONSE STATUTE MILE AMB A0427 [facility] SERVICE 6 MEDICAL MEDICAL ALS RESPONSE RESPONSE EMERGENCY TRANSPORT LEVEL 1 SBSQ 34933 [facility] 6 MEDICAL KER CARE/DAY SERV 25 FOUNDATIO MINUTES N SBSQ 03402 [facility] 6 MEDICAL KER CARE/DAY SERV 25 FOUNDATIO MINUTES N SBSQ 54001 [facility] 6 MEDICAL CARE/DAY SERV 25 FOUNDATIO MINUTES N SBSQ 30866 [facility] 6 MEDICAL CARE/DAY SERV 25 FOUNDATIO MINUTES N SBSQ 93773 [facility] 6 MEDICAL CARE/DAY SERV 25 FOUNDATIO MINUTES N SBSQ 32987 [facility] 6 MEDICAL CARE/DAY SERV 25 FOUNDATIO MINUTES N SBSQ 95026 [facility] 6 MEDICAL CARE/DAY SERV 25 FOUNDATIO MINUTES N RADEX 47036 [facility] [place] [facility] 6 RADIOLOGY III CERVICAL 2 OR 3 VIEWS SBSQ 55386 [place] [address] MEDICAL CARE/DAY SERV 25 FOUNDATIO MINUTES N O2 CONC 1 E1390 [facility] THAKKAR [place] 6 HOME HOME 85%/>02 MEDICAL MEDICAL CONC AT EQUIPME EQUIPME PRSC FLW RATE PRTBLE E0431 [facility] THAKKAR GASEOUS 6 HOME HOME O2 SYS MEDICAL MEDICAL RENT; EQUIPME EQUIPME FLWMTR HUMIDFR&M ASK SBSQ 19037 [place] [address] MEDICAL CARE/DAY SERV 25 FOUNDATIO MINUTES N INITIAL 49426 [place] [address] MEDICAL CARE/DAY SERV 50 FOUNDATIO MINUTES N GROUND A0425 [facility] 6 [facility] [facility] PER AMBULANCE AMBULANCE STATUTE MILE AMBULANCE A0428 [facility] 6 [facility] [facility] BLS AMBULANCE AMBULANCE NONEMERGE NCY TRANSPORT UNLISTED A0999 [place] AMBULANCE 6 METRO METRO SERVICE [facility] [address] EMPERATRIZ JR ROHAN. DISCHARGE 6 MEDICAL DAY SERV MANAGEMEN FOUNDATIO T 30 N MIN/< SBSQ 75487 [place] [address] MEDICAL CARE/DAY SERV 25 FOUNDATIO MINUTES N SBSQ 61514 [place] [address] MEDICAL CARE/DAY SERV 25 FOUNDATIO MINUTES N ECG [address] [place] RAFA CHI ROUTINE 6 MEDICAL ECG SERV W/LEAST FOUNDATIO 12 LDS N I&R ONLY CRITICAL [address] [facility] 6 MEDICAL ILL/INJUR SERV ED FOUNDATIO PATIENT N INIT 30-74 MIN CRITICAL 71779 [facility] 6 MEDICAL Y-GARCIA ILL/INJUR SERV HERI ED FOUNDATIO PATIENT [place] INIT 30-[place] [address] EMPERATRIZ VERONIKA ABDOMEN & 6 MEDICAL GUSTAVO PELVIS SERV W/O FOUNDATIO CONTRAST N MATERIAL ECHO 04146 EMPERATRIZ LILLIE SALINAS TTHRC R-T 6 MEDICAL 2D SERV W/WOM-MOD FOUNDATIO E COMPL N SPEC&[place] [address] EMPERATRIZ PARKER LUCY HEAD/BRAI 6 MEDICAL N W/O SERV CONTRAST FOUNDATIO MATERIAL N RADIOLOGI 21534 [place] CRISTIANO C 6 MEDICAL EXAMINATI SERV ON CHEST FOUNDATIO SINGLE N VIEW FRONTAL CT THORAX [address] [place] ERIN W/O 6 MEDICAL AYA MAR CONTRAST SERV MATERIAL FOUNDATIO N MONITORIN [id number] [place] G 6 [facility]CAR ARTERIAL E E [facility] PERIPHERA L PERQ MONITORIN [id number] [place] G 6 [facility]ALTHCAR HEALTHCAR ARTERIAL E E PULSE [facility]ITALS PERIPHERA L PERQ INSERTION [id number] [facility] INFUSION 6 HEALTHCAR HEALTHCAR DEVC E E SUPERIOR [facility] HOSPITALS VENA CAVA PERQ INSERTION [id number] [facility] INFUSION 6 HEALTHCAR HEALTHCAR DEVC RT E E [facility] N VEIN PERQ URNLS DIP 35837 [facility]I [facility] 6 [facility] STICK/TAB [place] [address] [facility] INFUSION 6 [facility] THERAPY INC INC PROPHYLAX IS/DX EA HOUR RADIOLOGI 89488 [place] TRUE RAE C 6 MEDICAL EXAMINATI SERV ON CHEST FOUNDATIO SINGLE N VIEW FRONTAL CULTURE 42550 NEFT[facility]I [facility] BACTERIAL 6 [facility] INC INC QUANTTATI VE COLONY COUNT URINE CUL BACT 67638 [facility] AEROBIC 6 [facility] ADDL INC [place] [address] NEFTALI [facility] TROPONIN 6 [facility] QUANTITAT INC INC CORY BLOOD 72630 NEFT[facility]I [facility] COUNT 6 [facility] COMPLETE INC INC AUTO&AUTO DIFRNTL WBC CULTURE 16140 NEFTALI [facility] BACTERIAL 6 [facility] BLOOD INC INC AEROBIC W/ID ISOLATES ECG 97295 NEFTALI NOONAN ROUTINE 6 [facility] [facility] W/LEAST P 12 LDS I&R ONLY ECG 32354 NEFTALI LINDSAY ROUTINE 6 [facility] ECG INC INC W/LEAST 12 LDS TRCG ONLY W/O I&R COLLECTIO 39437 NEFTALI LINDSAY N VENOUS 6 [facility] BLOOD INC INC VENIPUNCT URE AMB A0427 [facility] SERVICE 6 AMBULANCE AMBULANCE ALS SERVICE SERVICE EMERGENCY TRANSPORT LEVEL 1 CRITICAL 50418 [facility] CARE 6 PHYSICIAN ILL/[facility]UR [facility] IN[facility]74 MIN GROUND A0425 [facility] MILEAGE 6 AMBULANCE AM[place]UL[place] [address] NEFTALI LINDSAY INFUSION 6 [facility] THERAPY/P INC INC ROPHYLAXI S /DX 1ST TO 1 HR CREATINE 72284 NEFTALI LINDSAY KINASE 6 [facility] TOTAL INC INC COMPREHEN 81276 NEFTALI LINDSAY SIVE 6 [facility] [place] [address] NEFTALI LINDSA[facility] LACTATE 6 [facility] INC INC CREATINE 76706 NEFTALI LINDSAY KINASE MB 6 [facility] [place] [address] NEFTALI LINDSAY INFUSION 6 [facility] THER INC INC PROPH ADDL SEQUENTIA L TO 1 HR 3D 40533 [place] RENDERING 6 MEDICAL IZABEL W/INTERP IMAGING & ASS POSTPROCE SS SUPERVISI ON CT THORAX 49228 NEFTALI LINDSAY W/O 6 [facility] CONTRAST INC INC MATERIAL RADEX 33381 [place] SN[place] ALL RIBS BI 6 MEDICAL W/POSTERO IMAGING ANT CH ASS MINIMUM 4 VIEWS RADEX 66981 [place] SN[place] ALL HUMERUS 6 MEDICAL MINIMUM 2 IMAGING VIEWS ASS O2 CONC 1 E1390 ARIANE THAKKAR DEL PORT 6 HOME HOME 85%/>02 MEDICAL MEDICAL CONC AT EQUIPME EQUIPME PRSC FLW RATE PRTBLE E0431 ARIANE THAKKAR GASEOUS 6 HOME HOME O2 SYS MEDICAL MEDICAL RENT; EQUIPME EQUIPME FLWMTR HUMIDFR&M ASK HEMOGLOBI 14783 NEFTALI LINDSAY N 6 [facility] GLYCOSYLA INC INC NICOLE A1C ALBUMIN 50689 NEFTALI LINDSAY URINE 6 [facility] MICROALBU INC INC MIN QUANTIATI VE PPSV23 21733 [facility] ELDER VACCINE 2 6 PHYSICIAN MANUELA YRS OR S GROUP OLDER FOR SUBQ/IM USE CULTURE 07318 NEFTALI LINDSAY BACTERIAL 6 [facility] INC INC QUANTTATI VE COLONY COUNT URINE CULTURE 75742 NEFTALI LINDSAY BCT 6 [facility] MEM [...] AT EQUIPME EQUIPME PRSC FLW RATE COMPREHEN 51757 NEFTALI LINDSAY SIVE 6 [facility] METABOLIC INC INC PANEL NONINVASI 23317 NEFTALI LINDSAY VE 6 [facility] EAR/PULSE INC INC OXIMETRY SINGLE DETER BLOOD 25769 NEFTALI LINDSAY COUNT 6 [facility] COMPLETE INC INC AUTO&AUTO DIFRNTL WBC PRESSURIZ 42898 NEFTALI LINDSAY ED/NONPRE 6 [facility] SSURIZED INC INC INHALATIO N [facility] G0378 NEFTALI LINDSAY OBSERVATI 6 [facility] ON INC INC SERVICE PER HOUR COLLECTIO 97921 NEFTALI LINDSAY N VENOUS 6 [facility] BLOOD INC INC VENIPUNCT URE GLUC BLD 32003 NEFTALI LINDSAY GLUC MNTR 6 [facility] DEV INC INC CLEARED FDA SPEC HOME USE GLUC BLD 79129 NEFTALI LINDSAY GLUC MNTR 6 [facility] DEV INC INC CLEARED FDA SPEC HOME USE COLLECTIO 51469 NEFTALI LINDSAY N VENOUS 6 [facility] BLOOD INC INC V[facility]UNCT [facility] G0378 NEFTALI DANIELON OBSERVATI 6 [facility] ON INC INC SERVICE PER HOUR PRESSURIZ 43362 NEFTALI LINDSAY ED/NONPRE 6 [facility] SSURIZED INC INC INHALATIO N TREATMENT BLOOD 53571 NEFTALIKODY LINDSAY COUNT 6 [facility] COMPLETE INC INC AUTO&[place] [address] NEFTALIKODY LINDSAY TROPONIN 6 [facility] QUANTITAT INC INC CORY BASIC 63350 NEFTALI LINDSAY METABOLIC 6 [facility] PANEL INC INC CALCIUM TOTAL NONINVASI 22733 NEFTALI LINDSAY VE 6 [facility] EAR/PULSE INC INC OXIMETRY SINGLE DETER CREATINE 61834 NEFTALI LINDSAY KINASE 6 [facility] TOTAL INC INC CREATINE 06121 NEFTALI LINDSAY KINASE MB 6 [facility] FRACTION INC INC ONLY COMPREHEN 86832 NEFTALI LINDSAY SIVE 6 [facility] METABOLIC INC INC PANEL COMPREHEN 78612 NEFTALI NEFTALI SIVE 6 [facility] METABOLIC INC INC PANEL CREATINE 59937 NEFTALI LINDSAY KINASE MB 6 [facility] FRACTION INC INC ONLY CREATINE 63929 NEFTALI LINDSAY KINASE 6 [facility] [place] [address] NEFTALI LINDSAY 1/> AREAS 6 [facility] EA 15 INC INC MIN GAIT TRAINJ W/STAIR NONINVASI 39611 NEFTALI LINDSAY VE 6 [facility] EAR/PULSE INC INC OXIMETRY SINGLE DETER PHYSICAL 90566 NEFTALI LINDSAY THERAPY 6 [facility] EVALUATIO INC INC N THER 35418 NEFTALI LINDSAY PROPH/DX 6 [facility] NJX IV INC INC PUSH SINGLE/1S T SBST/DRUG BLOOD 38301 NEFTALI LINDSAY COUNT 6 [facility] COMPLETE INC INC AUTO&[place] [address] NEFTALI LINDSAY TROPONIN 6 [facility] QUANTITAT INC INC CORY RADIOLOGI 63168 NEFTALI LINDSAY C 6 [facility] EXAMINATI INC INC ON CHEST SINGLE VIEW FRONTAL ECG 44724 NEFTALI LINDSAY ROUTINE 6 [facility] ECG INC INC W/LEAST 12 LDS TRCG ONLY W/O I&R PRESSURIZ 27325 NEFTALI LINDSAY ED/NONPRE 6 [facility] SSURIZED INC INC INHALATIO N TREATMENT ECG 70984 NEFTALI NOONAN ROUTINE 6 [facility] W/LEAST P 12 LDS I&R ONLY COLLECTIO 77494 NEFTALI LINDSAY N VENOUS 6 [facility] BLOOD INC INC V[facility]IPUNCT [facility] G0378 NEFTALI LINDSAY OBSERVATI 6 [facility] ON INC INC SERVICE PER HOUR GLUCOSE 69280 NEFTALIKODY LINDSAY QUANTITAT 6 [facility] CORY BLOOD INC INC XCPT REAGENT STRIP GLUC BLD 21289 NEFTALI NEFTALI GLUC MNTR 6 [facility] DEV INC INC CLEARED FDA SPEC HOME USE US SOFT 90051 NEFTALI NEFTALI TISSUE 6 [facility] HEAD & INC [place] [address] NEFTALI LINDSAY FREE 6 [facility] [place] [address] NEFTALI LINDSAY THYROID 6 [facility] STIMULATI INC INC NG HORMONE TSH COLLECTIO 17264 NEFTALI NEFTALI N VENOUS 6 [facility] BLOOD INC INC VENIPUNCT URE BASIC 03166 NEFTALI LINDSAY METABOLIC 6 [facility] PANEL INC INC CALCIUM TOTAL ECG 38121 NEFTALI NEFTALI ROUTINE 6 [facility] ECG INC INC W/LEAST 12 LDS TRCG ONLY W/O I&R IMPLANTAT 13642 [facility] ION 6 PHYSICIAN MAT PT-ACTIVA S GROUP NICOLE CARDIAC EVENT RECORDER O2 CONC 1 E1390 ARIANE THAKKAR DEL PORT 6 HOME HOME 85%/>02 MEDICAL MEDICAL CONC AT EQUIPME EQUIPME PRSC FLW RATE PRTBLE E0431 ARIANE THAKKAR GASEOUS 6 HOME HOME O2 SYS MEDICAL MEDICAL RENT; EQUIPME EQUIPME FLWMTR HUMIDFR&M ASK INSERTION [id number] NEFTALI LINDSAY MON DEVC 6 [facility] CHEST INC INC SUBQ TISSUE & FASC OPEN DUPLEX 97157 ALESHA SNYDER SCAN 6 MEDICAL EXTRACRAN IMAGING IAL ART ASS COMPL BI STUDY RADIOLOGI 62371 ALESHA SNYDER ALL C 6 MEDICAL EXAMINATI IMAGING ON CHEST ASS SINGLE VIEW FRONTAL ECG 09783 NEFTALI BONILLA JR ROUTINE 6 [facility] W/LEAST P 12 LDS I&R ONLY [...] AT EQUIPME EQUIPME PRSC FLW RATE NERVE 93396 [facility] CONDUCTIO 6 N N STUDIES NEUROLOGY 9-10 STUDIES NEEDLE 36963 [facility] EMG EA 6 N EXTREMTY NEUROLOGY W/PARASPI NL AREA COMPLETE INJECTION J3301 [facility] 6 ML DORIS TRIAMCINO LONE ACETONIDE NOS 10 MG INJECTION 34203 [facility] [place] 1 TENDON 6 ML DORIS SHEATH/LI GAMENT APONEUROS IS ECG 65966 NEFTALI NEFTALI ROUTINE 6 [facility] ECG INC INC W/LEAST 12 LDS TRCG ONLY W/O I&R O2 CONC 1 E1390 ARIANE ARIANE DEL PORT 6 HOME HOME 85%/>02 MEDICAL MEDICAL CONC AT EQUIPME EQUIPME PRSC FLW RATE PRTBLE E0431 ARIANE THAKKAR GASEOUS 6 HOME HOME O2 SYS MEDICAL MEDICAL RENT; EQUIPME EQUIPME FLWMTR HUMIDFR&M ASK RADIOLOGI 76304 ALESHA SNYDER ALL C 6 MEDICAL EXAMINATI IMAGING ON FOOT 2 ASS VIEWS RADEX 82937 NEFTALI LINDSAY FOOT 6 [facility] COMPLETE INC INC MINIMUM 3 VIEWS POLYSOM 95758 NEFTALI LINDSAY 6/>YRS 6 [facility] SLEEP / INC INC ADDL RENZO ATTND OPHTH 26063 [facility] SCIES MEDICAL 6 VISION ANG XM&EVAL CENTER COMPRHNSV ESTAB PT / DETERMINA 52188 DWAYNE RICE TION 6 VISION VISION REFRACTIV CENTER CRITICAL ACCESS HOSPITAL PRTBLE E0431 ARIANE THAKKAR GASEOUS 6 HOME HOME O2 SYS MEDICAL MEDICAL RENT; EQUIPME EQUIPME FLWMTR HUMIDFR&M ASK O2 CONC 1 E1390 ARIANE THAKKAR DEL PORT 6 HOME HOME 85%/>02 MEDICAL MEDICAL CONC AT EQUIPME EQUIPME PRSC FLW RATE ECG 77976 [facility] ROUTINE 6 PHYSICIAN MAT ECG S GROUP W/LEAST 12 LDS I&R ONLY DUP-SCAN 21685 ALESHA SNYDER ALL XTR VEINS 6 MEDICAL IMAGING UNILATERA ASS L/LIMITED STUDY ECG 10428 NEFTALI LINDSAY ROUTINE 6 [facility] ECG INC INC W/LEAST 12 LDS TRCG ONLY W/O I&R DUP-SCAN 76485 NEFTALI LINDSAY LXTR 6 [facility] ART/ARTL INC INC BPGS UNI/LMTD STUDY ECG 93730 NEFTALI LINDSAY ROUTINE 6 [facility] ECG INC INC W/LEAST 12 LDS TRCG ONLY W/O I&R DIAB ONLY A5500 [facility] [place] FIT CSTM 6 ML DORIS PREP&SPL SHOE MX DNSITY INSRT F5 16709 [email or web address] , [employer] , LLC ON FACTOR V ANAL LEIDEN VARIANT F2 GENE 62475 [employer] 6 , LLC , LLC [id number] >A VARIANT FOR DIAB A5513 [facility] [place]INA ONLY MX 6 ML DORIS DNSITY INSRT CSTM MOLD CSTM EA MTHFR 49533 [employer] GENE [employer] , [employer] , LLC ANALYSIS COMMON VARIANTS DUPLEX 38673 NEFTALI LINDSAY SCAN 6 [facility] EXTRACRAN INC INC IAL ART COMPL BI STUDY ECHO 21814 NEFTALI LINDSAY TTHRC R-T 6 [facility] 2D INC INC W/WOM-MOD E COMPL SPEC&COLR D O2 CONC 1 E1390 ARIANE THAKKAR DEL PORT 6 HOME HOME 85%/>02 MEDICAL MEDICAL CONC AT EQUIPME EQUIPME PRSC FLW RATE PRTBLE E0431 ARIANE THAKKAR GASEOUS 6 HOME HOME O2 SYS MEDICAL MEDICAL RENT; EQUIPME EQUIPME FLWMTR HUMIDFR&M ASK ECG 19725 NEFTALI LINDSAY ROUTINE 6 [facility] ECG INC INC W/LEAST 12 LDS TRCG ONLY W/O I&R ECG 56081 [facility] LINA ROUTINE 6 PHYSICIAN MAT ECG S GROUP W/LEAST 12 LDS I&R ONLY NON-INVAS 90145 NEFTALI LINDSAY CORY 6 [facility] PHYSIOLOG INC INC IC STUDY EXTREMITY 3 LEVLS SBSQ 61012 [facility] 6 ML DORIS CARE/DAY 35 MINUTES INITIAL 46906 [facility] 6 ML DORIS CARE/DAY 70 MINUTES RADIOLOGI 07512 [place] ALL C 6 MEDICAL EXAMINATI IMAGING ON FOOT [address] THORAX 25520 [place] LISA W/O 6 MEDICAL MIGUEL CONTRAST IMAGING MATERIAL ASS SBSQ 22074 [facility] 6 PHYSICIAN MANUELA CARE/DAY S GROUP 15 MINUTES RADIOLOGI 99380 [place] SN[place] ALL C 6 MEDICAL EXAMINATI [...] ML ML VACCINE ADMIN RCVD PRIOR RADIOLOGI 76324 NEFTALI Malagon EXAM 6 [facility] MEM [...] COMPRESSO MEDICAL MEDICAL R EQUIPME EQUIPME COMPREHEN 77315 NEFTALI LINDSAY SIVE 5 [facility] METABOLIC INC INC PANEL COLLECTIO 40944 NEFTALI LINDSAY N VENOUS 5 [facility] BLOOD INC INC VENIPUNCT URE LIPID 17326 NEFTALI LINDSAY PANEL 5 [facility] INC INC HEMOGLOBI 10187 NEFTALI LINDSAY N 5 [facility] MEM [...] EQUIPME EQUIPME FLWMTR HUMIDFR&M ASK NEBULIZER E0570 ARINAE THAKKAR WITH 5 HOME HOME COMPRESSO MEDICAL [...] COMPRESSO MEDICAL MEDICAL R EQUIPME EQUIPME COMPREHEN 21159 NEFTALI LINDSAY SIVE 5 [facility] METABOLIC INC INC PANEL COLLECTIO 97053 NEFTALI LINDSAY N VENOUS 5 [facility] BLOOD INC INC VENIPUNCT URE BLOOD 31525 NEFTALI LINDSAY COUNT 5 [facility] COMPLETE INC INC AUTO&AUTO DIFRNTL WBC LIPID 74217 ENFTALI LINDSAY PANEL 5 [facility] INC INC HEMOGLOBI 48720 NEFTALI LINDSAY N 5 [facility] MEM [...] YOUR YOUR SM VOL 5 PHARMACY PHARMACY NONFCONNECTICUT HOSPICE PNEUMAT NEBULIZR DISPBL ALBUTEROL J7620 YOUR YOUR [...] RENT; EQUIPME EQUIPME FLWMTR HUMIDFR&M ASK ANGIOGRAP 60430 [facility] HY [facility] EXTREMITY MEDICAL G BILATERAL RS&I AORTOGRAP 50482 [facility] HY [facility] ABDOMINAL MEDICAL G SERIALOGR APHY RS&I INTRODUCT 54590 [facility] ION 5 NE [facility] NEBULIZER E0570 ARIANE THAKKAR WITH 5 HOME HOME COMPRESSO MEDICAL MEDICAL R EQUIPME EQUIPME NON-INVAS 95584 [facility] CORY 5 MEDICAL MIGUEL PHYSIOLOG IMAGING IC [...] YOUR SM VOL 5 PHARMACY PHARMACY NONFILTR [employer] PNEUMAT NEBULIZR DISPBL ALBUTEROL J7620 YOUR YOUR TO 2.5 5 PHARMACY PHARMACY [employer] IPRATROPI UM BROM TO 0.5 MG PHARM G0333 YOUR YOUR DISPEN 5 PHARMACY PHARMACY FEE INHAL [employer] RX; INITIAL 30-DAY SUPPLY RADIOLOGI 29699 [facility] C EXAM 5 MEDICAL IZABEL [...] T STRIPS HOME BLD GLU MON-50 THERAPEUT 20507 NEFTALI LINDSAY IC PX 1/> 4 [facility] AREAS INC INC EACH 15 MIN EXERCISES E-STIM G0283 NEFTALI LINDSAY 1/> AREAS 4 [facility] OTH THAN INC INC WND CARE PART TX PLAN APPLICATI 73623 NEFTALI LINDSAY ON 4 [facility] MODALITY INC INC 1/> AREAS HOT/COLD PACKS MANUAL 86061 NEFTALI LINDSAY THERAPY 4 [facility] TQS 1/> INC INC REGIONS EACH 15 MINUTES APPLICATI 61607 NEFTALI LINDSAY ON 4 [facility] MODALITY INC INC 1/> AREAS HOT/COLD PACKS E-STIM G0283 NEFTALI LINDSAY 1/> AREAS 4 [facility] OTH THAN INC INC WND CARE PART TX PLAN THERAPEUT 50208 NEFTALI LINDSAY IC PX 1/> 4 [facility] AREAS INC INC EACH 15 MIN EXERCISES PHYSICAL 77210 NEFTALI LINDSAY THERAPY 4 [facility] EVALUATIO INC INC N O2 CONC 1 E1390 ARIANE THAKKAR DEL PORT 4 HOME HOME 85%/>02 MEDICAL MEDICAL CONC AT EQUIPME EQUIPME PRSC FLW RATE PRTBLE E0431 ARIANE ARIANE GASEOUS 4 HOME HOME O2 SYS MEDICAL MEDICAL RENT; EQUIPME EQUIPME FLWMTR HUMIDFR&M ASK 3D 21772 NEFTALI LINDSAY RENDERING 4 [facility] W/INTERP INC INC & POSTPROCE SS SUPERVISI ON MRI 71973 NEFTALI LINDSAY SPINAL 4 [facility] CANAL INC INC LUMBAR W/O CONTRAST [...] BOX 4 PHARMACY PHARMACY OF 100 COMPREHEN 52265 NEFTALI LINDSAY SIVE 4 [facility] METABOLIC INC INC PANEL COLLECTIO 29778 NEFTALI LINDSAY N VENOUS 4 [facility] BLOOD INC INC VENIPUNCT URE HEMOGLOBI 14199 NEFTALI LINDSAY N 4 [facility] GLYCOSYLA INC INC NICOLE A1C LIPID 36673 NEFTALI LINDSAY PANEL 4 [facility] INC INC PRTBLE E0431 ARIANE TOBARRELL GASEOUS 4 HOME HOME O2 SYS MEDICAL MEDICAL RENT; EQUIPME EQUIPME FLWMTR HUMIDFR&M ASK O2 CONC 1 E1390 ARIANE ARIANE DEL PORT 4 HOME HOME 85%/>02 MEDICAL MEDICAL CONC AT EQUIPME EQUIPME [facility] FLW RATE BLD GLU A4253 CLINIC CLINIC TEST/REAG 4 PHARMACY PHARMACY T STRIPS HOME BLD GLU MON-50 O2 CONC 1 E1390 ARIANE THAKKAR DEL PORT 4 HOME HOME 85%/>02 MEDICAL MEDICAL CONC AT EQUIPME EQUIPME [facility] FLW RATE PRTBLE E0431 ARIANE THAKKAR GASEOUS 4 HOME HOME O2 SYS MEDICAL MEDICAL RENT; EQUIPME EQUIPME FLWMTR HUMIDFR&M ASK ECHO 63273 [place] [facility] R-T 4 MEDICAL 2D SERV W/WOM-MOD FOUNDATIO E COMPL SPEC&COLR D RADIOLOGI 05036 [facility] C EXAM 4 MEDICAL IZABEL CHEST 2 IMAGING VIEWS ASS FRONTAL&L ATERAL LANCETS A4259 CLINIC CLINIC PER BOX 4 PHARMACY PHARMACY OF 100 BLD GLU A4253 CLINIC CLINIC TEST/REAG 4 PHARMACY PHARMACY T STRIPS HOME BLD GLU MON-50 RADIOLOGI 40158 [facility] C EXAM 4 MEDICAL IZABEL CHEST 2 IMAGING VIEWS ASS FRONTAL&L ATERAL DETERMINA 19347 DWAYNE DUNCAN 4 [facility] OPHTH 22099 [facility] 4 VISION XM&EVAL CENTER COMPRHNSV ESTAB PT 1/> BLD GLU A4253 CLINIC CLINIC TEST/REAG 4 PHARMACY PHARMACY T STRIPS HOME BLD GLU MON-50 LANCETS A4259 CLINIC CLINIC PER BOX 4 PHARMACY PHARMACY OF 100 LANCETS A4259 CLINIC CLINIC PER BOX 4 PHARMACY PHARMACY OF 100 BLD GLU A4253 CLINIC CLINIC TEST/REAG 4 PHARMACY PHARMACY T STRIPS HOME BLD GLU MON-50 DUP-SCAN 41301 [place] XTR VEINS 4 MEDICAL IZABEL COMPLETE IMAGING ASS BILATERAL STUDY ECG 86316 NEFTALI BONILLA JR ROUTINE 4 [facility] ECG HOSPITAL W/LEAST P 12 LDS I&R ONLY RADIOLOGI 76410 [place] [facility] C EXAM 4 MEDICAL IZABEL CHEST [...] STRIPS HOME BLD GLU MON-50 [place] [address] NEFTALI LINDSAY ESTROGENS 3 [facility] TOTAL INC INC GONADOTRO 14652 NEFTALI LINDSAY PIN 3 [facility] FOLLICLE INC INC STIMULATI NG HORMONE GONADOTRO 43211 NEFTALI LINDSAY PIN 3 [facility] [place] [address] NEFTALI LINDSAY THYROID 3 [facility] STIMULATI INC INC NG HORMONE TSH COLLECTIO 87829 NEFTALI LINDSAY N VENOUS 3 [facility] BLOOD INC INC VENIPUNCT URE BLD GLU A4253 CLINIC CLINIC TEST/REAG 3 PHARMACY PHARMACY T STRIPS HOME BLD GLU MON-50 ALBUTEROL J7613 [facility] IN[facility] 3 PHARMACY PHARMACY NON-CP #591 #591 PROD THRU DME U DOSE 1 MG PHRM Q0514 [facility] DISPENSIN 3 PHARMACY PHARMACY G FEE #591 #591 INHALATIO N RX; PER 90 DAYS [facility] 34930 [facility] DISCHARGE 3 [facility] DAY INTERNAL MANAGEMEN MED T 30 MIN/< SBSQ 49943 [facility] 3 [facility] CARE/DAY INTERNAL 25 MED MINUTES SBSQ 72291 [facility] 3 [facility] CARE/DAY INTERNAL 25 MED MINUTES SBSQ 87967 [facility] 3 [facility] CARE/DAY INTERNAL 25 MED MINUTES SBSQ 38268 [facility] 3 [facility] CARE[facility]DAY INTERNAL 25 MED MINUTES INITIAL 84386 [facility] 3 [facility] CARE/DAY INTERNAL 50 MED MINUTES INITIAL 95346 [facility] ON INTERNAL CARE/DAY MED 30 MINUTES RADIOLOGI 21672 [facility] C EXAM 3 MEDICAL IZABEL CHEST 2 IMAGING VIEWS ASS FRONTAL&L ATERAL ECG 01496 [facility] 3 [facility] W/LEAST P 12 LDS I&R ONLY BLD GLU A4253 CLINIC CLINIC TEST/REAG 3 PHARMACY PHARMACY T STRIPS HOME BLD GLU BLD GLU A4253 CLINIC CLINIC TEST/REAG 3 PHARMACY PHARMACY T STRIPS HOME BLD GLU HOSPITAL 62908 [place] [facility] DISCHARGE 3 [facility] DAY INTERNAL MANAGEMEN MED T 30 MIN/< SBSQ 25700 [facility] 3 [facility] CARE/DAY INTERNAL 25 MED MINUTES SBSQ 41469 [facility] 3 [facility] CARE/DAY INTERNAL 25 MED MINUTES SBSQ 47761 [facility] 3 [facility] CARE/DAY INTERNAL 25 MED MINUTES RADIOLOGI 61452 [place] [facility] C EXAM 3 MEDICAL IZABEL CHEST 2 IMAGING VIEWS ASS FRONTAL&L ATERAL BLD GLU A4253 CLINIC CLINIC TEST/REAG 2 PHARMACY PHARMACY T STRIPS HOME BLD GLU ADMINISTR G0008 [facility] MCKEMIE ATION OF 2 [facility] INFLUENZA INTERNAL VIRUS MED VACCINE INFLUENZA Q2038 [facility] MCKEMIE VACC 2 [facility] SPLIT INTERNAL VIRUS 3 MED YRS & > IM FLUZONE BLD GLU A4253 CLINIC CLINIC TEST/REAG 2 PHARMACY PHARMACY T STRIPS HOME BLD GLU MON-50 ECG 19897 NEFTALI CRUZ ROUTINE 2 [facility] W/LEAST P 12 LDS I&R ONLY Encounters Encounter Start End Date Code Location Performer Type Date [facility]ICE 43771 [facility] PHYSIC[facility] T VISIT S GROUP 25 MINUTES [facility]PITAL NEFTALI - OTHER [address] [facility] NEFTALI - OTHER 7 7 [facility] NEFT[facility] OTHER 7 7 [facility] NEFT[facility] - 7 [facility] [id number] [facility] OUTPATIEN 7 7 PHYSICIAN T [facility]ISIT S GROUP 25 MINUTES HOSPITAL NEFTALI - 7 7 [facility] 75428 [facility] OUTPATIEN 7 7 PHYSICIAN T [facility]ISIT S GROUP 25 MINUTES HOSPITAL NEFTALI - 7 7 [facility] NEFTALI [facility] 7 7 [facility] OFF[facility] 94945 [facility] OUTPATIEN 7 7 PHYSICIAN T VISIT S GROUP 15 MINUTES [facility] T VISIT S GROUP 15 MINUTES HOSPITAL NEFTALI - OTHER 7 7 [facility] EMERGENCY 21910 EMPERATRIZ ARMSTRONG 6 6 MEDICAL DEPARTMEN SERV T VISIT FOUNDATIO LOW/MODER N [facility] CARDINAL - 6 6 [facility] - 6 6 [facility] INPATIENT [facility] NEFTALI [facility] 6 6 [facility] OUTPATIEN [facility] T EMERGENCY 01399 EMPERATRIZ PENA DEPT 6 6 MEDICAL MANUELA VISIT SERV HIGH FOUNDATIO SEVERITY& N THREAT [facility] NEFTALI - 6 6 [facility] OUTPATIEN [facility] T OFFICE 42747 [facility] ELDER OUTPATIEN 6 6 PHYSICIAN MANUELA T VISIT S GROUP 15 MINUTES EMERGENCY [id number] DEEPA FISH 6 6 PHYSICIAN U MIGUEL DEPARTMEN S, PLLC T VISIT MODERATE SEVERITY OFFICE 06132 [facility] ELDER OUTPATIEN 6 6 PHYSICIAN MANUELA T VISIT S GROUP 25 MINUTES HOSPITAL NEFTALI - OTHER 6 6 [facility] INC OFFICE 40601 [facility] LADAN-M OUTPATIEN 6 6 PHYSICIAN OGHADDAM T NEW 45 S GROUP MINUTES OFFICE 96554 [facility] ELDER OUTPATIEN 6 6 PHYSICIAN MANUELA T VISIT S GROUP 15 MINUTES HOSPITAL NEFTALI - 6 6 [facility] OUTPATIEN [facility] T EMERGENCY 59152 DEEPA FISH DEPT 6 6 PHYSICIAN U MIGUEL VISIT S, [facility] HIGH SEVERITY& THREAT FUN EMERGENCY 46515 NEFTALI 6 6 [facility] T VISIT HIGH/URGE NT SEVERITY HOSPITAL NEFTALI - 6 6 [facility] OUTPATIEN [facility] NEFTALI - OTHER 6 6 [facility] HOSPITAL NEFTALI - 6 6 [facility] OUTPAT[facility]EN [facility] T OFFICE 71505 [facility] ELDER OUTPATIEN 6 6 PHYSICIAN MANUELA T VISIT S GROUP 15 MINUTES HOSPITAL NEFTALI - 6 6 [facility] INPATIENT [facility] EMERGENCY 57391 DEEPA FRIEDMAN DEPT 6 6 PHYSICIAN MANUELA VISIT S, PLLC HIGH SEVERITY& THREAT FUNCJ OFFICE 37808 [facility] OUTPATIEN 6 6 ML DORIS T VISIT 15 MINUTES HOSPITAL NEFTALI - 6 6 [facility] OUTPATIEN INC T OFFICE 60100 [facility] OUTPATIEN 6 6 ML DORIS T VISIT 15 MINUTES HOSPITAL NEFTALI - 6 6 [facility] INC T HOSPITAL NEFTALI - 6 6 [facility]PATIEN INC T OFFICE 86720 [facility] LINA OUTPATIEN 6 6 PHYSICIAN MAT T VISIT S GROUP 25 MINUTES OFFICE 92377 [facility] OUTPATIEN 6 6 ML DORIS T VISIT 15 MINUTES HOSPITAL NEFTALI - 6 6 [facility] OUTPATIEN INC HOSPITAL NEFTALI - 6 6 [facility] OUTPATIEN INC T OFFICE 91307 [facility] OUTPATIEN 6 6 ML DORIS T VISIT 15 MINUTES HOSPITAL NEFTALI - 6 6 [facility] OUTPATIEN INC T OFFICE 10602 [facility] LINA OUTPATIEN 6 6 PHYSICIAN MAT T NEW 45 S GROUP [facility] NEFT[facility] - 6 6 [facility] OUTPATIEN INC HOSPITAL NEFTALI - 6 6 [facility] OUTPATIEN INC T OFFICE 63471 [facility] OUTPATIEN 6 6 ML DORIS T NEW 30 MINUTES [facility] NEFTALI - 6 6 [facility] OUTPATIEN INC HOSPITAL NEFTALI - OTHER 6 6 [facility] INC OFFICE 84593 [facility] 5 5 [facility] T VISIT INTERNAL 15 MED MINUTES HOSPITAL NEFTALI - 5 5 [facility] OUTPATIEN INC T OFFICE 22510 [facility] 5 5 [facility] T VISIT INTERNAL 25 MED MINUTES HOSPITAL NEFTALI - 5 5 MEM HOSP OUTPATIEN [facility] OFFICE [id number] [place] [facility] OUTPATIEN 5 5 [facility] VISIT INTERNAL 15 MED MINUTES HOSPITAL NEFTALI - 5 5 [facility] OUTPATIEN [facility] HOSPITAL NEFTALI - 5 5 [facility] INPATIENT [facility] EMERGENCY 03596 NEFTALI FRIEDMAN 5 5 [facility] T VISIT P HIGH/URGE NT SEVERITY HOSPITAL NEFTALI - 4 4 [facility] OUTPATIEN [facility] HOSPITAL NEFTALI - 4 4 [facility] OUTPATIEN [facility] EMERGENCY [id number] [facility] 4 4 [facility] EMERGENCY T VISIT PHYS HIGH/URGE NT SEVERITY [facility] NEFTALI - 4 4 [facility] OUT[facility] EMERGENCY [id number] [facility] DEPT 4 4 [facility] VISIT EMERGENCY HIGH PHYS SEVERITY& THREAT FUNJ EMERGENCY 18659 [facility]ZEL GUY DEPT 3 3 [facility] VISIT SERVICES HIGH SEVERITY& THREAT FUN HOSPITAL NEFTALI - 3 3 [facility] OUTPATIEN [facility] OFFICE [id number] [place] OUTPATIEN 3 3 [facility] T VISIT INTERNAL 15 MED MINUTES EMERGENCY 04081 [facility] FRIEDMAN DEPT [address] [facility] VISIT SERVICES HIGH SEVERITY& THREAT FUN EMERGENCY 73826 HAZEL PICKENS DEPT 3 3 EMERGENCY III [facility] VISIT SERVICES HIGH SEVERITY& THREAT [facility] OFFICE [id number] [place] OUTPATIEN 2 2 KATHARINA W[facility]ACE [facility] T VISIT INTERNAL 15 MED MINUTES
--- OUTSIDE RECORDS SUMMARY | 2016-12-15 23:49 | External Medical Summary Rpt ---
Demographics Preferred Language Georgian Marital Status Unknown Yarsanism Affiliation Unknown Race Unknown Ethnic Group Unknown Author Author , Organization [employer] Address Unknown Phone Unavailable Purpose Continuity of Care Document - through 2016 Immunization No patient found.
--- OUTSIDE RECORDS SUMMARY | 2016-12-15 23:49 | External Medical Summary Rpt ---
Demographics Preferred Language Macanese Marital Status Unknown Christianity Affiliation Unknown Race Unknown Ethnic Group Unknown Author Author , Organization [employer] Address Unknown Phone Unavailable Purpose Continuity of Care Document - through 2016 Immunization No patient found.
== END 2016-12-14 18:05 | disposition home or self-care (01) ==
LOC: ER 15:40
DX: M25.552 Pain in left hip (principal); I10 Essential (primary) hypertension; J44.9 Chronic obstructive pulmonary disease, unspecified; K21.9 Gastro-esophageal reflux disease without esophagitis; E11.9 Type 2 diabetes mellitus without complications; Z79.4 Long term (current) use of insulin; Z72.0 Tobacco use

== ENCOUNTER → 2016-12-17 | Outpatient (CLI) | payer MEDICARE, MEDICAID ==
[2016-12-17 17:14] LABS: AMPHETAMINES/METAMPHETAMINES NEGATIVE ng/mL (<1000)
== END ==
LOC: LAB 16:09
PROVIDERS: Emergency Medicine
DX: I27.0 Primary pulmonary hypertension (principal); I50.40 Unspecified combined systolic (congestive) and diastolic (congestive) heart failure; I73.9 Peripheral vascular disease, unspecified; Z79.899 Other long term (current) drug therapy

== ENCOUNTER → 2017-04-22 | Outpatient (CLI) | payer MEDICARE, MEDICAID ==
[~2017-04-22] MED LIST changes: +BREO ELLIPTA 21 EACH IH; +DILTIAZEM 180180 MG PO; +LOSARTAN POTASS50 MG PO; +RANITIDINE HCL150 MG PO; +SERTRALINE 100100 MG PO; +SPIRIVA HA1 PUFF/INH IH; +TOPIRAMATE 100100 M1 PO; +TOPIRAMATE 25MG25 MG PO; +VITAMIN D1000 IU PO
== END ==
LOC: LAB 17:14
DX: J44.1 Chronic obstructive pulmonary disease with (acute) exacerbation (principal)

== ENCOUNTER → 2017-04-23 | Outpatient (CLI) | payer MEDICARE, MEDICAID ==
[2017-04-23 16:55] LABS: AMPHETAMINES/METAMPHETAMINES NEGATIVE ng/mL (<1000)
[2017-04-29 14:37] LABS: Opiates Negative ng/mL (Cutoff=100)
== END ==
LOC: LAB 15:37
PROVIDERS: Emergency Medicine
DX: Z79.899 Other long term (current) drug therapy (principal)

== ENCOUNTER 2017-04-26 20:10 | Inpatient (IN) | payer MEDICARE, MEDICAID ==
[~2017-04-26] VITALS: Ht 165.1 cm; Wt 96.0 kg
[~2017-04-26 20:10] MED LIST changes: -BREO ELLIPTA 21 EACH IH; -DILTIAZEM 180180 MG PO; -LOSARTAN POTASS50 MG PO; -RANITIDINE HCL150 MG PO; -SERTRALINE 100100 MG PO; -SPIRIVA HA1 PUFF/INH IH; -TOPIRAMATE 100100 M1 PO; -TOPIRAMATE 25MG25 MG PO; -VITAMIN D1000 IU PO
[2017-04-26 20:14] VITALS: BP 111/63
--- NOTE | 2017-04-26 20:48 | Emergency Room Report ---
See Addendum History of Present Illness Time Seen by 2007 Presenting Problem in Triage Pt arrived:Wheelchair Presenting Problem:WORSENING SOA LAST TWO WEEKS WITH A PC OF THICK BEIGE SPUTUM AND CHEST PAIN UPON INSPIRATION AND COUGH. BILATERAL PEDAL EDEMA FOR THE LAST TWO DAYS. CHILLS AND SWEATS TODAY. 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 N Clinical Suspician of Infection? N Mental Status: 1 - Regular (Normal Baseline) Sepsis Risk:Low Sepsis Risk Have you (or family members/close friends) recently traveled outside the [place]? N If Yes, where/when: Have you had exposure to infectious disease within the past month? TB? Other? Specify: Source patient, RN notes reviewed, old records Exam Limitations no limitations Comment pt with prod cough over the last week which has gotten worse despite op rx - she has no hemoptysis or fever and reports diff with breathing with ambulation and lying flat - has seen pulmonary and pcp as op Cardiac Chest Pain Chest pain indicative of cardiac No Timing/Duration this evening Severity moderate ALLERGIES Coded Allergies: Sulfa (Sulfonamide Antibiotics) (Mild, 12/07/16) celecoxib (From CELEBREX) (Mild, 12/07/16) tramadol (Mild, 12/07/16) Penicillins (I-RASH 07/10/16) aspirin (I-RASH 07/10/16) bupropion (07/10/16) citalopram (SKIN PEEL 07/10/16) codeine (07/25/16) duloxetine (07/10/16) erythromycin base (I-RASH 07/10/16) naproxen (07/10/16) pregabalin (07/10/16) terbutaline (SWELLS THROAT 07/10/16) Home Medications Active Scripts Prednisone (Prednisone 10MG) 10 MG PO DAILY #27 TAB Prov: 12/07/16 Doxycycline Hyclate (Vibramycin) 100 MG PO BID #20 CAP Prov: 12/07/16 Reported Medications SERTRALINE HYDROCHLORIDE (Zoloft 100MG) 150 MG PO DAILY Buspirone Hcl (Buspirone 10MG) 15 MG PO TID Famotidine (Pepcid 20MG Tablet) 20 MG PO BID Topiramate (Topamax) 150 MG PO QHS Furosemide (Lasix 80MG) 80 MG PO BID Carvedilol (Carvedilol 6.25MG) 6.25 MG PO BID Lovastatin 10 MG PO DAILY Pantoprazole Sodium 40 MG PO DAILY #90 Albuterol Sulfate (Proair Hfa) 1 PUFF IH Q6HP PRN COPD #8 Quetiapine Fumarate (Seroquel Xr) 200 MG PO DAILY INSULIN NPH HUM/REG INSULIN HM (Humulin 70/30 Kwikpen) 3 ML SC BID #30 History Medical History General CAD? No Angina: Yes [place]: No Hypertension? Yes Hyperlipidemia? No CHF? No DVT? No PE? No COPD? Yes Asthma? Yes Anemia? No GERD? Yes Gastric ulcers? Yes GI Bleed? No Hernia? Yes Thyroid Problems? No Hypothyroidism? No CVA? Yes Seizures? No Diabetes? Yes Insulin Dependent: Yes Insulin Pump: No Home FSBS? Yes Renal Insuffiency? No End Stage Renal Disease? No UTI? Yes Stones? Yes BPH? No GB Disease: Yes Nephritic Syndrome? No Asplenia? No Hepatitis? No Sickle Cell Disease? No Arthritis? Yes Migraines? Yes Cataracts? No Glaucoma? No MRSA? Yes HIV? No TB? No Anxiety? Yes Depression? Yes Cancer? Yes Site: CERVICAL CA More? 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 Respiratory cough, shortness of breath, denies wheezing Cardiovascular denies chest pain, denies palpitations, denies syncope Gastrointestinal denies abdominal pain, denies diarrhea, denies vomiting Genitourinary denies: dysuria, frequency, hesitancy, hematuria. Musculoskeletal denies back pain, denies joint pain, denies joint swelling, denies neck pain Skin denies rash Psychiatric/Neurological denies headache, denies seizure Physical Exam Vital Signs Vital Signs Date Time Temp Pulse Resp B/P Pulse O2 O2 Flow FiO2 Ox Delivery Rate 04/26 2124 79 20 86/56 94 04/26 2014 98.8 87 14 111/63 95 - WBC >12,000 or <4,000 or 10% bands? 2 or more SIRS Criteria Met? B/P: MAP:79 Creatinine >2.0? UA output<0.5ml/kg/hr for 2 hrs? Platelet count >100,000? Lactate >2.0mmol/1? INR >1.2 or PTT > than 60 sec? Evidence of Organ Dysfunction? Provider documented clinical suspician of infection? N Sepsis Criteria Count: 0 Sepsis Risk: Low Sepsis Risk General Appearance no apparent distress Eye Exam - bilateral eye PERRL, bilateral eye EOMI Ear, Nose, Throat normal ENT inspection Neck supple Respiratory Status No: respiratory distress. Lung Sounds bilateral: rhonchi, wheezing. Cardiovascular regular rate/rhythm, no JVD, no rub, systolic murmur, gallop/S4 Peripheral Pulses Pulses normal Yes Gastrointestinal soft Extremities no calf tenderness, swelling Strength 4 Upper Ext (L), 4 Upper Ext (R), 4 Lower Ext (L), 4 Lower Ext (R) Neurologic alert, stoker mechanic II-XII nml as tested, no motor/sensory deficits Reflexes Reflexes normal No Mental status normal mood/affect Skin intact Medical Decision Making LABS/Meds/Orders Pt receiving controlled substance in ED? No Results/Orders Laboratory Tests 04/26/172044: Lactic Acid 1.6 04/26/172044: Sodium 141, Potassium 3.2 L, Chloride 102, Carbon Dioxide 32, BUN 26 H, Creatinine 1.4 H, Estimated Creat Clear 63, Estimated GFR (MDRD) 39 L, Glucose 92, Calcium 8.8, Total Bilirubin 0.4, AST 41 H, ALT 87 H, Alkaline Phosphatase 122 H, Creatine Kinase 44, CK-MB (CK-2) Rel Index 1.1, CK and CKMB Interp < 0.5 , Troponin I < 0.02, B-Natriuretic Peptide 24, Total Protein 7.6, Albumin 3.3 L , Globulin 4.3 H, Albumin/Globulin Ratio 0.8 L, WBC 18.1 H, RBC 5.52 H, Hgb 15.3, Hct 47.7 H, MCV 86.3, RDW 13.6, Plt Count 267, MPV 7.3 L, Gran % 61.4, Gran # 11.2 H, Total Counted 100, Lymphocytes % 30.8, Monocytes % 5.3, Eosinophils % 1.7, Basophils % 0.8, Neutrophils 69, Band Neutrophils 5, Lymphocytes (Manual) 24, Lymphocytes # 5.6 H, Monocytes (Manual) 1 L, Monocytes # 1.0, Eosinophils # 0.3, Eosinophils # (Manual) 1, Basophils # 0.1, Toxic Granulation SL., Platelet Estimate NORMAL, Rouleaux SL., PUBS MCHC 32.2, MCH 27.7 Current Medication Orders Sig/Lizeth Start time Last Medication Dose Route Stop Time Status Admin Albuterol 2.5 MG ONCE ONE 04/26 2200 DCr INH 04/26 2201 Furosemide 40 MG ONCE ONE 04/26 2200 DC IV 04/26 2201 Methylprednisolone 125 MG ONCE ONE 04/26 2200 DC Sodium Succinate IV 04/26 2201 Albuterol/Ipratropium 0 .STK-MED ONE 04/26 2156 DCr INH Sodium Chloride 10 ML PRN PRN 04/26 2030 AC IV 04/27 2020 Orders Procedure Date/time Status Decision to admit 04/26 2218 Active RT REQUEST ALBUTEROL NEB 04/26 2147 Active CULTURE, SPUTUM 04/26 2147 Active DIFFERENTIAL-WBC 04/26 2045 Complete ELECTROCARDIOGRAM REQUEST 04/26 2021 Active CHEST-PORTABLE 04/26 2021 Active IV SALINE LOCK 04/26 2021 Active CULTURE, BLOOD 04/26 2021 Active LACTIC ACID 04/26 2021 Complete COMPLETE METABOLIC PANEL 04/26 2021 Complete CBC WITH AUTO DIFF 04/26 2021 Complete CARDIAC ENZYMES 04/26 2021 Complete BRAIN NATRIURETIC PEPTIDE 04/26 2021 Complete 12 LEAD EKG-CHAD (INITIAL) 04/26 UNK Active 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 of ischemic chgs XRAY/CT/US XRAY/CT/US XRAY chest XR interpretation by reviewed by me Xray Results abnormal (chronic changes) Departure Departure Time of Disposition 2214 Disposition Still a Patient Clinical Impression Primary Impression: Bronchitis Secondary Impressions: COPD (chronic obstructive pulmonary disease) with acute bronchitis, Renal insufficiency Condition STABLE Referrals Arin GOODE,Alberto Stone (Family) ED Critical Care Critical Care No at [id number]
[2017-04-26 21:13] LABS: HEMOGLOBIN 15.3 g/dL (12.2-16.2); LYMPH # 5.6 K/mm3 (0.7-4.5); LYMPH % 30.8 % (10-50.0)
[2017-04-26 21:37] LABS: BUN 26 mg/dL (7-18)
[2017-04-26 21:38] LABS: GFR (ESTIMATED) 39 ML/MIN (59-)
[2017-04-26 21:56] LABS: NEUTROPHILS 69 % (42-76)
[2017-04-26 23:31] VITALS: BP 95/54
[2017-04-27 00:27] VITALS: BP 103/59
[2017-04-27] MEDS ORDERED: TOPIRAMATE 100100 M1 PO (00:30)
[2017-04-27] MEDS ORDERED: TOPIRAMATE 25MG25 MG PO (00:31)
[2017-04-27] MEDS ORDERED: DILTIAZEM 180180 MG PO (00:31)
[2017-04-27] MEDS ORDERED: SERTRALINE 100100 MG PO (00:34)
[2017-04-27] MEDS ORDERED: LOSARTAN POTASS50 MG PO (00:34)
[2017-04-27] MEDS ORDERED: VITAMIN D1000 IU PO (00:35)
[2017-04-27] MEDS ORDERED: NORCO1 TAB PO (00:38)
[2017-04-27] MEDS ORDERED: SPIRIVA HA1 PUFF/INH IH (00:39)
[2017-04-27] MEDS ORDERED: BREO ELLIPTA 21 EACH IH (00:40)
[2017-04-27] MEDS ORDERED: RANITIDINE HCL150 MG PO (00:40)
[2017-04-27 04:25] LABS: LYMPH # 1.2 K/mm3 (0.7-4.5); LYMPH % 9.8 % (10-50.0)
[2017-04-27 04:35] LABS: HEMOGLOBIN 13.2 g/dL (12.2-16.2)
[2017-04-27 04:40] VITALS: BP 104/65
[2017-04-27 04:49] LABS: BUN 28 mg/dL (7-18)
[2017-04-27 05:12] LABS: GFR (ESTIMATED) 27 ML/MIN (59-)
--- NOTE | 2017-04-27 07:58 | RADIOLOGY REPORT PS360 ---
CHEST-PORTABLE HISTORY: Shortness of breath and chest pain sob ORDERING PHYSICIAN: Alberto Hinkle MD PATIENT AGE: 56 years COMPARISON: 12/07/2016 FINDINGS: Loop recorder device is present overlying the left heart . No evidence of cardiomegaly or CHF. Chronic interstitial changes are once again noted. No lobar consolidation or collapse with no significant change compared to the previous exam. No acute bony anomalies. Calcific tendinitis involves the right shoulder. IMPRESSION: Chronic interstitial changes. Calcific tendinitis right shoulder
[2017-04-27 08:00] VITALS: BP 128/62
--- NOTE | 2017-04-27 08:04 | HISTORY AND PHYSICAL REPORT ---
Demographics: Admit date: 04/26/17 Chief complaint: sob PRIMARY DIAGNOSIS: ACUTE BRONCHITIS Allergies: Coded Allergies: Sulfa (Sulfonamide Antibiotics) (Mild, 12/07/16) celecoxib (From CELEBREX) (Mild, 12/07/16) tramadol (Mild, 12/07/16) Penicillins (I-RASH 07/10/16) aspirin (I-RASH 07/10/16) bupropion (07/10/16) citalopram (SKIN PEEL 07/10/16) codeine (07/25/16) duloxetine (07/10/16) erythromycin base (I-RASH 07/10/16) naproxen (07/10/16) pregabalin (07/10/16) terbutaline (SWELLS THROAT 07/10/16) History of present illness: History of present illness: this wf who presented to the ed with progressive sob over the last week despite op treatment with abx - pt reports prod cough with no hemoptysis and pt with edema to lower ext which has increased - no chest pain - pt was seen in the ed and had progressive sx despite treatment and was admitted for ivf/abx and steroids with resp rx Past medical history: Family HX Family Hx Insignificant Yes Immunization HX DT/Tetanus Unknown Flu Refused Pneumonia Received In Past TB Test in last year No General CAD? No Angina: Yes [place]: No Hypertension? Yes Hyperlipidemia? No CHF? No DVT? No PE? No COPD? Yes Asthma? Yes Anemia? No GERD? Yes Gastric ulcers? Yes GI Bleed? No Hernia? Yes Thyroid Problems? No Hypothyroidism? No CVA? Yes Seizures? No Diabetes? Yes Insulin Dependent: Yes Insulin Pump: No Home FSBS? Yes Renal Insuffiency? No UTI? Yes Stones? Yes BPH? No GB Disease: Yes Nephritic Syndrome? No Asplenia? No Hepatitis? No Sickle Cell Disease? No Arthritis? Yes Migraines? Yes Cataracts? No Glaucoma? No MRSA? Yes HIV? No TB? No Anxiety? Yes Depression? Yes Cancer? Yes Site: CERVICAL CA More? No Past Surgical HX Previous Surgery?Y TUBAL LIGATION BOAZ GallbladdER APPENDECTOMY TONSILLECTOMY CYST REMOVAL RT.WRIST X2 TEETH REMOVAL HEART CATH Current home meds: Reported Medications SERTRALINE HYDROCHLORIDE (Zoloft 100MG) 150 MG PO DAILY Buspirone Hcl (Buspirone 10MG) 15 MG PO TID Topiramate (Topiramate 100MG Tablet) 100 MG PO QHS Topiramate (Topiramate 25MG Tablet) 25 MG PO QAM DILTIAZEM HCL (Tiazac) 180 MG PO DAILY Losartan Potassium (Losartan 50MG) 50 MG PO DAILY Sertraline Hydrochloride (Sertraline 100MG) 150 MG PO DAILY CHOLECALCIFEROL (VITAMIN D3) (Vitamin D3) 1,000 IUNITS PO DAILY HYDROCODONE/ACETAMINOPHEN ([place] 7.5-325 Tablet) 1 TAB PO TID Tiotropium [place] (Spiriva) 2 PUFF IH DAILY Fluticasone/Vilanterol (Breo Ellipta 200-25 Mcg INH) 1 EACH IH DAILY Ranitidine Hcl (Ranitidine 150MG) 150 MG PO BID Famotidine (Pepcid 20MG Tablet) 20 MG PO BID Furosemide (Lasix 80MG) 80 MG PO BID Pantoprazole Sodium 40 MG PO DAILY #90 Albuterol Sulfate (Proair Hfa) 1 PUFF IH Q6HP PRN COPD #8 Quetiapine Fumarate (Seroquel Xr) 200 MG PO DAILY INSULIN NPH HUM/REG INSULIN HM (Humulin 70/30 Kwikpen) 3 ML SC BID #30 Social Hx: Smoking HX Tobacco Yes Type Cigarettes Packs/day 1 1/2 - 2 PACKS Alcohol Alcohol: No Hx of Drug Use Drug Use? No Patien't marital status is Patient's support system is good Review of systems: Constitutional see HPI, weakness. No: fever. Eyes No: drainage. Ears, Nose, Mouth, Throat No ear discharge, No epistaxis, No throat pain Respiratory see HPI, cough, shortness of breath, wheezing. Cardiovascular No chest pain, No palpitations, No syncope Gastrointestinal/Abdominal No nausea, poor appetite, poor fluid intake, No vomiting Genitourinary No: dysuria, frequency, hesitancy, hematuria. Musculoskeletal No: back pain, joint pain, joint swelling, neck pain. Skin No: rash. Neurological No: headache, seizure disorder. Psychiatric No: depressed. Exam: Lab data for last 24 hours: Laboratory Tests 04/27/17 0605: Glucose 1041 *H 04/27/17 0415: Sodium 134 L, Potassium 4.2, Chloride 97 L, Carbon Dioxide 28, BUN 28 H, Creatinine 1.9 H, Estimated Creat Clear 51, Estimated GFR (MDRD) 27 L, Glucose 691 *H, Calcium 8.1 L, Creatine Kinase 35, CK-MB (CK-2) Rel Index 1.4, CK and CKMB Interp < 0.5, Troponin I < 0.02, WBC 12.4 H, RBC 4.67, Hgb 13.2, Hct 42.7, MCV 91.5, RDW 13.5, Plt Count 198, MPV 7.8, Gran % 87.0 H, Gran # 10.8 H, Lymphocytes % 9.8 L, Monocytes % 2.2, Eosinophils % 0.3, Basophils % 0.8, Lymphocytes # 1.2, Monocytes # 0.3, Eosinophils # 0.0, Basophils # 0.1, PUBS MCHC 30.9 L, MCH 28.3 04/27/17 0100: Creatine Kinase 41, CK-MB (CK-2) Rel Index 1.2, CK and CKMB Interp < 0.5, Troponin I < 0.02 04/26/172044: Lactic Acid 1.6 04/26/172044: Sodium 141, Potassium 3.2 L, Chloride 102, Carbon Dioxide 32, BUN 26 H, Creatinine 1.4 H, Estimated Creat Clear 63, Estimated GFR (MDRD) 39 L, Glucose 92, Calcium 8.8, Total Bilirubin 0.4, AST 41 H, ALT 87 H, Alkaline Phosphatase 122 H, Creatine Kinase 44, CK-MB (CK-2) Rel Index 1.1, CK and CKMB Interp < 0.5 , Troponin I < 0.02, B-Natriuretic Peptide 24, Total Protein 7.6, Albumin 3.3 L , Globulin 4.3 H, Albumin/Globulin Ratio 0.8 L, WBC 18.1 H, RBC 5.52 H, Hgb 15.3, Hct 47.7 H, MCV 86.3, RDW 13.6, Plt Count 267, MPV 7.3 L, Gran % 61.4, Gran # 11.2 H, Total Counted 100, Lymphocytes % 30.8, Monocytes % 5.3, Eosinophils % 1.7, Basophils % 0.8, Neutrophils 69, Band Neutrophils 5, Lymphocytes (Manual) 24, Lymphocytes # 5.6 H, Monocytes (Manual) 1 L, Monocytes # 1.0, Eosinophils # 0.3, Eosinophils # (Manual) 1, Basophils # 0.1, Toxic Granulation SL., Platelet Estimate NORMAL, Rouleaux SL., PUBS MCHC 32.2, MCH 27.7 Microbiology 04/26 2130 BLOOD: Anaerobic Blood Culture - RECD 04/26 2130 BLOOD: Aerobic Blood Culture - RECD 04/26 2130 BLOOD: Anaerobic Blood Culture - RECD 04/26 2130 BLOOD: Aerobic Blood Culture - RECD Admission vital signs: 1ST Vital Signs Result Date Time Pulse Ox 95 04/26 2014 B/P 111/63 04/26 2014 Temp 98.8 04/26 2014 Pulse 87 04/26 2014 Resp 14 04/26 2014 O2 Delivery ROOM AIR 04/27 0008 O2 Flow Rate 2 04/27 0618 Exam General appearance: alert Eyes: anicteric, PERRLA ENT: dry mucous membranes Neck: no JVD Cardiovascular: regular rate & rhythm, murmur Respiratory: diminished breath sounds, rhonchi, wheezing ABD: soft Genitourinary: no hematuria Extremities: full range of motion Musculoskeletal: equal muscle strength Skin: dry Neuro: alert, salt maker II-XII nml as tested Additional information: pt with elevated glu sec to steroids Plan: Problem List 1. Acute exacerbation of chronic obstructive airways disease Status Acute 2. Renal insufficiency 3. Acute bronchitis 4. Diabetes Plan: will continue abx and check labs at 0804
--- NOTE | 2017-04-27 09:12 | PHARMACY CLINIC NOTE ---
Patient Demographics Patient Demographics Admission date: 04/26/17 Date: 04/27/17 Time: 0912 Allergies Coded Allergies: Sulfa (Sulfonamide Antibiotics) (Mild, 12/07/16) celecoxib (From CELEBREX) (Mild, 12/07/16) tramadol (Mild, 12/07/16) Penicillins (I-RASH 07/10/16) aspirin (I-RASH 07/10/16) bupropion (07/10/16) citalopram (SKIN PEEL 07/10/16) codeine (07/25/16) duloxetine (07/10/16) erythromycin base (I-RASH 07/10/16) naproxen (07/10/16) pregabalin (07/10/16) terbutaline (SWELLS THROAT 07/10/16) HEIGHT- FT: 5 IN: 5.00 K.[id number] VTE General Information Labs: Laboratory Tests 04/27 04/26 0415 2045 Hematology Hgb (12.2 - 16.2 g/dL) 13.2 15.3 Hct (37.0 - 47.0 %) 42.7 47.7 H Plt Count (142 - 424 K/mm3) 198 267 Disclaimer The following section includes nursing documentation that has been pulled in for pharmacy review. Patient's VTE score: 5 Patient's VTE Risk: LOW RISK Clinical trial participant? No VTE prophylaxis [id number] VTE prophylaxis ordered? Yes Type of prophylaxis/treatment: NICOLE at 0912
[2017-04-27 16:00] VITALS: BP 100/70
[2017-04-27 19:45] VITALS: BP 138/68
[2017-04-27 20:40] VITALS: BP 138/68
[2017-04-28 04:51] VITALS: BP 116/52
[2017-04-28 07:47] VITALS: BP 128/73
[2017-04-28 09:45] VITALS: BP 128/73
--- NOTE | 2017-04-28 12:22 | ACUTE CARE PROGRESS NOTE (QUA) ---
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 Acute exacerbation of chronic obstructive airways disease Status: Acute 2. Renal insufficiency 3. Acute bronchitis 4. Diabetes Patient condition Improving Plan: initiate discharge plan This inpt stay is expected to cross 2 MNs from start of care Yes Comments: will plan on d/c today as pt looks better still with wheezing but no o2 and less edema - glu up sec to steroids will d/c dose and see in office tomorrow pm Antibiotic Stewardship (2) Current Culture Results Microbiology 04/26 2130 BLOOD: Anaerobic Blood Culture - RECD 04/26 2130 BLOOD: Aerobic Blood Culture - RECD 04/26 UNK SPUTUM: Sputum Culture - ORD 04/26 UNK SPUTUM: Gram Stain - ORD Infxn that will respond? Yes Right drug,dose,and route? Yes More targeted antbx? No How long atbx needed? 7 at 1222
[2017-04-28] MEDS ORDERED: LEVAQUIN500 MG PO (12:30)
[2017-04-28] MEDS ORDERED: PREDNISONE 10MG10 MG PO (12:31)
--- NOTE | 2017-04-28 12:34 | DISCHARGE SUMMARY STANDARD ---
Demographics Admit date: 04/26/17 Discharge date: 04/28/17 History of present illness History of present illness this wf who presented to the ed with progressive sob over the last week despite op treatment with abx - pt reports prod cough with no hemoptysis and pt with edema to lower ext which has increased - no chest pain - pt was seen in the ed and had progressive sx despite treatment and was admitted for ivf/abx and steroids with resp rx Hospital Course Hospital Course: pt did better with ivf and abx with pul toilet and steroids - the iv steroids increased her glucose but pt remained stable and will be d/c today with close follow up Discharge diagnoses Problem List 1. Acute exacerbation of chronic obstructive airways disease Status Acute 2. Renal insufficiency 3. Acute bronchitis 4. Diabetes Medications Medications: Discharge meds are as noted. Follow up Follow up in office in: 1 DAY with: Alberto Hinkle MD Comment: will see tomorrow for close follow up at 0344
[2017-04-28 13:45] LABS: CORONAVIRUS 229E NOT DETECTED (NOT DETECTE); CORONAVIRUS HKU 1 NOT DETECTED (NOT DETECTE); CORONAVIRUS NL63 NOT DETECTED (NOT DETECTE); CORONAVIRUS OC43 NOT DETECTED (NOT DETECTE); RHINOVIRUS/ENTEROVIRUS NOT DETECTED (NOT DETECTE)
[2017-04-28 14:00] VITALS: BP 128/73
== END 2017-04-28 15:35 | disposition home or self-care (01) | DRG 192 ==
LOC: ER 20:10 → 2ND 22:32 → ER 22:32 → 2ND 22:52
PROVIDERS: Emergency Medicine
DX: J44.1 Chronic obstructive pulmonary disease with (acute) exacerbation (principal); I10 Essential (primary) hypertension; J20.9 Acute bronchitis, unspecified; J44.0 Chronic obstructive pulmonary disease with (acute) lower respiratory infection; Z72.0 Tobacco use; E11.9 Type 2 diabetes mellitus without complications; Z79.4 Long term (current) use of insulin
CPT/HCPCS: G0378

== ENCOUNTER → 2017-05-21 | Outpatient (CLI) | payer MEDICARE, MEDICAID ==
[~2017-05-21] MED LIST changes: +BREO ELLIPTA 21 EACH IH; +DILTIAZEM 180180 MG PO; +LOSARTAN POTASS50 MG PO; +RANITIDINE HCL150 MG PO; +SERTRALINE 100100 MG PO; +SPIRIVA HA1 PUFF/INH IH; +TOPIRAMATE 100100 M1 PO; +TOPIRAMATE 25MG25 MG PO; +VITAMIN D1000 IU PO
[2017-05-21 17:08] LABS: AMPHETAMINES/METAMPHETAMINES NEGATIVE ng/mL (<1000)
== END ==
LOC: LAB 16:06
PROVIDERS: Emergency Medicine
DX: Z79.899 Other long term (current) drug therapy (principal)

== ENCOUNTER → 2017-07-08 | Outpatient (CLI) | payer MEDICARE, MEDICAID ==
--- NOTE | 2017-07-08 22:01 | RADIOLOGY REPORT PS360 ---
PROCEDURE: 2-D M-mode and color Doppler study INDICATIONS FOR THE TEST: Chest pain COPDX Heart Murmur Tobacco SmokingX Palpitations Fatigue Syncope Edema HypertensionXDiabetes MellitusX Rheumatic Fever SOBXDOE ObesityXHyperlipidemia Family History HD Additional History PATIENT INFORMATION HEIGHT: 64 WEIGHT:210 GENDER: Female B/P:120/70 2-D/M-MODE INTERPRETATION: 2-D MEASUREMENTS OBSERVED VALUES IN CMS Right Ventricular Dimension (RVDd) 1.6 Interventricular Septum (Thickness)(IVsd) 1.0 Left Ventricular Internal Dimensions(LVIDd) 5.4 Left Ventricular Posterior Wall (Thickness)(LVPWd) .9 Aortic Root 3.7 Aortic Cusp Separation 2.1 Left Atrial Dimensions (LAD) 3.3 2D 1. Left atrium is qualitatively mildly enlarged, left ventricle is normal size, there is mild concentric left ventricular hypertrophy, visually estimated ejection fraction 55% with no obvious regional wall motion abnormality. 2. The right atrium and right ventricle are normal size and contractility. 3. The aortic valve is minimally thickened and fibrosed. 4. The mitral and tricuspid valve leaflets are minimally thickened. 5. The pulmonic valve is poorly visualized. 6. Significant pericardial effusion noted. DOPPLER INTERROGATION: Doppler interrogation of the aortic, mitral and tricuspid valvular presence of mild mitral and tricuspid regurgitation, tricuspid and jet velocity insufficient for calculation of the right ventricular systolic pressure, grade 1 diastolic dysfunction seen with tissue Doppler evidence of raised left atrial pressure. CONCLUSION: 1. Mildly enlarged left atrium, normal left ventricular size, mild concentric left ventricular hypertrophy, visually estimated ejection fraction 55% with no obvious regional wall motion abnormality, grade 1 diastolic dysfunction seen with tissue Doppler evidence of raised left atrial pressure. 2. Mild mitral and tricuspid regurgitation. 3. No significant pericardial effusion noted.
== END ==
LOC: RT 07-02 14:30
DX: R06.02 Shortness of breath (principal); J44.9 Chronic obstructive pulmonary disease, unspecified; I27.0 Primary pulmonary hypertension; Z01.818 Encounter for other preprocedural examination

== ENCOUNTER → 2017-07-18 | Outpatient (CLI) | payer MEDICARE, MEDICAID ==
[2017-07-18 18:45] LABS: AMPHETAMINES/METAMPHETAMINES NEGATIVE ng/mL (<1000)
[2017-07-29 09:37] LABS: Opiates Negative (Cutoff=100)
== END ==
LOC: LAB 17:55
PROVIDERS: Emergency Medicine
DX: Z79.899 Other long term (current) drug therapy (principal)

== ENCOUNTER → 2017-08-04 | Outpatient (CLI) | payer MEDICARE, MEDICAID ==
[2017-08-04 14:27] LABS: AMPHETAMINES/METAMPHETAMINES NEGATIVE ng/mL (<1000)
[2017-08-14 20:36] LABS: Opiates Negative (Cutoff=100)
== END ==
LOC: LAB 13:38
PROVIDERS: Emergency Medicine
DX: Z79.899 Other long term (current) drug therapy (principal)